=== PATIENT | male | born 1935 | race Caucasian/White ===

== ENCOUNTER 2016-10-15 07:43 | Day surgery (SDC) | payer MEDICARE, BC ==
[2016-10-12 16:50] VITALS: BMI 19.5
[~2016-10-15 07:43] MED LIST: HYDROmorphone 1 MG/ML 1 ML SYRINGE IVP PRN; LACTATED RINGERS 1,000 ML IV SCH; MIDAZOLAM 2 MG/2 ML VIAL IV PRN; ONDANSETRON 4 MG/2 ML VIAL IVP ONE; ceFAZolin 2 GM in SODIUM CHLORIDE 0.9% 100 ML IVPB ONE
[2016-10-15] MEDS ORDERED: LIDOCAINE 1% 20 ML VIAL (10MG/ML) FOR IV START INTRADERMA ONE (08:31)
[2016-10-15] MEDS ORDERED: PHENYLEPHRINE-0.9% NACL SYG 1 MG/10 ML SYRINGE ONE (08:47)
[2016-10-15] MEDS ORDERED: LIDOCAINE 1% INJ 10MG/ML (20 ML MDV) ONE (08:47)
[2016-10-15] MEDS ORDERED: SUCCINYLCHOLINE CHLORIDE 100 MG/5 ML SYR IV ONE (08:47)
[2016-10-15] MEDS ORDERED: ePHEDrine 50 MG/ML 1 ML AMP ONE (08:47)
[2016-10-15] MEDS ORDERED: PROPOFOL 10 MG/ML 20 ML VIAL IV ONE (08:47)
[2016-10-15] MEDS ORDERED: LACTATED RINGERS 1,000 ML IV ONE (10:21)
[2016-10-15 10:33] VITALS: TEMP 97.8
[2016-10-15 10:45] VITALS: RESP 16
--- NOTE | 2016-10-15 10:57 | P.OP ---
Date of Procedure: 10/15/16 Preoperative Diagnosis: Bladder Calculi Postoperative Diagnosis: Same Procedure(s) Performed: Cystoscopy with Cystolithotripsy Anesthesia: JOSR Surgeon: Pedro Whitman Estimated Blood Loss (ml): 5 IV fluids (ml): 850 Pathology: none sent Condition: stable Disposition: PACU Indications for Procedure: He is an 81-year-old male who underwent removal of a bladder calculus in September 2010, followed by laser vaporization of the prostate in March 2011. He has been treated for a presistent MRSA UTI. His symptoms improved but recurred when the antibiotics were completed. A CT scan of the abdomen and pelvis showed multiple bladder calculi, confirmed by cystoscopy. He now comes for cystolithotripsy. Operative Findings: 1) Several intra-prostatic calculi. 2) Multiple bladder calculi. Description of Procedure: The patient was taken to the operating room and placed in the dorsal lithotomy position, with legs supported in Dima stirrups. The external genitalia was prepped and draped sterilely. The 30 lens was used to introduce the 19-Russian Stortz cystoscopic sheath through the urethra and into the bladder under direct vision. The urethra appeared normal. The prostate showed evidence of prior resection. Several calculi were embedded within the prostate. The bladder was examined in its entirety. The ureteral orifices appeared normal. Multiple diverticuli were noted. Several calculi were seen. No tumors were seen. Using the 550 micron Holmium laser probe, lithotripsy was performed. Initially , all of the antrum prostatic calculi were fragmented and removed from the prostatic urethra. It should be noted that the caliber of the vesical neck was approximately 20-Russian. Lithotripsy was then performed on the bladder calculi , and was continued until all calculus fragments could be removed using the Locai evacuator. Once this was completed, the bladder was inspected. There was no active bleeding, and no evidence of bladder perforation. An 18-Russian Marie catheter was placed. The return was clear. The patient tolerated the procedure well was taken to the recovery room in stable condition.
[2016-10-15 11:10] LABS: Anisocytosis Slight; CH 37.2; CHCM 30.6; HCT 34.8 % (39.0-53.0); HDW 2.81; HGB 10.5 gm/dL (13.0-17.5); Hypochromasia Moderate; MCHC 30.2 g/dL (31.0-37.0); MCV 122.2 fL (80.0-100.0); Macrocytosis Marked; Mean Platelet Volume 12.2; RBC 2.85 m/uL (4.30-5.90); RDW 17.8 % (11.5-15.5); WBC 11.6 k/uL (3.8-10.6)
[2016-10-15 12:31] VITALS: BP 176/79; PULSE 48
== END 2016-10-15 12:45 | disposition home or self-care (01) ==
LOC: OR 07:43
PROVIDERS: ATTEND Urology
DX: N21.0 Calculus in bladder (principal); N42.0 Calculus of prostate; I10 Essential (primary) hypertension; I48.91 Unspecified atrial fibrillation; I25.2 Old myocardial infarction; Z87.891 Personal history of nicotine dependence; E78.5 Hyperlipidemia, unspecified; K21.9 Gastro-esophageal reflux disease without esophagitis; N40.0 Benign prostatic hyperplasia without lower urinary tract symptoms; Z79.82 Long term (current) use of aspirin; Z79.899 Other long term (current) drug therapy; Z88.1 Allergy status to other antibiotic agents; Z88.8 Allergy status to other drugs, medicaments and biological substances
CPT/HCPCS: 85027; 52317; J0690; J2405; J2001; J2370; J0330; J2704; 82365

== ENCOUNTER 2017-03-23 12:57 | Inpatient (IN) | payer MEDICARE, BC ==
[2017-03-23] MEDS ORDERED: IBUPROFEN 600 MG TAB PO STA (12:59)
[2017-03-23] MEDS ORDERED: ACETAMINOPHEN TAB 500 MG TAB PO STA (12:59)
[2017-03-23] MEDS ORDERED: IPRATROPIUM-ALBUTEROL 3 ML NEB INHALATION STA (13:03)
--- NOTE | 2017-03-23 13:03 | ED ---
General Adult HPI - General Stated complaint: weakness Time Seen by Provider: 03/23/17 12:57 Source: RN notes reviewed - History of Present Illness Initial comments: This is an 81-year-old male who presents emergency Department complaining of feeling weaker since yesterday. According to the patient he had a white count drawn yesterday and was very elevated and her trying to figure out why this point. Patient states he became very weak today felt the ground hit his head he states he was dazed but never lost consciousness. Patient states the reason he fell he was just unable to keep himself standing secondary to weakness in the legs. Patient denies fever chills. Patient denies any chest pain difficulty breathing or shortness of breath. Patient states he does have cough lately. Patient also complains of some dysuria. Patient denies any frequency or urgency. Patient denies any abdominal pain patient denies nausea vomiting diarrhea. Patient states she does have some lumbar pain chronically but after he fell and hurt a little more today. - Related Data Home Medications Medication Instructions Recorded Confirmed Citalopram Hydrobromide [CeleXA] 20 mg PO DAILY 01/21/15 03/23/17 Loratadine [Claritin] 10 mg PO DAILY PRN 01/21/15 03/23/17 Metoprolol Tartrate 12.5 mg PO BID 01/21/15 03/23/17 Omeprazole [PriLOSEC] 20 mg PO AC-BRKFST PRN 01/21/15 03/23/17 Terazosin [Hytrin] 5 mg PO QA 01/21/15 03/23/17 Aspirin EC [Ecotrin Low Dose] 81 mg PO 02/23/16 03/23/17 Atorvastatin [Lipitor] 80 mg PO HS 02/23/16 03/23/17 Lisinopril [Zestril] 2.5 mg PO DAILY 02/23/16 03/23/17 Temazepam [Restoril] 30 mg PO 02/23/16 03/23/17 Epoetin Jamie [Procrit] 40,000 unit IM TU 05/11/16 03/23/17 Filgrastim [Neupogen] 300 mcg IM TU 05/11/16 03/23/17 Dronabinol [Marinol] 2.5 mg PO 09/20/16 03/23/17 Ondansetron [Zofran] 4 mg PO Q8HR PRN 09/20/16 03/23/17 Hydrocodone/Acetaminophen [[place] 1 tab PO Q6HR PRN 03/23/17 03/23/17 5-325] amLODIPine [Norvasc] 5 mg PO DAILY 03/23/17 03/23/17 Allergies Allergy/AdvReac Type Severity Reaction Status Date / Time ciprofloxacin [From Cipro] Allergy Unknown Verified 03/23/17 13:56 ciprofloxacin HCl Allergy Unknown Verified 03/23/17 13:56 [From Cipro] gatifloxacin [From Tequin] Allergy Unknown Verified 03/23/17 13:56 levofloxacin [From Levaquin] AdvReac joint Verified 03/23/17 13:56 swelling moxifloxacin HCl AdvReac Unknown Verified 03/23/17 13:56 [From Avelox] Review of Systems ROS Statement: Those systems with pertinent positive or pertinent negative responses have been documented in the HPI. ROS Other: All systems not noted in ROS Statement are negative. Past Medical History Past Medical History: Blood Disorder, Cancer, GERD/Reflux, Hearing Disorder / Deafness, Hyperlipidemia, Hypertension, Myocardial Infarction (MO), Prostate Disorder, Rheumatoid Arthritis (RA), Skin Disorder Additional Past Medical History / Comment(s): FREQUENT NAUSEA R/T CHEMO. Arrythmia. Leukemia(MDS) 2001, Skin CA 2009. lt femur fx, lt elbow fx, a[facility]) CHRONIC LOWER BACK PAIN.FELL OUT OF BED LAST NIGHT, BRUISING AND SOME ABRASIONS. Last Myocardial Infarction Date:: unk History of Any Multi-Drug Resistant Organisms: None Reported Past Surgical History: Cardiac Ablation, Heart Catheterization With Stent, Hernia Repair Additional Past Surgical History / Comment(s): Lt thumb amp, umbilical hernia repair, biopsy lt ear/positive for ca recent abd aortic stent for an aneurysm repair on 02/12/16 - had a sm ileus after surg. ORIF intermeduallary hip screw(lt femur), LT ARM., BLADDER STONE SX, BILAT CATARACT SX Past Anesthesia/Blood Transfusion Reactions: Postoperative Nausea & Vomiting ( PONV) Date of Last Stent Placement:: unk Smoking Status: Former smoker - Past Family History Father Family Medical History: Myocardial Infarction (MO) Additional Family Medical History / Comment(s): heart attack Mother Family Medical History: Cancer Additional Family Medical History / Comment(s): throat cancer Sister(s) Family Medical History: Cancer Additional Family Medical History / Comment(s): 2 sisters that have "everything " General Exam - General Exam Comments Initial Comments: GENERAL: Patient is well-developed and well-nourished. Patient is nontoxic and well- hydrated and is in no acute distress. ENT: Neck is soft and supple. No significant lymphadenopathy is noted. Oropharynx is clear. Moist mucous membranes. Neck has full range of motion without eliciting any pain. EYES: The sclera were anicteric and conjunctiva were pink and moist. Extraocular movements were intact and pupils were equal round and reactive to light. Eyelids were unremarkable. PULMONARY: Unlabored respirations. Good breath sounds bilaterally. Patient has crackles and expiratory wheezing in both bases CARDIOVASCULAR: There is a regular rate and rhythm without any murmurs gallops or rubs. ABDOMEN: Soft and nontender with normal bowel sounds. No palpable organomegaly was noted. There is no palpable pulsatile mass. SKIN: Skin is clear with no lesions or rashes and otherwise unremarkable. NEUROLOGIC: Patient is alert and oriented x3. Cranial nerves II through XII are grossly intact. Motor and sensory are also intact. Normal speech, volume and content. Symmetrical smile. MUSCULOSKELETAL: Normal extremities with adequate strength and full range of motion. No lower extremity swelling or edema. No calf tenderness. LYMPHATICS: No significant lymphadenopathy is noted PSYCHIATRIC: Normal psychiatric evaluation. Normal interpersonal interactions appears functionally intact in deals appropriately with others. No signs of depression. No signs of anxiety. No delusions. No hallucinations. Course Vital Signs 03/23/17 03/23/17 03/23/17 12:59 13:10 13:18 Temperature 100.7 F H Pulse Rate 95 82 80 Respiratory 22 Rate Blood Pressure 138/62 O2 Sat by Pulse 90 L Oximetry 03/23/17 15:00 Temperature Pulse Rate 73 Respiratory 20 Rate Blood Pressure 118/56 O2 Sat by Pulse 98 Oximetry Medical Decision Making - Medical Decision Making EKG shows a sinus rhythm with occasional PAC at a rate of 82 bpm SD interval is 196 QRS is 96 Q-T intervals 400 QTC is 467. H&H EKG shows some T-wave inversions in V5 and V6. Chest x-ray shows a posterior infiltrate. Patient was started on Rocephin immediately upon arrival. I spoke with Dr. Zamora he agreed to admit the patient admitted the patient I wrote admitting orders. I consult Dr. Mckenna as well and I consult oncology. - Lab Data Result diagrams: 03/23/17 14:46 03/23/17 14:46 Lab Results 03/23/17 03/23/17 03/23/17 Range/Units 13:05 13:05 13:05 WBC (3.8-10.6) k/uL RBC (4.30-5.90) m/uL Hgb (13.0-17.5) gm/dL Hct (39.0-53.0) % MCV (80.0-100.0) fL MCH (25.0-35.0) pg MCHC (31.0-37.0) g/dL RDW (11.5-15.5) % Plt Count (150-450) k/uL Neutrophils % (Manual) % Band Neutrophils % % Lymphocytes % (Manual) % Monocytes % (Manual) % Metamyelocytes % % Myelocytes % % Blast Cells % Neutrophils # (Manual) (1.3-7.7) k/uL Lymphocytes # (Manual) (1.0-4.8) k/uL Monocytes # (Manual) (0-1.0) k/uL Nucleated RBCs (0-0) /100 WBC Manual Slide Review Hypochromasia Anisocytosis Macrocytosis Spherocytes Fragmented RBCs PT (9.0-12.0) sec INR (<1.1) APTT (22.0-30.0) sec Sodium 143 (137-145) mmol/L Potassium 2.1 L* (3.5-5.1) mmol/L Chloride 124 H* (98-107) mmol/L Carbon Dioxide 11 L (22-30) mmol/L Anion Gap 8 mmol/L BUN 27 H (9-20) mg/dL Creatinine 2.02 H (0.66-1.25) mg/dL Est GFR (MDRD) Af Amer 39 (>60 ml/min/1.73 sqM) Est GFR (MDRD) Non-Af 32 (>60 ml/min/1.73 sqM) Glucose 38 L* (74-99) mg/dL POC Glucose (mg/dL) (75-99) mg/dL POC Glu Hydraulic Operator ID Plasma Lactic Acid Van 1.0 (0.7-2.0) mmol/L Calcium 3.8 L* (8.4-10.2) mg/dL Total Bilirubin 0.5 (0.2-1.3) mg/dL AST 14 L (17-59) U/L ALT 16 L (21-72) U/L Alkaline Phosphatase 23 L (38-126) U/L Total Creatine Kinase 108 (55-170) U/L CK-MB (CK-2) 0.6 (0.0-2.4) ng/mL CK-MB (CK-2) Rel Index 0.6 Troponin I 0.028 (0.000-0.034) ng/mL Total Protein 2.9 L (6.3-8.2) g/dL Albumin 1.3 L (3.5-5.0) g/dL Urine Color Urine Appearance (Clear) Urine pH (5.0-8.0) Ur Specific [place] (1.001-1.035) Urine Protein (Negative) Urine Glucose (UA) (Negative) Urine Ketones (Negative) Urine Blood (Negative) Urine Nitrite (Negative) Urine Bilirubin (Negative) Urine Urobilinogen (<2.0) mg/dL Ur Leukocyte Esterase (Negative) Urine WBC (0-5) /hpf Ur Squamous Epith Cells (0-4) /hpf Amorphous Sediment (None) /hpf Urine Bacteria (None) /hpf Hyaline Casts (0-2) /lpf 03/23/17 03/23/17 03/23/17 Range/Units 14:32 14:46 14:46 WBC 90.5 H* (3.8-10.6) k/uL RBC 2.25 L (4.30-5.90) m/uL Hgb 8.6 L D (13.0-17.5) gm/dL Hct 26.0 L (39.0-53.0) % MCV 115.7 H (80.0-100.0) fL MCH 38.4 H (25.0-35.0) pg MCHC 33.2 (31.0-37.0) g/dL RDW 17.6 H (11.5-15.5) % Plt Count 37 L* (150-450) k/uL Neutrophils % (Manual) 9.0 % Band Neutrophils % 10.5 % Lymphocytes % (Manual) 1.5 % Monocytes % (Manual) 16.0 % Metamyelocytes % 3.0 % Myelocytes % 0.5 % Blast Cells % 59.5 Neutrophils # (Manual) 17.6 H (1.3-7.7) k/uL Lymphocytes # (Manual) 1.4 (1.0-4.8) k/uL Monocytes # (Manual) 14.5 H (0-1.0) k/uL Nucleated RBCs 0 (0-0) /100 WBC Manual Slide Review Performed Hypochromasia Moderate Anisocytosis Slight Macrocytosis Marked Spherocytes Present Fragmented RBCs Present PT (9.0-12.0) sec INR (<1.1) APTT (22.0-30.0) sec Sodium (137-145) mmol/L Potassium (3.5-5.1) mmol/L Chloride (98-107) mmol/L Carbon Dioxide (22-30) mmol/L Anion Gap mmol/L BUN (9-20) mg/dL Creatinine (0.66-1.25) mg/dL Est GFR (MDRD) Af Amer (>60 ml/min/1.73 sqM) Est GFR (MDRD) Non-Af (>60 ml/min/1.73 sqM) Glucose (74-99) mg/dL POC Glucose (mg/dL) 77 (75-99) mg/dL POC Glu Hydraulic Operator ID Dana Jordan Plasma Lactic Acid Van 1.8 (0.7-2.0) mmol/L Calcium (8.4-10.2) mg/dL Total Bilirubin (0.2-1.3) mg/dL AST (17-59) U/L ALT (21-72) U/L Alkaline Phosphatase (38-126) U/L Total Creatine Kinase (55-170) U/L CK-MB (CK-2) (0.0-2.4) ng/mL CK-MB (CK-2) Rel Index Troponin I (0.000-0.034) ng/mL Total Protein (6.3-8.2) g/dL Albumin (3.5-5.0) g/dL Urine Color Urine Appearance (Clear) Urine pH (5.0-8.0) Ur Specific [place] (1.001-1.035) Urine Protein (Negative) Urine Glucose (UA) (Negative) Urine Ketones (Negative) Urine Blood (Negative) Urine Nitrite (Negative) Urine Bilirubin (Negative) Urine Urobilinogen (<2.0) mg/dL Ur Leukocyte Esterase (Negative) Urine WBC (0-5) /hpf Ur Squamous Epith Cells (0-4) /hpf Amorphous Sediment (None) /hpf Urine Bacteria (None) /hpf Hyaline Casts (0-2) /lpf 03/23/17 03/23/17 03/23/17 Range/Units 14:46 14:46 14:46 WBC (3.8-10.6) k/uL RBC (4.30-5.90) m/uL Hgb (13.0-17.5) gm/dL Hct (39.0-53.0) % MCV (80.0-100.0) fL MCH (25.0-35.0) pg MCHC (31.0-37.0) g/dL RDW (11.5-15.5) % Plt Count (150-450) k/uL Neutrophils % (Manual) % Band Neutrophils % % Lymphocytes % (Manual) % Monocytes % (Manual) % Metamyelocytes % % Myelocytes % % Blast Cells % Neutrophils # (Manual) (1.3-7.7) k/uL Lymphocytes # (Manual) (1.0-4.8) k/uL Monocytes # (Manual) (0-1.0) k/uL Nucleated RBCs (0-0) /100 WBC Manual Slide Review Hypochromasia Anisocytosis Macrocytosis Spherocytes Fragmented RBCs PT 17.2 H (9.0-12.0) sec INR 1.8 (<1.1) APTT 34.6 H (22.0-30.0) sec Sodium 136 L (137-145) mmol/L Potassium 4.3 (3.5-5.1) mmol/L Chloride 104 (98-107) mmol/L Carbon Dioxide 16 L (22-30) mmol/L Anion Gap 16 mmol/L BUN 48 H (9-20) mg/dL Creatinine 4.17 H (0.66-1.25) mg/dL Est GFR (MDRD) Af Amer 17 (>60 ml/min/1.73 sqM) Est GFR (MDRD) Non-Af 14 (>60 ml/min/1.73 sqM) Glucose 70 L (74-99) mg/dL POC Glucose (mg/dL) (75-99) mg/dL POC Glu Hydraulic Operator ID Plasma Lactic Acid Van (0.7-2.0) mmol/L Calcium 7.9 L (8.4-10.2) mg/dL Total Bilirubin 1.1 (0.2-1.3) mg/dL AST 34 (17-59) U/L ALT 13 L (21-72) U/L Alkaline Phosphatase 58 (38-126) U/L Total Creatine Kinase 205 H (55-170) U/L CK-MB (CK-2) 1.5 (0.0-2.4) ng/mL CK-MB (CK-2) Rel Index 0.7 Troponin I 0.058 H* (0.000-0.034) ng/mL Total Protein 5.9 L (6.3-8.2) g/dL Albumin 3.3 L (3.5-5.0) g/dL Urine Color Urine Appearance (Clear) Urine pH (5.0-8.0) Ur Specific [place] (1.001-1.035) Urine Protein (Negative) Urine Glucose (UA) (Negative) Urine Ketones (Negative) Urine Blood (Negative) Urine Nitrite (Negative) Urine Bilirubin (Negative) Urine Urobilinogen (<2.0) mg/dL Ur Leukocyte Esterase (Negative) Urine WBC (0-5) /hpf Ur Squamous Epith Cells (0-4) /hpf Amorphous Sediment (None) /hpf Urine Bacteria (None) /hpf Hyaline Casts (0-2) /lpf 03/23/17 Range/Units 15:27 WBC (3.8-10.6) k/uL RBC (4.30-5.90) m/uL Hgb (13.0-17.5) gm/dL Hct (39.0-53.0) % MCV (80.0-100.0) fL MCH (25.0-35.0) pg MCHC (31.0-37.0) g/dL RDW (11.5-15.5) % Plt Count (150-450) k/uL Neutrophils % (Manual) % Band Neutrophils % % Lymphocytes % (Manual) % Monocytes % (Manual) % Metamyelocytes % % Myelocytes % % Blast Cells % Neutrophils # (Manual) (1.3-7.7) k/uL Lymphocytes # (Manual) (1.0-4.8) k/uL Monocytes # (Manual) (0-1.0) k/uL Nucleated RBCs (0-0) /100 WBC Manual Slide Review Hypochromasia Anisocytosis Macrocytosis Spherocytes Fragmented RBCs PT (9.0-12.0) sec INR (<1.1) APTT (22.0-30.0) sec Sodium (137-145) mmol/L Potassium (3.5-5.1) mmol/L Chloride (98-107) mmol/L Carbon Dioxide (22-30) mmol/L Anion Gap mmol/L BUN (9-20) mg/dL Creatinine (0.66-1.25) mg/dL Est GFR (MDRD) Af Amer (>60 ml/min/1.73 sqM) Est GFR (MDRD) Non-Af (>60 ml/min/1.73 sqM) Glucose (74-99) mg/dL POC Glucose (mg/dL) (75-99) mg/dL POC Glu Hydraulic Operator ID Plasma Lactic Acid Van (0.7-2.0) mmol/L Calcium (8.4-10.2) mg/dL Total Bilirubin (0.2-1.3) mg/dL AST (17-59) U/L ALT (21-72) U/L Alkaline Phosphatase (38-126) U/L Total Creatine Kinase (55-170) U/L CK-MB (CK-2) (0.0-2.4) ng/mL CK-MB (CK-2) Rel Index Troponin I (0.000-0.034) ng/mL Total Protein (6.3-8.2) g/dL Albumin (3.5-5.0) g/dL Urine Color Yellow Urine Appearance Turbid (Clear) Urine pH 5.5 (5.0-8.0) Ur Specific [place] 1.012 (1.001-1.035) Urine Protein 2+ H (Negative) Urine Glucose (UA) Negative (Negative) Urine Ketones Negative (Negative) Urine Blood Moderate H (Negative) Urine Nitrite Negative (Negative) Urine Bilirubin Negative (Negative) Urine Urobilinogen <2.0 (<2.0) mg/dL Ur Leukocyte Esterase Negative (Negative) Urine WBC 8 H (0-5) /hpf Ur Squamous Epith Cells 1 (0-4) /hpf Amorphous Sediment Moderate H (None) /hpf Urine Bacteria Rare H (None) /hpf Hyaline Casts 13 H (0-2) /lpf Disposition Clinical Impression: Pneumonia, Leukocytosis, Anemia, Acute renal failure Disposition: ADMITTED IP TO THIS HOSP Referrals: None,Stated [REFERRING] - 1-2 days Time of Disposition: 16:02
[2017-03-23] MEDS: SODIUM CHLORIDE 0.9% 500 ML IV SCH (13:11)
[2017-03-23 13:57] LABS: Total Bilirubin 0.5 mg/dL (0.2-1.3); Total Protein 2.9 g/dL (6.3-8.2)
[2017-03-23 14:06] LABS: Potassium 2.1 mmol/L (3.5-5.1)
--- NOTE | 2017-03-23 14:06 | CT ---
EXAMINATION TYPE: CT brain wo con DATE OF EXAM: 03/23/2017 HISTORY: Fall injury with headache. CT DLP: 1153 mGycm. Automated Exposure Control for Dose Reduction was Utilized. TECHNIQUE: CT scan of the head is performed without contrast. COMPARISON: CT brain May 11, 2016. FINDINGS: There is no acute intracranial hemorrhage or midline shift identified. There is diffuse v entricular and sulcal prominence consistent with diffuse age-related cerebral atrophy. There is low- attenuation in the periventricular white matter consistent with chronic small vessel ischemic change. The globes are intact and the visualized sinuses are clear. The calvarium is intact. Patchy soft tissue density bilateral external auditory canals is felt to reflect cerumen. IMPRESSION: No acute intracranial hemorrhage or midline shift. There is mild diffuse age-related ce rebral atrophy and chronic small vessel ischemic change redemonstrated without significant interval don dobbs.
[2017-03-23 14:07] LABS: Calcium 3.8 mg/dL (8.4-10.2)
[2017-03-23 14:25] LABS: Creatine Kinase MB 0.6 ng/mL (0.0-2.4); Troponin I 0.028 ng/mL (0.000-0.034)
[2017-03-23 14:35] LABS: Glucose,Whole Blood 77 mg/dL (75-99)
--- NOTE | 2017-03-23 14:42 | XR ---
EXAMINATION TYPE: XR chest 2V DATE OF EXAM: 03/23/2017 COMPARISON: Chest x-ray January 23, 2015 HISTORY: Shortness of breath and fever. TECHNIQUE: Frontal and lateral views of the chest are obtained. FINDINGS: The osseous structures are demineralized. Cardiomegaly with ectatic thoracic aorta is pres ent. There is chronic emphysematous change with small right pleural effusion or pleural thickening re demonstrated. Increased opacities bilaterally are now identified suggesting developing edema and/or i nfiltrates. No pneumothorax is present bilaterally. IMPRESSION: Chronic changes and cardiomegaly with persistent small right pleural effusion with devel oping central bilateral edema and/or infiltrates noted.
--- NOTE | 2017-03-23 14:48 | XR ---
EXAMINATION TYPE: XR lumbar spine 2 or 3V DATE OF EXAM: 03/23/2017 COMPARISON: 07/07/2015 HISTORY: Pain lower back TECHNIQUE: Three-view lumbar spine FINDINGS: No acute changes are degenerative disc vertebral body heights are preserved. Some endplate changes of L2 are chronic. Spondylosis is present. There is interval placement of a aortic stent. If there is clinical concern for endovascular leak, co ntrast CTA could be performed. IMPRESSION: 1. No acute osseous abnormality. 2. Degenerative disc changes and endplate changes, chronic from July 2015.
[2017-03-23 15:08] LABS: INR 1.8 (<1.1); Partial Thromboplastin Time 34.6 sec (22.0-30.0); Prothrombin Time 17.2 sec (9.0-12.0)
[2017-03-23 15:13] LABS: Anisocytosis Slight; Aty Lym Flag Marked; CH 35.3; CHCM 30.6; HDW 2.74; Hypochromasia Moderate; Immature Gran Flag Marked; Large Platelets Flag Moderate; MCH 38.4 pg (25.0-35.0); MCHC 33.2 g/dL (31.0-37.0); MCV 115.7 fL (80.0-100.0); Macrocytosis Marked; Mean Platelet Volume 12.7; RBC 2.25 m/uL (4.30-5.90); RDW 17.6 % (11.5-15.5); WBC (Perox) 86.23
[2017-03-23 15:15] LABS: WBC 90.5 k/uL (3.8-10.6)
[2017-03-23 15:16] LABS: HGB 8.6 gm/dL (13.0-17.5)
[2017-03-23 15:18] LABS: Calcium 7.9 mg/dL (8.4-10.2); Potassium 4.3 mmol/L (3.5-5.1); Total Bilirubin 1.1 mg/dL (0.2-1.3); Total Protein 5.9 g/dL (6.3-8.2)
[2017-03-23 15:29] LABS: Add Differential Manual Differential
[2017-03-23 15:34] LABS: Band Neutrophils % 10.5 %; Blast Cells 59.5; Myelocytes % 0.5 %; Nucleated Red Blood Cells 0 /100 WBC (0-0); Total Cells Counted 200
[2017-03-23 15:35] LABS: Manual Review Performed; Spherocytes Present
[2017-03-23 15:38] LABS: Creatine Kinase MB 1.5 ng/mL (0.0-2.4)
[2017-03-23 15:38] LABS: Amorphous Sediment,Urine Moderate /hpf; Appearance,Urine Turbid (Clear); Bacteria,Urine Rare /hpf; Bilirubin,Urine Negative (Negative); Glucose,Urine (UA) Negative (Negative); Ketones,Urine Negative (Negative); Leukocyte Esterase,Urine Negative (Negative); Nitrite,Urine Negative (Negative); PH, Urine 5.5 (5.0-8.0); Particle Count 38044; Protein,Urine 2+ (Negative); Specific Gravity,Urine 1.012 (1.001-1.035); Squamous Epithelial Cell,Urine 1 /hpf (0-4); UA Billing (MACRO vs. MICRO) MICRO; Urobilinogen,Urine <2.0 mg/dL (<2.0); WBC,Urine 8 /hpf (0-5)
[2017-03-23 15:40] LABS: Troponin I 0.058 ng/mL (0.000-0.034)
[2017-03-23] MEDS ORDERED: PNEUMONIA PROTOCOL UTILIZED 1 EACH MISC PO PRN (16:04)
[2017-03-23] MEDS: AZITHROMYCIN 500 MG TAB PO SCH (18:17)
[2017-03-23] MEDS ORDERED: LORATADINE 10 MG TAB PO PRN (21:30)
[2017-03-23] MEDS ORDERED: PANTOPRAZOLE 40 MG TABLET PO PRN (21:30)
[2017-03-23] MEDS: ATORVASTATIN 80 MG TAB PO SCH (22:36)
[2017-03-23] MEDS: METOPROLOL TARTRATE 12.5 MG TAB PO SCH (22:37)
[2017-03-23] MEDS: POLYETHYLENE GLYCOL 3350 17 GM POWD.PACK PO SCH (22:37)
[2017-03-24] MEDS: DRONABINOL 2.5 MG CAP PO SCH ×2 (00:20→21:07)
[2017-03-24] MEDS: ONDANSETRON 4 MG TAB PO PRN (00:34)
[2017-03-24] MEDS: TEMAZEPAM 30 MG CAP PO SCH (04:16)
[2017-03-24] MEDS: SODIUM CHLORIDE 0.9% 1,000 ML IV SCH ×2 (04:16→12:33)
[2017-03-24] MEDS ORDERED: LIDOCAINE 1% INJ 10MG/ML (20 ML MDV) ONE (07:36)
[2017-03-24] MEDS ORDERED: PROPOFOL 10 MG/ML 20 ML VIAL IV ONE (07:36)
[2017-03-24] MEDS ORDERED: LISINOPRIL 2.5 MG TAB PO SCH (09:00)
--- NOTE | 2017-03-24 09:54 | HP ---
DATE OF ADMISSION: 03/23/2017. CHIEF COMPLAINT: Weakness as well as pneumonia. HISTORY OF PRESENT ILLNESS: This 81-year-old gentleman with a past medical history of multiple medical issues including history of coronary artery disease, history of gastroesophageal reflux disease, history of hypertension, history of hyperlipidemia, history of rheumatoid arthritis, history of cardiac ablation, coronary artery disease, stent being followed by Dr. Vieira as well as [facility] [place] with Dr. Melo was complaining of generalized tiredness and weakness. The patient had multiple falls. The patient had bruise on the right elbow, and as well as right side of the hip area. The patient came to [facility] and was admitted for further evaluation and treatment. Chest x-ray showed possible pneumonia. White count is significantly elevated and the possibility of leukemic transformation is a concern. Dr. Gleason has also seen the patient previously. There is no history of any rigors or chills. No history of headache, loss of consciousness, seizures. PAST MEDICAL HISTORY: History of myelodysplasia, coronary artery disease and stent, hypertension, myocardial infarction, history of skin cancer, History of degenerative joint disease. Home medications are: 1. Norvasc 5 mg p.o. daily. 2. [place] 5 mg q.6h p.r.n. 3. Procrit 40,000 IM Tuesday. 4. Ecotrin 81 mg. 5. Claritin 10 mg daily. 6. Zestril 2.5 mg. 7. Neupogen 300 mg IM Tuesday. 8. Marinol 2.5 mg q.6h. 9. Celexa 20 mg p.o. daily. 10. Lipitor 80 mg. 11. Hytrin 5 mg in the morning. 12. Restoril 30 mg q.h.s. 13. Zofran 4 mg q.8 p.r.n. 14. Prilosec 20 mg a.c. breakfast. 15. Metoprolol 12.5 mg b.i.d. ALLERGIES: CIPRO, GATIFLOXACIN, LEVOFLOXACIN AND MOXIFLOXACIN. FAMILY HISTORY: History of myocardial infarction, heart attack in the family. SOCIAL HISTORY: Previous history of smoking, occasional alcohol intake. REVIEW OF SYSTEMS: ENT: Diminishing hearing. Diminished vision. CARDIOVASCULAR: As mentioned earlier. RESPIRATORY: As mentioned earlier. GI: No nausea or vomiting. : No dysuria. Nervous system: As mentioned earlier. ALLERGY/IMMUNOLOGY: No asthma or hayfever. MUSCULOSKELETAL: As mentioned earlier. HEMATOLOGY/ONCOLOGY: No history of anemia. ENDOCRINE: No history of diabetes, hypothyroidism. CONSTITUTIONAL: As mentioned earlier. DERMATOLOGY: As mentioned earlier. RHEUMATOLOGY: Negative. PSYCHIATRY: As mentioned earlier. PHYSICAL EXAMINATION: Alert and oriented x3. Pulse is 70, blood pressure 87/53 improved to 120/82. Respiratory rate 18, temperature 96.9. Pulse ox 92% on 2 liters. HEENT: Conjunctivae normal. NECK: No jugular venous distention. CARDIOVASCULAR: S1, S2 muffled. RESPIRATORY: Breath sounds diminished at the bases. A few scattered rhonchi, no crackles. ABDOMEN: Soft, nontender. No mass palpable. Legs: No edema. No swelling. CENTRAL NERVOUS SYSTEM: Higher functions as mentioned earlier. Moves all four limbs. Mild diffuse weakness. LYMPHATICS: No lymph nodes palpable in the neck, axillae or groin. SKIN: A bruise is present, right elbow and right side of the body. Lab investigation at this time shows WBC 19.5, hemoglobin 8.6 platelets are 37, INR 1.8 and potassium is 2.1, improved to 4.3, calcium 7.9, and troponin 0.058. UA shows 8 WBCs. ASSESSMENT: 1. Weakness, possible pneumonia with sepsis. 2. Elevated WBC, possibly secondary to sepsis or leukomoid reaction or medication induced rule out leukemic transformation. 3. History of myelodysplastic syndrome. 4. Anemia. 5. Macrocytosis. 6. Thrombocytopenia. 7. Coagulopathy, mild. 8. Thrombocytopenia. 9. Increased creatinine with acute renal failure. 10. Troponin 0.05 indeterminate. 11. Possible urinary tract infection. 12. History of coronary artery disease. 13. History of hard of hearing. 14. Hyperlipidemia. 15. Hypertension. 16. Myocardial infarction. 17. History of rheumatoid arthritis. 18. History of MDS. 19. History of degenerative joint disease. 20. History of coronary artery disease and stent. 21. History of depression, not otherwise specified. 22. Remote history of nicotine dependence. 23. Severe protein calorie malnutrition body mass index 19.5. RECOMMENDATIONS AND DISCUSSION: In this 81-year-old gentleman who presented with multiple complex medical issues, we will monitor the patient closely. Continue the current medications. Continue symptomatic treatment. We will initiate broad-spectrum IV antibiotics. Otherwise resume the home medications. Hold nephrotoxic medications. IV fluids. Nephrology consultation. Dr. Vieira will also be consulted. Guarded prognosis because of multiple complex medical issues. See orders for further details. Further recommendations to follow. MTDD
[2017-03-24] MEDS: TERAZOSIN 5 MG CAP PO SCH (10:09)
[2017-03-24] MEDS: METOPROLOL TARTRATE 12.5 MG TAB PO SCH (10:09)
[2017-03-24] MEDS: CITALOPRAM HYDROBROMIDE 20 MG TAB PO SCH (10:09)
[2017-03-24] MEDS: amLODIPine 5 MG TAB PO SCH (10:09)
[2017-03-24 10:44] VITALS: BMI 19.4
--- NOTE | 2017-03-24 11:41 | P.NPCON ---
History of Present Illness - Reason for Consult acute renal failure - History of Present Illness Reason for consultation: Acute kidney injury History of present illness: Patient is a 81-year-old male seen in a consultation for acute kidney injury. It appears patient does have chronic kidney disease stage III with baseline creatinine near 2. 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 Patient presented to the hospital with generalized weakness. He states he also sustained a fall Tuesday and was down for about 6 hours. Patient believes he had a syncopal episode but is not able to provide accurate history. His CK level was 205 on admission. Creatinine was elevated at 4.17. Patient states he's been having dry heaves and is not tolerating much oral intake. Denies any issues with urination. She did have blood work done as an outpatient and was told to come to the hospital. He had a white count of greater than 90,000. He's being followed by oncology and underwent a bone marrow biopsy this morning. He is noted to be afebrile. His blood pressures were low on admission in the systolic 80s and he did receive about 2 L of IV fluid resuscitation. He is currently maintained on normal saline running at 75 mL an hour. He has a Marie catheter in place and is nonoliguric. In terms of his home medications and to note that he was on lisinopril. He did receive 1 dose of Motrin in the ER. Currently denies any active chest pain or shortness of breath. Vital signs are stable. General: The patient appeared well nourished and normally developed. HEENT: Head exam is unremarkable. Neck is without jugular venous distension. LUNGS: Lungs are clear to auscultation and percussion. Breath sounds decreased. HEART: Rate and Rhythm are regular. First and second heart sounds normal. No murmurs, rubs or gallops. ABDOMEN: Abdominal exam reveals normal bowel sounds. Non-tender and non- distended. No evidence of peritonitis. EXTREMITITES: No clubbing, cyanosis, or edema. Past Medical History Past Medical History: Blood Disorder, Coronary Artery Disease (CAD), Cancer, GERD/Reflux, Hearing Disorder / Deafness, Hyperlipidemia, Hypertension, Myocardial Infarction ([place]), Prostate Disorder, Rheumatoid Arthritis (RA), Skin Disorder Additional Past Medical History / Comment(s): pt is rt side dominant. FREQUENT NAUSEA R/T CHEMO. "Arrythmia" Leukemia(MDS) 2001, Skin CA 2009. lt femur fx, lt elbow fx, aaa([facility]) CHRONIC LOWER BACK PAIN.FELL OUT OF BED LAST NIGHT, BRUISING AND SOME ABRASIONS.constipation, Last Myocardial Infarction Date:: unk History of Any Multi-Drug Resistant Organisms: None Reported Past Surgical History: Cardiac Ablation, Heart Catheterization With Stent, Hernia Repair Additional Past Surgical History / Comment(s): Lt thumb amp, umbilical hernia repair, biopsy lt ear/positive for ca recent abd aortic stent for an aneurysm repair on 02/12/16 - had a sm ileus after surg. ORIF intermeduallary hip screw(lt femur), LT ARM., BLADDER STONE SX, BILAT CATARACT SX Past Anesthesia/Blood Transfusion Reactions: Postoperative Nausea & Vomiting ( PONV) Date of Last Stent Placement:: unk Smoking Status: Former smoker - Past Family History Father Family Medical History: Myocardial Infarction ([place]) Additional Family Medical History / Comment(s): heart attack Mother Family Medical History: Cancer Additional Family Medical History / Comment(s): throat cancer Sister(s) Family Medical History: Cancer Additional Family Medical History / Comment(s): 2 sisters that have "everything " Medications and Allergies Home Medications Medication Instructions Recorded Confirmed Type Citalopram Hydrobromide [CeleXA] 20 mg PO DAILY 01/21/15 03/23/17 History Loratadine [Claritin] 10 mg PO DAILY PRN 01/21/15 03/23/17 History Metoprolol Tartrate 12.5 mg PO BID 01/21/15 03/23/17 History Omeprazole [PriLOSEC] 20 mg PO AC-BRKFST PRN 01/21/15 03/23/17 History Terazosin [Hytrin] 5 mg PO QAM 01/21/15 03/23/17 History Aspirin EC [Ecotrin Low Dose] 81 mg PO HS 02/23/16 03/23/17 History Atorvastatin [Lipitor] 80 mg PO HS 02/23/16 03/23/17 History Lisinopril [Zestril] 2.5 mg PO DAILY 02/23/16 03/23/17 History Temazepam [Restoril] 30 mg PO HS 02/23/16 03/23/17 History Epoetin Jamie [Procrit] 40,000 unit IM TU 05/11/16 03/23/17 History Filgrastim [Neupogen] 300 mcg IM TU 05/11/16 03/23/17 History Dronabinol [Marinol] 2.5 mg PO HS 09/20/16 03/23/17 History Ondansetron [Zofran] 4 mg PO Q8HR PRN 09/20/16 03/23/17 History Hydrocodone/Acetaminophen [[place] 1 tab PO Q6HR PRN 03/23/17 03/23/17 History 5-325] amLODIPine [Norvasc] 5 mg PO DAILY 03/23/17 03/23/17 History Allergies Allergy/AdvReac Type Severity Reaction Status Date / Time ciprofloxacin [From Cipro] Allergy Unknown Verified 03/23/17 13:56 ciprofloxacin HCl Allergy Unknown Verified 03/23/17 13:56 [From Cipro] gatifloxacin [From Tequin] Allergy Unknown Verified 03/23/17 13:56 levofloxacin [From Levaquin] AdvReac joint Verified 03/23/17 13:56 swelling moxifloxacin HCl AdvReac Unknown Verified 03/23/17 13:56 [From Avelox] Physical Exam Vitals: Vital Signs Temp Pulse Pulse Pulse Resp BP BP 03/24/17 08:00 98.3 F 76 03/24/17 04:05 98.4 F 86 18 03/24/17 00:05 97.6 F 75 18 03/23/17 20:27 96.9 F L 70 18 03/23/17 17:45 97.8 F 72 16 87/53 03/23/17 17:00 98.9 F 72 20 119/57 03/23/17 16:00 98.8 F 72 18 126/59 03/23/17 15:00 73 20 118/56 03/23/17 13:18 80 03/23/17 13:10 82 03/23/17 12:59 100.7 F H 95 22 138/62 BP Pulse Ox 03/24/17 08:00 110/53 96 03/24/17 04:05 126/58 94 L 03/24/17 00:05 127/60 97 03/23/17 20:27 122/82 95 03/23/17 17:45 122/58 97 03/23/17 17:00 97 03/23/17 16:00 95 03/23/17 15:00 98 03/23/17 13:18 03/23/17 13:10 03/23/17 12:59 90 L Intake and Output 03/23/17 03/24/17 03/24/17 22:59 06:59 14:59 Intake Total 100 75 Output Total 125 250 Balance -25 -250 75 Intake: Intake, IV Titration 75 Amount Sodium Chloride 0.9% 1, 75 000 ml @ 75 mls/hr IV . [id number] [facility] Rx#:[id number] Oral 100 Output: Urine 125 250 Uretheral (Marie) 125 Other: Voiding Method Indwelling Catheter Indwelling Catheter Indwelling Catheter Weight 63.3 kg 63.3 kg Patient Weight 03/25/17 06:59 Weight 63.3 kg Results - Lab Results Most recent lab results Calcium 7.9 mg/dL (8.4-10.2) L 03/23/17 14:46 03/23/17 14:46 03/23/17 14:46 Assessment and Plan Plan: Assessment: #1. Nonoliguric acute kidney injury mostly prerenal in nature secondary to hypotension and poor oral intake. Creatinine 4.17 on admission. #2. Elevated white count with anemia and thrombocytopenia. Patient underwent a bone marrow biopsy this morning. #3. History of bladder calculi status post cystolithotripsy in October 2016. #4. Metabolic acidosis secondary to acute kidney injury. #5. Chronic kidney disease stage IIIB with baseline creatinine near 2. Etiology is likely nephrosclerosis. Will repeat UA was GFR returns to baseline. Plan: Continue normal saline to be run at 75 mL an hour. Start oral sodium bicarbonate supplementation 1300 mg twice daily. Check iron studies. Check renal ultrasound. Avoid nephrotoxic agents and hypotensive episodes. Repeat electrolytes in the morning. Thank you for the consultation. I will continue to follow the patient with you during his hospital stay.
--- NOTE | 2017-03-24 13:05 | P.CONS ---
History of Present Illness - Reason for Consult Consult date: 03/24/17 leuckocytosis, fever, DU, MDS - History of Present Illness The pt is an 81 yr old WM , well known to our service. He follows with Dr Hewitt in the outpt setting. He was diagnosed with MDS with 6 % blasts in 2003. He has been overall stable with supportive treatment with growth factors ( GAGAN and neupogen since). CBC was stable in his usual range in 02/16. Labs earlier this month revealed an acute marked increase in his WBC. He was started on Hydrea, with bone marrow scheduled for today. He came to the ER on 03/22/17 c/ o fever, dry heaves with poor PO intake, and progressive weakness. CBC revealed a WBC of 90.5, with predominance of blasts. Cr was increased into the 4 range from his baseline of 2. Tmax in the ER was 100.7. CXR revealed possible developing vascular congestion, with an area overlying the spine more suspicious for pneumonia. He was thus admitted for further management. The pt denies any cough or hemoptysis. Review of Systems Constitutional: Reports fever, Reports poor appetite, Reports weakness Eyes: denies blurred vision, denies pain Ears: deny: decreased hearing, ear discharge, earache, tinnitus Ears, nose, mouth and throat: Denies headache, Denies sore throat Cardiovascular: Reports shortness of breath Respiratory: Reports dyspnea Gastrointestinal: Reports as per HPI, Reports loss of appetite, Reports nausea Genitourinary: Reports as per HPI Musculoskeletal: Reports low back pain, Reports muscle weakness Integumentary: Denies pruritus, Denies rash Neurological: Reports weakness Psychiatric: Denies anxiety, Denies depression Endocrine: Reports fatigue, Reports weight change Hematologic/Lymphatic: Reports as per HPI Past Medical History Past Medical History: Blood Disorder, Coronary Artery Disease (CAD), Cancer, GERD/Reflux, Hearing Disorder / Deafness, Hyperlipidemia, Hypertension, Myocardial Infarction ([place]), Prostate Disorder, Rheumatoid Arthritis (RA), Skin Disorder Additional Past Medical History / Comment(s): pt is rt side dominant. FREQUENT NAUSEA R/T CHEMO. "Arrythmia" Leukemia(MDS) 2001, Skin CA 2009. lt femur fx, lt elbow fx, aaa([facility] sx [facility]) CHRONIC LOWER BACK PAIN.FELL OUT OF BED LAST NIGHT, BRUISING AND SOME ABRASIONS.constipation, Last Myocardial Infarction Date:: unk History of Any Multi-Drug Resistant Organisms: None Reported Past Surgical History: Cardiac Ablation, Heart Catheterization With Stent, Hernia Repair Additional Past Surgical History / Comment(s): Lt thumb amp, umbilical hernia repair, biopsy lt ear/positive for ca recent abd aortic stent for an aneurysm repair on 02/12/16 - had a sm ileus after surg. ORIF intermeduallary hip screw(lt femur), LT ARM., BLADDER STONE SX, BILAT CATARACT SX Past Anesthesia/Blood Transfusion Reactions: Postoperative Nausea & Vomiting ( PONV) Date of Last Stent Placement:: unk Smoking Status: Former smoker - Past Family History Father Family Medical History: Myocardial Infarction ([place]) Additional Family Medical History / Comment(s): heart attack Mother Family Medical History: Cancer Additional Family Medical History / Comment(s): throat cancer Sister(s) Family Medical History: Cancer Additional Family Medical History / Comment(s): 2 sisters that have "everything " Medications and Allergies Home Medications Medication Instructions Recorded Confirmed Type Citalopram Hydrobromide [CeleXA] 20 mg PO DAILY 01/21/15 03/23/17 History Loratadine [Claritin] 10 mg PO DAILY PRN 01/21/15 03/23/17 History Metoprolol Tartrate 12.5 mg PO BID 01/21/15 03/23/17 History Omeprazole [PriLOSEC] 20 mg PO AC-BRKFST PRN 01/21/15 03/23/17 History Terazosin [Hytrin] 5 mg PO QAM 01/21/15 03/23/17 History Aspirin EC [Ecotrin Low Dose] 81 mg PO HS 02/23/16 03/23/17 History Atorvastatin [Lipitor] 80 mg PO HS 02/23/16 03/23/17 History Lisinopril [Zestril] 2.5 mg PO DAILY 02/23/16 03/23/17 History Temazepam [Restoril] 30 mg PO HS 02/23/16 03/23/17 History Epoetin Jamie [Procrit] 40,000 unit IM TU 05/11/16 03/23/17 History Filgrastim [Neupogen] 300 mcg IM TU 05/11/16 03/23/17 History Dronabinol [Marinol] 2.5 mg PO HS 09/20/16 03/23/17 History Ondansetron [Zofran] 4 mg PO Q8HR PRN 09/20/16 03/23/17 History Hydrocodone/Acetaminophen [[place] 1 tab PO Q6HR PRN 03/23/17 03/23/17 History 5-325] amLODIPine [Norvasc] 5 mg PO DAILY 03/23/17 03/23/17 History Allergies Allergy/AdvReac Type Severity Reaction Status Date / Time ciprofloxacin [From Cipro] Allergy Unknown Verified 03/23/17 13:56 ciprofloxacin HCl Allergy Unknown Verified 03/23/17 13:56 [From Cipro] gatifloxacin [From Tequin] Allergy Unknown Verified 03/23/17 13:56 levofloxacin [From Levaquin] AdvReac joint Verified 03/23/17 13:56 swelling moxifloxacin HCl AdvReac Unknown Verified 03/23/17 13:56 [From Avelox] Physical Exam Vitals: Vital Signs Temp Pulse Pulse Pulse Resp BP BP 03/24/17 08:00 98.3 F 76 03/24/17 04:05 98.4 F 86 18 03/24/17 00:05 97.6 F 75 18 03/23/17 20:27 96.9 F L 70 18 03/23/17 17:45 97.8 F 72 16 87/53 03/23/17 17:00 98.9 F 72 20 119/57 03/23/17 16:00 98.8 F 72 18 126/59 03/23/17 15:00 73 20 118/56 03/23/17 13:18 80 03/23/17 13:10 82 03/23/17 12:59 100.7 F H 95 22 138/62 BP Pulse Ox 03/24/17 08:00 110/53 96 03/24/17 04:05 126/58 94 L 03/24/17 00:05 127/60 97 03/23/17 20:27 122/82 95 03/23/17 17:45 122/58 97 03/23/17 17:00 97 03/23/17 16:00 95 03/23/17 15:00 98 03/23/17 13:18 03/23/17 13:10 03/23/17 12:59 90 L Intake and Output 03/23/17 03/24/17 03/24/17 22:59 06:59 14:59 Intake Total 100 75 Output Total 125 250 Balance -25 -250 75 Intake: Intake, IV Titration 75 Amount Sodium Chloride 0.9% 1, 75 000 ml @ 75 mls/hr IV . [id number] [facility] Rx#:[id number] Oral 100 Output: Urine 125 250 Uretheral (Marie) 125 Other: Voiding Method Indwelling Catheter Indwelling Catheter Indwelling Catheter Weight 63.3 kg 63.3 kg Patient Weight 03/25/17 06:59 Weight 63.3 kg - Constitutional General appearance: mild distress - EENT Eyes: EOMI, PERRLA ENT: hearing grossly normal, normal oropharynx - Neck Neck: no lymphadenopathy - Respiratory Respiratory: bilateral: diminished - Cardiovascular Rhythm: regular Heart sounds: normal: S1, S2 - Gastrointestinal General gastrointestinal: normal bowel sounds, soft - Integumentary Integumentary: normal - Neurologic Neurologic: CNII-XII intact - Musculoskeletal Musculoskeletal: generalized weakness, strength equal bilaterally - Psychiatric Psychiatric: A&O x's 3 Results CBC & Chem 7: 03/23/17 14:46 03/23/17 14:46 Labs: Abnormal Lab Results - Last 24 Hours (Table) 03/23/17 03/23/17 03/23/17 Range/Units 13:05 14:46 14:46 WBC 90.5 H* (3.8-10.6) k/uL RBC 2.25 L (4.30-5.90) m/uL Hgb 8.6 L D (13.0-17.5) gm/dL Hct 26.0 L (39.0-53.0) % MCV 115.7 H (80.0-100.0) fL MCH 38.4 H (25.0-35.0) pg RDW 17.6 H (11.5-15.5) % Plt Count 37 L* (150-450) k/uL Neutrophils # (Manual) 17.6 H (1.3-7.7) k/uL Monocytes # (Manual) 14.5 H (0-1.0) k/uL PT 17.2 H (9.0-12.0) sec APTT 34.6 H (22.0-30.0) sec Sodium (137-145) mmol/L Potassium 2.1 L* (3.5-5.1) mmol/L Chloride 124 H* (98-107) mmol/L Carbon Dioxide 11 L (22-30) mmol/L BUN 27 H (9-20) mg/dL Creatinine 2.02 H (0.66-1.25) mg/dL Glucose 38 L* (74-99) mg/dL Calcium 3.8 L* (8.4-10.2) mg/dL AST 14 L (17-59) U/L ALT 16 L (21-72) U/L Alkaline Phosphatase 23 L (38-126) U/L Total Creatine Kinase (55-170) U/L Troponin I (0.000-0.034) ng/mL Total Protein 2.9 L (6.3-8.2) g/dL Albumin 1.3 L (3.5-5.0) g/dL Urine Protein (Negative) Urine Blood (Negative) Urine WBC (0-5) /hpf Amorphous Sediment (None) /hpf Urine Bacteria (None) /hpf Hyaline Casts (0-2) /lpf 03/23/17 03/23/17 03/23/17 Range/Units 14:46 14:46 15:27 WBC (3.8-10.6) k/uL RBC (4.30-5.90) m/uL Hgb (13.0-17.5) gm/dL Hct (39.0-53.0) % MCV (80.0-100.0) fL MCH (25.0-35.0) pg RDW (11.5-15.5) % Plt Count (150-450) k/uL Neutrophils # (Manual) (1.3-7.7) k/uL Monocytes # (Manual) (0-1.0) k/uL PT (9.0-12.0) sec APTT (22.0-30.0) sec Sodium 136 L (137-145) mmol/L Potassium (3.5-5.1) mmol/L Chloride (98-107) mmol/L Carbon Dioxide 16 L (22-30) mmol/L BUN 48 H (9-20) mg/dL Creatinine 4.17 H (0.66-1.25) mg/dL Glucose 70 L (74-99) mg/dL Calcium 7.9 L (8.4-10.2) mg/dL AST (17-59) U/L ALT 13 L (21-72) U/L Alkaline Phosphatase (38-126) U/L Total Creatine Kinase 205 H (55-170) U/L Troponin I 0.058 H* (0.000-0.034) ng/mL Total Protein 5.9 L (6.3-8.2) g/dL Albumin 3.3 L (3.5-5.0) g/dL Urine Protein 2+ H (Negative) Urine Blood Moderate H (Negative) Urine WBC 8 H (0-5) /hpf Amorphous Sediment Moderate H (None) /hpf Urine Bacteria Rare H (None) /hpf Hyaline Casts 13 H (0-2) /lpf Microbiology - Last 24 Hours (Table) 03/23/17 15:08 Urine Culture - Preliminary Urine,Catheterized Chest x-ray: report reviewed CT Scan - head: report reviewed (CT L spine - report reviewed) Assessment and Plan (1) Leucocytosis Narrative/Plan: Associated with fever as noted. 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 The fever may be due to his bone marrow condition, but infection cannot be ruled out, especially as the pt is likely immunocompromised to some extent. Case d/w the ER physician. It was felt reasonable to w/u for infection and cover with antibiotics. The pt is s/p bone marrow this AM Status: Acute (2) Acute renal failure Narrative/Plan: Pt has been seen by Nephrology. Pre renal azotemia is suspected , and the pt is being hydrated. Tumor lysis is also a possibility given the high blast count. I will add Allopurinol. Follow Cr with hydration Status: Acute (3) Bicytopenia Narrative/Plan: Due to underlying marrow disorder. Currently counts are adequate. Continue to follow Hgb and plt and transfuse if needed Status: Acute (4) Myelodysplasia (myelodysplastic syndrome) Narrative/Plan: The pt has longstanding MDS. Currently transformation to AML is suspected. Continue Hydrea. The pt is s/p bone marrow. Per Dr Hewitt, if AML is confirmed , given poor prognosis ( high WBC, underlying MDS, age and PS) comfort care will likely be recommended Status: Acute
[2017-03-24] MEDS ORDERED: IPRATROPIUM-ALBUTEROL 3 ML NEB INHALATION PRN (14:06)
[2017-03-24 14:38] LABS: % Iron Saturation 70.9 % (20-50)
--- NOTE | 2017-03-24 15:17 | US ---
EXAMINATION TYPE: US kidneys/renal and bladder DATE OF EXAM: 03/24/2017 COMPARISON: CT 09/03/2016 CLINICAL HISTORY: ilene. EXAM MEASUREMENTS: Right Kidney: 10.8 x 4.5 x 5.8 cm Left Kidney: 9.2 x 5.31 x 7.6 cm cm Right Kidney: isoechoic to liver parenchyma, prominence of renal hilum which does not extend into tamiko yces Left Kidney: isoechoic with mild hydronephrosis Bladder: thick walled (1.8 cm) with guerra in place Bilateral Jets seen: no Liver length is mildly echogenic. This may represent medical renal disease. There is mild left-sided hydronephrosis. There is gross bladder wall thickening which was demonstrated on the previous CT scan dated 09/03/2016. IMPRESSION: 1. MILD LEFT-SIDED HYDRONEPHROSIS. 2. ECHOGENICITY OF THE KIDNEY SUGGESTS MEDICAL RENAL DISEASE. 3. CHRONIC BLADDER WALL THICKENING.
--- NOTE | 2017-03-24 15:23 | XR ---
EXAMINATION TYPE: XR chest 2V DATE OF EXAM: 03/24/2017 HISTORY: pneumonia. REFERENCE: Previous study dated 03/23/2017. FINDINGS: The lungs are overinflated. The heart is enlarged. There are chronic parenchymal changes pr esent bilaterally. There is no superimposed pneumonia or edema. Pleural spaces appear clear. IMPRESSION: 1. COPD. 2. CARDIOMEGALY.
--- NOTE | 2017-03-24 17:02 | CONS ---
DATE OF CONSULTATION: An 81-year-old male who is actually my primary patient. The patient has a history of myelodysplastic syndrome. According to his daughter, Mirna, on Tuesday the patient fell and was on the floor for about 6 hours before any help arrived. Apparently his son arrived and was able to pick him up and get him into bed. When his daughter, Mirna, went over to the house yesterday, she decided to call EMS. He had fallen and bruised a number of different body parts and just was not feeling well. Was feeling very weak. He was somewhat dehydrated. He has chronic GI complaints including nausea and vomiting. It has been worked up thoroughly. Cannot come to any decision as to why this is. The patient does have a history of myelodysplastic syndrome being followed by Dr. Hewitt. He gets Neupogen and Procrit injections monthly. The patient also has a history of previous abdominal aneurysm stenting I believe. Anyway, the patient was x-rayed from top to bottom. Did not have any fractured bones. Did see an infiltrate posteriorly on the lateral x-ray. Was not really clearly seen on the PA view. Dr. Hewitt did a bone marrow today thinking that maybe the patient transforming into acute leukemia. Daughter was very tearful. His home medications include Celexa, Claritin, metoprolol, omeprazole, Hytrin, aspirin, Lipitor, Zestril, Restoril, Procrit, Neupogen, Marinol, Zofran, Pender and amlodipine. Allergies include ciprofloxacin, gatifloxacin, levofloxacin, moxifloxacin. Medical history includes myelodysplastic syndrome. He has history of gastroesophageal reflux disease, hearing loss/deafness, hyperlipidemia, hypertension, previous myocardial infarction, rheumatoid arthritis, chronic GI complaints, skin cancer, left femur fracture, left elbow fracture, chronic low back pain. He also has had a number of different procedures including cardiac catheterization, stent placement, hernia repair and cardiac ablation. He also had a portion of left thumb amputated, umbilical hernia repair, biopsy of the left ear for skin cancer, abdominal aortic stent placement for aneurysm, open reduction internal fixation of the hip, left arm surgery and bilateral cataract surgery. Also had some bladder stones. SOCIAL HISTORY: Positive for previous tobacco use. Denies any significant alcohol use or illicit drug use. Family history is positive for myocardial infarction and throat cancer. REVIEW OF SYSTEMS: CONSTITUTIONAL: Weakness. NEUROLOGIC: Negative. HEENT: Negative. CARDIOVASCULAR: Negative. PULMONARY: Cough, chest congestion. GI/: Negative. RHEUMATOLOGICAL/IMMUNOLOGIC: Negative. ENDOCRINOLOGIC: Negative. Current vital signs are reviewed. Temperature is 98.3, heart rate 76, respiratory rate 18, blood pressure 110/53, mean 72, 2 liters saturation 96%, appears in no acute distress. HEENT examination is grossly unremarkable. His bridge is out. Neck is supple. Full range of motion. No adenopathy. Cardiovascular examination reveals regular rhythm and rate. S1, S2 normal. Lungs relatively clear, breath sounds equal. No wheezes or rhonchi. Abdomen is soft. Bowel sounds are heard. Extremities are intact. No cyanosis or clubbing. Very, very minimal edema. Skin without rash. Lots of areas of ecchymoses particularly in his upper extremity. Neurological examination is nonfocal. Chest x-ray has been reviewed. Skeletal x-rays are apparently all negative. Labs revealed a white count of 90.5 reflecting his myelodysplastic syndrome. Hemoglobin 8.6, hematocrit 26, platelet count 37,000. PT 17.2, INR 1.8, PTT 34.6, sodium 136, potassium 4.3, chloride 104, CO2 is 16, BUN and creatinine 48 and 4.17. Yesterday's BUN and creatinine were 27 and 2.02. Plasma lactate is 1.8, calcium 7.9. His troponin 0.058. The rest of his labs look okay. Urine shows evidence of possible mild bladder infection. Medications are reviewed. ASSESSMENT: 1. Rule out leukemic transformation of the patient's chronic myelodysplastic syndrome. 2. Profound leukocytosis. 3. Thrombocytopenia. 4. History of chronic GI complaints. 5. History of gastroesophageal reflux disease. 6. History of deafness. 7. History of benign prostatic hypertrophy. 8. Previous myocardial infarction. 9. History of hypertension. 10. History of hyperlipidemia. 11. History of skin cancer. PLAN: Will follow. No additional recommendations are made. The patient is on good antibiotics. Right now. His chest x-ray does show an infiltrate posteriorly. He is not really having much in the way pulmonary complaints. He was placed on Zithromax and Rocephin for community-acquired pneumonia. That is okay for now. Will keep on following. Prognosis is guarded. Will await bone marrow biopsy, which was done today by Dr. Hewitt. I did speak to the daughter. She is going to be out of town with her son playing tennis. I will keep in touch with either Mirna or her sister Thania.
--- NOTE | 2017-03-24 17:13 | PCN ---
DATE OF PROCEDURE: 03/24/2017 PREOPERATIVE DIAGNOSIS: Myelodysplastic syndrome. POSTOPERATIVE DIAGNOSIS: Myelodysplastic syndrome, rule out transformation into acute myelocytic leukemia. ANESTHESIA: Local with IV systemic sedation. DETAILS: Utilizing a sterile technique, the skin overlying the right iliac crest was prepared with Betadine and alcohol. After adequate sterile draping, systemic sedation and local anesthesia with 1% lidocaine, size 11, 4-inch Jamshidi needle was utilized to access the periosteum with ease. A total of 12 mL of aspirate and crushed 4 mm bone core biopsies were obtained. The patient tolerated the procedure well. There were no immediate procedure-related complications. Total blood loss than one mL. Results pending.
--- NOTE | 2017-03-24 17:18 | P.PN ---
Subjective Date of service 03/24/2017. Personal being dictated for Dr. Zamora. Interval history: This 81-year-old gentleman admitted with weakness, possible pneumonia with sepsis, leukocytosis, and multiple medical issues. Underwent bone marrow biopsy today, tolerated well. Afebrile, telemetry sinus rhythm , congested nonproductive cough. Chest x-ray reporting no superimposed pneumonia or edema, clear pleural spaces, overinflation of lungs, chronic parenchymal changes bilaterally; COPD, cardiomegaly. Renal Ultrasound reporting mild left- sided hydronephrosis, echogenicity, chronic bladder wall thickening. Review of systems: HEENT: Denies headache or focal deficits. Denies any dizziness or lightheadedness. Diminished hearing. Respiratory: Denies any increased shortness of breath. Cardiac: Denies any chest pain, palpitations. GI: Denies any nausea, vomiting, or diarrhea. Denies any abdominal tenderness. : Denies any dysuria. Psychiatry: Denies any anxiety or depression. Active Medications Hydrocodone Bitart/Acetaminophen ([place] 5-325) 1 each PO Q6HR PRN PRN Reason: Pain Albuterol/Ipratropium (Duoneb 0.5 Mg-3 Mg/3 Ml Soln) 3 ml INHALATION RT-TID PRN PRN Reason: Shortness Of Breath Or Wheezing Albuterol/Ipratropium (Duoneb 0.5 Mg-3 Mg/3 Ml Soln) 3 ml INHALATION RT-TID [facility] Allopurinol (Zyloprim) 200 mg PO DAILY [facility] Amlodipine Besylate (Norvasc) 5 mg PO DAILY [facility] Last Admin: 03/24/17 10:09 Dose: 5 mg Aspirin (Aspirin) 81 mg PO [facility] Atorvastatin Calcium (Lipitor) 80 mg PO [facility] Last Admin: 03/23/17 22:36 Dose: 80 mg Azithromycin (Zithromax) 500 mg PO Q24H [facility] Last Admin: 03/23/17 18:17 Dose: 500 mg Citalopram Hydrobromide (Celexa) 20 mg PO DAILY [facility] Last Admin: 03/24/17 10:09 Dose: 20 mg Darbepoetin Jamie (Aranesp) 100 mcg SQ TU [facility] Dronabinol (Marinol) 2.5 mg PO [facility] Last Admin: 03/24/17 00:20 Dose: 2.5 mg Hydroxyurea (Hydrea) 500 mg PO BID [facility] Ceftriaxone Sodium 1,000 mg/ (Sodium Chloride) 50 mls @ 100 mls/hr IVPB Q24H [facility] Last Admin: 03/24/17 12:34 Dose: 100 mls/hr Sodium Chloride (Saline 0.9%) 1,000 mls @ 75 mls/hr IV .[id number] [facility] Last Admin: 03/24/17 12:33 Dose: 75 mls/hr Loratadine (Claritin) 10 mg PO DAILY PRN PRN Reason: Allergy Symptoms Metoprolol Tartrate (Lopressor) 12.5 mg PO BID [facility] Last Admin: 03/24/17 10:09 Dose: 12.5 mg Miscellaneous Information (Pneumonia Protocol Utilized) 1 each PO ONCE PRN PRN Reason: Per Protocol Ondansetron HCl (Zofran) 4 mg PO Q8HR PRN PRN Reason: Nausea Last Admin: 03/24/17 00:34 Dose: 4 mg Pantoprazole Sodium (Protonix) 40 mg PO AC-BRKFST PRN PRN Reason: Heartburn Polyethylene Glycol (Miralax) 17 gm PO HS [facility] Last Admin: 03/23/17 22:37 Dose: 17 gm Sodium Bicarbonate (Sodium Bicarbonate Tab) 1,300 mg PO BID [facility] Temazepam (Restoril) 30 mg PO [facility] Last Admin: 03/24/17 04:16 Dose: Not Given Terazosin HCl (Hytrin) 5 mg PO QAM [facility] Last Admin: 03/24/17 10:09 Dose: 5 mg Objective - Vital Signs Vital signs: Vital Signs Temp 96.4 F L 03/24/17 12:00 Pulse 78 03/24/17 12:00 Resp 18 03/24/17 04:05 BP 133/63 03/24/17 12:00 Pulse Ox 94 L 03/24/17 12:00 Intake & Output 03/23/17 03/24/17 03/24/17 18:59 06:59 18:59 Intake Total 100 725 Output Total 125 250 Balance -25 -250 725 Weight 63.503 kg 63.3 kg 63.3 kg Intake: Intake, IV Titration 725 Amount Sodium Chloride 0.9% 1, 675 000 ml @ 75 mls/hr IV . [id number] [facility] Rx#:[id number] cefTRIAXone 1,000 mg In 50 Sodium Chloride 0.9% 50 ml @ 100 mls/hr IVPB Q24H [facility] Rx#:[id number] Oral 100 Output: Urine 125 250 Uretheral (Marie) 125 Other: Voiding Method Indwelling Catheter Indwelling Catheter Indwelling Catheter - Exam PHYSICAL EXAM: VITAL SIGNS: As above GENERAL: [laying in bed, no acute distress] HEENT: [Pupils equal conjunctiva normal. No conjunctival pallor] NECK: [Supple, no JVD] RESPIRATORY EFFORT:[ Normal] LUNGS: [Bilateral bases diminished, scattered rhonchi throughout, no wheezing, no crackles] CARDIOVASCULAR[ regular S1 and S2, no murmurs rubs or gallops, no edema] GI: [Abdomen soft, nontender, positive bowel sounds. No guarding, no rigidity] PSYCH: [Alert and oriented -3, mood and affect normal.] NEURO: No focal deficits, moves all 4 extremities, mild diffuse generalized weakness - Labs CBC & Chem 7: 03/23/17 14:46 03/23/17 14:46 Labs: Abnormal Lab Results - Last 24 Hours (Table) 03/23/17 Range/Units 14:46 TIBC 172 L (261-462) ug/dL % Saturation 70.9 H (20-50) % Microbiology - Last 24 Hours (Table) 03/23/17 14:46 Blood Culture - Preliminary Blood No Growth after 24 hours 03/23/17 13:05 Blood Culture - Preliminary Blood No Growth after 24 hours 03/23/17 15:08 Urine Culture - Preliminary Urine,Catheterized Assessment and Plan Plan: 1. Weakness, possible pneumonia and sepsis. 2. [Leukocytosis, possibly secondary to sepsis or leukomoid reaction over medication induced, rule out leukemic transformation. Status post bone marrow biopsy. 3. [ History of myelodysplastic syndrome]. 4. [ Anemia]. 5. [ Macrocytosis]. 6. [ Thrombocytopenia]. 7. [ Coagulopathy, mild]. 8. Acute renal failure 9. Troponin 0.05 indeterminate 10. Possible acute UTI 11. CAD, history of [place], stent. 12. Hard of hearing 13. Hyperlipidemia 14. Hypertension 15. Rheumatoid arthritis 16. Degenerative joint disease 17. History of depression, not otherwise specified 18. Remote history of nicotine dependence 19. Severe protein calorie malnutrition, BMI 19.5 20. Mild left-sided hydronephrosis, chronic bladder wall thickening 21. Metabolic acidosis secondary to acute kidney injury 22. History of bladder calculi, status post cystolithotripsy October 2016 Plan: Continue on current medication regime , nebulized bronchodilators, oral sodium bicarb, monitoring and symptomatic treatment. Bone marrow biopsy results pending. Maintain empiric IV antibiotics of Rocephin, Zithromax. Gentle IV fluid hydration. Continue holding nephrotoxic medications. Iron studies in progress. Close monitoring of renal function, electrolytes, hemoglobin, platelets with repeat labs ordered for a.m. Follow closely with both nephrology and oncology. Pulmonary consult in place with recommendations pending. The impression and plan of care has been dictated as directed. : I performed a H&P examination of this patient and discussed the same with the dictator. I agree with the dictator's note. Any additional findings/opinions/ etc. will be noted.
[2017-03-24] MEDS: ALLOPURINOL 100 MG TAB PO SCH (18:19)
[2017-03-24] MEDS: AZITHROMYCIN 500 MG TAB PO SCH (18:25)
[2017-03-24] MEDS: IPRATROPIUM-ALBUTEROL 3 ML NEB INHALATION SCH (20:08)
[2017-03-24] MEDS: ATORVASTATIN 80 MG TAB PO SCH (20:58)
[2017-03-24] MEDS: ASPIRIN 81 MG CHEW PO SCH (20:58)
[2017-03-24] MEDS: HYDROXYUREA 500 MG CAP PO SCH (20:59)
[2017-03-24] MEDS: POLYETHYLENE GLYCOL 3350 17 GM POWD.PACK PO SCH (20:59)
[2017-03-24] MEDS: HYDROcodone/APAP 5-325MG 1 EACH TAB PO PRN (21:06)
[2017-03-25] MEDS: TEMAZEPAM 30 MG CAP PO SCH ×2 (00:42→22:17)
[2017-03-25] MEDS: SODIUM BICARBONATE TAB 650 MG TAB PO SCH ×3 (00:47→20:37)
[2017-03-25] MEDS: METOPROLOL TARTRATE 12.5 MG TAB PO SCH ×3 (00:47→20:41)
[2017-03-25] MEDS: SODIUM CHLORIDE 0.9% 1,000 ML IV SCH (04:20)
--- NOTE | 2017-03-25 05:54 | PN ---
DATE OF SERVICE: 03/24/2017 This 81-year-old gentleman who was admitted with weakness also had possible pneumonia, sepsis also. Seen and evaluated the patient along with the nurse practitioner. Please refer to nurse practitioner notes and impression documented for further information. The patient is slightly better, but, however, prognosis extremely guarded. MTDD
[2017-03-25] MEDS: IPRATROPIUM-ALBUTEROL 3 ML NEB INHALATION SCH ×3 (07:07→19:27)
[2017-03-25] MEDS: TERAZOSIN 5 MG CAP PO SCH (08:39)
[2017-03-25] MEDS: ALLOPURINOL 100 MG TAB PO SCH (08:39)
[2017-03-25] MEDS: HYDROXYUREA 500 MG CAP PO SCH ×2 (08:39→20:37)
[2017-03-25] MEDS: CITALOPRAM HYDROBROMIDE 20 MG TAB PO SCH (08:40)
[2017-03-25] MEDS: amLODIPine 5 MG TAB PO SCH (08:40)
[2017-03-25 08:52] LABS: Anisocytosis Slight; Aty Lym Flag Marked; CH 34.9; CHCM 29.2; HDW 2.66; HGB 8.3 gm/dL (13.0-17.5); Hypochromasia Marked; Immature Gran Flag Marked; MCH 36.9 pg (25.0-35.0); MCHC 30.7 g/dL (31.0-37.0); MCV 120.2 fL (80.0-100.0); Macrocytosis Marked; RBC 2.24 m/uL (4.30-5.90); RDW 17.6 % (11.5-15.5); WBC (Perox) 44.25
[2017-03-25 08:58] LABS: WBC 43.3 k/uL (3.8-10.6)
[2017-03-25 09:39] LABS: Calcium 6.9 mg/dL (8.4-10.2)
[2017-03-25] MEDS: HYDROcodone/APAP 5-325MG 1 EACH TAB PO PRN ×2 (09:42→20:36)
[2017-03-25 10:18] LABS: Add Differential Manual Differential
[2017-03-25 10:25] LABS: Band Neutrophils % 6.5 %; Blast Cells 11.5; Metamyelocytes % 5.5 %; Nucleated Red Blood Cells 0 /100 WBC (0-0); Total Cells Counted 200
[2017-03-25 10:26] LABS: Manual Review Performed
--- NOTE | 2017-03-25 12:04 | P.PN ---
Subjective Progress note dated 03/25/2017 81-year-old male who exactly my primary patient. He has a history of myelodysplastic syndrome which may be transforming itself into acute leukemia. Dr. Hewitt did the bone marrow biopsy yesterday. He does look a bit more perky today. His with his other daughter Thania. His other daughter Mirna was here yesterday. They realize that if he does develop acute leukemia, he probably would not be a candidate for anything in the way of aggressive chemotherapy given his age and his frailty. Anyway Brandon does look like he is doing better. He did eat half of his tray this morning. Yesterday he had no appetite. I did mention to him that is important that he drink and eat also try to get out of bed and move about around a bit. He would have a tendency to debilitate very quickly. Objective - Vital Signs Vital signs: Vital Signs Temp 97.3 F L 03/25/17 07:00 Pulse 76 03/25/17 07:18 Resp 20 03/25/17 07:00 BP 122/53 03/25/17 07:00 Pulse Ox 96 03/25/17 07:07 Intake & Output 03/24/17 03/25/17 03/25/17 18:59 06:59 18:59 Intake Total 725 300 Output Total 550 Balance 725 -250 Weight 63.3 kg Intake: Intake, IV Titration 725 Amount Sodium Chloride 0.9% 1, 675 000 ml @ 75 mls/hr IV . [id number] [facility] Rx#:[id number] cefTRIAXone 1,000 mg In 50 Sodium Chloride 0.9% 50 ml @ 100 mls/hr IVPB Q24H [facility] Rx#:[id number] Oral 300 Output: Urine 550 Other: Voiding Method Indwelling Catheter Indwelling Catheter - Exam No acute distress, oriented 3. HEENT examination is grossly unremarkable. Mucous membranes are moist. Neck supple. Full range of motion. No adenopathy thyromegaly or neck vein distention. Cardiovascular examination reveals regular rhythm rate. S1-S2 normal. No S3- S4 or murmur. Lungs reveal mostly clear breath sounds. A few scattered mild rhonchi. No wheezes or crackles. Abdomen soft bowel sounds are heard. Extremities are intact. No cyanosis clubbing or edema. Skin is without rash. Neurologic examination is nonfocal. - Labs CBC & Chem 7: 03/25/17 07:25 03/25/17 07:25 Labs: Abnormal Lab Results - Last 24 Hours (Table) 03/23/17 03/25/17 03/25/17 Range/Units 14:46 07:25 07:25 WBC 43.3 H* (3.8-10.6) k/uL RBC 2.24 L (4.30-5.90) m/uL Hgb 8.3 L (13.0-17.5) gm/dL Hct 27.0 L (39.0-53.0) % MCV 120.2 H (80.0-100.0) fL MCH 36.9 H (25.0-35.0) pg MCHC 30.7 L (31.0-37.0) g/dL RDW 17.6 H (11.5-15.5) % Plt Count 30 L* (150-450) k/uL Neutrophils # (Manual) 10.8 H (1.3-7.7) k/uL Monocytes # (Manual) 19.7 H (0-1.0) k/uL Chloride 108 H (98-107) mmol/L Carbon Dioxide 13 L (22-30) mmol/L BUN 71 H (9-20) mg/dL Creatinine 4.90 H (0.66-1.25) mg/dL Glucose 70 L (74-99) mg/dL Calcium 6.9 L (8.4-10.2) mg/dL TIBC 172 L (261-462) ug/dL % Saturation 70.9 H (20-50) % Ferritin 2270 H (18-464) ng/mL Microbiology - Last 24 Hours (Table) 03/23/17 15:08 Urine Culture - Final Urine,Catheterized 03/23/17 14:46 Blood Culture - Preliminary Blood No Growth after 24 hours 03/23/17 13:05 Blood Culture - Preliminary Blood No Growth after 24 hours Assessment and Plan (1) Acute renal failure Status: Acute (2) Anemia Status: Acute (3) Bicytopenia Status: Acute (4) Leukocytosis Status: Acute (5) Myelodysplasia (myelodysplastic syndrome) Status: Acute (6) Pneumonia Status: Acute (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 He was placed on azithromycin and Rocephin for his possible infection. Chest x-ray shows a infiltrate noted only posteriorly on the lateral film. The patient otherwise is doing reasonably well. We'll encourage him to eat and drink. Dr. Hewitt did the bone marrow biopsy. I make sure that we passed on any new information to his daughters, Mirna and Thania. Time with Patient: Greater than 30
--- NOTE | 2017-03-25 12:35 | P.PN ---
Subjective Patient is seen in follow-up for acute kidney injury on chronic kidney disease. Patient has chronic kidney disease stage III with baseline creatinine near 2. 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 His creatinine was 4.17 on admission and is up to 4.9 today. Patient presented with dyspnea and generalized weakness. He was noted to have a white count of greater than 90 ,000 for which he underwent a bone marrow biopsy yesterday. 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 He has a Marie catheter in place and is nonoliguric. Oral intake is fair. No vomiting or diarrhea. Vital signs are stable. General: The patient appeared well nourished and normally developed. HEENT: Head exam is unremarkable. Neck is without jugular venous distension. LUNGS: Breath sounds decreased. Scattered rhonchi. HEART: Rate and Rhythm are regular. First and second heart sounds normal. No murmurs, rubs or gallops. ABDOMEN: Abdominal exam reveals normal bowel sounds. Non-tender and non- distended. No evidence of peritonitis. EXTREMITITES: No clubbing, cyanosis, or edema. Objective - Vital Signs Vital signs: Vital Signs Temp 97.3 F L 03/25/17 07:00 Pulse 76 03/25/17 07:18 Resp 20 03/25/17 07:00 BP 122/53 03/25/17 07:00 Pulse Ox 96 03/25/17 07:07 Intake & Output 03/24/17 03/25/17 03/25/17 18:59 06:59 18:59 Intake Total 725 300 Output Total 550 Balance 725 -250 Weight 63.3 kg Intake: Intake, IV Titration 725 Amount Sodium Chloride 0.9% 1, 675 000 ml @ 75 mls/hr IV . [id number] [facility] Rx#:[id number] cefTRIAXone 1,000 mg In 50 Sodium Chloride 0.9% 50 ml @ 100 mls/hr IVPB Q24H [facility] Rx#:[id number] Oral 300 Output: Urine 550 Other: Voiding Method Indwelling Catheter Indwelling Catheter - Labs CBC & Chem 7: 03/25/17 07:25 03/25/17 07:25 Labs: Abnormal Lab Results - Last 24 Hours (Table) 03/23/17 03/25/17 03/25/17 Range/Units 14:46 07:25 07:25 WBC 43.3 H* (3.8-10.6) k/uL RBC 2.24 L (4.30-5.90) m/uL Hgb 8.3 L (13.0-17.5) gm/dL Hct 27.0 L (39.0-53.0) % MCV 120.2 H (80.0-100.0) fL MCH 36.9 H (25.0-35.0) pg MCHC 30.7 L (31.0-37.0) g/dL RDW 17.6 H (11.5-15.5) % Plt Count 30 L* (150-450) k/uL Neutrophils # (Manual) 10.8 H (1.3-7.7) k/uL Monocytes # (Manual) 19.7 H (0-1.0) k/uL Chloride 108 H (98-107) mmol/L Carbon Dioxide 13 L (22-30) mmol/L BUN 71 H (9-20) mg/dL Creatinine 4.90 H (0.66-1.25) mg/dL Glucose 70 L (74-99) mg/dL Calcium 6.9 L (8.4-10.2) mg/dL TIBC 172 L (261-462) ug/dL % Saturation 70.9 H (20-50) % Ferritin 2270 H (18-464) ng/mL Microbiology - Last 24 Hours (Table) 03/23/17 15:08 Urine Culture - Final Urine,Catheterized 03/23/17 14:46 Blood Culture - Preliminary Blood No Growth after 24 hours 03/23/17 13:05 Blood Culture - Preliminary Blood No Growth after 24 hours Assessment and Plan Plan: Assessment: #1. Nonoliguric acute kidney injury secondary to ATN secondary to hypotension and poor oral intake. Creatinine 4.17 on admission and up to 4.9 today. Also concern for tumor lysis syndrome due to his high tumor burden. #2. Elevated white count with anemia and thrombocytopenia due to underlying MDS with concern for transformation to AML. Patient underwent a bone marrow biopsy on March 24. #3. History of bladder calculi status post cystolithotripsy in October 2016. #4. Metabolic acidosis secondary to acute kidney injury. #5. Chronic kidney disease stage IIIB with baseline creatinine near 2. Etiology is likely nephrosclerosis. Will repeat UA was GFR returns to baseline. Plan: Discontinue normal saline and start isotonic sodium bicarbonate drip to be run at 100 mL an hour. Continue oral sodium bicarbonate supplementation 1300 mg twice daily. Maintain Marie catheter for strict I's and os for now. Check phosphorus and a uric acid level. Avoid nephrotoxic agents and hypotensive episodes. Repeat electrolytes in the morning. Await bone marrow biopsy results.
[2017-03-25 12:40] LABS: Phosphorous 8.4 mg/dL (2.5-4.5); Uric Acid 17.9 mg/dL (3.5-8.5)
[2017-03-25] MEDS ORDERED: RASBURICASE IV ONE (13:30)
[2017-03-25] MEDS ORDERED: SODIUM CHLORIDE 0.9% IV ONE (13:30)
[2017-03-25] MEDS: WATER FOR INJECTION, STERILE 1,000 ML with SODIUM ACETATE 150 MEQ IV SCH ×2 (13:53)
--- NOTE | 2017-03-25 14:26 | P.PN ---
Subjective Date of service 03/25/2017. Personal being dictated for Dr. Zamora. Interval history: This 81-year-old gentleman admitted with weakness, possible pneumonia with sepsis, leukocytosis, in a patient with history of MDS, suspected transformation to AML and multiple medical issues. Status post bone marrow biopsy, final results pending. WBC down to 43.3 today. Feeling better today, diet intake improved, consuming 50% of breakfast. Denies nausea vomiting or diarrhea. Renal function continues to worsen, creatinine up to 4.9 with elevated phosphorus and uric acid levels. Bicarb drip initiated. Maintaining O2 sats of 92-96% on room air. Denies chest pain, palpitations. Afebrile. Review of systems: HEENT: Denies headache or focal deficits. Denies any dizziness or lightheadedness. Hard of hearing. Respiratory: Denies any increased shortness of breath. Cardiac: Denies any chest pain, palpitations. GI: Denies any nausea, vomiting, or diarrhea. Denies any abdominal tenderness. : Denies any dysuria. Psychiatry: Denies any anxiety or depression. Active Medications Generic Name Dose Route Start Last Admin Trade Name Freq PRN Reason Stop Dose Admin Hydrocodone Bitart/Acetaminophen 1 each 03/23/17 21:30 03/25/17 09:42 [place] 5-325 PO 1 each Q6HR PRN Administration Pain Albuterol/Ipratropium 3 ml 03/24/17 14:06 Duoneb 0.5 Mg-3 Mg/3 Ml Soln INHALATION RT-TID PRN Shortness Of Breath Or Wheezing Albuterol/Ipratropium 3 ml 03/24/17 20:00 03/25/17 07:07 Duoneb 0.5 Mg-3 Mg/3 Ml Soln INHALATION 3 ml RT-TID [facility] Administration Allopurinol 200 mg 03/24/17 13:15 03/25/17 08:39 Zyloprim PO 200 mg DAILY [facility] Administration Amlodipine Besylate 5 mg 03/24/17 09:00 03/25/17 08:40 Norvasc PO 5 mg DAILY [facility] Administration Aspirin 81 mg 03/24/17 21:00 03/24/17 20:58 Aspirin PO 81 mg HS [facility] Administration Atorvastatin Calcium 80 mg 03/23/17 22:00 03/24/17 20:58 Lipitor PO 80 mg HS [facility] Administration Azithromycin 500 mg 03/23/17 17:00 03/24/17 18:25 Zithromax PO 500 mg Q24H [facility] Administration Calcium Acetate 667 mg 03/25/17 17:30 Phoslo PO TID-W/MEALS [facility] Citalopram Hydrobromide 20 mg 03/24/17 09:00 03/25/17 08:40 Celexa PO 20 mg DAILY [facility] Administration Darbepoetin Jamie 100 mcg 03/29/17 09:00 Aranesp SQ TU [facility] Dronabinol 2.5 mg 03/23/17 22:00 03/24/17 21:07 Marinol PO 2.5 mg HS [facility] Administration Fluticasone Propionate 2 spray 03/25/17 13:00 Flonase Nasal [place] EA NOSTRIL DAILY [facility] Hydroxyurea 500 mg 03/24/17 21:00 03/25/17 08:39 Hydrea PO 500 mg BID [facility] Administration Ceftriaxone Sodium 1,000 mg/ 50 mls @ 100 mls/hr 03/24/17 12:00 03/25/17 13: 54 Sodium Chloride IVPB 100 mls/hr Q24H [facility] Administration Sodium Acetate 150 meq/ 1,075 mls @ 150 mls/hr 03/25/17 13:00 03/25/17 13:53 Sterile Water IV 150 mls/hr .Q7H10M [facility] Administration Loratadine 10 mg 03/23/17 21:30 Claritin PO DAILY PRN Allergy Symptoms Metoprolol Tartrate 12.5 mg 03/23/17 22:00 03/25/17 08:39 Lopressor PO 12.5 mg BID [facility] Administration Miscellaneous Information 1 each 03/23/17 16:04 Pneumonia Protocol Utilized PO ONCE PRN Per Protocol Ondansetron HCl 4 mg 03/23/17 21:30 03/24/17 00:34 Zofran PO 4 mg Q8HR PRN Administration Nausea Pantoprazole Sodium 40 mg 03/23/17 21:30 Protonix PO AC-BRKFST PRN Heartburn Polyethylene Glycol 17 gm 03/23/17 22:00 03/24/17 20:59 Miralax PO 17 gm HS [facility] Administration Sodium Bicarbonate 1,300 mg 03/24/17 21:00 03/25/17 08:40 Sodium Bicarbonate Tab PO 1,300 mg BID [facility] Administration Temazepam 30 mg 03/23/17 22:00 03/25/17 00:42 Restoril PO Not Given HS [facility] Terazosin HCl 5 mg 03/24/17 09:00 03/25/17 08:39 Hytrin PO 5 mg QAM [facility] Administration Objective - Vital Signs Vital signs: Vital Signs Temp 97.8 F 03/24/17 23:00 Pulse 86 03/25/17 00:00 Resp 18 03/25/17 00:00 BP 123/58 03/24/17 23:00 Pulse Ox 96 03/24/17 23:00 Intake & Output 03/24/17 03/24/17 03/25/17 06:59 18:59 06:59 Intake Total 725 300 Output Total 250 550 Balance -250 725 -250 Weight 63.3 kg 63.3 kg Intake: Intake, IV Titration 725 Amount Sodium Chloride 0.9% 1, 675 000 ml @ 75 mls/hr IV . [id number] [facility] Rx#:[id number] cefTRIAXone 1,000 mg In 50 Sodium Chloride 0.9% 50 ml @ 100 mls/hr IVPB Q24H [facility] Rx#:[id number] Oral 300 Output: Urine 250 550 Other: Voiding Method Indwelling Catheter Indwelling Catheter Indwelling Catheter - Exam PHYSICAL EXAM: VITAL SIGNS: As above GENERAL: [Sitting up in bed, no acute distress] HEENT: [Pupils equal conjunctiva normal. No conjunctival pallor] NECK: [Supple, no JVD] RESPIRATORY EFFORT:[ Normal] LUNGS: [Bilateral bases diminished, scattered rhonchi throughout, no wheezing, no crackles] CARDIOVASCULAR[ regular S1 and S2, no murmurs rubs or gallops, no edema] GI: [Abdomen soft, nontender, positive bowel sounds. No guarding, no rigidity] PSYCH: [Alert and oriented -3, mood and affect normal.] NEURO: No focal deficits, moves all 4 extremities, mild diffuse generalized weakness - Labs CBC & Chem 7: 03/25/17 07:25 03/25/17 07:25 Labs: Abnormal Lab Results - Last 24 Hours (Table) 03/23/17 Range/Units 14:46 TIBC 172 L (261-462) ug/dL % Saturation 70.9 H (20-50) % Ferritin 2270 H (18-464) ng/mL Microbiology - Last 24 Hours (Table) 03/23/17 15:08 Urine Culture - Final Urine,Catheterized 03/23/17 14:46 Blood Culture - Preliminary Blood No Growth after 24 hours 03/23/17 13:05 Blood Culture - Preliminary Blood No Growth after 24 hours Assessment and Plan Plan: 1. Weakness, possible pneumonia and sepsis. 2. [Leukocytosis, possibly secondary to sepsis or leukomoid reaction over medication induced, rule out leukemic transformation. Status post bone marrow biopsy-results pending. 3. [ History of myelodysplastic syndrome]. 4. [ Anemia]. 5. [ Macrocytosis]. 6. [ Thrombocytopenia]. 7. [ Coagulopathy, mild]. 8. Acute on chronic renal failure, stageIIIB. Acute secondary to ATN related to hypotension, decreased oral intake. 9. Troponin 0.05 indeterminate 10. Possible acute UTI 11. CAD, history of [place], stent. 12. Hard of hearing 13. Hyperlipidemia 14. Hypertension 15. Rheumatoid arthritis 16. Degenerative joint disease 17. History of depression, not otherwise specified 18. Remote history of nicotine dependence 19. Severe protein calorie malnutrition, BMI 19.5 20. Mild left-sided hydronephrosis, chronic bladder wall thickening 21. Metabolic acidosis secondary to acute kidney injury 22. History of bladder calculi, status post cystolithotripsy October 2016 Plan: Continue on current medication regime , nebulized bronchodilators, sodium bicarb, Rocephin, Zithromax, monitoring and symptomatic treatment. Bone marrow biopsy results pending. Sodium bicarb as per nephrology.Continue IV antibiotics as previously ordered. Close monitoring of renal function, electrolytes, hemoglobin, platelets with repeat labs ordered for a.m. Follow closely with both nephrology and oncology. Pulmonary consult in place with recommendations pending. The impression and plan of care has been dictated as directed. : I performed a H&P examination of this patient and discussed the same with the dictator. I agree with the dictator's note. Any additional findings/opinions/ etc. will be noted.
[2017-03-25] MEDS: FLUTICASONE 50MCG/SPRAY NASAL 16GM EA NOSTRIL SCH (15:00)
[2017-03-25] MEDS: CALCIUM ACETATE 667 MG CAP PO SCH (16:59)
[2017-03-25] MEDS: AZITHROMYCIN 500 MG TAB PO SCH (16:59)
--- NOTE | 2017-03-25 18:02 | PN ---
DATE OF SERVICE: 03/25/2017 This 81-year-old gentleman who was admitted with possible weakness and possible pneumonia also had features of sepsis. Seen and evaluated the patient along with the nurse practitioner. Please refer to the nurse practitioner notes and impression documented for further information. The creatinine is also worsened to 4.9. Prognosis guarded. Sensorium was definitely improved though. See orders for further details. Further recommendations to follow.
[2017-03-25] MEDS: ASPIRIN 81 MG CHEW PO SCH (20:36)
[2017-03-25] MEDS: DRONABINOL 2.5 MG CAP PO SCH (20:37)
[2017-03-25] MEDS: ATORVASTATIN 80 MG TAB PO SCH (20:37)
[2017-03-25] MEDS: POLYETHYLENE GLYCOL 3350 17 GM POWD.PACK PO SCH (20:38)
[2017-03-26] MEDS: WATER FOR INJECTION, STERILE 1,000 ML with SODIUM ACETATE 150 MEQ IV SCH ×8 (00:27→17:17)
--- NOTE | 2017-03-26 06:48 | XR ---
EXAMINATION TYPE: XR chest 2V DATE OF EXAM: 03/26/2017 HISTORY: Pneumonia. REFERENCE: Previous study dated 03/24/2017. FINDINGS: The lungs are overinflated. The heart is enlarged. There is vascular congestion and pulmona ry edema. There are small bilateral effusions. IMPRESSION: 1. COPD. 2. WORSENING CHANGES OF CONGESTIVE HEART FAILURE.
[2017-03-26] MEDS: IPRATROPIUM-ALBUTEROL 3 ML NEB INHALATION SCH ×3 (08:00→20:04)
[2017-03-26 08:13] LABS: Calcium 6.7 mg/dL (8.4-10.2)
[2017-03-26] MEDS: amLODIPine 5 MG TAB PO SCH (08:13)
[2017-03-26] MEDS: CALCIUM ACETATE 667 MG CAP PO SCH ×3 (08:13→17:17)
[2017-03-26] MEDS: TERAZOSIN 5 MG CAP PO SCH (08:13)
[2017-03-26] MEDS: HYDROXYUREA 500 MG CAP PO SCH ×2 (08:13→21:15)
[2017-03-26] MEDS: CITALOPRAM HYDROBROMIDE 20 MG TAB PO SCH (08:13)
[2017-03-26] MEDS: FLUTICASONE 50MCG/SPRAY NASAL 16GM EA NOSTRIL SCH (08:13)
[2017-03-26] MEDS: SODIUM BICARBONATE TAB 650 MG TAB PO SCH ×2 (08:13→21:14)
[2017-03-26] MEDS: ALLOPURINOL 100 MG TAB PO SCH (08:13)
[2017-03-26] MEDS: METOPROLOL TARTRATE 12.5 MG TAB PO SCH ×2 (08:13→21:14)
[2017-03-26 08:15] LABS: Potassium 5.7 mmol/L (3.5-5.1)
[2017-03-26] MEDS: POLYETHYLENE GLYCOL 3350 17 GM POWD.PACK PO SCH (09:37)
[2017-03-26] MEDS ORDERED: INSULIN REGULAR 100 UNIT/ML VIAL IV ONE (10:13)
[2017-03-26] MEDS ORDERED: DEXTROSE 50%-WATER 50 ML SYRINGE IVP STA (10:14)
[2017-03-26 10:22] LABS: Anisocytosis Slight; Aty Lym Flag Marked; CH 35.5; HDW 2.72; HGB 8.5 gm/dL (13.0-17.5); Hypochromasia Slight; Immature Gran Flag Marked; MCH 37.5 pg (25.0-35.0); MCHC 32.5 g/dL (31.0-37.0); MCV 115.4 fL (80.0-100.0); Macrocytosis Marked; Mean Platelet Volume 11.1; RBC 2.26 m/uL (4.30-5.90); RDW 17.6 % (11.5-15.5); WBC (Perox) 19.76
[2017-03-26] MEDS ORDERED: DEXTROSE 10 % IN WATER 250 ML IV STA (10:27)
[2017-03-26] MEDS ORDERED: SODIUM ACETATE 50 MEQ in WATER FOR INJECTION, STERILE 250 ML IV ONE (10:30)
--- NOTE | 2017-03-26 10:59 | P.PN ---
Subjective Patient is seen in follow-up for acute kidney injury on chronic kidney disease. Patient has chronic kidney disease stage III with baseline creatinine near 2. Patient does not follow with a bindery library technical assistant as an outpatient. His creatinine was 4.17 on admission and peaked at 4.9 yesterday. It is 4.79 today. Patient presented with dyspnea and generalized weakness. He was noted to have a white count of greater than 90,000 for which he underwent a bone marrow biopsy this admission. 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 He has a Marie catheter in place and is nonoliguric. Oral intake is poor. No vomiting or diarrhea. Vital signs are stable. General: The patient appeared well nourished and normally developed. HEENT: Head exam is unremarkable. Neck is without jugular venous distension. LUNGS: Breath sounds decreased. Scattered rhonchi. HEART: Rate and Rhythm are regular. First and second heart sounds normal. No murmurs, rubs or gallops. ABDOMEN: Abdominal exam reveals normal bowel sounds. Non-tender and non- distended. No evidence of peritonitis. EXTREMITITES: No clubbing, cyanosis, or edema. Objective - Vital Signs Vital signs: Vital Signs Temp 97.6 F 03/26/17 07:00 Pulse 73 03/26/17 07:00 Resp 16 03/26/17 07:00 BP 126/60 03/26/17 07:00 Pulse Ox 94 L 03/26/17 07:00 Intake & Output 03/25/17 03/26/17 03/26/17 18:59 06:59 18:59 Intake Total 1800 55 Output Total 600 Balance -600 1800 55 Intake: IV 1800 Water For Injection, 1800 Sterile 1,000 ml @ 150 mls/hr IV .Q7H10M MONICA with Sodium Acetate 150 meq Rx#:[id number] Oral 55 Output: Urine 600 Other: Voiding Method Indwelling Catheter Indwelling Catheter Indwelling Catheter - Labs CBC & Chem 7: 03/26/17 08:32 03/26/17 06:54 Labs: Abnormal Lab Results - Last 24 Hours (Table) 03/25/17 03/26/17 03/26/17 Range/Units 07:25 06:54 06:54 WBC (3.8-10.6) k/uL RBC (4.30-5.90) m/uL Hgb (13.0-17.5) gm/dL Hct (39.0-53.0) % MCV (80.0-100.0) fL MCH (25.0-35.0) pg RDW (11.5-15.5) % Plt Count (150-450) k/uL Potassium 5.7 H (3.5-5.1) mmol/L Carbon Dioxide 18 L (22-30) mmol/L BUN 79 H (9-20) mg/dL Creatinine 4.79 H (0.66-1.25) mg/dL Glucose 70 L (74-99) mg/dL Uric Acid 17.9 H* <0.5 L (3.5-8.5) mg/dL Calcium 6.7 L (8.4-10.2) mg/dL Phosphorus 8.4 H* (2.5-4.5) mg/dL 03/26/17 Range/Units 08:32 WBC 19.5 H (3.8-10.6) k/uL RBC 2.26 L (4.30-5.90) m/uL Hgb 8.5 L (13.0-17.5) gm/dL Hct 26.0 L (39.0-53.0) % MCV 115.4 H (80.0-100.0) fL MCH 37.5 H (25.0-35.0) pg RDW 17.6 H (11.5-15.5) % Plt Count 32 L* (150-450) k/uL Potassium (3.5-5.1) mmol/L Carbon Dioxide (22-30) mmol/L BUN (9-20) mg/dL Creatinine (0.66-1.25) mg/dL Glucose (74-99) mg/dL Uric Acid (3.5-8.5) mg/dL Calcium (8.4-10.2) mg/dL Phosphorus (2.5-4.5) mg/dL Microbiology - Last 24 Hours (Table) 03/23/17 14:46 Blood Culture - Preliminary Blood No Growth after 48 hours 03/23/17 13:05 Blood Culture - Preliminary Blood No Growth after 48 hours Assessment and Plan Plan: Assessment: #1. Nonoliguric acute kidney injury secondary to ATN secondary to hypotension and poor oral intake. Creatinine 4.17 on admission and peaked at 4.9. It is 4.79 today. Also concern for tumor lysis syndrome due to his high tumor burden with electrolyte abnormalities also fitting the picture, particularly hyperuricemia, hyperkalemia, and hyperphosphatemia. #2. Elevated white count with anemia and thrombocytopenia due to underlying MDS with concern for transformation to AML. Patient underwent a bone marrow biopsy on March 24. #3. History of bladder calculi status post cystolithotripsy in October 2016. #4. Metabolic acidosis secondary to acute kidney injury. Improving. #5. Chronic kidney disease stage IIIB with baseline creatinine near 2. Etiology is likely nephrosclerosis. Will repeat UA was GFR returns to baseline. #6. Hyperkalemia secondary to acute kidney injury and metabolic acidosis as well as tumor lysis syndrome. Plan: Continue isotonic sodium bicarbonate drip to be run at 150 mL an hour. Continue oral sodium bicarbonate supplementation 1300 mg twice daily. Maintain Marie catheter for strict I's and os for now. Status post IV rasburicase 03/25. Maintain PhosLo 3 times daily. Avoid nephrotoxic agents and hypotensive episodes. Repeat electrolytes in the morning. Await bone marrow biopsy results. Discussed with pulmonary. With signs of volume overload on chest x-ray, he will also get 1 dose of IV Lasix 40 mg today.
[2017-03-26 11:27] LABS: Add Differential Manual Differential
[2017-03-26 11:33] LABS: Band Neutrophils % 3.5 %; Myelocytes % 0.5 %; Nucleated Red Blood Cells 1 /100 WBC (0-0); Total Cells Counted 200; WBC 19.3 k/uL (3.8-10.6)
[2017-03-26 11:35] LABS: Crenated RBC Present; Tear Drop Cells Present
--- NOTE | 2017-03-26 12:56 | PN ---
DATE OF SERVICE: 03/26/2017 This is an 81-year-old male with a history of acute renal failure, chronic anemia, bicytopenia, leukocytosis, myelodysplastic syndrome, pneumonia, and thrombocytopenia. The patient just recently had a bone marrow biopsy. The results are pending. Dr. Hewitt, the oncologist, is concerned about his myelodysplastic syndrome turning into bo leukemia. The daughters are aware, both Mirna and Elodia. Anyway, the patient is doing about the same or slightly better. A bit more perky. Sitting up in the chair today. Not a very good appetite. I did do a chest x-ray. It does show fluid overload. In addition Dr. Salcido, the military pay clerk, was concerned about tumor lysis syndrome. We are going to give the patient some Lasix 40 mg at about 2:00 today. He is not really described any significant shortness of breath. Chest x-ray clearly though shows what appears to be some early interstitial edema and fluid overload. Current vital signs, temperature 97.1, heart rate 73, respiratory 16, blood pressure 126/60, mean 82, 2 liter saturation 94%. Appears in no acute distress. HEENT examination is grossly unremarkable. Mucous membranes are moist. No oral lesions. Neck is supple. Full range of motion. No adenopathy or thyromegaly. Neck veins are flat. He is sitting up, though. Cardiovascular examination reveals regular rhythm rate. Heart sounds are distant. S1, S2 normal. There is no murmur. No S3, S4. Lungs reveal some bibasilar crackles. A few scattered rhonchi. No wheezes. Breath sounds are diminished. He does have a wet congested cough. Abdomen is soft. Bowel sounds are heard. There are no masses or tenderness. Extremities are intact. No edema. Skin without rash. There is some upper extremity ecchymoses. The neurological examination is brief but nonfocal. Labs are reviewed. White count down to 19.3, hemoglobin 8.5, hematocrit 26.0, platelet count 32,000. His electrolytes show sodium 143, potassium 5.7, chloride 107, CO2 of 18, BUN and creatinine were 79 at 4.79. The rest of the labs look okay. Chest x-ray shows fluid overload. Medications are reviewed. He is on antibiotics in the form of Zithromax and ceftriaxone for presumed community-acquired pneumonia. Updrafts have also been ordered. Other medications are reviewed. ASSESSMENT: 1. Myelodysplastic syndrome with possible transformation to acute leukemia. Bone marrow biopsy is pending. 2. Acute renal failure. 3. Rule out tumor lysis syndrome. 4. Chronic anemia. 5. Bicytopenia. 6. Significant electrolyte disturbance. 7. Possible community-acquired pneumonia. 8. Hyperkalemia. 9. Chronic thrombocytopenia. PLAN: The patient is going to get some additional fluids. He needs some treatment for his electrolyte disturbance. At about 2:00 in the afternoon, I am going to give the patient some Lasix 40 mg IV push x1. Will continue to follow. Prognosis is guarded. I spoke yesterday to his daughter Elodia, and also the daughter Elodia today. In addition, I am in contact with his other daughter, Mirna, who was in with her son it a tennis tournament. Will continue to follow. Prognosis is very guarded to poor.
[2017-03-26] MEDS ORDERED: FUROSEMIDE 10 MG/ML 4 ML VIAL IV ONE (14:00)
[2017-03-26] MEDS: AZITHROMYCIN 500 MG TAB PO SCH (17:17)
--- NOTE | 2017-03-26 17:27 | PN ---
DATE OF SERVICE: 03/26/2017 This 81-year-old gentleman who was admitted with sepsis also had weakness and has possible pneumonia as well. The patient is being closely monitored at this time. No chest pain or palpitations. The patient much more alert, complaining of generalized weakness. On exam, alert and oriented x2. Pulse is 73, blood pressure 106/60, respirations 16, temperature 97.6, pulse ox 94% on 2L. HEENT: Conjunctivae normal. NECK: No jugular venous distension. CARDIOVASCULAR: S1 and S2 muffled. RESPIRATORY: Breath sounds diminished in the bases. Bilateral scattered rhonchi and crackles. ABDOMEN: Soft. LEGS: No edema. NERVOUS SYSTEM: Diffusely weak. LABS: WBC 19.3, hemoglobin is 8.5, platelets are 32. Potassium is 5.7. ASSESSMENT: 1. Possible bilateral pneumonia with sepsis, present on admission with weakness. 2. Leukocytosis secondary to sepsis or leukemoid reaction or medication induced. 3. Status post bone marrow biopsy. Results are pending. 4. History of myelodysplastic syndrome. 5. Anemia. 6. Macrocytosis. 7. Thrombocytopenia. 8. Coagulopathy, mild. 9. Acute on chronic renal failure stage 3. 10. Chronic kidney disease. 11. Acute renal failure secondary to acute tubular necrosis related to hypotension, decreased p.o. intake. 12. Troponin 0.05, indeterminate. 13. Acute urinary tract infection possibly. 14. Coronary artery disease, history of myocardial infarction and stent. 15. Hard of hearing. 16. Hyperlipidemia. 17. Hypertension. 18. Rheumatoid arthritis. 19. History of degenerative joint disease. 20. History of depression, not otherwise specified. 21. Remote history of nicotine dependence. 22. Severe protein-calorie malnutrition, body mass index of 19.5. 23. Mild left-sided hydronephrosis, chronic bladder wall thickening. 24. Metabolic encephalopathy secondary to acute kidney injury. 25. History of bladder calculi, status post cystolithotripsy in 2017. 26. FULL CODE. 27. Gait dysfunction. RECOMMENDATIONS AND DISCUSSION: In this 81-year-old gentleman who presented with multiple complex medical issues, will monitor the patient closely, continue with the current medications and symptomatic treatment. Otherwise at this time, I recommended continuing the broad-spectrum IV antibiotics. I would also recommend. PT, OT evaluation, continue the rest of the medications, social service consultation and prognosis guarded because multiple complex medical issues. Discussed with the family the bedside. Further recommendations to follow.
[2017-03-26] MEDS: ATORVASTATIN 80 MG TAB PO SCH (21:14)
[2017-03-26] MEDS: ASPIRIN 81 MG CHEW PO SCH (21:14)
[2017-03-26] MEDS: ONDANSETRON 4 MG TAB PO PRN (21:15)
[2017-03-26] MEDS: TEMAZEPAM 30 MG CAP PO SCH (21:30)
[2017-03-26] MEDS: DRONABINOL 2.5 MG CAP PO SCH (21:30)
[2017-03-27] MEDS: WATER FOR INJECTION, STERILE 1,000 ML with SODIUM ACETATE 150 MEQ IV SCH ×4 (02:06→11:08)
[2017-03-27 07:47] LABS: Anisocytosis Slight; Aty Lym Flag Marked; CH 35.7; CHCM 31.9; HCT 25.2 % (39.0-53.0); HGB 8.4 gm/dL (13.0-17.5); Hypochromasia Slight; Immature Gran Flag Marked; MCH 37.6 pg (25.0-35.0); MCHC 33.4 g/dL (31.0-37.0); MCV 112.4 fL (80.0-100.0); Macrocytosis Marked; Mean Platelet Volume 10.2; RBC 2.25 m/uL (4.30-5.90); RDW 17.4 % (11.5-15.5); WBC 19.7 k/uL (3.8-10.6); WBC (Perox) 20.62
[2017-03-27 08:20] LABS: Potassium 4.7 mmol/L (3.5-5.1)
[2017-03-27 08:23] LABS: Calcium 5.8 mg/dL (8.4-10.2)
[2017-03-27] MEDS ORDERED: FUROSEMIDE 10 MG/ML 4 ML VIAL IV STA (10:26)
[2017-03-27] MEDS: HYDROXYUREA 500 MG CAP PO SCH ×2 (10:33→20:46)
[2017-03-27] MEDS: METOPROLOL TARTRATE 12.5 MG TAB PO SCH ×2 (10:34→20:57)
[2017-03-27] MEDS: amLODIPine 5 MG TAB PO SCH (10:37)
[2017-03-27] MEDS: FLUTICASONE 50MCG/SPRAY NASAL 16GM EA NOSTRIL SCH (10:37)
[2017-03-27] MEDS: CITALOPRAM HYDROBROMIDE 20 MG TAB PO SCH (10:37)
[2017-03-27] MEDS: ALLOPURINOL 100 MG TAB PO SCH (10:39)
[2017-03-27] MEDS: CALCIUM ACETATE 667 MG CAP PO SCH ×3 (10:40→16:42)
[2017-03-27] MEDS: TERAZOSIN 5 MG CAP PO SCH (10:40)
[2017-03-27] MEDS: SODIUM CHLORIDE 0.9% 1,000 ML IV SCH ×2 (10:54→20:46)
--- NOTE | 2017-03-27 11:07 | P.PN ---
Subjective Patient is seen in follow-up for acute kidney injury on chronic kidney disease. Patient has chronic kidney disease stage III with baseline creatinine near 2. Patient does not follow with a planning aide as an outpatient. His creatinine was 4.17 on admission and peaked at 4.9 this admission. It is 4.43 today. Patient presented with dyspnea and generalized weakness. He was noted to have a white count of greater than 90,000 for which he underwent a bone marrow biopsy this admission. 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 He has a Marie catheter in place and is nonoliguric. Oral intake is poor. No vomiting or diarrhea. Vital signs are stable. General: The patient appeared well nourished and normally developed. HEENT: Head exam is unremarkable. Neck is without jugular venous distension. LUNGS: Breath sounds decreased. Scattered rhonchi. HEART: Rate and Rhythm are regular. First and second heart sounds normal. No murmurs, rubs or gallops. ABDOMEN: Abdominal exam reveals normal bowel sounds. Non-tender and non- distended. No evidence of peritonitis. EXTREMITITES: No clubbing, cyanosis, or edema. Objective - Vital Signs Vital signs: Vital Signs Temp 97.8 F 03/27/17 07:00 Pulse 78 03/27/17 07:28 Resp 16 03/27/17 07:00 BP 144/69 03/27/17 07:00 Pulse Ox 98 03/27/17 07:20 Intake & Output 03/26/17 03/27/17 03/27/17 18:59 06:59 18:59 Intake Total 1655 2390 Output Total 250 1300 Balance 1405 1090 Intake: IV 1050 1800 Water For Injection, 1050 1800 Sterile 1,000 ml @ 150 mls/hr IV .Q7H10M MONICA with Sodium Acetate 150 meq Rx#:[id number] Intake, IV Titration 550 Amount Dextrose 10 % in Water 250 250 ml @ 999 mls/hr IV ONCE STA Rx#:[id number] Sodium Acetate 50 meq In 250 Water For Injection, Sterile 250 ml @ 900 mls/ hr IV ONCE ONE Rx#: [id number] cefTRIAXone 1,000 mg In 50 Sodium Chloride 0.9% 50 ml @ 100 mls/hr IVPB Q24H MONICA Rx#:[id number] Oral 55 590 Output: Urine 250 1300 Other: Voiding Method Indwelling Catheter Indwelling Catheter - Labs CBC & Chem 7: 03/27/17 07:15 03/27/17 07:15 Labs: Abnormal Lab Results - Last 24 Hours (Table) 03/26/17 03/27/17 03/27/17 Range/Units 08:32 07:15 07:15 WBC 19.3 H 19.7 H (3.8-10.6) k/uL RBC 2.25 L (4.30-5.90) m/uL Hgb 8.4 L (13.0-17.5) gm/dL Hct 25.2 L (39.0-53.0) % MCV 112.4 H (80.0-100.0) fL MCH 37.6 H (25.0-35.0) pg RDW 17.4 H (11.5-15.5) % Plt Count 31 L* (150-450) k/uL Monocytes # (Manual) 9.7 H (0-1.0) k/uL Nucleated RBCs 1 H (0-0) /100 WBC Chloride 96 L (98-107) mmol/L BUN 77 H (9-20) mg/dL Creatinine 4.43 H (0.66-1.25) mg/dL Calcium 5.8 L* (8.4-10.2) mg/dL Microbiology - Last 24 Hours (Table) 03/23/17 14:46 Blood Culture - Preliminary Blood No Growth after 72 hours 03/23/17 13:05 Blood Culture - Preliminary Blood No Growth after 72 hours Assessment and Plan Plan: Assessment: #1. Nonoliguric acute kidney injury secondary to ATN secondary to hypotension and poor oral intake. Creatinine 4.17 on admission and peaked at 4.9. It is 4.43 today. Also concern for tumor lysis syndrome due to his high tumor burden with electrolyte abnormalities also fitting the picture, particularly hyperuricemia, hyperkalemia, and hyperphosphatemia. #2. Elevated white count with anemia and thrombocytopenia due to underlying MDS with concern for transformation to AML. Patient underwent a bone marrow biopsy on March 24. #3. History of bladder calculi status post cystolithotripsy in October 2016. #4. Metabolic acidosis secondary to acute kidney injury. Resolved. #5. Chronic kidney disease stage IIIB with baseline creatinine near 2. Etiology is likely nephrosclerosis. Will repeat UA was GFR returns to baseline. #6. Hyperkalemia secondary to acute kidney injury and metabolic acidosis as well as tumor lysis syndrome. Improved. #7. Hypocalcemia secondary to acute kidney injury and hyperphosphatemia. Plan: Discontinue sodium bicarbonate drip. Start normal saline to be run at 100 mL an hour. I have decreased the rate due to vascular congestion. Discontinue sodium bicarbonate supplementation. Maintain Marie catheter for strict I's and os for now. Status post IV rasburicase 03/25. Maintain PhosLo 3 times daily. 2 g IV calcium gluconate today. Avoid nephrotoxic agents and hypotensive episodes. Repeat electrolytes in the morning. Await bone marrow biopsy results. Patient to get another dose of IV Lasix 40 mg today.
[2017-03-27] MEDS: SODIUM BICARBONATE TAB 650 MG TAB PO SCH (11:08)
[2017-03-27] MEDS: IPRATROPIUM-ALBUTEROL 3 ML NEB INHALATION SCH ×3 (11:10→19:39)
[2017-03-27 11:14] LABS: Add Differential Manual Differential
[2017-03-27 11:25] LABS: Blast Cells 6.5; Metamyelocytes % 0.5 %; Myelocytes % 0.5 %; Nucleated Red Blood Cells 0 /100 WBC (0-0); Polychromasia Present; Total Cells Counted 200
[2017-03-27 12:00] LABS: Potassium 3.9 mmol/L (3.5-5.1); Total Bilirubin 0.6 mg/dL (0.2-1.3); Total Protein 4.7 g/dL (6.3-8.2)
[2017-03-27] MEDS ORDERED: CALCIUM GLUCONATE 2,000 MG in SODIUM CHLORIDE 0.9% 100 ML IVPB ONE (12:00)
[2017-03-27 12:30] LABS: Calcium 5.9 mg/dL (8.4-10.2)
--- NOTE | 2017-03-27 13:56 | PN ---
An 81-year-old male with a history of acute renal failure, chronic anemia, bicytopenia, leukocytosis, myelodysplastic syndrome, pneumonia, thrombocytopenia. The patient had a recent bone marrow biopsy. Results are currently pending. Dr. Hewitt, the oncologist, is concerned about leukemic transformation of his myelodysplastic syndrome. The patient is a bit more lethargic today than yesterday. Anyway, one of the other concerns is the possibility of tumor lysis syndrome. The autocad ended up giving him some additional fluids. I gave him some additional diuretic. He has some mild pulmonary congestion. He is coughing. His cough is wet. No fever, no chills. He is in the room with a daughter and son-in-law. Current vital signs reveal temperature 97.8, heart rate 78, respiratory 16, blood pressure 144/69, mean 94, 4 liters saturation 98 to 99%. Appears in no acute respiratory distress. No audible wheezing. Wet congested cough. He is a bit more lethargic today than yesterday. HEENT examination is grossly unremarkable. Mucous membranes are moist. No oral lesions. Neck is supple. Full range of motion. No adenopathy or thyromegaly. Neck veins are flat. Cardiovascular examination reveals regular rhythm and rate. Heart rate mid to high 70s. S1, S2 normal. No distinct murmur. Lungs reveal some bibasilar crackles. A few scattered rhonchi. No wheezes. Abdomen is soft. Bowel sounds are heard. Extremities are intact. Very mild edema. Skin without rash. There is some ecchymoses in the upper extremities and bruising above the left eye from his fall. Labs are reviewed. White count 19.7, hemoglobin 8.4, hematocrit 25.2, platelet count 31,000. Sodium, potassium normal. Chloride is 96, CO2 of 30, BUN and creatinine were 77 and 4.43 compared to 79 and 4.79 yesterday. Microbiology including blood and urine all been negative. No recent chest x-ray report, although the one yesterday suggested some mild fluid overload. Medications are reviewed. ASSESSMENT: 1. Myelodysplastic syndrome with possible leukemic transformation, bone marrow biopsy is pending. 2. Acute renal failure with possible tumor lysis syndrome. 3. Chronic anemia. 4. Bicytopenia. 5. Significant electrolyte disturbance. 6. Possible community-acquired pneumonia. 7. Hyperkalemia. 8. Chronic thrombocytopenia. PLAN: Will continue to follow. I have asked the nurses to give him additional 40 of Lasix IV push. No additional recommendations are made. Hopefully, we will get the bone marrow biopsy yesterday. Spoke with his daughter Thania and his son-in-law. They understand his predicament. They are concerned that the marrow biopsy would actually show leukemia. Will continue to follow.
[2017-03-27] MEDS: AZITHROMYCIN 500 MG TAB PO SCH (16:42)
[2017-03-27] MEDS ORDERED: PIPERACILLIN-TAZOBACTAM 3.375 GM in DEXTROSE/WATER 1 50ML.BAG IVPB SCH (18:00)
[2017-03-27] MEDS: DRONABINOL 2.5 MG CAP PO SCH (20:45)
[2017-03-27] MEDS: ATORVASTATIN 80 MG TAB PO SCH (20:46)
[2017-03-27] MEDS: PIPERACILLIN-TAZOBACTAM 3.375 GM in DEXTROSE/WATER 1 50ML.BAG IVPB SCH (20:46)
[2017-03-27] MEDS: ASPIRIN 81 MG CHEW PO SCH (20:47)
[2017-03-27] MEDS: POLYETHYLENE GLYCOL 3350 17 GM POWD.PACK PO SCH (20:47)
[2017-03-27] MEDS: TEMAZEPAM 30 MG CAP PO SCH (20:49)
--- NOTE | 2017-03-28 05:43 | PN ---
DATE OF SERVICE: 03/27/2017 This 81-year-old gentleman admitted with sepsis and weakness, also had renal failure. The patient is being closely monitored. The patient was given a dose of Lasix at this time for chest congestion. No chest pain or palpitation. No fever. Generally weak. REVIEW OF SYSTEMS: CARDIOVASCULAR: No angina or palpitations. GI: As mentioned earlier. : No dysuria. NERVOUS SYSTEM: No numbness. Current medications are: 1. [place] 5 mg q.6 p.r.n. 2. DuoNeb q.i.d. and p.r.n. 3. Zyloprim 200 mg daily. 4. Norvasc 5 mg daily. 5. Aspirin 81. 6. Lipitor 80 mg. 7. Zithromax 500 mg daily. 8. PhosLo. 9. Rocephin daily. 10. Celexa. 11. Aranesp. 12. Marinol. 13. Hydrea. 14. Reglan. 15. Lopressor. 16. Zofran. 17. Protonix. 18. Restoril. 19. Hytrin. On exam, alert and oriented x2. Pulse is 78, blood pressure 122/57, respirations 16, temperature 97.8, pulse ox 94% on 4 L. HEENT: Conjunctivae normal. NECK: No jugular venous distention. CARDIOVASCULAR: S1 and S2, muffled. RESPIRATORY: Breath sounds diminished at the bases. Bilateral scattered rhonchi and crackles. ABDOMEN: Soft, nontender, no mass palpable. LEGS: No edema, no swelling. NERVOUS SYSTEM: Higher function as mentioned. Moves all 4 limbs. No focal motor or sensory deficit. LYMPHATICS: No lymphadenopathy of neck, axillae or groin. SKIN: No ulcers, rashes or bleeding. LABS: WBC is 19.7, hemoglobin is 8.4, platelets are 31. The creatinine is 4.54. Calcium is 5.9. ASSESSMENT: 1. Bilateral pneumonia with sepsis, present on admission, with generalized weakness. 2. Change in mental status, metabolic encephalopathy, acute on chronic. 3. Acute on chronic renal failure, possibly prerenal with acute tubular necrosis and prerenal factors. 4. Leukocytosis secondary to sepsis or leukemoid reaction or medication induced. 5. Hypocalcemia. 6. Status post bone marrow biopsy, results are pending. 7. History of myelodysplastic syndrome. 8. Anemia, macrocytic secondary to myelodysplastic syndrome. 9. Thrombocytopenia secondary to myelodysplastic syndrome. 10. Mild coagulopathy. 11. Chronic renal failure stage III . 12. Troponin 0.05 indeterminate. 13. Acute urinary tract infection, possibly. 14. Coronary artery disease, history of myocardial infarction and stent. 15. Hard of hearing. 16. Hyperlipidemia. 17. Essential hypertension, history. 18. Rheumatoid arthritis. 19. History of degenerative joint disease. 20. History of depression, not otherwise specified. 21. Remote history of nicotine dependence. 22. Severe protein calorie malnutrition, body mass index 19.5. 23. Mild left-sided hydronephrosis, chronic bladder wall thickening. 24. Metabolic encephalopathy, acute on chronic multifactorial. 25. History of bladder calculus, status post cystolithotripsy in 2017. 26. Gait dysfunction. 27. FULL CODE. RECOMMENDATIONS AND DISCUSSION: In this 81-year-old gentleman who presented with multiple complex medical problems, will continue the current medications. Continue symptomatic treatment. Prognosis guarded. Otherwise, increase ambulation. calcium supplementation. Repeat labs are noted. Monitor fluid and electrolyte balance closely. Prognosis guarded because of multiple complex medical issues. The renal failure seemed to be nonoliguric with significant output. Further recommendations to follow. Avoid nephrotoxic medications. Otherwise, prognosis guarded. PT, OT evaluation, Possible ECF rehab. Nephrology input appreciated. Repeats electrolytes and other labs tomorrow. Further recommendations to follow. MTDD
[2017-03-28 06:49] LABS: Phosphorous 7.8 mg/dL (2.5-4.5); Potassium 4.2 mmol/L (3.5-5.1)
[2017-03-28 06:57] LABS: Calcium 5.9 mg/dL (8.4-10.2)
[2017-03-28 06:59] LABS: Anisocytosis Slight; Aty Lym Flag Marked; CH 35.8; CHCM 30.1; HCT 25.3 % (39.0-53.0); HDW 2.68; HGB 7.5 gm/dL (13.0-17.5); Hypochromasia Moderate; Immature Gran Flag Marked; MCH 35.2 pg (25.0-35.0); MCHC 29.5 g/dL (31.0-37.0); Macrocytosis Marked; Mean Platelet Volume 11.4; RBC 2.12 m/uL (4.30-5.90); RDW 17.9 % (11.5-15.5); WBC 10.2 k/uL (3.8-10.6); WBC (Perox) 9.84
[2017-03-28 07:08] LABS: MCV 119.3 fL (80.0-100.0)
[2017-03-28] MEDS: IPRATROPIUM-ALBUTEROL 3 ML NEB INHALATION SCH ×3 (07:21→19:58)
[2017-03-28] MEDS: SODIUM CHLORIDE 0.9% 1,000 ML IV SCH ×2 (07:23→17:04)
[2017-03-28] MEDS: TERAZOSIN 5 MG CAP PO SCH (08:20)
[2017-03-28] MEDS: amLODIPine 5 MG TAB PO SCH (08:20)
[2017-03-28] MEDS: HYDROXYUREA 500 MG CAP PO SCH ×2 (08:20→21:42)
[2017-03-28] MEDS: ALLOPURINOL 100 MG TAB PO SCH (08:20)
[2017-03-28] MEDS: METOPROLOL TARTRATE 12.5 MG TAB PO SCH ×2 (08:20→21:42)
[2017-03-28] MEDS: FLUTICASONE 50MCG/SPRAY NASAL 16GM EA NOSTRIL SCH (08:20)
[2017-03-28] MEDS: CITALOPRAM HYDROBROMIDE 20 MG TAB PO SCH (08:20)
[2017-03-28] MEDS: CALCIUM ACETATE 667 MG CAP PO SCH ×3 (08:20→17:04)
[2017-03-28] MEDS: PIPERACILLIN-TAZOBACTAM 3.375 GM in DEXTROSE/WATER 1 50ML.BAG IVPB SCH ×2 (08:21→21:42)
[2017-03-28 08:44] LABS: Add Differential Manual Differential
[2017-03-28 08:52] LABS: Band Neutrophils % 6.5 %; Metamyelocytes % 0.5 %; Myelocytes % 1.5 %; Nucleated Red Blood Cells 0 /100 WBC (0-0); Total Cells Counted 200
[2017-03-28] MEDS ORDERED: FUROSEMIDE 10 MG/ML 4 ML VIAL IV STA (11:28)
--- NOTE | 2017-03-28 11:30 | P.PN ---
Subjective Patient is seen in follow-up for acute kidney injury on chronic kidney disease. Patient has chronic kidney disease stage III with baseline creatinine near 2. Patient does not follow with a steamer tender as an outpatient. His creatinine was 4.17 on admission and peaked at 4.9 this admission. It is 4.33 today. Patient presented with dyspnea and generalized weakness. He was noted to have a white count of greater than 90,000 for which he underwent a bone marrow biopsy this admission. 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 He has a Marie catheter in place and is nonoliguric. Oral intake is poor. No vomiting or diarrhea. Vital signs are stable. General: The patient appeared well nourished and normally developed. HEENT: Head exam is unremarkable. Neck is without jugular venous distension. LUNGS: Breath sounds decreased. Scattered rhonchi. HEART: Rate and Rhythm are regular. First and second heart sounds normal. No murmurs, rubs or gallops. ABDOMEN: Abdominal exam reveals normal bowel sounds. Non-tender and non- distended. No evidence of peritonitis. EXTREMITITES: No clubbing, cyanosis, or edema. Objective - Vital Signs Vital signs: Vital Signs Temp 97.6 F 03/28/17 07:00 Pulse 80 03/28/17 07:31 Resp 18 03/28/17 07:00 BP 136/65 03/28/17 07:00 Pulse Ox 92 L 03/28/17 07:00 Intake & Output 03/27/17 03/28/17 03/28/17 18:59 06:59 18:59 Intake Total 450 580 Output Total 1400 2100 650 Balance -950 -1520 -650 Intake: Intake, IV Titration 450 100 Amount Calcium Gluconate 2,000 100 mg In Sodium Chloride 0.9 % 100 ml @ 100 mls/hr IVPB ONCE ONE Rx#: [id number] Sodium Chloride 0.9% 1, 300 000 ml @ 100 mls/hr IV . Q10H [facility] Rx#:[id number] cefTRIAXone 1,000 mg In 50 100 Sodium Chloride 0.9% 50 ml @ 100 mls/hr IVPB Q24H [facility] Rx#:[id number] Oral 480 Output: Urine 1400 2100 650 Uretheral (Marie) 700 750 Other: Voiding Method Indwelling Catheter Indwelling Catheter Indwelling Catheter - Labs CBC & Chem 7: 03/28/17 06:16 03/28/17 06:16 Labs: Abnormal Lab Results - Last 24 Hours (Table) 03/27/17 03/28/17 03/28/17 Range/Units 11:28 06:16 06:16 RBC 2.12 L (4.30-5.90) m/uL Hgb 7.5 L (13.0-17.5) gm/dL Hct 25.3 L (39.0-53.0) % MCV 119.3 H D (80.0-100.0) fL MCH 35.2 H (25.0-35.0) pg MCHC 29.5 L (31.0-37.0) g/dL RDW 17.9 H (11.5-15.5) % Plt Count 33 L* (150-450) k/uL Monocytes # (Manual) 4.0 H (0-1.0) k/uL Chloride 93 L (98-107) mmol/L Carbon Dioxide 31 H (22-30) mmol/L BUN 73 H 73 H (9-20) mg/dL Creatinine 4.54 H 4.33 H (0.66-1.25) mg/dL Glucose 111 H (74-99) mg/dL Calcium 5.9 L* 5.9 L* (8.4-10.2) mg/dL Phosphorus 7.8 H (2.5-4.5) mg/dL AST 16 L (17-59) U/L ALT 17 L (21-72) U/L Total Protein 4.7 L (6.3-8.2) g/dL Albumin 2.5 L (3.5-5.0) g/dL Microbiology - Last 24 Hours (Table) 03/23/17 14:46 Blood Culture - Preliminary Blood No Growth after 96 hours 03/23/17 13:05 Blood Culture - Preliminary Blood No Growth after 96 hours Assessment and Plan Plan: Assessment: #1. Nonoliguric acute kidney injury secondary to ATN secondary to hypotension and poor oral intake. Creatinine 4.17 on admission and peaked at 4.9. It is 4.33 today. Also concern for tumor lysis syndrome due to his high tumor burden with electrolyte abnormalities also fitting the picture, particularly hyperuricemia, hyperkalemia, and hyperphosphatemia. #2. Elevated white count with anemia and thrombocytopenia due to underlying MDS with concern for transformation to AML. Patient underwent a bone marrow biopsy on March 24. #3. History of bladder calculi status post cystolithotripsy in October 2016. #4. Metabolic acidosis secondary to acute kidney injury. Resolved. #5. Chronic kidney disease stage IIIB with baseline creatinine near 2. Etiology is likely nephrosclerosis. Will repeat UA was GFR returns to baseline. #6. Hyperkalemia secondary to acute kidney injury and metabolic acidosis as well as tumor lysis syndrome. Improved. #7. Hypocalcemia secondary to acute kidney injury and hyperphosphatemia. Plan: Continue normal saline to be run at 100 mL an hour. The rate due to vascular congestion. Discontinued sodium bicarbonate supplementation. Maintain Marie catheter for strict I's and os for now. Status post IV rasburicase 03/25. Maintain PhosLo 3 times daily - I have increased the dose. 2 g IV calcium gluconate today. Avoid nephrotoxic agents and hypotensive episodes. Repeat electrolytes in the morning. Await bone marrow biopsy results. Lasix 40 mg IV once today.
[2017-03-28] MEDS ORDERED: CALCIUM GLUCONATE 2,000 MG in SODIUM CHLORIDE 0.9% 100 ML IVPB ONE (12:00)
--- NOTE | 2017-03-28 17:20 | P.PN ---
Subjective Date of service 03/28/2017. Personal being dictated for Dr. Zamora. 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 Maintained on IV fluid hydration, Zosyn. Status post bone marrow biopsy, final results pending. WBC normalized. Creatinine 4.33. Hemoglobin 7.5, platelets 33. Poor diet intake, consuming 25%. Denies nausea or vomiting. Receiving calcium gluconate today as per nephrology. Denies chest pain, palpitations. Objective - Vital Signs Vital signs: Vital Signs Temp 97.9 F 03/28/17 15:00 Pulse 81 03/28/17 15:00 Resp 18 03/28/17 15:00 BP 147/67 03/28/17 15:00 Pulse Ox 94 L 03/28/17 15:00 Intake & Output 03/27/17 03/28/17 03/28/17 18:59 06:59 18:59 Intake Total 450 580 560 Output Total 1400 2100 650 Balance -950 -1520 -90 Weight 63.3 kg Intake: Intake, IV Titration 450 100 450 Amount Calcium Gluconate 2,000 100 mg In Sodium Chloride 0.9 % 100 ml @ 100 mls/hr IVPB ONCE ONE Rx#: [id number] Calcium Gluconate 2,000 100 mg In Sodium Chloride 0.9 % 100 ml @ 100 mls/hr IVPB ONCE ONE Rx#: [id number] Piperacillin-Tazobactam 3 50 .375 gm In Dextrose/Water 1 50ml.bag @ 12.5 mls/hr IVPB Q12HR [facility] Rx#: [id number] Sodium Chloride 0.9% 1, 300 300 000 ml @ 100 mls/hr IV . Q10H [facility] Rx#:[id number] cefTRIAXone 1,000 mg In 50 100 Sodium Chloride 0.9% 50 ml @ 100 mls/hr IVPB Q24H [facility] Rx#:[id number] Oral 480 110 Output: Urine 1400 2100 650 Uretheral (Marie) 700 750 Other: Voiding Method Indwelling Catheter Indwelling Catheter Indwelling Catheter - Exam PHYSICAL EXAM: VITAL SIGNS: As above GENERAL: [Sitting up in bed, no acute distress] HEENT: [Pupils equal conjunctiva normal. No conjunctival pallor] NECK: [Supple, no JVD] RESPIRATORY EFFORT:[ Normal] LUNGS: [Bilateral bases diminished, scattered rhonchi, no wheezing, no crackles ] CARDIOVASCULAR[ regular S1 and S2, no murmurs rubs or gallops, no edema] GI: [Abdomen soft, nondistended, nontender, positive bowel sounds. No guarding , no rigidity] PSYCH: [Alert and oriented -3, mood and affect normal.] NEURO: No focal deficits, moves all 4 extremities, mild diffuse generalized weakness - Labs CBC & Chem 7: 03/28/17 06:16 03/28/17 06:16 Labs: Abnormal Lab Results - Last 24 Hours (Table) 03/28/17 03/28/17 Range/Units 06:16 06:16 RBC 2.12 L (4.30-5.90) m/uL Hgb 7.5 L (13.0-17.5) gm/dL Hct 25.3 L (39.0-53.0) % MCV 119.3 H D (80.0-100.0) fL MCH 35.2 H (25.0-35.0) pg MCHC 29.5 L (31.0-37.0) g/dL RDW 17.9 H (11.5-15.5) % Plt Count 33 L* (150-450) k/uL Monocytes # (Manual) 4.0 H (0-1.0) k/uL BUN 73 H (9-20) mg/dL Creatinine 4.33 H (0.66-1.25) mg/dL Calcium 5.9 L* (8.4-10.2) mg/dL Phosphorus 7.8 H (2.5-4.5) mg/dL Microbiology - Last 24 Hours (Table) 03/23/17 13:05 Blood Culture - Preliminary Blood No Growth after 120 hours 03/23/17 14:46 Blood Culture - Preliminary Blood No Growth after 96 hours Assessment and Plan Plan: 1. Bilateral pneumonia with sepsis, present on admission with generalized weakness. 2. [Leukocytosis, possibly secondary to sepsis or leukomoid reaction over medication induced, rule out leukemic transformation. Status post bone marrow biopsy-results pending. 3. [ History of myelodysplastic syndrome]. 4. [ Anemia, macrocytic secondary to myelodysplastic syndrome]. 5. Change in mental status, acute on chronic metabolic encephalopathy 6. [ Thrombocytopenia secondary to myelodysplastic syndrome]. 7. [ Coagulopathy, mild]. 8. Acute on chronic renal failure, stageIIIB. Acute secondary to ATN related to hypotension, decreased oral intake. 9. Troponin 0.05 indeterminate 10. Possible acute UTI 11. CAD, history of [place], stent. 12. Hard of hearing 13. Hyperlipidemia 14. Hypertension 15. Rheumatoid arthritis 16. Gait dysfunction with Degenerative joint disease 17. History of depression, not otherwise specified 18. Remote history of nicotine dependence 19. Severe protein calorie malnutrition, BMI 19.5 20. Mild left-sided hydronephrosis, chronic bladder wall thickening 21. Metabolic acidosis secondary to acute kidney injury 22. History of bladder calculi, status post cystolithotripsy October 2016 23. hypocalcemia secondary to acute renal failure and hyperphosphatemia Plan: Continue on current medication regime , nebulized bronchodilators,Zosyn, monitoring and symptomatic treatment. Calcium supplementation Bone marrow biopsy results pending. IV fluid hydration. Close monitoring of renal function , electrolytes, hemoglobin, platelets with repeat labs ordered for a.m. Follow closely with both nephrology and oncology. The impression and plan of care has been dictated as directed as a scribe. : I performed a H&P examination of this patient and discussed the same with the dictator. I agree with the dictator's note. Any additional findings/opinions/ etc. will be noted.
--- NOTE | 2017-03-28 17:30 | P.PN ---
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 Meanwhile there is still in renal failure suspected to be related to a tumor lysis-type of picture. Renal function is impaired due to remains stable. The patient is producing adequate amount of urine output. His chest x- ray from few days back showed increased pulmonary vascular marking and pulmonary edema with hilar prominence bilaterally. He is on congested and short of breath compared to yesterday. No significant sputum production. He is known to have COPD. He is on oxygen and he is also on IV Zosyn that was started yesterday. Oncology is on the case Objective - Vital Signs Vital signs: Vital Signs Temp 97.9 F 03/28/17 15:00 Pulse 81 03/28/17 15:00 Resp 18 03/28/17 15:00 BP 147/67 03/28/17 15:00 Pulse Ox 94 L 03/28/17 15:00 Intake & Output 03/27/17 03/28/17 03/28/17 18:59 06:59 18:59 Intake Total 450 580 560 Output Total 1400 2100 650 Balance -950 -1520 -90 Weight 63.3 kg Intake: Intake, IV Titration 450 100 450 Amount Calcium Gluconate 2,000 100 mg In Sodium Chloride 0.9 % 100 ml @ 100 mls/hr IVPB ONCE ONE Rx#: [id number] Calcium Gluconate 2,000 100 mg In Sodium Chloride 0.9 % 100 ml @ 100 mls/hr IVPB ONCE ONE Rx#: [id number] Piperacillin-Tazobactam 3 50 .375 gm In Dextrose/Water 1 50ml.bag @ 12.5 mls/hr IVPB Q12HR [facility] Rx#: [id number] Sodium Chloride 0.9% 1, 300 300 000 ml @ 100 mls/hr IV . Q10H [facility] Rx#:[id number] cefTRIAXone 1,000 mg In 50 100 Sodium Chloride 0.9% 50 ml @ 100 mls/hr IVPB Q24H [facility] Rx#:[id number] Oral 480 110 Output: Urine 1400 2100 650 Uretheral (Marie) 700 750 Other: Voiding Method Indwelling Catheter Indwelling Catheter Indwelling Catheter - Exam Head exam was generally normal. There was no scleral icterus or corneal arcus. Mucous membranes were moist.Neck was supple and without jugular venous distension, thyromegaly, or carotid bruits. Carotids were easily palpable bilaterally. There was no adenopathy. Lung sounds are diminished bilaterally along with some scattered expiratory wheezes or rhonchi heard throughout the lung edwards bilaterally.Cardiac exam revealed the PMI to be normally situated and sized. The rhythm was regular and no extrasystoles were noted during several minutes of auscultation. The first and second heart sounds were normal and physiologic splitting of the second heart sound was noted. There were no murmurs, rubs, clicks, or gallops.Abdominal exam revealed normal bowel sounds. The abdomen was soft, non-tender, and without masses, organomegaly, or appreciable enlargement of the abdominal aorta.Examination of the extremities revealed easily palpable radial, femoral and pedal pulses. There was no cyanosis , clubbing or edema. - Labs CBC & Chem 7: 03/28/17 06:16 03/28/17 06:16 Labs: Abnormal Lab Results - Last 24 Hours (Table) 03/28/17 03/28/17 Range/Units 06:16 06:16 RBC 2.12 L (4.30-5.90) m/uL Hgb 7.5 L (13.0-17.5) gm/dL Hct 25.3 L (39.0-53.0) % MCV 119.3 H D (80.0-100.0) fL MCH 35.2 H (25.0-35.0) pg MCHC 29.5 L (31.0-37.0) g/dL RDW 17.9 H (11.5-15.5) % Plt Count 33 L* (150-450) k/uL Monocytes # (Manual) 4.0 H (0-1.0) k/uL BUN 73 H (9-20) mg/dL Creatinine 4.33 H (0.66-1.25) mg/dL Calcium 5.9 L* (8.4-10.2) mg/dL Phosphorus 7.8 H (2.5-4.5) mg/dL Microbiology - Last 24 Hours (Table) 03/23/17 14:46 Blood Culture - Preliminary Blood No Growth after 120 hours 03/23/17 13:05 Blood Culture - Preliminary Blood No Growth after 120 hours Assessment and Plan Plan: Assessment 1 mild dysplasia/mild dysplastic syndrome 2 acute leukocytosis with bandemia, rule out acute myelogenous leukemia, status post bone marrow biopsy 3 renal failure, acute. Rule out underlying tumor lysis syndrome 4 bicytopenia 5 acute hypoxic respiratory failure with increased pulmonary vascular marking. Rule out superimposed pneumonia currently on IV Zosyn 6 hypocalcemia, secondary to above 7 coronary artery disease appears myocardial infarction and coronary stent 8 hyperlipidemia 9 hypertension 10 rheumatoid arthritis 11 osteoarthritis 12 depression 13 protein calorie mentation with a body mass index of 19.5 14 mild left-sided hydronephrosis with chronic bladder wall thickening 15 bladder calculus status post lithotripsy in 2017 16 difficulty with mobility and ambulation 17 focal status Plan Continue oxygen at 2 L/m nasal cannula. Agree on IV Zosyn. Sputum Gram stain and culture if possible. If he chest x-ray in a.m. Continue fluid resuscitation regarding the possibility of a tumor lysis syndrome. Monitor electrolytes. Awaiting the results of the bone marrow biopsy. Prognosis very guarded based on his condition and, age and base other comorbidities with a possibility of him having an acute myelogenous leukemia. We'll continue to follow. Nephrology is on the case. Hematology is on the case.
--- NOTE | 2017-03-28 18:52 | PN ---
DATE OF SERVICE: 03/28/2017 This 81-year-old gentleman who was admitted with multiple medical problems including bilateral pneumonia also had renal failure also. The patient had change in mental status which is improving. The patient also complained of tiredness and weakness. No fever. No cough. On exam, alert and oriented x3. Pulse 80, blood pressure 136/65, respiration 18, temperature 97.7. Pulse ox 98% on 4 liters. HEENT: Conjunctivae normal. NECK: No jugular venous distention. CARDIOVASCULAR: S1, S2 muffled. RESPIRATORY: Breath sounds diminished at the bases. A few scattered rhonchi and crackles. ABDOMEN: Soft. Nontender. LEGS: No edema. No swelling. CENTRAL NERVOUS SYSTEM: No focal deficits. LABS: WBC 10.2, hemoglobin is 10.5 and calcium is 5.9. ASSESSMENT: 1. Bilateral pneumonia with sepsis, present on admission with generalized weakness. 2. Acute on chronic renal failure, possible prerenal with acute tubular necrosis and prerenal factors. 3. Change in mental status, with acute metabolic, acute on chronic, improving. 4. Gait dysfunction. 5. Generalized asthenia. 6. Leukocyte secondary to sepsis and Leucovorin reaction or medication-induced. 7. Hypocalcemia. 8. Status post bone marrow biopsy results are pending. 9. History of myelodysplastic syndrome. 10. History of anemia, microcytic secondary to MDS. 11. Thrombocytopenia secondary to MDS. 12. Mild coagulopathy. 13. Chronic renal failure, stage III. 14. Troponin 0.05 indeterminate. 15. Acute urinary tract infection possibly. 16. History of coronary artery disease. 17. History of myocardial infarction and stent. 18. Hard of hearing. 19. Hyperlipidemia. 20. History of hypertension. 21. Rheumatoid arthritis history. 22. Degenerative joint disease. 23. History of depression, not otherwise specified. 24. Remote history of nicotine dependence. 25. Severe protein calorie malnutrition. Body mass index of 19.5. 26. Mild left-sided hydronephrosis, chronic bladder wall thickening. 27. Metabolic encephalopathy, acute on chronic multifactorial. 28. History of bladder calculus status post cystolithotripsy in 2006. 29. Gait dysfunction. 30. FULL CODE. RECOMMENDATIONS AND DISCUSSION: I recommend to continue with current medications. Continue with monitoring. Symptomatic treatment. Otherwise, at this time, continue PT, OT evaluation. Monitor creatinine closely. Avoid nephrotoxic agents. Calcium gluconate. Further recommendations to follow.
[2017-03-28] MEDS: METOCLOPRAMIDE 5 MG/ML 2 ML VIAL IVP PRN (19:27)
[2017-03-28] MEDS: ASPIRIN 81 MG CHEW PO SCH (21:42)
[2017-03-28] MEDS: ATORVASTATIN 80 MG TAB PO SCH (21:42)
[2017-03-28] MEDS: DRONABINOL 2.5 MG CAP PO SCH (21:42)
[2017-03-28] MEDS: TEMAZEPAM 30 MG CAP PO SCH (21:43)
[2017-03-28] MEDS: POLYETHYLENE GLYCOL 3350 17 GM POWD.PACK PO SCH (21:43)
[2017-03-29] MEDS: SODIUM CHLORIDE 0.9% 1,000 ML IV SCH ×2 (06:27→12:07)
--- NOTE | 2017-03-29 07:11 | XR ---
EXAMINATION TYPE: XR chest 2V DATE OF EXAM: 03/29/2017 HISTORY: CHF. REFERENCE: Previous study dated 03/26/2017. FINDINGS: The lungs are overinflated. The heart is enlarged. There is improvement in the degree of va scular congestion. There is pleural thickening present on the right. There is a small right effusion. . IMPRESSION: 1. COPD. 2. CARDIOMEGALY. 3. WORSENING PLEURAL REACTION ON THE RIGHT. 4. IMPROVED HYDRATION STATUS.
[2017-03-29 07:26] LABS: Anisocytosis Slight; Aty Lym Flag Marked; CH 35.5; CHCM 30.1; HDW 2.75; HGB 7.4 gm/dL (13.0-17.5); Hypochromasia Marked; Immature Gran Flag Marked; MCH 35.1 pg (25.0-35.0); MCHC 29.7 g/dL (31.0-37.0); MCV 118.4 fL (80.0-100.0); Macrocytosis Marked; Mean Platelet Volume 9.6; RBC 2.11 m/uL (4.30-5.90); RDW 17.8 % (11.5-15.5); WBC 5.6 k/uL (3.8-10.6); WBC (Perox) 6.08
[2017-03-29 07:43] LABS: Calcium 6.6 mg/dL (8.4-10.2); Potassium 4.4 mmol/L (3.5-5.1)
[2017-03-29] MEDS: IPRATROPIUM-ALBUTEROL 3 ML NEB INHALATION SCH ×3 (07:46→20:25)
[2017-03-29 08:35] LABS: Add Differential Manual Differential
[2017-03-29 08:41] LABS: Band Neutrophils % 4.5 %; Blast Cells 3.5; Manual Review Performed; Metamyelocytes % 3.5 %; Myelocytes % 1.5 %; Nucleated Red Blood Cells 0 /100 WBC (0-0); Total Cells Counted 200
[2017-03-29] MEDS: CITALOPRAM HYDROBROMIDE 20 MG TAB PO SCH (08:50)
[2017-03-29] MEDS: FLUTICASONE 50MCG/SPRAY NASAL 16GM EA NOSTRIL SCH (08:50)
[2017-03-29] MEDS: HYDROXYUREA 500 MG CAP PO SCH ×2 (08:50→20:50)
[2017-03-29] MEDS: CALCIUM ACETATE 667 MG CAP PO SCH ×3 (08:50→16:52)
[2017-03-29] MEDS: TERAZOSIN 5 MG CAP PO SCH (08:50)
[2017-03-29] MEDS: ALLOPURINOL 100 MG TAB PO SCH (08:51)
[2017-03-29] MEDS: amLODIPine 5 MG TAB PO SCH (08:51)
[2017-03-29] MEDS: PIPERACILLIN-TAZOBACTAM 3.375 GM in DEXTROSE/WATER 1 50ML.BAG IVPB SCH ×2 (08:51→20:50)
[2017-03-29] MEDS: METOPROLOL TARTRATE 12.5 MG TAB PO SCH ×2 (08:51→20:50)
[2017-03-29] MEDS ORDERED: DARBEPOETIN ALFA 100MCG/0.5ML SYRINGE SQ SCH (09:00)
--- NOTE | 2017-03-29 10:24 | P.PN ---
Subjective Patient is seen in follow-up for acute kidney injury on chronic kidney disease. Patient has chronic kidney disease stage III with baseline creatinine near 2. Patient does not follow with a clerk entry level as an outpatient. His creatinine was 4.17 on admission and peaked at 4.9 this admission. It is 4.34 today. Patient presented with dyspnea and generalized weakness. He was noted to have a white count of greater than 90,000 for which he underwent a bone marrow biopsy this admission. 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 He has a Marie catheter in place and is nonoliguric. Oral intake is fair. No vomiting or diarrhea. No changes overnight. Vital signs are stable. General: The patient appeared well nourished and normally developed. HEENT: Head exam is unremarkable. Neck is without jugular venous distension. LUNGS: Breath sounds decreased. Scattered rhonchi. HEART: Rate and Rhythm are regular. First and second heart sounds normal. No murmurs, rubs or gallops. ABDOMEN: Abdominal exam reveals normal bowel sounds. Non-tender and non- distended. No evidence of peritonitis. EXTREMITITES: No clubbing, cyanosis, or edema. Objective - Vital Signs Vital signs: Vital Signs Temp 97.6 F 03/29/17 07:00 Pulse 76 03/29/17 08:00 Resp 20 03/29/17 07:00 BP 146/63 03/29/17 07:00 Pulse Ox 96 03/29/17 07:00 Intake & Output 03/28/17 03/29/17 03/29/17 18:59 06:59 18:59 Intake Total 560 1440 118 Output Total 1450 900 Balance -890 540 118 Weight 63.3 kg Intake: Intake, IV Titration 450 600 Amount Calcium Gluconate 2,000 100 mg In Sodium Chloride 0.9 % 100 ml @ 100 mls/hr IVPB ONCE ONE Rx#: [id number] Piperacillin-Tazobactam 3 50 100 .375 gm In Dextrose/Water 1 50ml.bag @ 12.5 mls/hr IVPB Q12HR [facility] Rx#: [id number] Sodium Chloride 0.9% 1, 300 500 000 ml @ 100 mls/hr IV . Q10H [facility] Rx#:[id number] Oral 110 840 118 Output: Urine 1450 900 Uretheral (Marie) 900 Other: Voiding Method Indwelling Catheter Indwelling Catheter Indwelling Catheter - Labs CBC & Chem 7: 03/29/17 07:08 03/29/17 07:08 Labs: Abnormal Lab Results - Last 24 Hours (Table) 03/29/17 03/29/17 Range/Units 07:08 07:08 RBC 2.11 L (4.30-5.90) m/uL Hgb 7.4 L (13.0-17.5) gm/dL Hct 25.0 L (39.0-53.0) % MCV 118.4 H (80.0-100.0) fL MCH 35.1 H (25.0-35.0) pg MCHC 29.7 L (31.0-37.0) g/dL RDW 17.8 H (11.5-15.5) % Plt Count 34 L* (150-450) k/uL Lymphocytes # (Manual) 0.9 L (1.0-4.8) k/uL Monocytes # (Manual) 2.3 H (0-1.0) k/uL BUN 71 H (9-20) mg/dL Creatinine 4.34 H (0.66-1.25) mg/dL Calcium 6.6 L (8.4-10.2) mg/dL Microbiology - Last 24 Hours (Table) 03/23/17 14:46 Blood Culture - Preliminary Blood No Growth after 120 hours 03/23/17 13:05 Blood Culture - Preliminary Blood No Growth after 120 hours Assessment and Plan Plan: Assessment: #1. Nonoliguric acute kidney injury secondary to ATN secondary to hypotension and poor oral intake. Creatinine 4.17 on admission and peaked at 4.9. It is 4.34 today. Also concern for tumor lysis syndrome due to his high tumor burden with electrolyte abnormalities also fitting the picture, particularly hyperuricemia, hyperkalemia, and hyperphosphatemia. #2. Elevated white count with anemia and thrombocytopenia due to underlying MDS with concern for transformation to AML. Patient underwent a bone marrow biopsy on March 24. #3. History of bladder calculi status post cystolithotripsy in October 2016. #4. Metabolic acidosis secondary to acute kidney injury. Resolved. #5. Chronic kidney disease stage IIIB with baseline creatinine near 2. Etiology is likely nephrosclerosis. Will repeat UA was GFR returns to baseline. #6. Hyperkalemia secondary to acute kidney injury and metabolic acidosis as well as tumor lysis syndrome. Improved. #7. Hypocalcemia secondary to acute kidney injury and hyperphosphatemia. Plan: Continue normal saline to be run at 100 mL an hour. The rate was decreased due to vascular congestion. Discontinued sodium bicarbonate supplementation. Maintain Marie catheter for strict I's and os for now. Status post IV rasburicase 03/25. Maintain PhosLo 3 times daily - I have increased the dose. 1 g IV calcium gluconate today. Avoid nephrotoxic agents and hypotensive episodes. Repeat electrolytes in the morning. Await bone marrow biopsy results. Lasix 40 mg IV once today.
[2017-03-29] MEDS ORDERED: FUROSEMIDE 10 MG/ML 4 ML VIAL IV STA (10:27)
--- NOTE | 2017-03-29 11:39 | P.PN ---
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 Meanwhile there is still in renal failure suspected to be related to a tumor lysis-type of picture. Renal function is impaired due to remains stable. The patient is producing adequate amount of urine output. His chest x- ray from few days back showed increased pulmonary vascular marking and pulmonary edema with hilar prominence bilaterally. He is on congested and short of breath compared to yesterday. No significant sputum production. He is known to have COPD. He is on oxygen and he is also on IV Zosyn that was started yesterday. Oncology is on the case. On 03/29/2017 the patient's headache a lot chest x-ray that shows some improvement in the volume status. Unfortunately the bone marrow biopsy is consistent with blasts and typical of an acute myelogenous leukemia and his clinical patient is still consistent with an underlying tumor lysis syndrome. Had a discussion with the oncologist and the patient's prognosis poor based on the findings and the patient will likely not be a good candidate for any further treatment. No active pulmonary issues for now. Objective - Vital Signs Vital signs: Vital Signs Temp 97.6 F 03/29/17 07:00 Pulse 76 03/29/17 08:00 Resp 20 03/29/17 07:00 BP 146/63 03/29/17 07:00 Pulse Ox 96 03/29/17 07:00 Intake & Output 03/28/17 03/29/17 03/29/17 18:59 06:59 18:59 Intake Total 560 1440 118 Output Total 1450 900 Balance -890 540 118 Weight 63.3 kg Intake: Intake, IV Titration 450 600 Amount Calcium Gluconate 2,000 100 mg In Sodium Chloride 0.9 % 100 ml @ 100 mls/hr IVPB ONCE ONE Rx#: [id number] Piperacillin-Tazobactam 3 50 100 .375 gm In Dextrose/Water 1 50ml.bag @ 12.5 mls/hr IVPB Q12HR [facility] Rx#: [id number] Sodium Chloride 0.9% 1, 300 500 000 ml @ 100 mls/hr IV . Q10H [facility] Rx#:[id number] Oral 110 840 118 Output: Urine 1450 900 Uretheral (Marie) 900 Other: Voiding Method Indwelling Catheter Indwelling Catheter Indwelling Catheter - Exam Head exam was generally normal. There was no scleral icterus or corneal arcus. Mucous membranes were moist.Neck was supple and without jugular venous distension, thyromegaly, or carotid bruits. Carotids were easily palpable bilaterally. There was no adenopathy. Lung sounds are diminished bilaterally along with some scattered expiratory wheezes or rhonchi heard throughout the lung edwards bilaterally.Cardiac exam revealed the PMI to be normally situated and sized. The rhythm was regular and no extrasystoles were noted during several minutes of auscultation. The first and second heart sounds were normal and physiologic splitting of the second heart sound was noted. There were no murmurs, rubs, clicks, or gallops.Abdominal exam revealed normal bowel sounds. The abdomen was soft, non-tender, and without masses, organomegaly, or appreciable enlargement of the abdominal aorta.Examination of the extremities revealed easily palpable radial, femoral and pedal pulses. There was no cyanosis , clubbing or edema. - Labs CBC & Chem 7: 03/29/17 07:08 03/29/17 07:08 Labs: Abnormal Lab Results - Last 24 Hours (Table) 03/29/17 03/29/17 Range/Units 07:08 07:08 RBC 2.11 L (4.30-5.90) m/uL Hgb 7.4 L (13.0-17.5) gm/dL Hct 25.0 L (39.0-53.0) % MCV 118.4 H (80.0-100.0) fL MCH 35.1 H (25.0-35.0) pg MCHC 29.7 L (31.0-37.0) g/dL RDW 17.8 H (11.5-15.5) % Plt Count 34 L* (150-450) k/uL Lymphocytes # (Manual) 0.9 L (1.0-4.8) k/uL Monocytes # (Manual) 2.3 H (0-1.0) k/uL BUN 71 H (9-20) mg/dL Creatinine 4.34 H (0.66-1.25) mg/dL Calcium 6.6 L (8.4-10.2) mg/dL Microbiology - Last 24 Hours (Table) 03/23/17 14:46 Blood Culture - Preliminary Blood No Growth after 120 hours 03/23/17 13:05 Blood Culture - Preliminary Blood No Growth after 120 hours Assessment and Plan Plan: Assessment 1 myelodysplasia/mild dysplastic syndrome 2 acute leukocytosis with bandemia, consistent with acute myelogenous leukemia, status post bone marrow biopsy 3 renal failure, acute. Rule out underlying tumor lysis syndrome 4 bicytopenia 5 acute hypoxic respiratory failure with increased pulmonary vascular marking. Rule out superimposed pneumonia currently on IV Zosyn 6 hypocalcemia, secondary to above 7 coronary artery disease appears myocardial infarction and coronary stent 8 hyperlipidemia 9 hypertension 10 rheumatoid arthritis 11 osteoarthritis 12 depression 13 protein calorie mentation with a body mass index of 19.5 14 mild left-sided hydronephrosis with chronic bladder wall thickening 15 bladder calculus status post lithotripsy in 2017 16 difficulty with mobility and ambulation 17 focal status Plan Continue oxygen at 2 L/m nasal cannula. Prognosis poor. No active pulmonary issues and pulmonary we'll sign off. 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 I will sign off the case for now and leave the rest of the management to oncology and medicine.
[2017-03-29] MEDS ORDERED: CALCIUM GLUCONATE 1,000 MG in SODIUM CHLORIDE 0.9% 100 ML IVPB ONE (12:00)
[2017-03-29] MEDS: METOCLOPRAMIDE 5 MG/ML 2 ML VIAL IVP PRN (13:15)
--- NOTE | 2017-03-29 17:06 | P.PN ---
Subjective Date of service 03/29/2017. Personal being dictated for Dr. Zamora. 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 Continues on IV fluid hydration, Zosyn and Hydrea. Chest x-ray reporting improvement in vascular congestion. Status post bone marrow biopsy, reporting acute myeloid leukemia; myeloid blasts consistent with involvement of bone marrow. Per oncology poor prognosis, not a candidate for aggressive acute leukemia treatment. Objective - Vital Signs Vital signs: Vital Signs Temp 97.6 F 03/29/17 07:00 Pulse 74 03/29/17 14:31 Resp 20 03/29/17 07:00 BP 146/63 03/29/17 07:00 Pulse Ox 96 03/29/17 07:00 Intake & Output 03/28/17 03/29/17 03/29/17 18:59 06:59 18:59 Intake Total 560 1440 118 Output Total 1450 900 600 Balance -890 540 -482 Weight 63.3 kg Intake: Intake, IV Titration 450 600 Amount Calcium Gluconate 2,000 100 mg In Sodium Chloride 0.9 % 100 ml @ 100 mls/hr IVPB ONCE ONE Rx#: [id number] Piperacillin-Tazobactam 3 50 100 .375 gm In Dextrose/Water 1 50ml.bag @ 12.5 mls/hr IVPB Q12HR [facility] Rx#: [id number] Sodium Chloride 0.9% 1, 300 500 000 ml @ 100 mls/hr IV . Q10H [facility] Rx#:[id number] Oral 110 840 118 Output: Urine 1450 900 600 Uretheral (Marie) 900 600 Other: Voiding Method Indwelling Catheter Indwelling Catheter Indwelling Catheter # Bowel Movements 1 - Exam PHYSICAL EXAM: VITAL SIGNS: As above GENERAL: [Sitting up in bed, no acute distress] HEENT: [Pupils equal conjunctiva normal. No conjunctival pallor] NECK: [Supple, no JVD] RESPIRATORY EFFORT:[ Normal] LUNGS: [Bilateral bases diminished, scattered rhonchi and expiratory wheezes wheezing, no crackles] CARDIOVASCULAR[ regular S1 and S2, no murmurs rubs or gallops, no edema] GI: [Abdomen soft, nondistended, nontender, positive bowel sounds. No organomegaly. PSYCH: [Alert and oriented -3, mood and affect normal.] NEURO: No focal deficits, moves all 4 extremities, mild diffuse generalized weakness - Labs CBC & Chem 7: 03/29/17 07:08 03/29/17 07:08 Labs: Abnormal Lab Results - Last 24 Hours (Table) 03/29/17 03/29/17 Range/Units 07:08 07:08 RBC 2.11 L (4.30-5.90) m/uL Hgb 7.4 L (13.0-17.5) gm/dL Hct 25.0 L (39.0-53.0) % MCV 118.4 H (80.0-100.0) fL MCH 35.1 H (25.0-35.0) pg MCHC 29.7 L (31.0-37.0) g/dL RDW 17.8 H (11.5-15.5) % Plt Count 34 L* (150-450) k/uL Lymphocytes # (Manual) 0.9 L (1.0-4.8) k/uL Monocytes # (Manual) 2.3 H (0-1.0) k/uL BUN 71 H (9-20) mg/dL Creatinine 4.34 H (0.66-1.25) mg/dL Calcium 6.6 L (8.4-10.2) mg/dL Microbiology - Last 24 Hours (Table) 03/23/17 14:46 Blood Culture - Preliminary Blood No Growth after 120 hours 03/23/17 13:05 Blood Culture - Preliminary Blood No Growth after 120 hours Assessment and Plan Plan: 1. Bilateral pneumonia with sepsis, present on admission with generalized weakness. 2. [Leukocytosis, possibly secondary to sepsis or leukomoid reaction over medication induced, rule out leukemic transformation. Status post bone marrow biopsy reporting acutemyeloid leukemia 3. [ History of myelodysplastic syndrome]. 4. [ Anemia, macrocytic secondary to myelodysplastic syndrome]. 5. Change in mental status, acute on chronic metabolic encephalopathy 6. [ Thrombocytopenia secondary to myelodysplastic syndrome]. 7. [ Coagulopathy, mild]. 8. Acute on chronic renal failure, stageIIIB. Acute secondary to ATN related to hypotension, decreased oral intake. Rule out underlying tumor lysis syndrome. 9. Troponin 0.05 indeterminate 10. Possible acute UTI 11. CAD, history of [place], stent. 12. Hard of hearing 13. Hyperlipidemia 14. Hypertension 15. Rheumatoid arthritis 16. Gait dysfunction with Degenerative joint disease 17. History of depression, not otherwise specified 18. Remote history of nicotine dependence 19. Severe protein calorie malnutrition, BMI 19.5 20. Mild left-sided hydronephrosis, chronic bladder wall thickening 21. Metabolic acidosis secondary to acute kidney injury 22. History of bladder calculi, status post cystolithotripsy October 2016 23. hypocalcemia secondary to acute renal failure and hyperphosphatemia Plan: Continue on current medication regime , nebulized bronchodilators,Zosyn, monitoring and symptomatic treatment. Prognosis poor as per oncology and as mentioned above patient is not a candidate for aggressive acute leukemia treatment. Continue on Hydrea. Patient has an appointment with Dr. Hewitt on 04/07. Discharge planning in progress for [facility]. Further recommendations to follow. The impression and plan of care has been dictated as directed as a scribe. : I performed a H&P examination of this patient and discussed the same with the dictator. I agree with the dictator's note. Any additional findings/opinions/ etc. will be noted.
[2017-03-29] MEDS: DRONABINOL 2.5 MG CAP PO SCH (20:50)
[2017-03-29] MEDS: TEMAZEPAM 30 MG CAP PO SCH (20:50)
[2017-03-29] MEDS: ATORVASTATIN 80 MG TAB PO SCH (20:50)
[2017-03-29] MEDS: POLYETHYLENE GLYCOL 3350 17 GM POWD.PACK PO SCH (20:51)
[2017-03-29] MEDS: ASPIRIN 81 MG CHEW PO SCH (20:51)
[2017-03-29] MEDS ORDERED: FILGRASTIM 300 MCG IM SCH (21:30)
[2017-03-30] MEDS: SODIUM CHLORIDE 0.9% 1,000 ML IV SCH ×2 (01:57→17:07)
[2017-03-30 07:45] LABS: Calcium 6.9 mg/dL (8.4-10.2); Potassium 4.4 mmol/L (3.5-5.1)
[2017-03-30 08:19] LABS: Anisocytosis Slight; Aty Lym Flag Marked; CH 34.4; CHCM 29.1; HCT 20.6 % (39.0-53.0); HDW 2.82; Hypochromasia Marked; Immature Gran Flag Marked; MCH 38.3 pg (25.0-35.0); MCHC 32.3 g/dL (31.0-37.0); MCV 118.7 fL (80.0-100.0); Macrocytosis Marked; Mean Platelet Volume 9.8; RBC 1.74 m/uL (4.30-5.90); RDW 17.4 % (11.5-15.5); WBC 3.5 k/uL (3.8-10.6); WBC (Perox) 3.73
[2017-03-30] MEDS: IPRATROPIUM-ALBUTEROL 3 ML NEB INHALATION SCH ×3 (08:32→20:25)
[2017-03-30 08:45] LABS: HGB 6.7 gm/dL (13.0-17.5)
[2017-03-30] MEDS: amLODIPine 5 MG TAB PO SCH (08:57)
[2017-03-30] MEDS: CALCIUM ACETATE 667 MG CAP PO SCH ×3 (08:57→17:08)
[2017-03-30] MEDS: FLUTICASONE 50MCG/SPRAY NASAL 16GM EA NOSTRIL SCH (08:57)
[2017-03-30] MEDS: ALLOPURINOL 100 MG TAB PO SCH (08:57)
[2017-03-30] MEDS: CITALOPRAM HYDROBROMIDE 20 MG TAB PO SCH (08:57)
[2017-03-30] MEDS: METOPROLOL TARTRATE 12.5 MG TAB PO SCH ×2 (08:58→21:22)
[2017-03-30] MEDS: PIPERACILLIN-TAZOBACTAM 3.375 GM in DEXTROSE/WATER 1 50ML.BAG IVPB SCH ×2 (08:58→21:21)
[2017-03-30] MEDS: HYDROXYUREA 500 MG CAP PO SCH (08:58)
[2017-03-30] MEDS: TERAZOSIN 5 MG CAP PO SCH (08:58)
--- NOTE | 2017-03-30 09:56 | P.PN ---
Subjective Patient is seen in follow-up for acute kidney injury on chronic kidney disease. Patient has chronic kidney disease stage III with baseline creatinine near 2. Patient does not follow with a steam brush operator as an outpatient. His creatinine was 4.17 on admission and peaked at 4.9 this admission. It is 4.11 today. Patient presented with dyspnea and generalized weakness. He was noted to have a white count of greater than 90,000 for which he underwent a bone marrow biopsy this admission. 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 He has a Marie catheter in place and is nonoliguric. Oral intake is poor. He is having dry heaves. Vital signs are stable. General: The patient appeared well nourished and normally developed. HEENT: Head exam is unremarkable. Neck is without jugular venous distension. LUNGS: Breath sounds decreased. Scattered rhonchi. HEART: Rate and Rhythm are regular. First and second heart sounds normal. No murmurs, rubs or gallops. ABDOMEN: Abdominal exam reveals normal bowel sounds. Non-tender and non- distended. No evidence of peritonitis. EXTREMITITES: 1+ edema in ankles. Objective - Vital Signs Vital signs: Vital Signs Temp 97.7 F 03/30/17 07:00 Pulse 92 03/30/17 08:42 Resp 18 03/30/17 07:00 BP 134/61 03/30/17 07:00 Pulse Ox 98 03/30/17 08:32 Intake & Output 03/29/17 03/30/17 03/30/17 18:59 06:59 18:59 Intake Total 118 1780 Output Total 825 600 425 Balance -707 1180 -425 Intake: Intake, IV Titration 1300 Amount Piperacillin-Tazobactam 3 100 .375 gm In Dextrose/Water 1 50ml.bag @ 12.5 mls/hr IVPB Q12HR [facility] Rx#: [id number] Sodium Chloride 0.9% 1, 1200 000 ml @ 100 mls/hr IV . Q10H [facility] Rx#:[id number] Oral 118 480 Output: Urine 825 600 425 Uretheral (Marie) 600 600 425 Other: Voiding Method Indwelling Catheter Indwelling Catheter # Bowel Movements 1 - Labs CBC & Chem 7: 03/30/17 06:42 03/30/17 06:42 Labs: Abnormal Lab Results - Last 24 Hours (Table) 03/30/17 03/30/17 Range/Units 06:42 06:42 WBC 3.5 L (3.8-10.6) k/uL RBC 1.74 L (4.30-5.90) m/uL Hgb 6.7 L* (13.0-17.5) gm/dL Hct 20.6 L (39.0-53.0) % MCV 118.7 H (80.0-100.0) fL MCH 38.3 H (25.0-35.0) pg RDW 17.4 H (11.5-15.5) % Plt Count 28 L* (150-450) k/uL BUN 71 H (9-20) mg/dL Creatinine 4.11 H (0.66-1.25) mg/dL Calcium 6.9 L (8.4-10.2) mg/dL Microbiology - Last 24 Hours (Table) 03/23/17 14:46 Blood Culture - Final Blood No Growth after 144 hours 03/23/17 13:05 Blood Culture - Final Blood No Growth after 144 hours Assessment and Plan Plan: Assessment: #1. Nonoliguric acute kidney injury secondary to ATN secondary to hypotension and poor oral intake. Creatinine 4.17 on admission and peaked at 4.9. It is 4.11 today. Also concern for tumor lysis syndrome due to his high tumor burden with electrolyte abnormalities also fitting the picture, particularly hyperuricemia, hyperkalemia, and hyperphosphatemia. #2. Elevated white count with anemia and thrombocytopenia due to underlying MDS with concern for transformation to AML. Patient underwent a bone marrow biopsy on March 24. #3. History of bladder calculi status post cystolithotripsy in October 2016. #4. Metabolic acidosis secondary to acute kidney injury. Resolved. #5. Chronic kidney disease stage IIIB with baseline creatinine near 2. Etiology is likely nephrosclerosis. Will repeat UA was GFR returns to baseline. #6. Hyperkalemia secondary to acute kidney injury and metabolic acidosis as well as tumor lysis syndrome. Improved. #7. Hypocalcemia secondary to acute kidney injury and hyperphosphatemia. Improved. Plan: I will decreased rate of normal saline to 50 mL an hour. Lasix 40 mg IV once daily.. Discontinued sodium bicarbonate supplementation. Okay to DC Marie catheter. Status post IV rasburicase 03/25. Maintain PhosLo 3 times daily - I have increased the dose. Avoid nephrotoxic agents and hypotensive episodes. Repeat electrolytes in the morning. Prognosis poor.
[2017-03-30 10:16] LABS: Add Differential Manual Differential
[2017-03-30 10:21] LABS: Manual Review Performed; Metamyelocytes % 1.5 %; Myelocytes % 1.5 %; Nucleated Red Blood Cells 0 /100 WBC (0-0); Total Cells Counted 200
[2017-03-30] MEDS: FUROSEMIDE 10 MG/ML 4 ML VIAL IV SCH (12:58)
[2017-03-30] MEDS: METOCLOPRAMIDE 5 MG/ML 2 ML VIAL IVP PRN (12:58)
--- NOTE | 2017-03-30 15:19 | P.PN ---
Subjective Date of service 03/30/2017. Personal being dictated for Dr. Zamora. 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 Complains of dry heaving without emesis. Maintained on IV fluid hydration, Zosyn and Hydrea. Discussed bone marrow biopsy results with both daughters; biopsy report suggests acute myeloid leukemia - final interpretation/prognosis/options as per oncology. Creatinine currently 4.11. Platelets 28. Hemoglobin 6.7, receiving one unit of packed RBCs as per oncology. Denies chest pain, palpitations or increasing shortness of breath. Objective - Vital Signs Vital signs: Vital Signs Temp 97.7 F 03/30/17 07:00 Pulse 88 03/30/17 11:35 Resp 18 03/30/17 08:00 BP 134/61 03/30/17 07:00 Pulse Ox 98 03/30/17 08:32 Intake & Output 03/29/17 03/30/17 03/30/17 18:59 06:59 18:59 Intake Total 118 1780 240 Output Total 825 600 425 Balance -707 1180 -185 Weight 63.3 kg Intake: Intake, IV Titration 1300 Amount Piperacillin-Tazobactam 3 100 .375 gm In Dextrose/Water 1 50ml.bag @ 12.5 mls/hr IVPB Q12HR [facility] Rx#: [id number] Sodium Chloride 0.9% 1, 1200 000 ml @ 100 mls/hr IV . Q10H [facility] Rx#:[id number] Oral 118 480 240 Output: Urine 825 600 425 Uretheral (Marie) 600 600 425 Other: Voiding Method Indwelling Catheter Indwelling Catheter Indwelling Catheter # Bowel Movements 1 1 - Exam PHYSICAL EXAM: VITAL SIGNS: As above GENERAL: [Sitting up in bed, tired appearing, no acute distress] HEENT: [Pupils equal conjunctiva normal. No conjunctival pallor] NECK: [Supple, no JVD] RESPIRATORY EFFORT:[ Normal] LUNGS: Scattered rhonchi with no expiratory wheezing, no crackles] CARDIOVASCULAR[ regular S1 and S2, no murmurs rubs or gallops, positive edema] GI: [Abdomen soft, nondistended, nontender, positive bowel sounds. No organomegaly. PSYCH: [Alert and oriented -3, mood and affect normal.] NEURO: No focal deficits, moves all 4 extremities, mild diffuse generalized weakness - Labs CBC & Chem 7: 03/30/17 06:42 03/30/17 06:42 Labs: Abnormal Lab Results - Last 24 Hours (Table) 03/30/17 03/30/17 03/30/17 Range/Units 06:42 06:42 10:30 WBC 3.5 L (3.8-10.6) k/uL RBC 1.74 L (4.30-5.90) m/uL Hgb 6.7 L* (13.0-17.5) gm/dL Hct 20.6 L (39.0-53.0) % MCV 118.7 H (80.0-100.0) fL MCH 38.3 H (25.0-35.0) pg RDW 17.4 H (11.5-15.5) % Plt Count 28 L* (150-450) k/uL Neutrophils # (Manual) 0.9 L (1.3-7.7) k/uL Lymphocytes # (Manual) 0.8 L (1.0-4.8) k/uL Monocytes # (Manual) 1.6 H (0-1.0) k/uL BUN 71 H (9-20) mg/dL Creatinine 4.11 H (0.66-1.25) mg/dL Calcium 6.9 L (8.4-10.2) mg/dL Crossmatch See Detail Microbiology - Last 24 Hours (Table) 03/23/17 14:46 Blood Culture - Final Blood No Growth after 144 hours 03/23/17 13:05 Blood Culture - Final Blood No Growth after 144 hours Assessment and Plan Plan: 1. Bilateral pneumonia with sepsis, present on admission with generalized weakness. 2. [Leukocytosis, possibly secondary to sepsis or leukomoid reaction over medication induced, rule out leukemic transformation. Status post bone marrow biopsy reporting acute myeloid leukemia-final interpretation/options pending per oncology. 3. [ History of myelodysplastic syndrome]. 4. [ Anemia, macrocytic secondary to myelodysplastic syndrome]. 5. Change in mental status, acute on chronic metabolic encephalopathy 6. [ Thrombocytopenia secondary to myelodysplastic syndrome]. 7. [ Coagulopathy, mild]. 8. Acute on chronic renal failure, stageIIIB. Acute secondary to ATN related to hypotension, decreased oral intake. Rule out underlying tumor lysis syndrome. 9. Troponin 0.05 indeterminate 10. Possible acute UTI 11. CAD, history of [place], stent. 12. Hard of hearing 13. Hyperlipidemia 14. Hypertension 15. Rheumatoid arthritis 16. Gait dysfunction with Degenerative joint disease 17. History of depression, not otherwise specified 18. Remote history of nicotine dependence 19. Severe protein calorie malnutrition, BMI 19.5 20. Mild left-sided hydronephrosis, chronic bladder wall thickening 21. Metabolic acidosis secondary to acute kidney injury 22. History of bladder calculi, status post cystolithotripsy October 2016 23. hypocalcemia secondary to acute renal failure and hyperphosphatemia Plan: Continue on current medication regime , nebulized bronchodilators,Zosyn, Hydrea, monitoring and symptomatic treatment. Family meeting with oncology pending- patient is not a candidate for aggressive acute leukemia treatment. Comfort care/hospice at both home and ECF discussed, pending meeting with oncology discussing bone marrow biopsy interpretation/options/prognosis.Further recommendations to follow. The impression and plan of care has been dictated as directed as a scribe. : I performed a H&P examination of this patient and discussed the same with the dictator. I agree with the dictator's note. Any additional findings/opinions/ etc. will be noted.
[2017-03-30] MEDS ORDERED: ACETAMINOPHEN TAB 500 MG TAB PO STA (18:14)
[2017-03-30] MEDS ORDERED: methylPREDNISolone SOD SUCCI 40 MG/ML 1 ML VIAL IV STA (18:14)
[2017-03-30] MEDS ORDERED: diphenhydrAMINE 50 MG/ML 1 ML VIAL IVP STA (18:14)
[2017-03-30] MEDS: POLYETHYLENE GLYCOL 3350 17 GM POWD.PACK PO SCH (21:18)
[2017-03-30] MEDS: DRONABINOL 2.5 MG CAP PO SCH (21:21)
[2017-03-30] MEDS: TEMAZEPAM 30 MG CAP PO SCH (21:21)
[2017-03-30] MEDS: ATORVASTATIN 80 MG TAB PO SCH (21:22)
--- NOTE | 2017-03-30 22:05 | PN ---
DATE OF SERVICE: 03/29/2017 This 81-year-old gentleman who was admitted with bilateral pneumonia also has a history of myeloid dysplastic syndrome. Bone marrow biopsy reports are pending at this time. I saw and evaluated the patient along with the nurse practitioner. Please refer to the nurse practitioner's notes and impressions documented as a scribe for further information. The chest x-ray showed cardiomegaly reaction on the right. Nephro and Oncology are following the patient closely. Possible PT/OT evaluation. Further recommendations to follow. MTDD
[2017-03-30] MEDS: HYDROcodone/APAP 5-325MG 1 EACH TAB PO PRN (22:43)
[2017-03-31 07:39] LABS: Anisocytosis Slight; CH 34.8; CHCM 30.8; HCT 25.7 % (39.0-53.0); HDW 3.69; HGB 7.7 gm/dL (13.0-17.5); Hypochromasia Marked; Immature Gran Flag Marked; MCH 34.4 pg (25.0-35.0); MCV 114.5 fL (80.0-100.0); Macrocytosis Marked; Poikilocytosis Slight; RBC 2.25 m/uL (4.30-5.90); RDW 19.9 % (11.5-15.5); WBC 2.3 k/uL (3.8-10.6); WBC (Perox) 2.39
[2017-03-31] MEDS: IPRATROPIUM-ALBUTEROL 3 ML NEB INHALATION SCH (07:45)
[2017-03-31 08:01] VITALS: BP 149/66; PULSE 88; RESP 18; TEMP 97.7
[2017-03-31 08:04] LABS: Calcium 7.4 mg/dL (8.4-10.2); Potassium 5.3 mmol/L (3.5-5.1)
[2017-03-31] MEDS: PIPERACILLIN-TAZOBACTAM 3.375 GM in DEXTROSE/WATER 1 50ML.BAG IVPB SCH (08:42)
[2017-03-31] MEDS: ALLOPURINOL 100 MG TAB PO SCH (08:43)
[2017-03-31] MEDS: amLODIPine 5 MG TAB PO SCH (08:43)
[2017-03-31] MEDS: CALCIUM ACETATE 667 MG CAP PO SCH ×2 (08:43→13:29)
[2017-03-31] MEDS: FLUTICASONE 50MCG/SPRAY NASAL 16GM EA NOSTRIL SCH (08:44)
[2017-03-31] MEDS: FUROSEMIDE 10 MG/ML 4 ML VIAL IV SCH (08:44)
[2017-03-31] MEDS: CITALOPRAM HYDROBROMIDE 20 MG TAB PO SCH (08:44)
[2017-03-31] MEDS: METOPROLOL TARTRATE 12.5 MG TAB PO SCH (08:45)
[2017-03-31] MEDS: TERAZOSIN 5 MG CAP PO SCH (08:45)
[2017-03-31] MEDS ORDERED: HYDROXYUREA 500 MG CAP PO SCH ×2 (09:00→21:00)
[2017-03-31] MEDS ORDERED: SODIUM BICARBONATE TAB 650 MG TAB PO SCH (10:30)
[2017-03-31 10:35] LABS: Add Differential Manual Differential
--- NOTE | 2017-03-31 10:39 | P.PN ---
Subjective Patient is seen in follow-up for acute kidney injury on chronic kidney disease. Patient has chronic kidney disease stage III with baseline creatinine near 2. Patient does not follow with a washing tub operator as an outpatient. His creatinine was 4.17 on admission and peaked at 4.9 this admission. It is 3.89 today. Patient presented with dyspnea and generalized weakness. He was noted to have a white count of greater than 90,000 for which he underwent a bone marrow biopsy this admission. 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 He has a Marie catheter in place and is nonoliguric. Oral intake is poor. Denies chest pain or shortness of breath. Vital signs are stable. General: The patient appeared well nourished and normally developed. HEENT: Head exam is unremarkable. Neck is without jugular venous distension. LUNGS: Breath sounds decreased. Scattered rhonchi. HEART: Rate and Rhythm are regular. First and second heart sounds normal. No murmurs, rubs or gallops. ABDOMEN: Abdominal exam reveals normal bowel sounds. Non-tender and non- distended. No evidence of peritonitis. EXTREMITITES: 1+ edema in ankles. Objective - Vital Signs Vital signs: Vital Signs Temp 97.7 F 03/31/17 07:00 Pulse 88 03/31/17 07:00 Resp 18 03/31/17 07:00 BP 149/66 03/31/17 07:00 Pulse Ox 100 03/31/17 07:00 Intake & Output 03/30/17 03/31/17 03/31/17 18:59 06:59 18:59 Intake Total 1290 1790 Output Total 1125 3500 Balance 165 -1710 Weight 63.3 kg 63.3 kg Intake: Intake, IV Titration 1050 1000 Amount Piperacillin-Tazobactam 3 50 .375 gm In Dextrose/Water 1 50ml.bag @ 12.5 mls/hr IVPB Q12HR [facility] Rx#: [id number] Sodium Chloride 0.9% 1, 1000 1000 000 ml @ 50 mls/hr IV . Q20H [facility] Rx#:[id number] Oral 240 480 Blood Product 310 Rc As-1 Unit 310 [id number] Output: Urine 1125 3500 Uretheral (Marie) 1125 1800 Other: Voiding Method Indwelling Catheter Indwelling Catheter Indwelling Catheter # Bowel Movements 3 3 - Labs CBC & Chem 7: 03/31/17 07:18 03/31/17 07:18 Labs: Abnormal Lab Results - Last 24 Hours (Table) 03/30/17 03/31/17 03/31/17 Range/Units 10:30 07:18 07:18 WBC 2.3 L (3.8-10.6) k/uL RBC 2.25 L (4.30-5.90) m/uL Hgb 7.7 L (13.0-17.5) gm/dL Hct 25.7 L (39.0-53.0) % MCV 114.5 H (80.0-100.0) fL MCHC 30.0 L (31.0-37.0) g/dL RDW 19.9 H (11.5-15.5) % Plt Count 32 L* (150-450) k/uL Potassium 5.3 H (3.5-5.1) mmol/L Carbon Dioxide 20 L (22-30) mmol/L BUN 69 H (9-20) mg/dL Creatinine 3.89 H (0.66-1.25) mg/dL Glucose 130 H (74-99) mg/dL Calcium 7.4 L (8.4-10.2) mg/dL Crossmatch See Detail Assessment and Plan Plan: Assessment: #1. Nonoliguric acute kidney injury secondary to ATN secondary to hypotension and poor oral intake. Creatinine 4.17 on admission and peaked at 4.9. It is 3.89 today. Also concern for tumor lysis syndrome due to his high tumor burden with electrolyte abnormalities also fitting the picture, particularly hyperuricemia, hyperkalemia, and hyperphosphatemia. #2. Elevated white count with anemia and thrombocytopenia due to underlying MDS with concern for transformation to AML. Patient underwent a bone marrow biopsy on March 24. #3. History of bladder calculi status post cystolithotripsy in October 2016. #4. Metabolic acidosis secondary to acute kidney injury. #5. Chronic kidney disease stage IIIB with baseline creatinine near 2. Etiology is likely nephrosclerosis. Will repeat UA was GFR returns to baseline. #6. Hyperkalemia secondary to acute kidney injury and metabolic acidosis as well as tumor lysis syndrome. Improved. #7. Hypocalcemia secondary to acute kidney injury and hyperphosphatemia. Improved. Plan: Continue Lasix 40 mg IV once daily. Can be transitioned to oral upon discharge. Resume oral sodium bicarbonate 650 mg twice daily. Okay to DC Marie catheter. Status post IV rasburicase 03/25. Maintain PhosLo 3 times daily. Avoid nephrotoxic agents and hypotensive episodes. Repeat electrolytes in the morning. Prognosis poor. Potential discharge to [facility] today. He is to follow-up as an outpatient in the next 2 weeks.
[2017-03-31 10:48] LABS: Nucleated Red Blood Cells 0 /100 WBC (0-0); Total Cells Counted 100
[2017-03-31 10:50] LABS: Manual Review Performed
--- NOTE | 2017-04-02 07:26 | PN ---
DATE OF SERVICE: 03/30/2017 This 81-year-old gentleman who was admitted with renal failure, multiple other medical issues, has been closely monitored. Patient also has history of MDS. Patient also has bone marrow biopsy showing possibly . Seen and evaluated the patient along with the nurse practitioner. Please refer to nurse practitioner notes and impressions documented for further information. Further information to follow. Prognosis guarded. MTDD
--- NOTE | 2017-04-08 21:54 | DS ---
FINAL DIAGNOSES: 1. Bilateral pneumonia with sepsis, present on admission, with generalized weakness. 2. Leukocytosis, possibly secondary to sepsis and leukemoid reaction or medication-induced with possible acute myeloid leukemia. 3. History of anemia. 4. Thrombocytopenia. 5. Coagulopathy. 6. Acute on chronic renal failure, stage III. 7. Troponin indeterminate. 8. Possible acute urinary tract infection. 9. Multiple medical issues. DISCHARGE DISPOSITION: Patient will be discharged in stable condition with guarded prognosis. The patient will be transferred to [facility]. HISTORY OF PRESENT ILLNESS: This 81-year-old gentleman with a past medical history of multiple medical problems was admitted with features of bilateral pneumonia as well as myelodysplastic syndrome and possibly acute myeloid leukemia. He was treated symptomatically. The patient was seen at the hospital by Dr. Vieira and Dr. Salcido as well as Dr. Gleason. Please refer to their respective dictations for further details. Care was coordinated. Patient improved significantly and currently the patient will be transferred to [facility]. Total time taken 35 minutes. On exam, vitals are stable. CARDIOVASCULAR: S1, S2 muffled. ABDOMEN: Soft. NERVOUS SYSTEM: No focal deficit. DISCHARGE ADVICE AND MEDICATIONS: 1. Diet is cardiac. 2. Activity limited until followup. 3. Follow up with Dr. Vieira in 2 to 3 days. 4. Follow up with Dr. Ness in [facility]. 5. Zyloprim 200 mg p.o. daily. 6. Norvasc 5 mg daily. 7. Augmentin 875 mg p.o. b.i.d. 8. Lipitor 80 mg at bedtime. 9. Dulcolax p.r.n. 10. PhosLo 1334 p.o. t.i.d. 11. Celexa 20 mg p.o. daily. 12. Marinol 2.5 mg at bedtime. 13. Procrit 40,000 daily. 14. Fluticasone. 15. Lasix 40 mg p.o. daily. 16. [place] 1 tablet q.6 p.r.n. 17. Albuterol nebulizer q.i.d. and p.r.n. 18. Reglan 5 mg before meals and at bedtime. 19. Prilosec 20 mg b.i.d. 20. Zofran 4 mg p.o. q.8 p.r.n. 21. Miralax 17 grams p.o. daily. 22. Sodium bicarb 650 p.o. b.i.d. 23. Restoril 30 mg at bedtime. 24. Hytrin 5 mg each morning. MTDD
== END 2017-03-31 15:38 | DRG 871 ==
LOC: EC 12:57 → 6SEL 16:04 → 5ONC 03-24 16:13
PROVIDERS: ADMIT Hospitalist; ATTEND Hospitalist
PROC: 07DR3ZX Extraction of Iliac Bone Marrow, Percutaneous Approach, Diagnostic (ICD-10-PCS; principal; 2017-03-24)
DX: A41.9 Sepsis, unspecified organism (principal); E43 Unspecified severe protein-calorie malnutrition; J96.01 Acute respiratory failure with hypoxia; G93.41 Metabolic encephalopathy; E88.3 Tumor lysis syndrome; D68.9 Coagulation defect, unspecified; N17.0 Acute kidney failure with tubular necrosis; J18.9 Pneumonia, unspecified organism; E87.2 Acidosis; C92.00 Acute myeloblastic leukemia, not having achieved remission; J44.0 Chronic obstructive pulmonary disease with (acute) lower respiratory infection; N18.3 Chronic kidney disease, stage 3 (moderate); N13.30 Unspecified hydronephrosis; N39.0 Urinary tract infection, site not specified; Z68.1 Body mass index [BMI] 19.9 or less, adult; D69.59 Other secondary thrombocytopenia; E87.70 Fluid overload, unspecified; E83.51 Hypocalcemia; E87.5 Hyperkalemia; E86.0 Dehydration; D63.0 Anemia in neoplastic disease; E78.5 Hyperlipidemia, unspecified; F32.9 Major depressive disorder, single episode, unspecified; H91.90 Unspecified hearing loss, unspecified ear; I25.10 Atherosclerotic heart disease of native coronary artery without angina pectoris; I25.2 Old myocardial infarction; I51.7 Cardiomegaly; K21.9 Gastro-esophageal reflux disease without esophagitis; M06.9 Rheumatoid arthritis, unspecified; M19.90 Unspecified osteoarthritis, unspecified site; N40.0 Benign prostatic hyperplasia without lower urinary tract symptoms; Z79.899 Other long term (current) drug therapy; Z80.8 Family history of malignant neoplasm of other organs or systems; Z82.49 Family history of ischemic heart disease and other diseases of the circulatory system; Z85.828 Personal history of other malignant neoplasm of skin; Z87.442 Personal history of urinary calculi; Z87.891 Personal history of nicotine dependence; Z95.5 Presence of coronary angioplasty implant and graft
CPT/HCPCS: 36415; 51702; 51798; 70450; 71020; 72100; 76770; 80048; 80053; 81001; 82550; 82553; 82728; 83540; 83550; 83605; 84100; 84132; 84484; 84550; 85025; 85610; 85730; 86850; 86900; 86901; 86920; 87040; 87086; 93005; 94640; 94760; 96365; 96366; 99285

== ENCOUNTER 2017-04-04 13:32 | Inpatient (IN) | payer MEDICARE, BC ==
[2017-04-04] MEDS ORDERED: SODIUM CHLORIDE 0.9% 500 ML IV STA (13:55)
[2017-04-04] MEDS ORDERED: IPRATROPIUM-ALBUTEROL 3 ML NEB INHALATION STA (13:56)
--- NOTE | 2017-04-04 14:03 | ED ---
General Adult HPI - General Chief complaint: Recheck/Abnormal Lab/Rx Stated complaint: Weakness Time Seen by Provider: 04/04/17 13:35 Source: patient, RN notes reviewed Mode of arrival: EMS Limitations: no limitations - History of Present Illness Initial comments: This is an 81-year-old male who presents emergency Department because his hemoglobin was 6.0 and is feeling very weak. Patient states he was recently diagnosed with pneumonia and has been on an antibiotic. Patient states he is still somewhat short of breath. Patient states he also is continuing to cough. Patient denies any fever or chills. Patient denies any chest pain. Patient denies any abdominal pain patient denies nausea vomiting. Patient states he has myelodysplastic syndrome. Patient denies any nausea or vomiting. Patient denies any black or bloody stools he knows of. Patient denies any recent injury or trauma. Patient denies headache patient denies numbness weakness. Patient denies any lightheadedness dizziness or near syncopal episode. - Related Data Home Medications Medication Instructions Recorded Confirmed Citalopram Hydrobromide [CeleXA] 20 mg PO DAILY 01/21/15 04/04/17 Loratadine [Claritin] 10 mg PO DAILY PRN 01/21/15 04/04/17 Metoprolol Tartrate 12.5 mg PO BID 01/21/15 04/04/17 Omeprazole [PriLOSEC] 20 mg PO AC-BRKFST PRN 01/21/15 04/04/17 Terazosin [Hytrin] 5 mg PO QAM 01/21/15 04/04/17 Atorvastatin [Lipitor] 80 mg PO HS 02/23/16 04/04/17 Epoetin Jamie [Procrit] 40,000 unit IM TU 05/11/16 04/04/17 Ondansetron [Zofran] 4 mg PO Q8HR PRN 09/20/16 04/04/17 amLODIPine [Norvasc] 5 mg PO DAILY 03/23/17 04/04/17 Bisacodyl [Dulcolax] 10 mg RECTAL DAILY PRN 04/04/17 04/04/17 Ensure Clear 1 can PO Q48H 04/04/17 04/04/17 Lactose-Reduced Food [Ensure Plus] 1 can PO Q48H 04/04/17 04/04/17 Magnesium Hydroxide [Milk of 2,400 mg PO DAILY PRN 04/04/17 04/04/17 Magnesia] Na Phos,M-B/Na Phos,Di-Ba [Fleet 133 ml RECTAL DAILY PRN 04/04/17 04/04/17 Adult] Vits A and D/White Pet/Lanolin [A 1 applic TOPICAL DAILY 04/04/17 04/04/17 and D Ointment] Previous Rx's Medication Instructions Recorded Allopurinol [Zyloprim] 200 mg PO DAILY tab 03/31/17 Amoxicillin/Potassium Clav 1 tab PO Q12HR #10 tab 03/31/17 [Augmentin 500-125 Tablet] Calcium Acetate [PhosLo] 1,334 mg PO TID-W/MEALS cap 03/31/17 Dronabinol [Marinol] 2.5 mg PO HS #10 03/31/17 Fluticasone Nasal [place] [Flonase 2 spray EA NOSTRIL DAILY spray 03/31/17 Nasal [place]] Furosemide [Lasix] 40 mg PO DAILY #30 tablet 03/31/17 Hydrocodone/Acetaminophen [[place] 1 tab PO Q6HR PRN #20 03/31/17 5-325] Ipratropium-Albuterol Nebulize 3 ml INHALATION RT-TID neb 03/31/17 [Duoneb 0.5 mg-3 mg/3 ml Soln] Ipratropium-Albuterol Nebulize 3 ml INHALATION RT-TID PRN neb 03/31/17 [Duoneb 0.5 mg-3 mg/3 ml Soln] Metoclopramide HCl [Reglan] 5 mg PO ACHS #1 tablet 03/31/17 Polyethylene Glycol 3350 [Miralax] 17 gm PO HS pack 03/31/17 Sodium Bicarbonate Tab 650 mg PO BID tab 03/31/17 Temazepam [Restoril] 30 mg PO HS #20 03/31/17 Allergies Allergy/AdvReac Type Severity Reaction Status Date / Time ciprofloxacin [From Cipro] Allergy Unknown Verified 04/04/17 13:43 ciprofloxacin HCl Allergy Unknown Verified 04/04/17 13:43 [From Cipro] gatifloxacin [From Tequin] Allergy Unknown Verified 04/04/17 13:43 levofloxacin [From Levaquin] AdvReac joint Verified 04/04/17 13:43 swelling moxifloxacin HCl AdvReac Unknown Verified 04/04/17 13:43 [From Avelox] Review of Systems ROS Statement: Those systems with pertinent positive or pertinent negative responses have been documented in the HPI. ROS Other: All systems not noted in ROS Statement are negative. Past Medical History Past Medical History: Blood Disorder, Coronary Artery Disease (CAD), Cancer, GERD/Reflux, Hearing Disorder / Deafness, Hyperlipidemia, Hypertension, Myocardial Infarction ([place]), Prostate Disorder, Rheumatoid Arthritis ([place]), Skin Disorder Additional Past Medical History / Comment(s): pt is rt side dominant. FREQUENT NAUSEA R/T CHEMO. "Arrythmia" Leukemia(MDS) 2001, Skin CA 2009. lt femur fx, lt elbow fx, aaa([facility]) CHRONIC LOWER BACK PAIN.FELL OUT OF BED LAST NIGHT, BRUISING AND SOME ABRASIONS.constipation, Last Myocardial Infarction Date:: unk History of Any Multi-Drug Resistant Organisms: None Reported Past Surgical History: Cardiac Ablation, Heart Catheterization With Stent, Hernia Repair Additional Past Surgical History / Comment(s): Lt thumb amp, umbilical hernia repair, biopsy lt ear/positive for ca recent abd aortic stent for an aneurysm repair on 02/12/16 - had a sm ileus after surg. ORIF intermeduallary hip screw(lt femur), LT ARM., BLADDER STONE SX, BILAT CATARACT SX Past Anesthesia/Blood Transfusion Reactions: Postoperative Nausea & Vomiting ( PONV) Date of Last Stent Placement:: unk Past Psychological History: Depression Smoking Status: Former smoker Past Alcohol Use History: None Reported Past Drug Use History: Marijuana - Past Family History Father Family Medical History: Myocardial Infarction ([place]) Additional Family Medical History / Comment(s): heart attack Mother Family Medical History: Cancer Additional Family Medical History / Comment(s): throat cancer Sister(s) Family Medical History: Cancer Additional Family Medical History / Comment(s): 2 sisters that have "everything " General Exam - General Exam Comments Initial Comments: GENERAL: Patient is well-developed and well-nourished. Patient is nontoxic and well- hydrated and is in no acute distress. ENT: Neck is soft and supple. No significant lymphadenopathy is noted. Oropharynx is clear. Moist mucous membranes. Neck has full range of motion without eliciting any pain. EYES: Conjunctiva is pale.. Extraocular movements were intact and pupils were equal round and reactive to light. Eyelids were unremarkable. PULMONARY: Unlabored respirations. Good breath sounds bilaterally. No audible rales rhonchi or wheezing was noted. CARDIOVASCULAR: There is a regular rate and rhythm without any murmurs gallops or rubs. ABDOMEN: Soft and nontender with normal bowel sounds. No palpable organomegaly was noted. There is no palpable pulsatile mass. SKIN: Skin is very pale and his capillary refill is slow. NEUROLOGIC: Patient is alert and oriented 2. Cranial nerves II through XII are grossly intact. Motor and sensory are also intact. Normal speech, volume and content. Symmetrical smile. MUSCULOSKELETAL: Normal extremities with adequate strength and full range of motion. No lower extremity swelling or edema. No calf tenderness. LYMPHATICS: No significant lymphadenopathy is noted PSYCHIATRIC: Normal psychiatric evaluation. Limitations: no limitations Course Vital Signs 04/04/17 04/04/17 04/04/17 13:35 14:08 15:01 Temperature 98.7 F Pulse Rate 63 56 L Respiratory 16 18 Rate Blood Pressure 158/71 04/04/17 15:10 Temperature Pulse Rate 60 Respiratory Rate Blood Pressure Medical Decision Making - Medical Decision Making EKG shows normal sinus rhythm at 71 bpm MS interval is 200 QRS is 146 Q-T intervals 46 QTC is 528. Patient's EKG shows a right bundle branch block - Lab Data Result diagrams: 04/04/17 14:00 04/04/17 15:22 Lab Results 04/04/17 04/04/17 04/04/17 Range/Units 14:00 14:00 14:00 WBC 1.1 L* (3.8-10.6) k/uL RBC 1.75 L (4.30-5.90) m/uL Hgb 6.3 L* (13.0-17.5) gm/dL Hct 18.6 L* (39.0-53.0) % MCV 106.4 H (80.0-100.0) fL MCH 36.1 H (25.0-35.0) pg MCHC 34.0 (31.0-37.0) g/dL RDW 18.8 H (11.5-15.5) % Plt Count 32 L* (150-450) k/uL PT (9.0-12.0) sec INR (<1.1) APTT (22.0-30.0) sec Sodium 136 L (137-145) mmol/L Potassium 5.7 H (3.5-5.1) mmol/L Chloride 107 (98-107) mmol/L Carbon Dioxide 16 L (22-30) mmol/L Anion Gap 13 mmol/L BUN 75 H (9-20) mg/dL Creatinine 3.30 H (0.66-1.25) mg/dL Est GFR (MDRD) Af Amer 22 (>60 ml/min/1.73 sqM) Est GFR (MDRD) Non-Af 18 (>60 ml/min/1.73 sqM) Glucose 116 H (74-99) mg/dL Plasma Lactic Acid Van (0.7-2.0) mmol/L Calcium 8.0 L (8.4-10.2) mg/dL Magnesium 1.6 (1.6-2.3) mg/dL Total Bilirubin 1.0 (0.2-1.3) mg/dL AST 14 L (17-59) U/L ALT 28 (21-72) U/L Alkaline Phosphatase 35 L (38-126) U/L Total Creatine Kinase <20 L (55-170) U/L CK-MB (CK-2) 0.4 (0.0-2.4) ng/mL CK-MB (CK-2) Rel Index 0.0 Troponin I 0.038 H* (0.000-0.034) ng/mL Total Protein 5.3 L (6.3-8.2) g/dL Albumin 2.9 L (3.5-5.0) g/dL Blood Type Blood Type Recheck Antibody Screen Crossmatch Spec Expiration Date 04/04/17 04/04/17 04/04/17 Range/Units 14:00 14:30 14:30 WBC (3.8-10.6) k/uL RBC (4.30-5.90) m/uL Hgb (13.0-17.5) gm/dL Hct (39.0-53.0) % MCV (80.0-100.0) fL MCH (25.0-35.0) pg MCHC (31.0-37.0) g/dL RDW (11.5-15.5) % Plt Count (150-450) k/uL PT 13.2 H (9.0-12.0) sec INR 1.3 (<1.1) APTT 32.6 H (22.0-30.0) sec Sodium (137-145) mmol/L Potassium (3.5-5.1) mmol/L Chloride (98-107) mmol/L Carbon Dioxide (22-30) mmol/L Anion Gap mmol/L BUN (9-20) mg/dL Creatinine (0.66-1.25) mg/dL Est GFR (MDRD) Af Amer (>60 ml/min/1.73 sqM) Est GFR (MDRD) Non-Af (>60 ml/min/1.73 sqM) Glucose (74-99) mg/dL Plasma Lactic Acid Van 1.8 (0.7-2.0) mmol/L Calcium (8.4-10.2) mg/dL Magnesium (1.6-2.3) mg/dL Total Bilirubin (0.2-1.3) mg/dL AST (17-59) U/L ALT (21-72) U/L Alkaline Phosphatase (38-126) U/L Total Creatine Kinase (55-170) U/L CK-MB (CK-2) (0.0-2.4) ng/mL CK-MB (CK-2) Rel Index Troponin I (0.000-0.034) ng/mL Total Protein (6.3-8.2) g/dL Albumin (3.5-5.0) g/dL Blood Type O Positive Blood Type Recheck No Antibody Screen NEGATIVE Crossmatch See Detail Spec Expiration Date 04/07/2017 - 232904/04/17 Range/Units 15:22 WBC (3.8-10.6) k/uL RBC (4.30-5.90) m/uL Hgb (13.0-17.5) gm/dL Hct (39.0-53.0) % MCV (80.0-100.0) fL MCH (25.0-35.0) pg MCHC (31.0-37.0) g/dL RDW (11.5-15.5) % Plt Count (150-450) k/uL PT (9.0-12.0) sec INR (<1.1) APTT (22.0-30.0) sec Sodium (137-145) mmol/L Potassium 5.5 H (3.5-5.1) mmol/L Chloride (98-107) mmol/L Carbon Dioxide (22-30) mmol/L Anion Gap mmol/L BUN (9-20) mg/dL Creatinine (0.66-1.25) mg/dL Est GFR (MDRD) Af Amer (>60 ml/min/1.73 sqM) Est GFR (MDRD) Non-Af (>60 ml/min/1.73 sqM) Glucose (74-99) mg/dL Plasma Lactic Acid Van (0.7-2.0) mmol/L Calcium (8.4-10.2) mg/dL Magnesium (1.6-2.3) mg/dL Total Bilirubin (0.2-1.3) mg/dL AST (17-59) U/L ALT (21-72) U/L Alkaline Phosphatase (38-126) U/L Total Creatine Kinase (55-170) U/L CK-MB (CK-2) (0.0-2.4) ng/mL CK-MB (CK-2) Rel Index Troponin I (0.000-0.034) ng/mL Total Protein (6.3-8.2) g/dL Albumin (3.5-5.0) g/dL Blood Type Blood Type Recheck Antibody Screen Crossmatch Spec Expiration Date Disposition Clinical Impression: Anemia, Generalized weakness, Acute dyspnea, Pulmonary edema, Hyperkalemia Disposition: ADMITTED IP TO THIS [facility] Referrals: Chintan Casas MD [Primary Care Provider] - 1-2 days Time of Disposition: 16:00
[2017-04-04 14:53] LABS: Magnesium 1.6 mg/dL (1.6-2.3); Potassium 5.7 mmol/L (3.5-5.1); Total Protein 5.3 g/dL (6.3-8.2)
--- NOTE | 2017-04-04 14:53 | XR ---
EXAMINATION TYPE: XR chest 2V DATE OF EXAM: 04/04/2017 COMPARISON: 03/29/2017 HISTORY: 81-year-old male with difficulty breathing TECHNIQUE: Frontal and lateral views FINDINGS: Heart is mildly enlarged. Mild elongation of the thoracic aorta. Diffuse interstitial and vascular pr ominence with some perihilar densities, trace effusions, John B lines, and thickening of the minor fissure. Effusions have decreased in size from prior. IMPRESSION: 1. Correlate for CHF with mild interstitial pulmonary edema. 2. Trace effusions with bibasilar patchy atelectasis/infiltrates.
[2017-04-04 14:55] LABS: Anisocytosis Slight; Aty Lym Flag Marked; CH 34.1; CHCM 32.3; HDW 3.53; Hypochromasia Slight; Large Platelets Flag Slight; MCH 36.1 pg (25.0-35.0); MCV 106.4 fL (80.0-100.0); Macrocytosis Marked; Poikilocytosis Slight; RBC 1.75 m/uL (4.30-5.90); RDW 18.8 % (11.5-15.5); WBC (Perox) 1.25
[2017-04-04 14:58] LABS: Creatine Kinase <20 U/L (55-170)
[2017-04-04 15:08] LABS: HCT 18.6 % (39.0-53.0); HGB 6.3 gm/dL (13.0-17.5); WBC 1.1 k/uL (3.8-10.6)
[2017-04-04 15:08] LABS: INR 1.3 (<1.1); Partial Thromboplastin Time 32.6 sec (22.0-30.0); Prothrombin Time 13.2 sec (9.0-12.0)
[2017-04-04 15:11] LABS: Creatine Kinase MB 0.4 ng/mL (0.0-2.4)
[2017-04-04 15:15] LABS: Troponin I 0.038 ng/mL (0.000-0.034)
[2017-04-04] MEDS ORDERED: NITROGLYCERIN SL TABS 0.4 MG TAB SUBLINGUAL PRN (16:00)
[2017-04-04 16:02] LABS: Add Differential Manual Differential
[2017-04-04 16:06] LABS: Nucleated Red Blood Cells 0 /100 WBC (0-0); Total Cells Counted 100
[2017-04-04 16:07] LABS: Manual Review Performed; Tear Drop Cells Present
[2017-04-04] MEDS ORDERED: methylPREDNISolone SOD SUCCI 40 MG/ML 1 ML VIAL IV STA (17:26)
[2017-04-04] MEDS ORDERED: diphenhydrAMINE 25 MG CAP PO STA (17:27)
[2017-04-04] MEDS ORDERED: HYDROcodone/APAP 5-325MG 1 EACH TAB PO PRN (19:00)
[2017-04-04] MEDS ORDERED: LORATADINE 10 MG TAB PO PRN (19:00)
[2017-04-04] MEDS ORDERED: NON-FORMULARY DRUG (Ensure Clear 1 CAN) PO SCH (19:00)
[2017-04-04] MEDS ORDERED: ONDANSETRON 4 MG TAB PO PRN (19:00)
[2017-04-04] MEDS ORDERED: BISACODYL 10 MG SUPP RECTAL PRN (19:00)
[2017-04-04] MEDS: IPRATROPIUM-ALBUTEROL 3 ML NEB INHALATION PRN (20:11)
[2017-04-04 20:12] LABS: Creatine Kinase <20 U/L (55-170)
[2017-04-04 20:25] LABS: Creatine Kinase MB 0.3 ng/mL (0.0-2.4)
[2017-04-04 20:28] LABS: Troponin I 0.036 ng/mL (0.000-0.034)
[2017-04-04] MEDS ORDERED: AMOXIC-POT CLAV 500-125 MG 1 EACH TAB PO SCH (21:00)
[2017-04-04] MEDS ORDERED: SODIUM BICARBONATE TAB 650 MG TAB PO SCH (21:00)
[2017-04-04] MEDS: ATORVASTATIN 80 MG TAB PO SCH (21:12)
[2017-04-04] MEDS: TEMAZEPAM 30 MG CAP PO SCH (21:12)
[2017-04-04] MEDS: METOPROLOL TARTRATE 12.5 MG TAB PO SCH (21:12)
[2017-04-04] MEDS: METOCLOPRAMIDE 5 MG TAB PO SCH (21:12)
[2017-04-04] MEDS: DRONABINOL 2.5 MG CAP PO SCH (21:12)
[2017-04-04 23:00] LABS: Anisocytosis Moderate; CH 34.7; CHCM 34.2; HCT 20.6 % (39.0-53.0); HDW 3.92; Immature Gran Flag Marked; MCH 34.6 pg (25.0-35.0); MCHC 33.7 g/dL (31.0-37.0); MCV 102.8 fL (80.0-100.0); Macrocytosis Marked; Mean Platelet Volume 9.5; Poikilocytosis Slight; RDW 20.1 % (11.5-15.5); WBC (Perox) 0.79
[2017-04-04 23:05] LABS: HGB 6.9 gm/dL (13.0-17.5); WBC 0.9 k/uL (3.8-10.6)
[2017-04-04 23:06] LABS: Add Differential Manual Differential
[2017-04-04] MEDS ORDERED: PANTOPRAZOLE 40 MG TABLET PO PRN (23:34)
[2017-04-04] MEDS ORDERED: NA PHOS,M-B/NA PHOS,DI-BA 133 ML ENEMA RECTAL PRN (23:34)
[2017-04-04] MEDS ORDERED: NON-FORMULARY DRUG (Lactose-Reduced Food [Ensure Plus] 1 CAN) PO SCH (23:45)
[2017-04-05 02:31] LABS: Anisocytosis Moderate; CHCM 33.3; HCT 22.8 % (39.0-53.0); HDW 3.96; HGB 7.9 gm/dL (13.0-17.5); Hypochromasia Slight; Immature Gran Flag Moderate; MCH 35.9 pg (25.0-35.0); MCHC 34.6 g/dL (31.0-37.0); MCV 103.5 fL (80.0-100.0); Macrocytosis Marked; Mean Platelet Volume 10.6; Poikilocytosis Slight; RBC 2.21 m/uL (4.30-5.90)
[2017-04-05 02:47] LABS: Calcium 8.1 mg/dL (8.4-10.2)
[2017-04-05 02:57] LABS: Potassium 6.4 mmol/L (3.5-5.1)
[2017-04-05 02:59] LABS: Creatine Kinase MB 0.4 ng/mL (0.0-2.4); Troponin I 0.03 ng/mL (0.000-0.034)
[2017-04-05 03:02] LABS: WBC 0.7 k/uL (3.8-10.6)
[2017-04-05 03:34] LABS: Add Differential Manual Differential
[2017-04-05 03:37] LABS: Manual Review Performed
[2017-04-05 06:39] LABS: Calcium 8.1 mg/dL (8.4-10.2); Potassium 5.7 mmol/L (3.5-5.1)
[2017-04-05] MEDS: CALCIUM ACETATE 667 MG CAP PO SCH ×3 (06:51→17:11)
[2017-04-05] MEDS: METOCLOPRAMIDE 5 MG TAB PO SCH ×4 (06:51→21:48)
[2017-04-05] MEDS: ALLOPURINOL 100 MG TAB PO SCH (08:10)
[2017-04-05] MEDS: ASPIRIN 325 MG TAB PO SCH (08:10)
[2017-04-05] MEDS: METOPROLOL TARTRATE 12.5 MG TAB PO SCH ×2 (08:13→21:48)
[2017-04-05] MEDS: TERAZOSIN 5 MG CAP PO SCH (08:13)
[2017-04-05] MEDS: SODIUM BICARBONATE TAB 650 MG TAB PO SCH ×2 (08:14→21:48)
[2017-04-05] MEDS: CITALOPRAM HYDROBROMIDE 20 MG TAB PO SCH (08:14)
[2017-04-05] MEDS: FLUTICASONE 50MCG/SPRAY NASAL 16GM EA NOSTRIL SCH (08:15)
--- NOTE | 2017-04-05 08:23 | P.NPCON ---
History of Present Illness - Reason for Consult acute renal failure - History of Present Illness Reason for consultation: Acute kidney injury on chronic kidney disease History of present illness: Patient is a 81-year-old male seen in renal consultation for acute kidney injury on chronic kidney disease. Patient has chronic kidney disease stage III with baseline creatinine near 2. Patient was recently admitted and at that time underwent a bone marrow biopsy as his white count was greater than 90,000 and he was anemic as well as trauma cytopenic. He has a history of MDS and the biopsy revealed an acute transformation. 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 However he then went to fluid overload and received IV Lasix. His creatinine had peaked at 4.9 and has been gradually improving. At the time of discharge April 01 his creatinine was 3.78 and is now in the range of 3.2-3.3. Patient was at rehab facility and felt dyspneic and weaker than usual. Blood work revealed hemoglobin of 6.3 and he was sent to the hospital. He did receive 1 unit of blood transfusion yesterday and hemoglobin improved to 7.9. His oral intake remains quite poor. Denies vomiting. No diarrhea. He has been voiding. No hematuria or dysuria. He was also noted to be hyperkalemic with a potassium level of 6.4 which is now down to 5.7. Vital signs are stable. General: The patient appeared well nourished and normally developed. HEENT: Head exam is unremarkable. Neck is without jugular venous distension. LUNGS: Scattered rhonchi. Breath sounds decreased. HEART: Rate and Rhythm are regular. First and second heart sounds normal. No murmurs, rubs or gallops. ABDOMEN: Abdominal exam reveals normal bowel sounds. Non-tender and non- distended. No evidence of peritonitis. EXTREMITITES: 1+ edema. Past Medical History Past Medical History: Blood Disorder, Coronary Artery Disease (CAD), Cancer, GERD/Reflux, Hearing Disorder / Deafness, Hyperlipidemia, Hypertension, Myocardial Infarction ([place]), Pneumonia, Prostate Disorder, Rheumatoid Arthritis ( [place]), Skin Disorder Additional Past Medical History / Comment(s): pt is rt side dominant. FREQUENT NAUSEA R/T CHEMO. "Arrythmia" Leukemia(MDS) 2001, Skin [place] 2009. lt femur fx, lt elbow fx, aaa([facility]) CHRONIC LOWER BACK PAIN.FELL OUT OF BED LAST NIGHT, BRUISING AND SOME ABRASIONS.constipation,pulmonary edema Last Myocardial Infarction Date:: unk History of Any Multi-Drug Resistant Organisms: Other MDRO Past Surgical History: Cardiac Ablation, Heart Catheterization With Stent, Hernia Repair Additional Past Surgical History / Comment(s): Lt thumb amp, umbilical hernia repair, biopsy lt ear/positive for ca recent abd aortic stent for an aneurysm repair on 02/12/16 - had a sm ileus after surg. ORIF intermeduallary hip screw(lt femur), LT ARM., BLADDER STONE SX, BILAT CATARACT SX Past Anesthesia/Blood Transfusion Reactions: Postoperative Nausea & Vomiting ( PONV) Date of Last Stent Placement:: unk Smoking Status: Former smoker - Past Family History Father Family Medical History: Myocardial Infarction ([place]) Additional Family Medical History / Comment(s): heart attack Mother Family Medical History: Cancer Additional Family Medical History / Comment(s): throat cancer Sister(s) Family Medical History: Cancer Additional Family Medical History / Comment(s): 2 sisters that have "everything " Medications and Allergies Home Medications Medication Instructions Recorded Confirmed Type Citalopram Hydrobromide [CeleXA] 20 mg PO DAILY 01/21/15 04/04/17 History Loratadine [Claritin] 10 mg PO DAILY PRN 01/21/15 04/04/17 History Metoprolol Tartrate 12.5 mg PO BID 01/21/15 04/04/17 History Omeprazole [PriLOSEC] 20 mg PO AC-BRKFST PRN 01/21/15 04/04/17 History Terazosin [Hytrin] 5 mg PO QAM 01/21/15 04/04/17 History Atorvastatin [Lipitor] 80 mg PO HS 02/23/16 04/04/17 History Epoetin Jamie [Procrit] 40,000 unit IM TU 05/11/16 04/04/17 History Ondansetron [Zofran] 4 mg PO Q8HR PRN 09/20/16 04/04/17 History amLODIPine [Norvasc] 5 mg PO DAILY 03/23/17 04/04/17 History Bisacodyl [Dulcolax] 10 mg RECTAL DAILY PRN 04/04/17 04/04/17 History Ensure Clear 1 can PO Q48H 04/04/17 04/04/17 History Lactose-Reduced Food [Ensure Plus] 1 can PO Q48H 04/04/17 04/04/17 History Magnesium Hydroxide [Milk of 2,400 mg PO DAILY PRN 04/04/17 04/04/17 History Magnesia] Na Phos,M-B/Na Phos,Di-Ba [Fleet 133 ml RECTAL DAILY PRN 04/04/17 04/04/17 History Adult] Vits A and D/White Pet/Lanolin [A 1 applic TOPICAL DAILY 04/04/17 04/04/17 History and D Ointment] Allergies Allergy/AdvReac Type Severity Reaction Status Date / Time ciprofloxacin [From Cipro] Allergy Unknown Verified 04/04/17 13:43 ciprofloxacin HCl Allergy Unknown Verified 04/04/17 13:43 [From Cipro] gatifloxacin [From Tequin] Allergy Unknown Verified 04/04/17 13:43 levofloxacin [From Levaquin] AdvReac joint Verified 04/04/17 13:43 swelling moxifloxacin HCl AdvReac Unknown Verified 04/04/17 13:43 [From Avelox] Physical Exam Vitals: Vital Signs Temp Pulse Pulse Resp BP BP BP 04/05/17 08:00 96.2 F L 64 16 113/59 172/72 04/05/17 04:00 96.7 F L 64 18 152/89 04/05/17 00:00 97.2 F L 62 18 141/60 04/04/17 20:20 62 04/04/17 20:13 60 04/04/17 20:00 97.3 F L 58 L 18 135/55 04/04/17 18:21 98.0 F 80 18 176/73 04/04/17 18:03 96.9 F L 64 18 160/79 04/04/17 18:00 96.6 F L 64 18 158/75 04/04/17 17:51 96.6 F L 63 18 177/73 04/04/17 17:41 96.6 F L 60 16 159/71 04/04/17 17:22 96.8 F L 63 18 156/81 04/04/17 17:18 98.7 F 62 18 159/69 04/04/17 16:50 62 18 159/69 04/04/17 15:10 60 04/04/17 15:01 56 L 04/04/17 14:08 18 04/04/17 13:35 98.7 F 63 16 158/71 Pulse Ox 04/05/17 08:00 97 04/05/17 04:00 99 04/05/17 00:00 96 04/04/17 20:20 04/04/17 20:13 04/04/17 20:00 97 04/04/17 18:21 97 04/04/17 18:03 97 04/04/17 18:00 99 04/04/17 17:51 98 04/04/17 17:41 04/04/17 17:22 98 04/04/17 17:18 96 04/04/17 16:50 96 04/04/17 15:10 04/04/17 15:01 04/04/17 14:08 04/04/17 13:35 Intake and Output 04/04/17 04/05/17 04/05/17 22:59 06:59 14:59 Intake Total 410 310 Output Total 625 175 Balance 410 -315 -175 Intake: Amount of Fluid Infused ( 100 ml) Blood Product 310 310 Rc As-1 Unit 310 [id number] Output: Urine 625 175 Other: Voiding Method Urinal Urinal # Voids 1 Weight 66.6 kg Results - Lab Results Most recent lab results Calcium 8.1 mg/dL (8.4-10.2) L 04/05/17 06:01 Magnesium 1.6 mg/dL (1.6-2.3) 04/04/17 14:00 04/05/17 02:13 04/05/17 06:01 Assessment and Plan Plan: Assessment: #1. Nonoliguric acute kidney injury secondary to ATN secondary to tumor lysis syndrome as well as anemia. Renal function relatively stable with creatinine at 3.28 today. #2. Chronic kidney disease stage III with baseline creatinine near 2. Etiology is likely nephrosclerosis. Renal ultrasound reveals cortical thinning suggestive of underlying chronic kidney disease. #3. Hyperkalemia secondary to acute kidney injury and metabolic acidosis. Improved. #4. Metabolic acidosis secondary to acute kidney injury. #5. 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 #6. Acute symptomatic anemia status post blood transfusion. Hemoglobin 7.9 this morning. Plan: I will change Lasix to 40 mg IV once daily. Low potassium diet. Increase dose of sodium bicarbonate to 1300 mg twice daily. Avoid nephrotoxic agents and hypotensive episodes. Encourage oral intake. Repeat potassium level at 2 PM today. Check uric acid and phosphorus level. Thank you for the consultation. I will continue to follow patient with you during his hospital stay.
[2017-04-05 08:43] LABS: Phosphorous 5.8 mg/dL (2.5-4.5); Uric Acid 4.8 mg/dL (3.5-8.5)
[2017-04-05] MEDS ORDERED: FUROSEMIDE 40 MG TAB PO SCH (09:00)
[2017-04-05] MEDS: FUROSEMIDE 10 MG/ML 4 ML VIAL IV SCH (09:18)
[2017-04-05] MEDS: DARBEPOETIN ALFA 100MCG/0.5ML SYRINGE SQ SCH (09:30)
[2017-04-05 09:48] LABS: Appearance,Urine Clear (Clear); Bilirubin,Urine Negative (Negative); Glucose,Urine (UA) 3+ (Negative); Ketones,Urine Negative (Negative); Leukocyte Esterase,Urine Negative (Negative); Mucus,Urine Rare /hpf; Nitrite,Urine Negative (Negative); Particle Count 1394; Protein,Urine 1+ (Negative); RBC,Urine <1 /hpf (0-5); Squamous Epithelial Cell,Urine <1 /hpf (0-4); UA Billing (MACRO vs. MICRO) MICRO; Urobilinogen,Urine <2.0 mg/dL (<2.0); WBC,Urine 1 /hpf (0-5)
--- NOTE | 2017-04-05 11:22 | P.CONS ---
History of Present Illness - Reason for Consult Consult date: 04/05/17 Acute myeloid leukemia. Pancytopenia - History of Present Illness This is an 81-year-old gentleman with a long-standing history of myelodysplasia. He was recently admitted in late 03/19 with the progressive pancytopenia and sudden increase in white blood cells. 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 Started on Hydrea and surprisingly had an excellent response to the same with rapid improvement in his white blood cells. Renal function also improved and stabilized. The patient was overall felt to be a poor candidate for treatment, but due to response to the Hydrea, did want to discuss treatment with the lower in density therapy such as Dacogen, with Dr. Hewitt. He was transferred to [facility], as he was quite weak. He was to follow-up with Dr. Hewitt on 04/07/17. The patient was complaining of significant weakness as well as some shortness of breath and lower extremities swelling. Hemoglobin at [facility] was found to be in the low 6 range. He was therefore transferred back to the hospital and admitted for further evaluation. No obvious bleeding was noted. Review of Systems Constitutional: Reports fatigue, Reports poor appetite, Reports weakness, Reports weight loss Eyes: denies blurred vision, denies pain Ears: deny: decreased hearing, ear discharge, earache, tinnitus Ears, nose, mouth and throat: Reports as per HPI Cardiovascular: Reports orthopnea (Mild), Reports shortness of breath Respiratory: Reports dyspnea Gastrointestinal: Reports diarrhea Genitourinary: Reports nocturia, Reports urinary frequency Musculoskeletal: Reports as per HPI (Lower extremity edema), Reports muscle weakness Integumentary: Denies pruritus, Denies rash Neurological: Reports weakness Psychiatric: Denies anxiety, Denies depression Endocrine: Reports fatigue, Reports weight change Hematologic/Lymphatic: Reports as per HPI Past Medical History Past Medical History: Blood Disorder, Coronary Artery Disease (CAD), Cancer, GERD/Reflux, Hearing Disorder / Deafness, Hyperlipidemia, Hypertension, Myocardial Infarction ([place]), Pneumonia, Prostate Disorder, Rheumatoid Arthritis ( [place]), Skin Disorder Additional Past Medical History / Comment(s): pt is rt side dominant. FREQUENT NAUSEA R/T CHEMO. "Arrythmia" Leukemia(MDS) 2001, Skin CA 2009. lt femur fx, lt elbow fx, aaa([facility] sx [facility]) CHRONIC LOWER BACK PAIN.FELL OUT OF BED LAST NIGHT, BRUISING AND SOME ABRASIONS.constipation,pulmonary edema Last Myocardial Infarction Date:: unk History of Any Multi-Drug Resistant Organisms: Other MDRO Past Surgical History: Cardiac Ablation, Heart Catheterization With Stent, Hernia Repair Additional Past Surgical History / Comment(s): Lt thumb amp, umbilical hernia repair, biopsy lt ear/positive for ca recent abd aortic stent for an aneurysm repair on 02/12/16 - had a sm ileus after surg. ORIF intermeduallary hip screw(lt femur), LT ARM., BLADDER STONE SX, BILAT CATARACT SX Past Anesthesia/Blood Transfusion Reactions: Postoperative Nausea & Vomiting ( PONV) Date of Last Stent Placement:: unk Smoking Status: Former smoker - Past Family History Father Family Medical History: Myocardial Infarction ([place]) Additional Family Medical History / Comment(s): heart attack Mother Family Medical History: Cancer Additional Family Medical History / Comment(s): throat cancer Sister(s) Family Medical History: Cancer Additional Family Medical History / Comment(s): 2 sisters that have "everything " Medications and Allergies Home Medications Medication Instructions Recorded Confirmed Type Citalopram Hydrobromide [CeleXA] 20 mg PO DAILY 01/21/15 04/04/17 History Loratadine [Claritin] 10 mg PO DAILY PRN 01/21/15 04/04/17 History Metoprolol Tartrate 12.5 mg PO BID 01/21/15 04/04/17 History Omeprazole [PriLOSEC] 20 mg PO AC-BRKFST PRN 01/21/15 04/04/17 History Terazosin [Hytrin] 5 mg PO QAM 01/21/15 04/04/17 History Atorvastatin [Lipitor] 80 mg PO HS 02/23/16 04/04/17 History Epoetin Jamie [Procrit] 40,000 unit IM TU 05/11/16 04/04/17 History Ondansetron [Zofran] 4 mg PO Q8HR PRN 09/20/16 04/04/17 History amLODIPine [Norvasc] 5 mg PO DAILY 03/23/17 04/04/17 History Bisacodyl [Dulcolax] 10 mg RECTAL DAILY PRN 04/04/17 04/04/17 History Ensure Clear 1 can PO Q48H 04/04/17 04/04/17 History Lactose-Reduced Food [Ensure Plus] 1 can PO Q48H 04/04/17 04/04/17 History Magnesium Hydroxide [Milk of 2,400 mg PO DAILY PRN 04/04/17 04/04/17 History Magnesia] Na Phos,M-B/Na Phos,Di-Ba [Fleet 133 ml RECTAL DAILY PRN 04/04/17 04/04/17 History Adult] Vits A and D/White Pet/Lanolin [A 1 applic TOPICAL DAILY 04/04/17 04/04/17 History and D Ointment] Allergies Allergy/AdvReac Type Severity Reaction Status Date / Time ciprofloxacin [From Cipro] Allergy Unknown Verified 04/04/17 13:43 ciprofloxacin HCl Allergy Unknown Verified 04/04/17 13:43 [From Cipro] gatifloxacin [From Tequin] Allergy Unknown Verified 04/04/17 13:43 levofloxacin [From Levaquin] AdvReac joint Verified 04/04/17 13:43 swelling moxifloxacin HCl AdvReac Unknown Verified 04/04/17 13:43 [From Avelox] Physical Exam Vitals: Vital Signs Temp Pulse Pulse Resp BP BP BP 04/05/17 08:00 96.2 F L 64 16 113/59 172/72 04/05/17 04:00 96.7 F L 64 18 152/89 04/05/17 00:00 97.2 F L 62 18 141/60 04/04/17 20:20 62 04/04/17 20:13 60 04/04/17 20:00 97.3 F L 58 L 18 135/55 04/04/17 18:21 98.0 F 80 18 176/73 04/04/17 18:03 96.9 F L 64 18 160/79 04/04/17 18:00 96.6 F L 64 18 158/75 04/04/17 17:51 96.6 F L 63 18 177/73 04/04/17 17:41 96.6 F L 60 16 159/71 04/04/17 17:22 96.8 F L 63 18 156/81 04/04/17 17:18 98.7 F 62 18 159/69 04/04/17 16:50 62 18 159/69 07/03/17 15:10 60 04/04/17 15:01 56 L 04/04/17 14:08 18 04/04/17 13:35 98.7 F 63 16 158/71 Pulse Ox 04/05/17 08:00 97 04/05/17 04:00 99 04/05/17 00:00 96 04/04/17 20:20 04/04/17 20:13 04/04/17 20:00 97 04/04/17 18:21 97 04/04/17 18:03 97 04/04/17 18:00 99 04/04/17 17:51 98 04/04/17 17:41 04/04/17 17:22 98 04/04/17 17:18 96 04/04/17 16:50 96 04/04/17 15:10 04/04/17 15:01 04/04/17 14:08 04/04/17 13:35 Intake and Output 04/04/17 04/05/17 04/05/17 22:59 06:59 14:59 Intake Total 410 310 240 Output Total 625 325 Balance 410 -782 -85 Intake: Amount of Fluid Infused ( 100 ml) Oral 240 Blood Product 310 310 Rc As-1 Unit 310 [id number] Output: Urine 625 325 Other: Voiding Method Urinal Urinal Urinal # Voids 1 0 # Bowel Movements 1 Weight 66.6 kg - Constitutional General appearance: no acute distress - EENT Eyes: EOMI, PERRLA ENT: hearing grossly normal, normal oropharynx - Respiratory Respiratory: bilateral: rales (Mild) - Cardiovascular Rhythm: regular Heart sounds: normal: S1, S2 Abnormal Heart Sounds: systolic murmur - Gastrointestinal General gastrointestinal: normal bowel sounds, soft - Integumentary Integumentary: normal - Neurologic Neurologic: CNII-XII intact - Musculoskeletal Musculoskeletal: generalized weakness, strength equal bilaterally - Psychiatric Psychiatric: A&O x's 3, appropriate affect Results CBC & Chem 7: 04/05/17 02:13 04/05/17 06:01 Labs: Abnormal Lab Results - Last 24 Hours (Table) 04/04/17 04/04/17 04/04/17 Range/Units 14:00 14:00 14:00 WBC 1.1 L* (3.8-10.6) k/uL RBC 1.75 L (4.30-5.90) m/uL Hgb 6.3 L* (13.0-17.5) gm/dL Hct 18.6 L* (39.0-53.0) % MCV 106.4 H (80.0-100.0) fL MCH 36.1 H (25.0-35.0) pg RDW 18.8 H (11.5-15.5) % Plt Count 32 L* (150-450) k/uL Neutrophils # (Manual) 0.2 L (1.3-7.7) k/uL Lymphocytes # (Manual) 0.5 L (1.0-4.8) k/uL PT (9.0-12.0) sec APTT (22.0-30.0) sec Sodium 136 L (137-145) mmol/L Potassium 5.7 H (3.5-5.1) mmol/L Chloride (98-107) mmol/L Carbon Dioxide 16 L (22-30) mmol/L BUN 75 H (9-20) mg/dL Creatinine 3.30 H (0.66-1.25) mg/dL Glucose 116 H (74-99) mg/dL Calcium 8.0 L (8.4-10.2) mg/dL Phosphorus (2.5-4.5) mg/dL AST 14 L (17-59) U/L Alkaline Phosphatase 35 L (38-126) U/L Total Creatine Kinase <20 L (55-170) U/L Troponin I 0.038 H* (0.000-0.034) ng/mL Total Protein 5.3 L (6.3-8.2) g/dL Albumin 2.9 L (3.5-5.0) g/dL HDL Cholesterol (40-60) mg/dL Urine Protein (Negative) Urine Glucose (UA) (Negative) Urine Blood (Negative) Urine Mucus (None) /hpf Crossmatch 04/04/17 04/04/17 04/04/17 Range/Units 14:30 14:30 15:22 WBC (3.8-10.6) k/uL RBC (4.30-5.90) m/uL Hgb (13.0-17.5) gm/dL Hct (39.0-53.0) % MCV (80.0-100.0) fL MCH (25.0-35.0) pg RDW (11.5-15.5) % Plt Count (150-450) k/uL Neutrophils # (Manual) (1.3-7.7) k/uL Lymphocytes # (Manual) (1.0-4.8) k/uL PT 13.2 H (9.0-12.0) sec APTT 32.6 H (22.0-30.0) sec Sodium (137-145) mmol/L Potassium 5.5 H (3.5-5.1) mmol/L Chloride (98-107) mmol/L Carbon Dioxide (22-30) mmol/L BUN (9-20) mg/dL Creatinine (0.66-1.25) mg/dL Glucose (74-99) mg/dL Calcium (8.4-10.2) mg/dL Phosphorus (2.5-4.5) mg/dL AST (17-59) U/L Alkaline Phosphatase (38-126) U/L Total Creatine Kinase (55-170) U/L Troponin I (0.000-0.034) ng/mL Total Protein (6.3-8.2) g/dL Albumin (3.5-5.0) g/dL HDL Cholesterol (40-60) mg/dL Urine Protein (Negative) Urine Glucose (UA) (Negative) Urine Blood (Negative) Urine Mucus (None) /hpf Crossmatch See Detail 04/04/17 04/04/17 04/05/17 Range/Units 19:44 22:41 02:13 WBC 0.9 L* (3.8-10.6) k/uL RBC 2.00 L (4.30-5.90) m/uL Hgb 6.9 L* (13.0-17.5) gm/dL Hct 20.6 L (39.0-53.0) % MCV 102.8 H (80.0-100.0) fL MCH (25.0-35.0) pg RDW 20.1 H (11.5-15.5) % Plt Count 28 L* (150-450) k/uL Neutrophils # (Manual) (1.3-7.7) k/uL Lymphocytes # (Manual) (1.0-4.8) k/uL PT (9.0-12.0) sec APTT (22.0-30.0) sec Sodium (137-145) mmol/L Potassium (3.5-5.1) mmol/L Chloride (98-107) mmol/L Carbon Dioxide (22-30) mmol/L BUN (9-20) mg/dL Creatinine (0.66-1.25) mg/dL Glucose (74-99) mg/dL Calcium (8.4-10.2) mg/dL Phosphorus (2.5-4.5) mg/dL AST (17-59) U/L Alkaline Phosphatase (38-126) U/L Total Creatine Kinase <20 L 23 L (55-170) U/L Troponin I 0.036 H* (0.000-0.034) ng/mL Total Protein (6.3-8.2) g/dL Albumin (3.5-5.0) g/dL HDL Cholesterol (40-60) mg/dL Urine Protein (Negative) Urine Glucose (UA) (Negative) Urine Blood (Negative) Urine Mucus (None) /hpf Crossmatch 04/05/17 04/05/17 04/05/17 Range/Units 02:13 02:13 06:01 WBC 0.7 L* (3.8-10.6) k/uL RBC 2.21 L (4.30-5.90) m/uL Hgb 7.9 L (13.0-17.5) gm/dL Hct 22.8 L (39.0-53.0) % MCV 103.5 H (80.0-100.0) fL MCH 35.9 H (25.0-35.0) pg RDW 20.0 H (11.5-15.5) % Plt Count 23 L* (150-450) k/uL Neutrophils # (Manual) (1.3-7.7) k/uL Lymphocytes # (Manual) (1.0-4.8) k/uL PT (9.0-12.0) sec APTT (22.0-30.0) sec Sodium 133 L 135 L (137-145) mmol/L Potassium 6.4 H* 5.7 H (3.5-5.1) mmol/L Chloride 108 H (98-107) mmol/L Carbon Dioxide 16 L 17 L (22-30) mmol/L BUN 73 H 69 H (9-20) mg/dL Creatinine 3.20 H 3.28 H (0.66-1.25) mg/dL Glucose 144 H 129 H (74-99) mg/dL Calcium 8.1 L 8.1 L (8.4-10.2) mg/dL Phosphorus (2.5-4.5) mg/dL AST (17-59) U/L Alkaline Phosphatase (38-126) U/L Total Creatine Kinase (55-170) U/L Troponin I (0.000-0.034) ng/mL Total Protein (6.3-8.2) g/dL Albumin (3.5-5.0) g/dL HDL Cholesterol 34 L (40-60) mg/dL Urine Protein (Negative) Urine Glucose (UA) (Negative) Urine Blood (Negative) Urine Mucus (None) /hpf Crossmatch 04/05/17 04/05/17 Range/Units 06:01 09:40 WBC (3.8-10.6) k/uL RBC (4.30-5.90) m/uL Hgb (13.0-17.5) gm/dL Hct (39.0-53.0) % MCV (80.0-100.0) fL MCH (25.0-35.0) pg RDW (11.5-15.5) % Plt Count (150-450) k/uL Neutrophils # (Manual) (1.3-7.7) k/uL Lymphocytes # (Manual) (1.0-4.8) k/uL PT (9.0-12.0) sec APTT (22.0-30.0) sec Sodium (137-145) mmol/L Potassium (3.5-5.1) mmol/L Chloride (98-107) mmol/L Carbon Dioxide (22-30) mmol/L BUN (9-20) mg/dL Creatinine (0.66-1.25) mg/dL Glucose (74-99) mg/dL Calcium (8.4-10.2) mg/dL Phosphorus 5.8 H (2.5-4.5) mg/dL AST (17-59) U/L Alkaline Phosphatase (38-126) U/L Total Creatine Kinase (55-170) U/L Troponin I (0.000-0.034) ng/mL Total Protein (6.3-8.2) g/dL Albumin (3.5-5.0) g/dL HDL Cholesterol (40-60) mg/dL Urine Protein 1+ H (Negative) Urine Glucose (UA) 3+ H (Negative) Urine Blood Trace H (Negative) Urine Mucus Rare H (None) /hpf Crossmatch Chest x-ray: report reviewed Assessment and Plan (1) Anemia Narrative/Plan: This is hypoproliferative in nature, due to the underlying leukemia. The drops in blood counts, with need for frequent transfusions is expected. The patient was appropriately transfuse 1 unit, for his hemoglobin in the 6 range and has improved appropriately into the 7 range. The plan would be to transfuse him for hemoglobin below 7 in the future. 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 Overall it was felt that the patient would be a poor candidate for any definitive therapy. Her surprisingly, he had an excellent response to Hydrea. Therefore it was decided, that he would meet with Dr. youngblood in the office, to discuss possible treatment with Dacogen. He is not a candidate definitely for a conventional aggressive induction chemotherapy. At best, he is a borderline candidate even for Dacogen. It was again reiterated to him, and his family, that treatment with Dacogen would not be curative. Response rates are generally in the range of about 50%, with improvement in survival in responders, in the range of 6-8 months. He would be a candidate, only if his performance status improved the with ongoing rehab at the [facility]. Even after starting treatment, it is expected that he will need frequent transfusions. He will discuss further with Dr. eHwitt when he sees him in the office on Status: Acute Plan: The patient feels better with the transfusion, with appropriate improvement in hemoglobin. Respiratory status appears to be stable and the patient is not on oxygen. From our standpoint, the patient can be discharged home whenever felt to be appropriate by the admitting service. Stop Hydrea, given the low WBC.
--- NOTE | 2017-04-05 11:44 | P.CNPUL ---
History of Present Illness Consult date: 04/05/17 Requesting physician: Jose R Zamora Reason for consult: other (Pulmonary edema) Chief complaint: Weakness, lower extremity swelling, and some shortness of breath. History of present illness: This is an 81-year-old white male with history of myelodysplasia, recently admitted to [facility], and we saw him on consultation for possible pneumonia. At that time patient was admitted with pancytopenia and sudden increase in white blood cells. 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 Patient developed acute renal failure due to to tumor lysis syndrome. Patient was treated with Hydrea and he responded well with rapid improvement in his white cell count. Renal functioning also improved and stabilized. Patient was eventually transferred to [facility], and he was supposed to follow up with oncology. However the patient was readmitted yesterday with mostly symptoms of weakness, swelling in the lower extremities, shortness of breath, and he was noted to have a hemoglobin of 6. Patient was evaluated and given a unit of packed RBCs, chest x-ray showed evidence of mild pulmonary edema. Patient was given already Lasix by the education coordinator, and by the time I evaluated the patient, he was feeling much better. Chest x-ray is clearly suggestive of mild congestive heart failure and trace effusions with by basilar patchy atelectasis. Patient had no pulmonary symptoms whatsoever during my evaluation. Denied any shortness of breath cough or wheezing. Repeat hemoglobin this morning was 7.9. Electrolytes were reviewed potassium was elevated but it came down to 5.7 from 6.4. BUN 69 creatinine 3.28. Review of Systems Constitutional: Fatigue weakness and weight loss. Eyes: No blurred vision, no diplopia. Ears: deny: Negative Ears, nose, mouth and throat: Negative Cardiovascular: Reports orthopnea (Mild), Reports shortness of breath Respiratory: No shortness of breath at the time of my evaluation, however he was short of breath prior to admission I believe may have been related to anemia. Gastrointestinal: Reports diarrhea Genitourinary: Reports nocturia, Reports urinary frequency Musculoskeletal: Generalized muscle weakness. Integumentary: Denies pruritus, Denies rash Neurological: Reports weakness Psychiatric: Denies symptoms of depression. Endocrine: Reports fatigue, Reports weight change Hematologic/Lymphatic: Reports as per HPI Past Medical History Past Medical History: Blood Disorder, Coronary Artery Disease (CAD), Cancer, GERD/Reflux, Hearing Disorder / Deafness, Hyperlipidemia, Hypertension, Myocardial Infarction (SD), Pneumonia, Prostate Disorder, Rheumatoid Arthritis ( RA), Skin Disorder Additional Past Medical History / Comment(s): pt is rt side dominant. FREQUENT NAUSEA R/T CHEMO. "Arrythmia" Leukemia(MDS) 2001, Skin CA 2009. lt femur fx, lt elbow fx, aaa([facility]) CHRONIC LOWER BACK PAIN.FELL OUT OF BED LAST NIGHT, BRUISING AND SOME ABRASIONS.constipation,pulmonary edema Last Myocardial Infarction Date:: unk History of Any Multi-Drug Resistant Organisms: Other MDRO Past Surgical History: Cardiac Ablation, Heart Catheterization With Stent, Hernia Repair Additional Past Surgical History / Comment(s): Lt thumb amp, umbilical hernia repair, biopsy lt ear/positive for ca recent abd aortic stent for an aneurysm repair on 02/12/16 - had a sm ileus after surg. ORIF intermeduallary hip screw(lt femur), LT ARM., BLADDER STONE SX, BILAT CATARACT SX Past Anesthesia/Blood Transfusion Reactions: Postoperative Nausea & Vomiting ( PONV) Date of Last Stent Placement:: unk Smoking Status: Former smoker - Past Family History Father Family Medical History: Myocardial Infarction (SD) Additional Family Medical History / Comment(s): heart attack Mother Family Medical History: Cancer Additional Family Medical History / Comment(s): throat cancer Sister(s) Family Medical History: Cancer Additional Family Medical History / Comment(s): 2 sisters that have "everything " Medications and Allergies Home Medications Medication Instructions Recorded Confirmed Type Citalopram Hydrobromide [CeleXA] 20 mg PO DAILY 01/21/15 04/04/17 History Loratadine [Claritin] 10 mg PO DAILY PRN 01/21/15 04/04/17 History Metoprolol Tartrate 12.5 mg PO BID 01/21/15 04/04/17 History Omeprazole [PriLOSEC] 20 mg PO AC-BRKFST PRN 01/21/15 04/04/17 History Terazosin [Hytrin] 5 mg PO QAM 01/21/15 04/04/17 History Atorvastatin [Lipitor] 80 mg PO HS 02/23/16 04/04/17 History Epoetin Jamie [Procrit] 40,000 unit IM TU 05/11/16 04/04/17 History Ondansetron [Zofran] 4 mg PO Q8HR PRN 09/20/16 04/04/17 History amLODIPine [Norvasc] 5 mg PO DAILY 03/23/17 04/04/17 History Bisacodyl [Dulcolax] 10 mg RECTAL DAILY PRN 04/04/17 04/04/17 History Ensure Clear 1 can PO Q48H 04/04/17 04/04/17 History Lactose-Reduced Food [Ensure Plus] 1 can PO Q48H 04/04/17 04/04/17 History Magnesium Hydroxide [Milk of 2,400 mg PO DAILY PRN 04/04/17 04/04/17 History Magnesia] Na Phos,M-B/Na Phos,Di-Ba [Fleet 133 ml RECTAL DAILY PRN 04/04/17 04/04/17 History Adult] Vits A and D/White Pet/Lanolin [A 1 applic TOPICAL DAILY 04/04/17 04/04/17 History and D Ointment] Allergies Allergy/AdvReac Type Severity Reaction Status Date / Time ciprofloxacin [From Cipro] Allergy Unknown Verified 04/04/17 13:43 ciprofloxacin HCl Allergy Unknown Verified 04/04/17 13:43 [From Cipro] gatifloxacin [From Tequin] Allergy Unknown Verified 04/04/17 13:43 levofloxacin [From Levaquin] AdvReac joint Verified 04/04/17 13:43 swelling moxifloxacin HCl AdvReac Unknown Verified 04/04/17 13:43 [From Avelox] Physical Exam Vitals: Vital Signs Temp Pulse Pulse Resp BP BP BP 04/05/17 11:27 97.4 F L 51 L 16 89/51 145/62 04/05/17 08:00 96.2 F L 64 16 113/59 172/72 04/05/17 04:00 96.7 F L 64 18 152/89 04/05/17 00:00 97.2 F L 62 18 141/60 04/04/17 20:20 62 04/04/17 20:13 60 04/04/17 20:00 97.3 F L 58 L 18 135/55 04/04/17 18:21 98.0 F 80 18 176/73 04/04/17 18:03 96.9 F L 64 18 160/79 04/04/17 18:00 96.6 F L 64 18 158/75 04/04/17 17:51 96.6 F L 63 18 177/73 04/04/17 17:41 96.6 F L 60 16 159/71 04/04/17 17:22 96.8 F L 63 18 156/81 04/04/17 17:18 98.7 F 62 18 159/69 04/04/17 16:50 62 18 159/69 04/04/17 15:10 60 04/04/17 15:01 56 L 04/04/17 14:08 18 04/04/17 13:35 98.7 F 63 16 158/71 Pulse Ox 04/05/17 11:27 98 04/05/17 08:00 97 04/05/17 04:00 99 04/05/17 00:00 96 04/04/17 20:20 04/04/17 20:13 04/04/17 20:00 97 04/04/17 18:21 97 04/04/17 18:03 97 04/04/17 18:00 99 04/04/17 17:51 98 04/04/17 17:41 04/04/17 17:22 98 04/04/17 17:18 96 04/04/17 16:50 96 04/04/17 15:10 04/04/17 15:01 04/04/17 14:08 04/04/17 13:35 Intake and Output 04/04/17 04/05/17 04/05/17 22:59 06:59 14:59 Intake Total 410 310 240 Output Total 625 325 Balance 410 -483 -35 Intake: Amount of Fluid Infused ( 100 ml) Oral 240 Blood Product 310 310 Rc As-1 Unit 310 [id number] Output: Urine 625 325 Other: Voiding Method Urinal Urinal Urinal # Voids 1 0 # Bowel Movements 1 Weight 66.6 kg Physical Exam: Revealed an 81-year-old white male looks frail, chronically ill, in no distress. HEENT:[Neck is supple.] [No neck masses.] [No thyromegaly.] [No JVD.] Chest: [Diminished breath sounds and crackles at the bases..] Cardiac Exam: [Normal S1 and S2, no S3 gallop, 2/6 systolic murmur throughout the precordium.] Abdomen: [Soft, nontender, no megaly, no rebound, no guarding, normal bowel sounds.] Extremities: [No clubbing, no edema, no cyanosis.] Neurological Exam: Generalized weakness, otherwise no focal neurologic deficit. Results - Laboratory Findings CBC and BMP: 04/05/17 02:13 04/05/17 06:01 PT/INR, D-dimer PT 13.2 sec (9.0-12.0) H 04/04/17 14:30 INR 1.3 (<1.1) 04/04/17 14:30 Abnormal lab findings: Abnormal Labs 04/04/17 04/04/17 04/04/17 14:00 14:00 14:00 WBC 1.1 L* RBC 1.75 L Hgb 6.3 L* Hct 18.6 L* MCV 106.4 H MCH 36.1 H RDW 18.8 H Plt Count 32 L* Neutrophils # (Manual) 0.2 L Lymphocytes # (Manual) 0.5 L PT APTT Sodium 136 L Potassium 5.7 H Chloride Carbon Dioxide 16 L BUN 75 H Creatinine 3.30 H Glucose 116 H Calcium 8.0 L Phosphorus AST 14 L Alkaline Phosphatase 35 L Total Creatine Kinase <20 L Troponin I 0.038 H* Total Protein 5.3 L Albumin 2.9 L HDL Cholesterol Urine Protein Urine Glucose (UA) Urine Blood Urine Mucus Crossmatch 04/04/17 04/04/17 04/04/17 14:30 14:30 15:22 WBC RBC Hgb Hct MCV MCH RDW Plt Count Neutrophils # (Manual) Lymphocytes # (Manual) PT 13.2 H APTT 32.6 H Sodium Potassium 5.5 H Chloride Carbon Dioxide BUN Creatinine Glucose Calcium Phosphorus AST Alkaline Phosphatase Total Creatine Kinase Troponin I Total Protein Albumin HDL Cholesterol Urine Protein Urine Glucose (UA) Urine Blood Urine Mucus Crossmatch See Detail 04/04/17 04/04/17 04/05/17 19:44 22:41 02:13 WBC 0.9 L* RBC 2.00 L Hgb 6.9 L* Hct 20.6 L MCV 102.8 H MCH RDW 20.1 H Plt Count 28 L* Neutrophils # (Manual) Lymphocytes # (Manual) PT APTT Sodium Potassium Chloride Carbon Dioxide BUN Creatinine Glucose Calcium Phosphorus AST Alkaline Phosphatase Total Creatine Kinase <20 L 23 L Troponin I 0.036 H* Total Protein Albumin HDL Cholesterol Urine Protein Urine Glucose (UA) Urine Blood Urine Mucus Crossmatch 04/05/17 04/05/17 04/05/17 02:13 02:13 06:01 WBC 0.7 L* RBC 2.21 L Hgb 7.9 L Hct 22.8 L MCV 103.5 H MCH 35.9 H RDW 20.0 H Plt Count 23 L* Neutrophils # (Manual) Lymphocytes # (Manual) PT APTT Sodium 133 L 135 L Potassium 6.4 H* 5.7 H Chloride 108 H Carbon Dioxide 16 L 17 L BUN 73 H 69 H Creatinine 3.20 H 3.28 H Glucose 144 H 129 H Calcium 8.1 L 8.1 L Phosphorus AST Alkaline Phosphatase Total Creatine Kinase Troponin I Total Protein Albumin HDL Cholesterol 34 L Urine Protein Urine Glucose (UA) Urine Blood Urine Mucus Crossmatch 04/05/17 04/05/17 06:01 09:40 WBC RBC Hgb Hct MCV MCH RDW Plt Count Neutrophils # (Manual) Lymphocytes # (Manual) PT APTT Sodium Potassium Chloride Carbon Dioxide BUN Creatinine Glucose Calcium Phosphorus 5.8 H AST Alkaline Phosphatase Total Creatine Kinase Troponin I Total Protein Albumin HDL Cholesterol Urine Protein 1+ H Urine Glucose (UA) 3+ H Urine Blood Trace H Urine Mucus Rare H Crossmatch - Diagnostic Findings Chest x-ray: image reviewed Assessment and Plan Plan: Impression: 1 acute mild pulmonary edema secondary to renal failure, fluids, and blood transfusion. Clinically the patient improved after diuresis. Follow-up chest x -ray will be done in a.m. 2 acute myeloid leukemia with prior history of myelodysplasia. 3 nonoliguric acute kidney injury secondary to acute tubular necrosis and the tumor lysis syndrome 4 acute on chronic kidney disease, baseline creatinine 2.0. 5 acute hyperkalemia secondary to renal failure and kidney injury. Improving. 6 pancytopenia related to myelodysplasia. Patient is status post bone marrow biopsy which showed acute transformation. Recommendation: Agree with the present treatment plan, gentle diuresis, sodium bicarb, avoid nephrotoxic medications, continue to follow closely. Repeat chest x-ray in a.m. Prognosis is definitely poor and guarded. Time with Patient: Greater than 30
[2017-04-05] MEDS: amLODIPine 5 MG TAB PO SCH (12:38)
--- NOTE | 2017-04-05 16:15 | P.CRDCN ---
History of Present Illness Consult date: 04/05/17 History of present illness: This is a 81-year-old gentleman with history of ischemic heart disease and also atrial fibrillation who follows with a language and literature division chair at [facility]. He also has history of previous stent placement and ablation. Ablation was performed in 2014. Patient was recently admitted to the hospital with history of myelodysplasia and also pancytopenia. At the time. Patient is diagnosed to have myeloid leukemia. Patient subsequently developed acute renal failure due to tumor lysis syndrome. Patient was subsequently stabilized and was transferred to a care home. Patient is now readmitted with symptoms of weakness, edema and shortness of breath and was noted to be anemic with hemoglobin of 6. Patient was given blood transfusion and apparently developed some shortness of breath and evidence of CHF on chest x-ray. He was treated with IV Lasix with improvement of his symptomatology. At the time of my examination patient seemed to be quite comfortable but appears to be frail and weak. His hemoglobin after transfusion went up to 7.9. His BUN is 69 and creatinine is 3.28. Patient also had some issues with hyperkalemia. His lab values today showed a potassium of 5.7. His troponin values. Her mildly elevated but they're not consistent with acute coronary syndrome. EKG from 12/2016 showed sinus bradycardia and sinus arrhythmia with a possible old anterolateral [place]. It appears that his symptoms are mostly related to anemia. I do not see any acute cardiac issue at this time. Review of Systems REVIEW OF SYSTEMS: CONSTITUTIONAL:. Complaints of weakness and tiredness EYES: Denies diplopia, blurring of vision EARS, NOSE, MOUTH, THROAT: Denies headaches, denies sore throat. CARDIOVASCULAR: Denies chest pain, denies shortness of breath, denies palpitations RESPIRATORY: Denies shortness of breath, denies cough. GASTROINTESTINAL: Denies change in appetite, denies abdominal pain, denies diarrhea GENITOURINARY: Denies hematuria, denies infections. MUSKULOSKELETAL: Denies pain, denies swelling. Denies any cramps or claudication INTEGUMENTARY: Denies rash, denies eczema. NEUROLOGICAL: Denies focal weakness, or visual disturbance. Denies any dizziness or syncope PSYCHIATRIC: Denies anxiety, denies depression. HEMATOLOGIC/LYMPHATIC: Denies any bleeding, denies enlarged lymph nodes. Past Medical History Past Medical History: Blood Disorder, Coronary Artery Disease (CAD), Cancer, GERD/Reflux, Hearing Disorder / Deafness, Hyperlipidemia, Hypertension, Myocardial Infarction (WA), Pneumonia, Prostate Disorder, Rheumatoid Arthritis ( RA), Skin Disorder Additional Past Medical History / Comment(s): pt is rt side dominant. FREQUENT NAUSEA R/T CHEMO. "Arrythmia" Leukemia(MDS) 2001, Skin CA 2009. lt femur fx, lt elbow fx, aaa([facility]) CHRONIC LOWER BACK PAIN.FELL OUT OF BED LAST NIGHT, BRUISING AND SOME ABRASIONS.constipation,pulmonary edema Last Myocardial Infarction Date:: unk History of Any Multi-Drug Resistant Organisms: Other MDRO Past Surgical History: Cardiac Ablation, Heart Catheterization With Stent, Hernia Repair Additional Past Surgical History / Comment(s): Lt thumb amp, umbilical hernia repair, biopsy lt ear/positive for ca recent abd aortic stent for an aneurysm repair on 02/12/16 - had a sm ileus after surg. ORIF intermeduallary hip screw(lt femur), LT ARM., BLADDER STONE SX, BILAT CATARACT SX Past Anesthesia/Blood Transfusion Reactions: Postoperative Nausea & Vomiting ( PONV) Date of Last Stent Placement:: unk Smoking Status: Former smoker - Past Family History Father Family Medical History: Myocardial Infarction (WA) Additional Family Medical History / Comment(s): heart attack Mother Family Medical History: Cancer Additional Family Medical History / Comment(s): throat cancer Sister(s) Family Medical History: Cancer Additional Family Medical History / Comment(s): 2 sisters that have "everything " Medications and Allergies Home Medications Medication Instructions Recorded Confirmed Type Citalopram Hydrobromide [CeleXA] 20 mg PO DAILY 01/21/15 04/04/17 History Loratadine [Claritin] 10 mg PO DAILY PRN 01/21/15 04/04/17 History Metoprolol Tartrate 12.5 mg PO BID 01/21/15 04/04/17 History Omeprazole [PriLOSEC] 20 mg PO AC-BRKFST PRN 01/21/15 04/04/17 History Terazosin [Hytrin] 5 mg PO QAM 01/21/15 04/04/17 History Atorvastatin [Lipitor] 80 mg PO HS 02/23/16 04/04/17 History Epoetin Jamie [Procrit] 40,000 unit IM TU 05/11/16 04/04/17 History Ondansetron [Zofran] 4 mg PO Q8HR PRN 09/20/16 04/04/17 History amLODIPine [Norvasc] 5 mg PO DAILY 03/23/17 04/04/17 History Bisacodyl [Dulcolax] 10 mg RECTAL DAILY PRN 04/04/17 04/04/17 History Ensure Clear 1 can PO Q48H 04/04/17 04/04/17 History Lactose-Reduced Food [Ensure Plus] 1 can PO Q48H 04/04/17 04/04/17 History Magnesium Hydroxide [Milk of 2,400 mg PO DAILY PRN 04/04/17 04/04/17 History Magnesia] Na Phos,M-B/Na Phos,Di-Ba [Fleet 133 ml RECTAL DAILY PRN 04/04/17 04/04/17 History Adult] Vits A and D/White Pet/Lanolin [A 1 applic TOPICAL DAILY 04/04/17 04/04/17 History and D Ointment] Allergies Allergy/AdvReac Type Severity Reaction Status Date / Time ciprofloxacin [From Cipro] Allergy Unknown Verified 04/04/17 13:43 ciprofloxacin HCl Allergy Unknown Verified 04/04/17 13:43 [From Cipro] gatifloxacin [From Tequin] Allergy Unknown Verified 04/04/17 13:43 levofloxacin [From Levaquin] AdvReac joint Verified 04/04/17 13:43 swelling moxifloxacin HCl AdvReac Unknown Verified 04/04/17 13:43 [From Avelox] Physical Exam Vitals: Vital Signs Temp Pulse Pulse Resp BP BP BP 04/05/17 15:50 97.8 F 53 L 18 147/58 04/05/17 11:27 97.4 F L 51 L 16 89/51 145/62 04/05/17 08:00 96.2 F L 64 16 113/59 172/72 04/05/17 04:00 96.7 F L 64 18 152/89 04/05/17 00:00 97.2 F L 62 18 141/60 04/04/17 20:20 62 04/04/17 20:13 60 04/04/17 20:00 97.3 F L 58 L 18 135/55 04/04/17 18:21 98.0 F 80 18 176/73 04/04/17 18:03 96.9 F L 64 18 160/79 04/04/17 18:00 96.6 F L 64 18 158/75 04/04/17 17:51 96.6 F L 63 18 177/73 04/04/17 17:41 96.6 F L 60 16 159/71 04/04/17 17:22 96.8 F L 63 18 156/81 04/04/17 17:18 98.7 F 62 18 159/69 04/04/17 16:50 62 18 159/69 Pulse Ox 04/05/17 15:50 99 04/05/17 11:27 98 04/05/17 08:00 97 04/05/17 04:00 99 04/05/17 00:00 96 04/04/17 20:20 04/04/17 20:13 04/04/17 20:00 97 04/04/17 18:21 97 04/04/17 18:03 97 04/04/17 18:00 99 04/04/17 17:51 98 04/04/17 17:41 04/04/17 17:22 98 04/04/17 17:18 96 04/04/17 16:50 96 Intake and Output 04/05/17 04/05/17 04/05/17 06:59 14:59 22:59 Intake Total 310 240 Output Total 625 325 Balance -315 -85 Intake: Oral 240 Blood Product 310 Output: Urine 625 325 Other: Voiding Method Urinal Urinal # Voids 1 0 # Bowel Movements 1 Weight 66.6 kg GENERAL EXAM: Patient is alert and oriented and doesn't appear to be in any acute distress HEENT: Normocephalic. Normal reaction of pupils, equal size, normal range of extraocular motion. No erythema or exudates in the throat. NECK: No masses, no nuchal rigidity. CHEST: No chest wall deformity. LUNGS: Diminished breath sounds at bases HEART: S1 and S2 normal . Short systolic murmur heard.. ABDOMEN: No hepatosplenomegaly, normal bowel sounds, no guarding or rigidity. SKIN: No rashes CENTRAL NERVOUS SYSTEM: No focal deficits. EXTREMITIES: No cyanosis, clubbing or edema. Results 04/05/17 02:13 04/05/17 13:49 Cardiac Enzymes 04/04/17 04/05/17 Range/Units 19:44 02:13 CK-MB (CK-2) 0.3 0.4 (0.0-2.4) ng/mL Troponin I 0.036 H* 0.030 (0.000-0.034) ng/mL Lipids 04/05/17 Range/Units 02:13 Triglycerides 72 (<150) mg/dL Cholesterol 91 (<200) mg/dL HDL Cholesterol 34 L (40-60) mg/dL CBC 04/04/17 04/04/17 04/05/17 Range/Units 14:00 22:41 02:13 WBC 0.9 L* 0.7 L* (3.8-10.6) k/uL RBC 2.00 L 2.21 L (4.30-5.90) m/uL Hgb 6.9 L* 7.9 L (13.0-17.5) gm/dL Hct 20.6 L 22.8 L (39.0-53.0) % Plt Count 32 L* 28 L* 23 L* (150-450) k/uL Comprehensive Metabolic Panel 04/05/17 04/05/17 04/05/17 Range/Units 02:13 06:01 13:49 Sodium 133 L 135 L (137-145) mmol/L Potassium 6.4 H* 5.7 H 6.1 H (3.5-5.1) mmol/L Chloride 108 H 107 (98-107) mmol/L Carbon Dioxide 16 L 17 L (22-30) mmol/L BUN 73 H 69 H (9-20) mg/dL Creatinine 3.20 H 3.28 H (0.66-1.25) mg/dL Glucose 144 H 129 H (74-99) mg/dL Calcium 8.1 L 8.1 L (8.4-10.2) mg/dL Current Medications Generic Name Dose Route Start Last Admin Trade Name Freq PRN Reason Stop Dose Admin Hydrocodone Bitart/Acetaminophen 1 each 04/04/17 19:00 [place] 5-325 PO Q6HR PRN MODERATE Pain Albuterol/Ipratropium 3 ml 04/04/17 19:00 04/04/17 20:11 Duoneb 0.5 Mg-3 Mg/3 Ml Soln INHALATION 3 ml RT-TID PRN Administration Shortness Of Breath Or Wheezing Allopurinol 200 mg 04/05/17 09:00 04/05/17 08:10 Zyloprim PO 200 mg DAILY MONICA Administration Amlodipine Besylate 5 mg 04/05/17 09:00 04/05/17 12:38 Norvasc PO 5 mg DAILY MONICA Administration Aspirin 325 mg 04/05/17 09:00 04/05/17 08:10 Aspirin PO 325 mg DAILY MONICA Administration Atorvastatin Calcium 80 mg 04/04/17 21:00 04/04/17 21:12 Lipitor PO 80 mg HS [facility] Administration Bisacodyl 10 mg 04/04/17 19:00 Dulcolax RECTAL DAILY PRN Constipation Calcium Acetate 1,334 mg 04/05/17 07:30 04/05/17 12:37 Phoslo PO 1,334 mg TID-W/MEALS [facility] Administration Citalopram Hydrobromide 20 mg 04/05/17 09:00 04/05/17 08:14 Celexa PO 20 mg DAILY [facility] Administration Darbepoetin Jamie 100 mcg 04/05/17 09:00 04/05/17 09:30 Aranesp SQ 100 mcg TU [facility] Administration Dronabinol 2.5 mg 04/04/17 21:00 04/04/17 21:12 Marinol PO 2.5 mg HS [facility] Administration Fluticasone Propionate 2 spray 04/05/17 09:00 04/05/17 08:15 Flonase Nasal [place] EA NOSTRIL 2 spray DAILY [facility] Administration Furosemide 40 mg 04/05/17 09:00 04/05/17 09:18 Lasix IV 40 mg DAILY [facility] Administration Loratadine 10 mg 04/04/17 19:00 Claritin PO DAILY PRN Allergy Symptoms Metoclopramide HCl 5 mg 04/04/17 21:00 04/05/17 11:41 Reglan PO 5 mg ACHS [facility] Administration Metoprolol Tartrate 12.5 mg 04/04/17 21:00 04/05/17 08:13 Lopressor PO 12.5 mg BID [facility] Administration Nitroglycerin 0.4 mg 04/04/17 16:00 Nitrostat SUBLINGUAL Q5M PRN Chest Pain Ondansetron HCl 4 mg 04/04/17 19:00 Zofran PO Q8HR PRN Nausea Pantoprazole Sodium 40 mg 04/04/17 23:34 Protonix PO AC-BRKFST PRN Heartburn Polyethylene Glycol 17 gm 04/05/17 21:00 Miralax PO HS [facility]ICA Sodium Bicarbonate 1,300 mg 04/05/17 09:00 04/05/17 08:14 Sodium Bicarbonate Tab PO 1,300 mg BID [facility] Administration Temazepam 30 mg 04/04/17 21:00 04/04/17 21:12 Restoril PO 30 mg HS [facility] Administration Terazosin HCl 5 mg 04/05/17 09:00 04/05/17 08:13 Hytrin PO 5 mg QAM [facility] Administration Intake and Output 04/05/17 04/05/17 04/05/17 06:59 14:59 22:59 Intake Total 310 240 Output Total 625 325 Balance -315 -85 Intake: Oral 240 Blood Product 310 Output: Urine 625 325 Other: Voiding Method Urinal Urinal # Voids 1 0 # Bowel Movements 1 Weight 66.6 kg 04/05/17 02:13 04/05/17 13:49 EKG Interpretations (text) Sinus rhythm with possible old anterior wall [place] Assessment and Plan (1) History of myeloid leukemia Status: Acute (2) Acute dyspnea Status: Acute (3) Acute myeloid leukemia (AML) with prior myelodysplasia Status: Acute (4) Anemia Status: Acute (5) Generalized weakness Status: Acute (6) Hyperkalemia Status: Acute (7) CAD (coronary artery disease) Status: Acute (8) History of atrial fibrillation Status: Acute Plan: Patient seemed to be clinically stable. His CHF seemed to resolve the Lasix. Currently patient is on albuterol, allopurinol, amlodipine, aspirin, Lipitor, and IV Lasix along with metoprolol. We will continue current medical therapy and titrate the medication as necessary. No acute cardiac intervention needed at this time. Thank you
[2017-04-05] MEDS ORDERED: INSULIN REGULAR 100 UNIT/ML VIAL IV ONE (16:55)
[2017-04-05] MEDS ORDERED: DEXTROSE 50%-WATER 50 ML SYRINGE IVP STA (16:55)
[2017-04-05] MEDS: POLYETHYLENE GLYCOL 3350 17 GM POWD.PACK PO SCH ×2 (21:48→21:51)
[2017-04-05] MEDS: TEMAZEPAM 30 MG CAP PO SCH (21:48)
[2017-04-05] MEDS: DRONABINOL 2.5 MG CAP PO SCH (21:48)
[2017-04-05] MEDS: ATORVASTATIN 80 MG TAB PO SCH (21:48)
[2017-04-06 06:02] LABS: Calcium 7.9 mg/dL (8.4-10.2); Potassium 5.2 mmol/L (3.5-5.1)
[2017-04-06 06:19] LABS: Anisocytosis Slight; Aty Lym Flag Marked; CH 33.4; CHCM 31.8; HCT 20.1 % (39.0-53.0); HDW 3.67; Hypochromasia Moderate; MCH 35.3 pg (25.0-35.0); MCHC 33.2 g/dL (31.0-37.0); MCV 106.3 fL (80.0-100.0); Macrocytosis Marked; Mean Platelet Volume 10.4; Poikilocytosis Slight; RBC 1.89 m/uL (4.30-5.90); RDW 19.7 % (11.5-15.5); WBC (Perox) 1.21
[2017-04-06 06:21] LABS: WBC 1.1 k/uL (3.8-10.6)
[2017-04-06 06:26] LABS: HGB 6.7 gm/dL (13.0-17.5)
[2017-04-06] MEDS: CALCIUM ACETATE 667 MG CAP PO SCH ×3 (07:17→17:55)
[2017-04-06] MEDS: METOCLOPRAMIDE 5 MG TAB PO SCH ×4 (07:18→21:46)
[2017-04-06 08:03] LABS: Add Differential Manual Differential
[2017-04-06 08:09] LABS: Manual Review Performed; Nucleated Red Blood Cells 0 /100 WBC (0-0); Total Cells Counted 100
[2017-04-06] MEDS: ASPIRIN 325 MG TAB PO SCH (09:56)
[2017-04-06] MEDS: ALLOPURINOL 100 MG TAB PO SCH (09:56)
[2017-04-06] MEDS: CITALOPRAM HYDROBROMIDE 20 MG TAB PO SCH (09:56)
[2017-04-06] MEDS: amLODIPine 5 MG TAB PO SCH (09:56)
[2017-04-06] MEDS: METOPROLOL TARTRATE 12.5 MG TAB PO SCH ×2 (09:57→21:47)
[2017-04-06] MEDS: ENOXAPARIN 30 MG/0.3 ML SYRINGE SQ SCH (09:57)
[2017-04-06] MEDS: FUROSEMIDE 10 MG/ML 4 ML VIAL IV SCH ×2 (09:57→10:12)
[2017-04-06] MEDS: FLUTICASONE 50MCG/SPRAY NASAL 16GM EA NOSTRIL SCH ×2 (09:58→10:12)
[2017-04-06] MEDS: SODIUM BICARBONATE TAB 650 MG TAB PO SCH ×2 (09:58→21:47)
[2017-04-06] MEDS: TERAZOSIN 5 MG CAP PO SCH (09:59)
--- NOTE | 2017-04-06 10:30 | P.PN ---
Subjective Patient is seen in follow-up for acute kidney injury. Renal function is a little improved with creatinine at 3.16 today. Patient has history of MDS and underwent a bone marrow biopsy about 2 weeks ago which did reveal acute transformation. He was noted to have tumor lysis syndrome and at that time his creatinine did peak at 4.9 and is now stable in the range of 3-3.3. He is currently admitted for symptomatic anemia. Hemoglobin is again down to 6.7 today. Admits to good urine output. Oral intake is improved. No vomiting or diarrhea. Vital signs are stable. General: The patient appeared well nourished and normally developed. HEENT: Head exam is unremarkable. Neck is without jugular venous distension. LUNGS: Lungs are clear to auscultation and percussion. Breath sounds decreased. HEART: Rate and Rhythm are regular. First and second heart sounds normal. No murmurs, rubs or gallops. ABDOMEN: Abdominal exam reveals normal bowel sounds. Non-tender and non- distended. No evidence of peritonitis. EXTREMITITES: No clubbing, cyanosis, or edema. Objective - Vital Signs Vital signs: Vital Signs Temp 97.2 F L 04/06/17 04:00 Pulse 57 L 04/06/17 04:00 Resp 18 04/06/17 04:00 BP 129/63 04/06/17 04:00 Pulse Ox 96 04/06/17 04:00 Intake & Output 04/05/17 04/06/17 04/06/17 18:59 06:59 18:59 Intake Total 360 Output Total 925 Balance -565 Weight 65.9 kg Intake: Oral 360 Output: Urine 925 Other: Voiding Method Urinal Toilet Urinal # Voids 0 1 # Bowel Movements 1 - Labs CBC & Chem 7: 04/06/17 05:36 04/06/17 05:32 Labs: Abnormal Lab Results - Last 24 Hours (Table) 04/04/17 04/05/17 04/05/17 Range/Units 14:30 13:49 19:55 WBC (3.8-10.6) k/uL RBC (4.30-5.90) m/uL Hgb (13.0-17.5) gm/dL Hct (39.0-53.0) % MCV (80.0-100.0) fL MCH (25.0-35.0) pg RDW (11.5-15.5) % Plt Count (150-450) k/uL Neutrophils # (Manual) (1.3-7.7) k/uL Lymphocytes # (Manual) (1.0-4.8) k/uL Sodium (137-145) mmol/L Potassium 6.1 H 5.3 H (3.5-5.1) mmol/L Carbon Dioxide (22-30) mmol/L BUN (9-20) mg/dL Creatinine (0.66-1.25) mg/dL Calcium (8.4-10.2) mg/dL Crossmatch See Detail 04/06/17 04/06/17 Range/Units 05:32 05:36 WBC 1.1 L* (3.8-10.6) k/uL RBC 1.89 L (4.30-5.90) m/uL Hgb 6.7 L* (13.0-17.5) gm/dL Hct 20.1 L (39.0-53.0) % MCV 106.3 H (80.0-100.0) fL MCH 35.3 H (25.0-35.0) pg RDW 19.7 H (11.5-15.5) % Plt Count 25 L* (150-450) k/uL Neutrophils # (Manual) 0.0 L (1.3-7.7) k/uL Lymphocytes # (Manual) 0.6 L (1.0-4.8) k/uL Sodium 133 L (137-145) mmol/L Potassium 5.2 H (3.5-5.1) mmol/L Carbon Dioxide 19 L (22-30) mmol/L BUN 73 H (9-20) mg/dL Creatinine 3.16 H (0.66-1.25) mg/dL Calcium 7.9 L (8.4-10.2) mg/dL Crossmatch Microbiology - Last 24 Hours (Table) 04/04/17 14:00 Blood Culture - Preliminary Blood No Growth after 24 hours Assessment and Plan Plan: Assessment: #1. Nonoliguric acute kidney injury secondary to ATN secondary to tumor lysis syndrome as well as anemia. Renal function relatively stable with creatinine at 3.16 today. #2. Chronic kidney disease stage III with baseline creatinine near 2. Etiology is likely nephrosclerosis. Renal ultrasound reveals cortical thinning suggestive of underlying chronic kidney disease. #3. Hyperkalemia secondary to acute kidney injury and metabolic acidosis. Improved. #4. Metabolic acidosis secondary to acute kidney injury. Improving. #5. 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 #6. Acute symptomatic anemia status post blood transfusion. Hemoglobin 6.7 this morning. Plan: Continue Lasix 40 mg IV once daily. Scheduled to receive 1 unit of blood transfusion today. Low potassium diet. Continue sodium bicarbonate 1300 mg twice daily. Avoid nephrotoxic agents and hypotensive episodes. Encourage oral intake. No evidence of tumor lysis at this time.
--- NOTE | 2017-04-06 10:34 | ECHOF ---
Referral Reason:Chest pain and cardiomyopathy MEASUREMENTS -------- HEIGHT: 157.5 cm WEIGHT: 65.8 kg BP: 129/68 RVIDd: 3.0 cm (< 3.3) IVSd: 1.3 cm (0.6 - 1.1) LVIDd: 4.6 cm (3.9 - 5.3) LVPWd: 1.5 cm (0.6 - 1.1) IVSs: 1.4 cm LVIDs: 4.4 cm LVPWs: 1.3 cm LA Diam: 3.7 cm (2.7 - 3.8) LAESV Index (A-L): 79.85 ml/m Ao Diam: 3.6 cm (2.0 - 3.7) AV Cusp: 1.6 cm (1.5 - 2.6) LA Diam: 4.7 cm (2.7 - 3.8) MV EXCURSION: 22.907 mm (> 18.000) MV EF SLOPE: 78 mm/s (70 - 150) EPSS: 0.3 cm MV E Stewart: 0.68 m/s MV DecT: 258 ms MV A Stewart: 0.70 m/s MV E/A Ratio: 0.97 AV maxP.12 mmHg AV meanP.29 mmHg RAP: 5.00 mmHg RVSP: 18.76 mmHg FINDINGS -------- Sinus rhythm. This was a technically adequate study. There is mild concentric left ventricular hypertrophy. Overall left ventricular systolic function is normal with, an EF between 55 - 60 %. The right ventricle is normal in size. LA is severely dilated >40 ml/m2 The right atrial size is normal. Mild aortic stenosis with peak/mean pressure gradient of 27.12mmHg / 14.29mmHg , the aortic valve area by continuity equation is 1.5cm. Mild mitral annular calcification present. Mild mitral regurgitation is present. Mild tricuspid regurgitation present. There is no evidence of pulmonary hypertension. The right ventricular systolic pressure, as measured by Doppler, is 18.76mmHg. There is no pulmonic regurgitation present. The aortic root size is normal. There is no pericardial effusion. CONCLUSIONS -------- 1. There is mild concentric left ventricular hypertrophy. 2. There is no pulmonic regurgitation present. 3. The aortic root size is normal. 4. There is no pericardial effusion. 5. Overall left ventricular systolic function is normal with, an EF between 55 - 60 %. 6. LA is severely dilated >40 ml/m2 7. Mild aortic stenosis with peak/mean pressure gradient of 27.12mmHg / 14.29mmHg , the aortic valve area by continuity equation is 1.5cm. 8. Mild mitral annular calcification present. 9. Mild mitral regurgitation is present. 10. Mild tricuspid regurgitation present. 11. There is no evidence of pulmonary hypertension. 12. The right ventricular systolic pressure, as measured by Doppler, is 18.76mmHg. [employer] ENGINEER: Lisandra Jacinto RDCS
[2017-04-06 11:49] VITALS: BMI 20.2
--- NOTE | 2017-04-06 12:37 | P.PN ---
Subjective This is an 81-year-old white male with history of myelodysplasia, recently admitted to [facility], and we saw him on consultation for possible pneumonia. At that time patient was admitted with pancytopenia and sudden increase in white blood cells. 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 Patient developed acute renal failure due to to tumor lysis syndrome. Patient was treated with Hydrea and he responded well with rapid improvement in his white cell count. Renal functioning also improved and stabilized. Patient was eventually transferred to [facility], and he was supposed to follow up with oncology. However the patient was readmitted yesterday with mostly symptoms of weakness, swelling in the lower extremities, shortness of breath, and he was noted to have a hemoglobin of 6. Patient was evaluated and given a unit of packed RBCs, chest x-ray showed evidence of mild pulmonary edema. Patient was given already Lasix by the road test examiner, and by the time I evaluated the patient, he was feeling much better. Chest x-ray is clearly suggestive of mild congestive heart failure and trace effusions with by basilar patchy atelectasis. Patient had no pulmonary symptoms whatsoever during my evaluation. Denied any shortness of breath cough or wheezing. Repeat hemoglobin this morning was 7.9. Electrolytes were reviewed potassium was elevated but it came down to 5.7 from 6.4. BUN 69 creatinine 3.28. The patient is seen again today 04/06/2017 in follow-up in the selective care unit. He is presently awake and alert in no acute distress. He is quite weak still. His hemoglobin is down again to 6.7 and he is currently receiving a unit of packed red blood cells. Platelet count 25,000, white count 1.1. His renal function is slightly improved but remains high with a creatinine of 3.16, BUN 73. He is currently afebrile. Hemodynamically stable. Maintaining good O2 saturations in the upper 90s on room air. Objective - Vital Signs Vital signs: Vital Signs Temp 97.8 F 04/06/17 12:00 Pulse 53 L 04/06/17 12:00 Resp 16 04/06/17 12:00 BP 143/74 04/06/17 12:00 Pulse Ox 99 04/06/17 11:09 Intake & Output 04/05/17 04/06/17 04/06/17 18:59 06:59 18:59 Intake Total 360 120 Output Total 925 1 Balance -565 119 Weight 65.9 kg 65.9 kg Intake: Oral 360 120 Blood Product 0 Rc As-1 Unit 0 [id number] Output: Urine 925 Stool 1 Other: Voiding Method Urinal Toilet Urinal # Voids 0 1 # Bowel Movements 1 - Exam Physical Exam: Revealed an 81-year-old white male looks frail, chronically ill, in no distress. HEENT:[Neck is supple.] [No neck masses.] [No thyromegaly.] [No JVD.] Chest: [Diminished breath sounds and crackles at the bases..] Cardiac Exam: [Normal S1 and S2, no S3 gallop, 2/6 systolic murmur throughout the precordium.] Abdomen: [Soft, nontender, no megaly, no rebound, no guarding, normal bowel sounds.] Extremities: [No clubbing, no edema, no cyanosis.] Neurological Exam: Generalized weakness, otherwise no focal neurologic deficit. - Labs CBC & Chem 7: 04/06/17 05:36 04/06/17 05:32 Labs: Abnormal Lab Results - Last 24 Hours (Table) 04/04/17 04/05/17 04/05/17 Range/Units 14:30 13:49 19:55 WBC (3.8-10.6) k/uL RBC (4.30-5.90) m/uL Hgb (13.0-17.5) gm/dL Hct (39.0-53.0) % MCV (80.0-100.0) fL MCH (25.0-35.0) pg RDW (11.5-15.5) % Plt Count (150-450) k/uL Neutrophils # (Manual) (1.3-7.7) k/uL Lymphocytes # (Manual) (1.0-4.8) k/uL Sodium (137-145) mmol/L Potassium 6.1 H 5.3 H (3.5-5.1) mmol/L Carbon Dioxide (22-30) mmol/L BUN (9-20) mg/dL Creatinine (0.66-1.25) mg/dL Calcium (8.4-10.2) mg/dL Crossmatch See Detail 07/05/17 07/05/17 Range/Units 05:32 05:36 WBC 1.1 L* (3.8-10.6) k/uL RBC 1.89 L (4.30-5.90) m/uL Hgb 6.7 L* (13.0-17.5) gm/dL Hct 20.1 L (39.0-53.0) % MCV 106.3 H (80.0-100.0) fL MCH 35.3 H (25.0-35.0) pg RDW 19.7 H (11.5-15.5) % Plt Count 25 L* (150-450) k/uL Neutrophils # (Manual) 0.0 L (1.3-7.7) k/uL Lymphocytes # (Manual) 0.6 L (1.0-4.8) k/uL Sodium 133 L (137-145) mmol/L Potassium 5.2 H (3.5-5.1) mmol/L Carbon Dioxide 19 L (22-30) mmol/L BUN 73 H (9-20) mg/dL Creatinine 3.16 H (0.66-1.25) mg/dL Calcium 7.9 L (8.4-10.2) mg/dL Crossmatch Microbiology - Last 24 Hours (Table) 04/04/17 14:00 Blood Culture - Preliminary Blood No Growth after 24 hours Assessment and Plan Plan: Impression: 1 acute mild pulmonary edema secondary to renal failure, fluids, and blood transfusion. Clinically the patient improved after diuresis. Follow-up chest x -ray pending. 2 acute myeloid leukemia with prior history of myelodysplasia. 3 nonoliguric acute kidney injury secondary to acute tubular necrosis and the tumor lysis syndrome 4 acute on chronic kidney disease, baseline creatinine 2.0. 5 acute hyperkalemia secondary to renal failure and kidney injury. Improving. 6 pancytopenia related to myelodysplasia. Patient is status post bone marrow biopsy which showed acute transformation. Plan: The patient was seen and evaluated by Dr. Jerome. We will continue to transfuse the patient. We'll continue with his other current medications. We will repeat his chest x-ray. His overall prognosis remains quite guarded. We' ll continue to follow and make further recommendations based on his clinical status.
--- NOTE | 2017-04-06 14:22 | XR ---
EXAMINATION TYPE: XR chest 1V portable DATE OF EXAM: 04/06/2017 COMPARISON: NONE INDICATION: Mild interstitial edema TECHNIQUE: Single frontal view of the chest is obtained. FINDINGS: The heart size is enlarged. The pulmonary vasculature is prominent. Mild perihilar infiltrates are present. Minimal right pleural effusion is present. Findings are simil ar to 04/04/2017 IMPRESSION: 1. Mild congestive heart failure with a small right pleural effusion
--- NOTE | 2017-04-06 14:31 | P.PN ---
Subjective Principal diagnosis: Weakness and edema This is a pleasant 81-year-old gentleman with history of ischemic heart disease and also atrial fibrillation who follows at [facility] for his cardiology needs. He also has history of prior stent placement and ablation. He was admitted to the hospital on this occasion with symptoms of weakness, edema, and associated shortness of breath. He was recently diagnosed to have myeloid leukemia and subsequently developed acute renal failure. Patient was treated with IV Lasix with improvement of symptoms. At the time of my examination this morning, he is lying flat in bed with no apparent difficulty in breathing. He continues to have 1+ peripheral edema. He is currently receiving a blood transfusion today. White blood cell count 1.1, hemoglobin 6.7 , platelet count 25. Potassium 5.2, BUN 73, creatinine 3.1. Repeat chest x- ray was performed today which is yet pending. Continues to be weak. Objective - Vital Signs Vital signs: Vital Signs Temp 97.8 F 04/06/17 12:00 Pulse 53 L 04/06/17 12:00 Resp 16 04/06/17 12:00 BP 143/74 04/06/17 12:00 Pulse Ox 99 04/06/17 11:09 Intake & Output 04/05/17 04/06/17 04/06/17 18:59 06:59 18:59 Intake Total 360 120 Output Total 925 1 Balance -565 119 Weight 65.9 kg 65.9 kg Intake: Oral 360 120 Blood Product 0 Rc As-1 Unit 0 [id number] Output: Urine 925 Stool 1 Other: Voiding Method Urinal Toilet Toilet Urinal Urinal # Voids 0 1 # Bowel Movements 1 - Exam PHYSICAL EXAMINATION: HEENT: Head is atraumatic, normocephalic. Pupils equal, round. Neck is supple. There is no elevated jugular venous pressure. HEART EXAMINATION: S1 and S2 systolic murmur is heard. CHEST EXAMINATION: Lungs reveal diminished air entry and crackles to bilateral bases. ABDOMEN: Soft, nontender. Bowel sounds are heard. No organomegaly noted. EXTREMITIES: 2+ peripheral pulses with 1+ evidence of peripheral edema and no calf tenderness noted. NEUROLOGIC patient is awake, alert and oriented -3.] . - Labs CBC & Chem 7: 04/06/17 05:36 04/06/17 05:32 Labs: Abnormal Lab Results - Last 24 Hours (Table) 04/04/17 04/05/17 04/05/17 Range/Units 14:30 13:49 19:55 WBC (3.8-10.6) k/uL RBC (4.30-5.90) m/uL Hgb (13.0-17.5) gm/dL Hct (39.0-53.0) % MCV (80.0-100.0) fL MCH (25.0-35.0) pg RDW (11.5-15.5) % Plt Count (150-450) k/uL Neutrophils # (Manual) (1.3-7.7) k/uL Lymphocytes # (Manual) (1.0-4.8) k/uL Sodium (137-145) mmol/L Potassium 6.1 H 5.3 H (3.5-5.1) mmol/L Carbon Dioxide (22-30) mmol/L BUN (9-20) mg/dL Creatinine (0.66-1.25) mg/dL Calcium (8.4-10.2) mg/dL Crossmatch See Detail 04/06/17 04/06/17 Range/Units 05:32 05:36 WBC 1.1 L* (3.8-10.6) k/uL RBC 1.89 L (4.30-5.90) m/uL Hgb 6.7 L* (13.0-17.5) gm/dL Hct 20.1 L (39.0-53.0) % MCV 106.3 H (80.0-100.0) fL MCH 35.3 H (25.0-35.0) pg RDW 19.7 H (11.5-15.5) % Plt Count 25 L* (150-450) k/uL Neutrophils # (Manual) 0.0 L (1.3-7.7) k/uL Lymphocytes # (Manual) 0.6 L (1.0-4.8) k/uL Sodium 133 L (137-145) mmol/L Potassium 5.2 H (3.5-5.1) mmol/L Carbon Dioxide 19 L (22-30) mmol/L BUN 73 H (9-20) mg/dL Creatinine 3.16 H (0.66-1.25) mg/dL Calcium 7.9 L (8.4-10.2) mg/dL Crossmatch Microbiology - Last 24 Hours (Table) 04/04/17 14:00 Blood Culture - Preliminary Blood No Growth after 24 hours Assessment and Plan (1) Diastolic CHF, acute on chronic Status: Acute (2) Diastolic CHF, acute on chronic Status: Acute (3) Acute dyspnea Status: Acute (4) 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 We will follow this patient with you now on an as-needed basis only, please don't hesitate to call with any questions.DNP note has been reviewed, I agree with a documented findings and plan of care. Patient was seen and examined. DNP note has been reviewed, I agree with a documented findings and plan of care. Patient was seen and examined.
[2017-04-06] MEDS: ATORVASTATIN 80 MG TAB PO SCH (21:46)
[2017-04-06] MEDS: DRONABINOL 2.5 MG CAP PO SCH (21:46)
[2017-04-06] MEDS: POLYETHYLENE GLYCOL 3350 17 GM POWD.PACK PO SCH (21:47)
[2017-04-06] MEDS: TEMAZEPAM 30 MG CAP PO SCH (21:47)
[2017-04-07 07:15] LABS: Anisocytosis Slight; Aty Lym Flag Marked; CH 33.1; CHCM 32.3; HCT 23.3 % (39.0-53.0); HGB 7.7 gm/dL (13.0-17.5); Hypochromasia Slight; Large Platelets Flag Slight; MCH 34.3 pg (25.0-35.0); MCV 103.8 fL (80.0-100.0); Macrocytosis Marked; Poikilocytosis Slight; RBC 2.25 m/uL (4.30-5.90); WBC (Perox) 1.42
[2017-04-07 07:17] LABS: WBC 1.4 k/uL (3.8-10.6)
[2017-04-07 07:26] LABS: Potassium 4.7 mmol/L (3.5-5.1)
[2017-04-07] MEDS: IPRATROPIUM-ALBUTEROL 3 ML NEB INHALATION PRN ×2 (08:16→21:00)
[2017-04-07 08:35] LABS: Add Differential Manual Differential
[2017-04-07 08:39] LABS: Nucleated Red Blood Cells 0 /100 WBC (0-0); Total Cells Counted 100
[2017-04-07 08:40] LABS: Manual Review Performed
--- NOTE | 2017-04-07 08:42 | P.PN ---
Subjective Patient is seen in follow-up for acute kidney injury. Renal function continues to improve with creatinine at 2.99 today. Patient has history of MDS and underwent a bone marrow biopsy about 2 weeks ago which did reveal acute transformation. He was noted to have tumor lysis syndrome and at that time his creatinine did peak at 4.9 and is now stable near 3. He is currently admitted for symptomatic anemia. Hemoglobin is 7.7 today. Admits to good urine output. Oral intake is improved. No vomiting or diarrhea. Vital signs are stable. General: The patient appeared well nourished and normally developed. HEENT: Head exam is unremarkable. Neck is without jugular venous distension. LUNGS: Lungs are clear to auscultation and percussion. Breath sounds decreased. HEART: Rate and Rhythm are regular. First and second heart sounds normal. No murmurs, rubs or gallops. ABDOMEN: Abdominal exam reveals normal bowel sounds. Non-tender and non- distended. No evidence of peritonitis. EXTREMITITES: No clubbing, cyanosis, or edema. Objective - Vital Signs Vital signs: Vital Signs Temp 97.4 F L 04/07/17 07:00 Pulse 72 04/07/17 08:28 Resp 18 04/07/17 07:00 BP 167/74 04/07/17 07:00 Pulse Ox 97 04/07/17 07:00 Intake & Output 04/06/17 04/07/17 04/07/17 18:59 06:59 18:59 Intake Total 430 590 Output Total 1 940 Balance 429 -350 Weight 65.9 kg Intake: Oral 120 590 Blood Product 310 Rc As-1 Unit 310 [id number] Output: Urine 940 Stool 1 Other: Voiding Method Toilet Toilet Urinal Urinal - Labs CBC & Chem 7: 04/07/17 06:36 04/07/17 06:36 Labs: Abnormal Lab Results - Last 24 Hours (Table) 04/04/17 04/07/17 04/07/17 Range/Units 14:30 06:36 06:36 WBC 1.4 L* (3.8-10.6) k/uL RBC 2.25 L (4.30-5.90) m/uL Hgb 7.7 L (13.0-17.5) gm/dL Hct 23.3 L (39.0-53.0) % MCV 103.8 H (80.0-100.0) fL RDW 19.0 H (11.5-15.5) % Plt Count 35 L* (150-450) k/uL Sodium 134 L (137-145) mmol/L Carbon Dioxide 19 L (22-30) mmol/L BUN 66 H (9-20) mg/dL Creatinine 2.99 H (0.66-1.25) mg/dL Calcium 8.0 L (8.4-10.2) mg/dL Crossmatch See Detail Microbiology - Last 24 Hours (Table) 04/04/17 14:00 Blood Culture - Preliminary Blood No Growth after 48 hours Assessment and Plan Plan: Assessment: #1. Nonoliguric acute kidney injury secondary to ATN secondary to tumor lysis syndrome as well as anemia. Renal function improved with creatinine at 2.99 today. #2. Chronic kidney disease stage III with baseline creatinine near 2. Etiology is likely nephrosclerosis. Renal ultrasound reveals cortical thinning suggestive of underlying chronic kidney disease. #3. Hyperkalemia secondary to acute kidney injury and metabolic acidosis. Improved. #4. Metabolic acidosis secondary to acute kidney injury. #5. 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 #6. Acute symptomatic anemia status post blood transfusion. Hemoglobin 7.7 this morning. Plan: Continue Lasix 40 mg IV once daily - can be transitioned to oral upon discharge. Low potassium diet. Continue sodium bicarbonate 1300 mg twice daily. Avoid nephrotoxic agents and hypotensive episodes. Encourage oral intake. No evidence of tumor lysis at this time. Stable to be discharged to [facility] from nephrology standpoint. He will need to follow-up as an outpatient in the next 2 weeks.
[2017-04-07] MEDS: amLODIPine 5 MG TAB PO SCH (09:21)
[2017-04-07] MEDS: SODIUM BICARBONATE TAB 650 MG TAB PO SCH ×2 (09:22→20:41)
[2017-04-07] MEDS: CITALOPRAM HYDROBROMIDE 20 MG TAB PO SCH (09:22)
[2017-04-07] MEDS: CALCIUM ACETATE 667 MG CAP PO SCH ×3 (09:22→17:03)
[2017-04-07] MEDS: METOPROLOL TARTRATE 12.5 MG TAB PO SCH ×2 (09:22→20:41)
[2017-04-07] MEDS: TERAZOSIN 5 MG CAP PO SCH (09:23)
[2017-04-07] MEDS: FLUTICASONE 50MCG/SPRAY NASAL 16GM EA NOSTRIL SCH (09:23)
[2017-04-07] MEDS: ASPIRIN 325 MG TAB PO SCH (09:23)
[2017-04-07] MEDS: METOCLOPRAMIDE 5 MG TAB PO SCH ×4 (09:23→20:41)
[2017-04-07] MEDS: ENOXAPARIN 30 MG/0.3 ML SYRINGE SQ SCH (09:23)
[2017-04-07] MEDS: ALLOPURINOL 100 MG TAB PO SCH (09:23)
[2017-04-07] MEDS: FUROSEMIDE 10 MG/ML 4 ML VIAL IV SCH (09:24)
[2017-04-07] MEDS: DRONABINOL 2.5 MG CAP PO SCH (20:41)
[2017-04-07] MEDS: POLYETHYLENE GLYCOL 3350 17 GM POWD.PACK PO SCH (20:41)
[2017-04-07] MEDS: ATORVASTATIN 80 MG TAB PO SCH (20:41)
[2017-04-07] MEDS: TEMAZEPAM 30 MG CAP PO SCH (21:35)
[2017-04-08 07:45] LABS: Anisocytosis Slight; Aty Lym Flag Marked; CH 32.9; CHCM 31.9; HCT 23.2 % (39.0-53.0); HDW 3.59; HGB 7.6 gm/dL (13.0-17.5); Hypochromasia Slight; MCH 34.2 pg (25.0-35.0); MCHC 32.8 g/dL (31.0-37.0); MCV 104.2 fL (80.0-100.0); Macrocytosis Marked; Mean Platelet Volume 10.2; Poikilocytosis Slight; RBC 2.23 m/uL (4.30-5.90); RDW 18.8 % (11.5-15.5); WBC (Perox) 1.22
[2017-04-08 07:52] LABS: WBC 1.3 k/uL (3.8-10.6)
[2017-04-08 07:58] LABS: Potassium 4.4 mmol/L (3.5-5.1)
[2017-04-08 08:49] LABS: Add Differential Manual Differential
[2017-04-08 08:57] LABS: Nucleated Red Blood Cells 0 /100 WBC (0-0); Total Cells Counted 100
[2017-04-08 08:58] LABS: Manual Review Performed; Polychromasia Present
--- NOTE | 2017-04-08 11:10 | P.PN ---
Subjective Patient is seen in follow-up for acute kidney injury. Renal function continues to improve with creatinine at 2.91 today. Patient has history of MDS and underwent a bone marrow biopsy about 2 weeks ago which did reveal acute transformation. He was noted to have tumor lysis syndrome and at that time his creatinine did peak at 4.9 and is now stable near 3. He is currently admitted for symptomatic anemia. Hemoglobin is stable at 7.6 today. Admits to good urine output. Oral intake is improved. No vomiting or diarrhea. No major events overnight. Vital signs are stable. General: The patient appeared well nourished and normally developed. HEENT: Head exam is unremarkable. Neck is without jugular venous distension. LUNGS: Lungs are clear to auscultation and percussion. Breath sounds decreased. HEART: Rate and Rhythm are regular. First and second heart sounds normal. No murmurs, rubs or gallops. ABDOMEN: Abdominal exam reveals normal bowel sounds. Non-tender and non- distended. No evidence of peritonitis. EXTREMITITES: No clubbing, cyanosis, or edema. Objective - Vital Signs Vital signs: Vital Signs Temp 98 F 04/08/17 07:00 Pulse 58 L 04/08/17 07:00 Resp 16 04/08/17 07:00 BP 179/75 04/08/17 07:00 Pulse Ox 97 04/08/17 09:59 Intake & Output 04/07/17 04/08/17 04/08/17 18:59 06:59 18:59 Intake Total 0 1360 Output Total 202 301 Balance -202 1059 Intake: Oral 0 1360 Output: Urine 200 300 Stool 2 1 Other: Voiding Method Toilet Toilet Urinal Urinal # Voids 1 4 - Labs CBC & Chem 7: 04/08/17 07:08 04/08/17 07:08 Labs: Abnormal Lab Results - Last 24 Hours (Table) 04/04/17 04/08/17 04/08/17 Range/Units 14:30 07:08 07:08 WBC 1.3 L* (3.8-10.6) k/uL RBC 2.23 L (4.30-5.90) m/uL Hgb 7.6 L (13.0-17.5) gm/dL Hct 23.2 L (39.0-53.0) % MCV 104.2 H (80.0-100.0) fL RDW 18.8 H (11.5-15.5) % Plt Count 34 L* (150-450) k/uL Neutrophils # (Manual) 0.1 L (1.3-7.7) k/uL Lymphocytes # (Manual) 0.6 L (1.0-4.8) k/uL Sodium 134 L (137-145) mmol/L Carbon Dioxide 20 L (22-30) mmol/L BUN 56 H (9-20) mg/dL Creatinine 2.91 H (0.66-1.25) mg/dL Calcium 8.0 L (8.4-10.2) mg/dL Crossmatch See Detail Microbiology - Last 24 Hours (Table) 04/04/17 14:00 Blood Culture - Preliminary Blood No Growth after 72 hours Assessment and Plan Plan: Assessment: #1. Nonoliguric acute kidney injury secondary to ATN secondary to tumor lysis syndrome as well as anemia. Renal function improved with creatinine at 2.91 today. #2. Chronic kidney disease stage III with baseline creatinine near 2. Etiology is likely nephrosclerosis. Renal ultrasound reveals cortical thinning suggestive of underlying chronic kidney disease. #3. Hyperkalemia secondary to acute kidney injury and metabolic acidosis. Improved. #4. Metabolic acidosis secondary to acute kidney injury. Improving. #5. 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 #6. Acute symptomatic anemia status post blood transfusion. Hemoglobin 7.6 this morning. Plan: Continue Lasix 40 mg IV once daily - can be transitioned to oral upon discharge. Low potassium diet. Continue sodium bicarbonate 1300 mg twice daily. Avoid nephrotoxic agents and hypotensive episodes. Encourage oral intake. No evidence of tumor lysis at this time. Stable to be discharged to [facility] from nephrology standpoint. He will need to follow-up as an outpatient in the next 2 weeks.
[2017-04-08] MEDS: FLUTICASONE 50MCG/SPRAY NASAL 16GM EA NOSTRIL SCH (11:20)
[2017-04-08] MEDS: CALCIUM ACETATE 667 MG CAP PO SCH ×3 (11:20→17:56)
[2017-04-08] MEDS: METOCLOPRAMIDE 5 MG TAB PO SCH ×4 (11:20→21:41)
[2017-04-08] MEDS: amLODIPine 5 MG TAB PO SCH (11:21)
[2017-04-08] MEDS: ALLOPURINOL 100 MG TAB PO SCH (11:21)
[2017-04-08] MEDS: CITALOPRAM HYDROBROMIDE 20 MG TAB PO SCH (11:22)
[2017-04-08] MEDS: ENOXAPARIN 30 MG/0.3 ML SYRINGE SQ SCH (11:22)
[2017-04-08] MEDS: ASPIRIN 325 MG TAB PO SCH (11:22)
[2017-04-08] MEDS: FUROSEMIDE 10 MG/ML 4 ML VIAL IV SCH (11:22)
[2017-04-08] MEDS: METOPROLOL TARTRATE 12.5 MG TAB PO SCH ×2 (11:23→21:45)
[2017-04-08] MEDS: TERAZOSIN 5 MG CAP PO SCH (11:24)
[2017-04-08] MEDS: SODIUM BICARBONATE TAB 650 MG TAB PO SCH ×2 (11:24→21:41)
--- NOTE | 2017-04-08 20:01 | HP ---
DATE OF SERVICE: 04/04/2017 CHIEF COMPLAINTS: Anemia, weakness. HISTORY OF PRESENT ILLNESS: This 81-year-old gentleman with a past medical history of myelodysplastic syndrome as well as history of recent bilateral pneumonia with sepsis, was receiving rehabilitation at [facility]. The patient complained of weakness. Hemoglobin was found to be 6. The patient came to [facility] and was admitted for further evaluation and treatment. Note that the patient also had acute myeloid leukemia transformation with MDS, being followed by hematology/oncology team with Dr. Gleason and Dr. Hewitt. The patient is being closely monitored. There is no active bleeding at this time. No fever, rigor, chills. No history of headache, loss of consciousness, seizures. PAST MEDICAL HISTORY: 1. MDS. 2. Recent pneumonia. 3. Multiple other complex medical issues. HOME MEDICATIONS: Reviewed at this time. They include: 1. Norvasc 5 mg p.o. daily. 2. Vitamin A. 3. Hytrin. 4. Restoril. 5. Sodium bicarb. 6. Miralax. 7. Zofran. 8. Prilosec 20 daily. 9. Reglan. 10. Milk of Magnesia. 11. Claritin. 12. Ensure Plus. 13. DuoNeb q.i.d and p.r.n. 14. Riparius 5 mg. 15. Lasix. 16. Procrit. 17. Ensure. 18. Marinol 2.5 at bedtime. 19. Celexa. 20. PhosLo. 21. Dulcolax. 22. Lipitor. 23. Zyloprim. ALLERGIES: 1. CIPROFLOXACIN. 2. GATIFLOXACIN. 3. LEVOFLOXACIN. 4. MOXIFLOXACIN. FAMILY HISTORY: History of myocardial infarction and heart attack in the family. SOCIAL HISTORY: History of alcohol occasionally. Previous history of smoking. REVIEW OF SYSTEMS: ENT: Diminished hearing. Diminished vision. CARDIOVASCULAR SYSTEM: No angina. RESPIRATORY SYSTEM: As mentioned earlier. GI: As mentioned earlier. : No dysuria, retention. NERVOUS SYSTEM: No numbness, weakness. ALLERGY/IMMUNOLOGY: No asthma, hayfever. MUSCULOSKELETAL: As mentioned earlier. HEMATOLOGY/ONCOLOGY: No history of anemia. ENDOCRINE: As mentioned earlier. CONSTITUTIONAL: As mentioned earlier. DERMATOLOGIC: As mentioned earlier. PHYSICAL EXAMINATION: Patient is alert and oriented x3. Pulse is 63, blood pressure 158/70, respiration 16, temperature 98.7, pulse ox normal. HEENT: Conjunctivae normal. Oral mucosa moist. NECK: No jugular venous congestion. No carotid bruit. No lymph node enlargement. CARDIAC: S1, S2 muffled. RESPIRATORY: Breath sounds diminished at the bases. A few scattered rhonchi. No crackles. ABDOMEN: Soft. Non-tender. No mass palpable. LEGS: No edema. No swelling. NERVOUS SYSTEM: Diffusely weak. SKIN: Pale. LABS AT THIS TIME: Hemoglobin 6.3, WBC 1.1, platelets 32. Sodium 136, potassium 5.7. ASSESSMENT: 1. Anemia secondary to myelodysplastic syndrome as well as acute myeloid leukemia which is symptomatic. 2. Leukopenia, thrombocytopenia, pancytopenia. 3. History of MDS. 4. History of recent pneumonia, sepsis. 5. History of acute myeloid leukemia transformation. 6. Multiple other medical issues. RECOMMENDATIONS AND DISCUSSION: In this 81-year-old gentleman who presented with multiple complex medical issues, as mentioned earlier, at this time I recommend to continue the current medications, continue symptomatic treatment, transfusion, repeat labs. PT/OT evaluation. Closely follow with Hematology/ Oncology. Guarded prognosis. Further recommendations to follow. MTDD
--- NOTE | 2017-04-08 20:08 | PN ---
DATE OF SERVICE: 04/05/2017 This 81-year-old gentleman who was admitted with severe anemia and a hemoglobin drop to 6.1 is receiving transfusion. No chest pain. No palpitation. No fever. On exam, alert and oriented x3. Pulse 64, blood pressure 113/59, respiration 16 , temperature 96.8. HEENT: Conjunctivae pale. Oral mucosa moist. NECK: No jugular venous distention.No carotid bruit. No lymph node enlargement. CARDIOVASCULAR: S1, S2 muffled. RESPIRATORY: Breath sounds diminished at the bases. No rhonchi. No crackles. ABDOMEN: Soft. Non-tender. LEGS: No edema. No swelling. NERVOUS SYSTEM: Diffusely weak. LABS: WBC 0.7, hemoglobin 7.9. Sodium 133, potassium 6.4. ASSESSMENT: 1. Anemia, possibly secondary to MDS and acute myeloid leukemia, status post transfusion. 2. Pancytopenia. 3. Hyponatremia. 4. Hyperkalemia. 5. History of coronary artery disease. 6. Multiple other medical issues. RECOMMENDATIONS AND DISCUSSION: I recommend to continue current medications, continue symptomatic treatment. Closely monitor potassium. Otherwise, monitor hemoglobin. Increase ambulation. Guarded prognosis. Further recommendations to follow. MTDD
--- NOTE | 2017-04-08 20:13 | PN ---
DATE OF SERVICE: 04/06/2017 This 81-year-old gentleman who was admitted with anemia secondary to MDS and acute leukemia has gotten transfusion. Patient is being closely monitored. No chest pain. No palpitation. Complains of weakness. On exam, alert and oriented x3. Pulse is 51, blood pressure 135/70, respiration 16, temperature 96.8, pulse ox 99% on room air. HEENT: Conjunctivae normal. NECK: No jugular venous distention. CARDIOVASCULAR: S1, S2 muffled. RESPIRATORY: Breath sounds diminished at the bases. No rhonchi. No crackles. ABDOMEN: Soft. NERVOUS SYSTEM: No focal deficit. LABS: Hemoglobin 6.2. Potassium 5.2 ASSESSMENT: 1. Anemia, symptomatic, severe, secondary to MDS and acute myeloid leukemia, status post tranfusion. 2. Pancytopenia. 3. Hyponatremia. 4. Hyperkalemia. 5. Multiple medical issues. 6. Gait dysfunction. RECOMMENDATIONS AND DISCUSSION: I recommend to continue current medications, continue symptomatic treatment. Potassium has improved. Will arrange another transfusion. Hemoglobin is 6.7. Further recommendations to follow. See orders for further details. Prognosis guarded. MTDD
--- NOTE | 2017-04-08 20:20 | PN ---
DATE OF SERVICE: 04/07/2017 This 81-year-old gentleman who was admitted with symptomatic anemia had transfusion. Hemoglobin has stabilized at 7.7. The patient had MDS. No chest pain. No palpitation. No fever. On exam, alert and oriented x3. Pulse is 55, blood pressure 160/72, respiration 16, temperature 97.4, pulse ox 100% on room air. HEENT: Conjunctivae normal. NECK: No jugular venous distention. CARDIOVASCULAR: S1, S2 muffled. RESPIRATORY: Breath sounds diminished at the bases. No rhonchi. No crackles. ABDOMEN: Soft. Non-tender. LEGS: No edema. No swelling. NERVOUS SYSTEM: No focal deficit. LABS: WBC 1.4. Hemoglobin 7.7. Potassium 4.7. ASSESSMENT: 1. Anemia, symptomatic, secondary to MDS and acute myeloid leukemia transformation, status post blood transfusion. 2. Leukopenia, pancytopenia. 3. Hyponatremia. 4. Hyperkalemia, improved. 5. History of coronary artery disease and multiple medical issues. RECOMMENDATIONS AND DISCUSSION: I recommend to continue current medications, continue with symptomatic treatment. Prognosis guarded. Further recommendations to follow. Discussed with family, who understands and agrees. MTDD
[2017-04-08] MEDS: IPRATROPIUM-ALBUTEROL 3 ML NEB INHALATION PRN (21:29)
[2017-04-08] MEDS: DRONABINOL 2.5 MG CAP PO SCH (21:37)
[2017-04-08] MEDS: POLYETHYLENE GLYCOL 3350 17 GM POWD.PACK PO SCH (21:42)
[2017-04-08] MEDS: TEMAZEPAM 30 MG CAP PO SCH (21:44)
[2017-04-08] MEDS: ATORVASTATIN 80 MG TAB PO SCH (21:51)
[2017-04-09 06:54] LABS: Anisocytosis Slight; Aty Lym Flag Marked; CH 33.6; CHCM 33.1; HCT 21.3 % (39.0-53.0); HDW 3.55; HGB 7.2 gm/dL (13.0-17.5); MCH 34.9 pg (25.0-35.0); MCV 102.7 fL (80.0-100.0); Macrocytosis Moderate; Mean Platelet Volume 9.9; Poikilocytosis Slight; RBC 2.07 m/uL (4.30-5.90); RDW 18.9 % (11.5-15.5); WBC (Perox) 1.14
[2017-04-09 06:57] LABS: WBC 1.2 k/uL (3.8-10.6)
[2017-04-09 07:08] LABS: Add Differential Manual Differential
[2017-04-09 07:18] LABS: Nucleated Red Blood Cells 0 /100 WBC (0-0); Total Cells Counted 100
[2017-04-09 07:19] LABS: Manual Review Performed
[2017-04-09 07:34] LABS: Potassium 4.1 mmol/L (3.5-5.1)
[2017-04-09] MEDS: TERAZOSIN 5 MG CAP PO SCH (08:14)
[2017-04-09] MEDS: SODIUM BICARBONATE TAB 650 MG TAB PO SCH ×2 (08:14→21:02)
[2017-04-09] MEDS: FUROSEMIDE 10 MG/ML 4 ML VIAL IV SCH (08:15)
[2017-04-09] MEDS: FLUTICASONE 50MCG/SPRAY NASAL 16GM EA NOSTRIL SCH (08:15)
[2017-04-09] MEDS: METOPROLOL TARTRATE 12.5 MG TAB PO SCH ×2 (08:15→21:04)
[2017-04-09] MEDS: ENOXAPARIN 30 MG/0.3 ML SYRINGE SQ SCH (08:15)
[2017-04-09] MEDS: ASPIRIN 325 MG TAB PO SCH (08:16)
[2017-04-09] MEDS: amLODIPine 5 MG TAB PO SCH (08:16)
[2017-04-09] MEDS: ALLOPURINOL 100 MG TAB PO SCH (08:16)
[2017-04-09] MEDS: METOCLOPRAMIDE 5 MG TAB PO SCH ×4 (08:16→21:04)
[2017-04-09] MEDS: CITALOPRAM HYDROBROMIDE 20 MG TAB PO SCH (08:16)
[2017-04-09] MEDS: CALCIUM ACETATE 667 MG CAP PO SCH ×3 (08:16→17:50)
--- NOTE | 2017-04-09 11:09 | P.PN ---
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 He had supposedly an excellent response. He has chronic kidney disease with previous creatinines off 1.5-2 last year in 2015 and earlier this year in October of 2.3 and on 03/23/2017 was 2.02. He came in with a creatinine of 4.1 on 03/23/2017 and up to a peak of 4.9 on 2016 and then slowly has been coming down. His peak uric acid was 17.9 dated . Currently he is feeling somewhat better able to eat little bit better Denies any fever chills cough shortness of breath nausea vomiting diarrhea abdominal pain. He has generalized weakness and has difficulty walking. Objective - Vital Signs Vital signs: Vital Signs Temp 97.9 F 04/09/17 07:00 Pulse 64 04/09/17 07:00 Resp 16 04/09/17 07:00 BP 112/58 04/09/17 07:00 Pulse Ox 96 04/09/17 07:00 Intake & Output 04/08/17 04/09/17 04/09/17 18:59 06:59 18:59 Intake Total 120 120 Output Total 825 901 500 Balance -797 -590 -937 Intake: Oral 120 120 Output: Urine 825 900 500 Stool 1 Other: Voiding Method Toilet Toilet Toilet Urinal Urinal Urinal # Voids 1 3 # Bowel Movements 1 On examination he looks somewhat pale, comfortable otherwise. HEENT exam no JVP neck is supple no facial asymmetry no lymphadenopathy Lungs are clear to auscultation with end expiratory wheezing. Good air entry no dullness percussion Heart sounds are unremarkable no murmur rub gallop Abdomen soft nontender no organomegaly status masses Extremity exam was no edema Neurologically awake alert oriented. No focal motor deficit. - Labs CBC & Chem 7: 04/09/17 06:32 04/09/17 06:32 Labs: Abnormal Lab Results - Last 24 Hours (Table) 04/09/17 04/09/17 Range/Units 06:32 06:32 WBC 1.2 L* (3.8-10.6) k/uL RBC 2.07 L (4.30-5.90) m/uL Hgb 7.2 L (13.0-17.5) gm/dL Hct 21.3 L (39.0-53.0) % MCV 102.7 H (80.0-100.0) fL RDW 18.9 H (11.5-15.5) % Plt Count 36 L* (150-450) k/uL Neutrophils # (Manual) 0.1 L (1.3-7.7) k/uL Lymphocytes # (Manual) 0.5 L (1.0-4.8) k/uL Sodium 134 L (137-145) mmol/L Carbon Dioxide 21 L (22-30) mmol/L BUN 48 H (9-20) mg/dL Creatinine 2.86 H (0.66-1.25) mg/dL Calcium 8.0 L (8.4-10.2) mg/dL Microbiology - Last 24 Hours (Table) 04/04/17 14:00 Blood Culture - Preliminary Blood No Growth after 96 hours Assessment and Plan Plan: Impression. 1. 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 2. Electrolytes and calcium are normal, last phosphorus 5.8 on 04/05/2017. 3 history of diastolic congestive heart failure, coronary artery disease and stent in the past 4. Acute myeloid leukemia conversation from myelodysplastic syndrome status post Hydrea treatment with tumor lysis syndrome. 5. Mild end expiratory wheeze possible congestive heart failure. Chest x-ray 04/06/2007 shows CHF. Patient currently on Lasix Recommendation. 1. Maintain Lasix. 2. Maintain calcium acetate Will check serum phosphate and see if we can reduce it or discontinue it.
--- NOTE | 2017-04-09 16:25 | PN ---
DATE OF SERVICE: 04/08/2017 This 81-year-old gentleman who was admitted with acute diastolic heart failure, also had severe anemia. The patient also has acute leukemia with myelodysplasia. No chest pain or palpitations. Complains of tiredness and weakness. No fever. No cough. On exam, alert and oriented x2. Pulse is 58, blood pressure 117/75, respirations 16, temperature 98 degrees, pulse ox 98% on room air. HEENT: Conjunctivae normal. NECK: No jugular venous distention. CARDIOVASCULAR: S1 and S2 muffled. RESPIRATORY: Breath sounds diminished at the bases. A few scattered rhonchi, no crackles. ABDOMEN: Soft, nontender. LEGS: No edema, no swelling. NERVOUS SYSTEM: No focal deficits. LABS: WBC 1.3, hemoglobin 7.6. Sodium 134. ASSESSMENT: 1. Congestive heart failure acute exacerbation, acute on chronic diastolic dysfunction. 2. Anemia, multifactorial, possibly secondary to acute myeloid leukemia and myelodysplasia. 3. History of generalized weakness and tiredness. 4. Leukopenia and pancytopenia secondary to MDS. 5. Hyponatremia. 6. History of coronary artery disease. 7. Multiple complex medical issues. RECOMMENDATIONS AND DISCUSSION: Recommend to continue current medications. Continue with monitoring and symptomatic treatment. Continue with diuretics. Monitor closely. Monitor hemoglobin closely. Prognosis guarded. Discussed with family, understands and agrees. Further recommendations to follow. MTDD
[2017-04-09] MEDS: POLYETHYLENE GLYCOL 3350 17 GM POWD.PACK PO SCH (21:03)
[2017-04-09] MEDS: ATORVASTATIN 80 MG TAB PO SCH (21:03)
[2017-04-09] MEDS: DRONABINOL 2.5 MG CAP PO SCH (21:04)
[2017-04-09] MEDS: TEMAZEPAM 30 MG CAP PO SCH (21:04)
[2017-04-10] MEDS: TERAZOSIN 5 MG CAP PO SCH (08:11)
[2017-04-10] MEDS: METOPROLOL TARTRATE 12.5 MG TAB PO SCH ×2 (08:12→20:40)
[2017-04-10] MEDS: FUROSEMIDE 10 MG/ML 4 ML VIAL IV SCH (08:12)
[2017-04-10] MEDS: SODIUM BICARBONATE TAB 650 MG TAB PO SCH ×2 (08:12→20:40)
[2017-04-10] MEDS: ENOXAPARIN 30 MG/0.3 ML SYRINGE SQ SCH (08:13)
[2017-04-10] MEDS: CALCIUM ACETATE 667 MG CAP PO SCH ×3 (08:13→17:49)
[2017-04-10] MEDS: METOCLOPRAMIDE 5 MG TAB PO SCH ×4 (08:13→20:40)
[2017-04-10] MEDS: CITALOPRAM HYDROBROMIDE 20 MG TAB PO SCH (08:13)
[2017-04-10] MEDS: ALLOPURINOL 100 MG TAB PO SCH (08:13)
[2017-04-10] MEDS: amLODIPine 5 MG TAB PO SCH (08:13)
[2017-04-10] MEDS: FLUTICASONE 50MCG/SPRAY NASAL 16GM EA NOSTRIL SCH (08:13)
[2017-04-10] MEDS: ASPIRIN 325 MG TAB PO SCH (08:13)
--- NOTE | 2017-04-10 10:43 | P.PN ---
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 He had supposedly an excellent response. He has chronic kidney disease with previous creatinines of 1.5-2 last year in 2015 and earlier this year in October of 2.3 and on 03/23/2017 was 2.02. He came in with a creatinine of 4.1 on 03/23/2017 and up to a peak of 4.9 on 2016 and then slowly has been coming down. His peak uric acid was 17.9 dated . Currently he is continuing to improve and continues to feel better. He remains bedridden though has not been able to stand. His blood pressure though is in the 100 range, does not feel any dizziness. Denies any other significant new complaints. His urine output is 17 26 mL for the last 24 hours. Denies any fever chills cough shortness of breath nausea vomiting diarrhea abdominal pain. Objective - Vital Signs Vital signs: Vital Signs Temp 97.8 F 04/10/17 07:00 Pulse 64 04/10/17 07:00 Resp 16 04/10/17 07:00 BP 107/56 04/10/17 07:00 Pulse Ox 98 04/10/17 07:00 Intake & Output 04/09/17 04/10/17 04/10/17 18:59 06:59 18:59 Intake Total 318 Output Total 1251 651 Balance -1251 -333 Intake: Oral 318 Output: Urine 1250 650 Stool 1 1 Other: Voiding Method Toilet Toilet Urinal Urinal # Voids 5 3 On examination his morning he is awake alert oriented comfortable. HEENT exam no JVP neck is supple no facial asymmetry Lungs appear to auscultation percussion good air entry bilaterally. Heart sounds are unremarkable for any murmur rub gallop. Abdomen soft nontender no masses felt. Extremity exam was no edema Neurologically awake alert oriented no focal motor deficit but profoundly weak - Labs CBC & Chem 7: 04/09/17 06:32 04/09/17 06:32 Labs: Microbiology - Last 24 Hours (Table) 04/04/17 14:00 Blood Culture - Preliminary Blood No Growth after 120 hours Assessment and Plan Plan: Impression. 1. 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 2. Mild hyponatremia secondary to acute kidney injury, otherwise Electrolytes, phosphorus and calcium are normal, 3. history of diastolic congestive heart failure, coronary artery disease and stent in the past 4. Acute myeloid leukemia conversation from myelodysplastic syndrome status post Hydrea treatment with tumor lysis syndrome. 5. Improvement today compared to yesterday when he had Mild end expiratory wheeze possible congestive heart failure. Chest x-ray 04/06/2007 shows CHF. Patient currently on Lasix. 6. Hypotension secondary to medications Recommendation. 1. Discontinue amlodipine and 2. Discontinue Lasix 2. Hold terazosin for blood pressure less than 120 systolic
[2017-04-10 11:54] LABS: Anisocytosis Slight; Aty Lym Flag Marked; CH 33.5; CHCM 32.7; HCT 20.8 % (39.0-53.0); HDW 3.54; Hypochromasia Slight; MCH 34.8 pg (25.0-35.0); MCHC 33.6 g/dL (31.0-37.0); MCV 103.5 fL (80.0-100.0); Macrocytosis Moderate; Mean Platelet Volume 10.3; Poikilocytosis Slight; RBC 2.01 m/uL (4.30-5.90); RDW 18.8 % (11.5-15.5); WBC (Perox) 1.47
[2017-04-10 11:59] LABS: Calcium 7.9 mg/dL (8.4-10.2); Potassium 4.1 mmol/L (3.5-5.1)
[2017-04-10 12:00] LABS: WBC 1.5 k/uL (3.8-10.6)
[2017-04-10 12:18] LABS: Add Differential Manual Differential
[2017-04-10 12:26] LABS: Manual Review Performed; Nucleated Red Blood Cells 0 /100 WBC (0-0); Total Cells Counted 100
[2017-04-10] MEDS: DRONABINOL 2.5 MG CAP PO SCH (20:39)
[2017-04-10] MEDS: ATORVASTATIN 80 MG TAB PO SCH (20:40)
[2017-04-10] MEDS: POLYETHYLENE GLYCOL 3350 17 GM POWD.PACK PO SCH (20:41)
[2017-04-10] MEDS: TEMAZEPAM 30 MG CAP PO SCH (21:36)
[2017-04-11 07:46] LABS: Anisocytosis Slight; Aty Lym Flag Marked; CHCM 32.7; Hypochromasia Slight; MCH 34.8 pg (25.0-35.0); MCHC 34.2 g/dL (31.0-37.0); MCV 101.8 fL (80.0-100.0); Macrocytosis Moderate; Mean Platelet Volume 9.7; Poikilocytosis Slight; RBC 1.96 m/uL (4.30-5.90); RDW 18.9 % (11.5-15.5); WBC (Perox) 1.39
[2017-04-11 07:51] LABS: HGB 6.8 gm/dL (13.0-17.5)
[2017-04-11 07:52] LABS: WBC 1.4 k/uL (3.8-10.6)
[2017-04-11 08:00] LABS: Calcium 7.9 mg/dL (8.4-10.2); Potassium 4.1 mmol/L (3.5-5.1)
[2017-04-11] MEDS: ASPIRIN 325 MG TAB PO SCH (08:10)
[2017-04-11] MEDS: ALLOPURINOL 100 MG TAB PO SCH (08:10)
[2017-04-11] MEDS: SODIUM BICARBONATE TAB 650 MG TAB PO SCH ×2 (08:11→20:21)
[2017-04-11] MEDS: METOPROLOL TARTRATE 12.5 MG TAB PO SCH ×2 (08:11→20:21)
[2017-04-11] MEDS: FLUTICASONE 50MCG/SPRAY NASAL 16GM EA NOSTRIL SCH (08:11)
[2017-04-11] MEDS: TERAZOSIN 5 MG CAP PO SCH (08:12)
[2017-04-11] MEDS: ENOXAPARIN 30 MG/0.3 ML SYRINGE SQ SCH ×2 (08:12→08:23)
[2017-04-11] MEDS: CALCIUM ACETATE 667 MG CAP PO SCH ×3 (08:12→18:19)
[2017-04-11] MEDS: CITALOPRAM HYDROBROMIDE 20 MG TAB PO SCH (08:12)
[2017-04-11] MEDS: METOCLOPRAMIDE 5 MG TAB PO SCH ×4 (08:19→20:21)
--- NOTE | 2017-04-11 10:35 | PN ---
DATE OF SERVICE: 04/09/2017 This 81-year-old gentleman admitted with anemia symptomatic, also renal failure. No chest pain, no palpitations. No fever. On exam, alert and oriented x3. Pulse 64, blood pressure 112/56, respirations 16, temperature 97.8, pulse ox 97% on room air. HEENT: Conjunctivae pale. NECK: No jugular venous distention. CARDIOVASCULAR: S1, S2. RESPIRATORY: Breath sounds diminished in the bases. A few scattered rhonchi. ABDOMEN: Soft, nontender. LEGS: No edema. NERVOUS SYSTEM: No focal deficits. LABS: Hemoglobin 7.5, white count 1.2, creatinine 2.8. ASSESSMENT: 1. Anemia symptomatic secondary to MDS and acute myeloid leukemia transformation status post blood transfusion. 2. Leukopenia, pancytopenia. 3. Chronic kidney disease stage III with acute on chronic renal failure possibly prerenal acute tubular necrosis. 4. Hyperkalemia improved. 5. History of coronary artery disease. 6. Multiple medical issues. RECOMMENDATIONS AND DISCUSSION: I recommend to continue current medications, continue monitor and symptomatic treatment. Otherwise, repeat hemoglobin. Increase ambulation. Possible ECF rehab. Guarded prognosis. Further recommendations to follow. MTDD
[2017-04-11 10:46] LABS: Add Differential Manual Differential
--- NOTE | 2017-04-11 12:05 | P.DS ---
Providers Date of admission: 04/04/17 16:00 Attending physician: Jose R Zamora Consults: 04/04/17 16:00 Consult Physician Urgent Consulting Provider: Gregory Hewitt Consult Reason/Comments: Myelodysplastic syndrome Do you want consulting provider notified?: Yes 04/04/17 23:33 Consult Physician Routine Consulting Provider: Sekou Salcido Consult Reason/Comments: arf Do you want consulting provider notified?: Yes Consult Physician Routine Consulting Provider: Madison Mathur Consult Reason/Comments: chf Do you want consulting provider notified?: Yes [facility] Course: This 9-year-old gentleman with a past medical history multiple medical problems including anemia MDS history of chronic kidney disease stage III who was recently admitted [facility] and transferred to [facility] was admitted with the symptomatic anemia as well as some pancytopenia and chronic kidney disease stage III with some acute component. The patient was treated with the blood transfusion monitoring. He was seen by multiple consultants including Dr. Crawford and nephrology. Patient improved significantly. The patient be transferred back to [facility]. Currently on exam vitals are stable. Cardiovascular system S1-S2 normal. Lungs few rhonchi. Abdomen soft nontender. No system diffusely weak. The overall prognosis guarded which is discussed him at length with the family. The patient be seen by Dr. Lopez and hematology oncology team as an outpatient. I also recommended at least twice weekly labs CBC BMP in the F and follow the Dr. Casas and Dr. Hewitt. Final diagnosis 1. Anemia symptomatic secondary to MDS and acute myeloleukemia transformation status post blood transfusion. 2. Leukopenia pancytopenia secondary to MDS. 3. Chronic kidney disease stage III with acute on chronic renal failure possibly prerenal acute tubular necrosis. 4. Hyperkalemia improved 5. History of coronary disease. 6. Multiple medical issues. Plan - Discharge Summary New Discharge Prescriptions: New Hydrocodone/Acetaminophen [[place] 5-325] 1 tab PO Q6HR PRN #20 tab PRN Reason: Pain Continue Omeprazole [PriLOSEC] 20 mg PO AC-BRKFST PRN PRN Reason: Heartburn Terazosin [Hytrin] 5 mg PO QAM Metoprolol Tartrate 12.5 mg PO BID Loratadine [Claritin] 10 mg PO DAILY PRN PRN Reason: Allergy Symptoms Citalopram Hydrobromide [CeleXA] 20 mg PO DAILY Atorvastatin [Lipitor] 80 mg PO HS Epoetin Jamie [Procrit] 40,000 unit IM TU Ondansetron [Zofran] 4 mg PO Q8HR PRN PRN Reason: Nausea amLODIPine [Norvasc] 5 mg PO DAILY Allopurinol [Zyloprim] 200 mg PO DAILY tab Calcium Acetate [PhosLo] 1,334 mg PO TID-W/MEALS cap Fluticasone Nasal [place] [Flonase Nasal [place]] 2 spray EA NOSTRIL DAILY spray Ipratropium-Albuterol Nebulize [Duoneb 0.5 mg-3 mg/3 ml Soln] 3 ml INHALATION RT-TID neb Ipratropium-Albuterol Nebulize [Duoneb 0.5 mg-3 mg/3 ml Soln] 3 ml INHALATION RT-TID PRN neb PRN Reason: Shortness Of Breath Or Wheezing Metoclopramide HCl [Reglan] 5 mg PO ACHS #1 tablet Polyethylene Glycol 3350 [Miralax] 17 gm PO HS pack Sodium Bicarbonate Tab 650 mg PO BID tab Dronabinol [[place]ol] 2.5 mg PO HS #10 Bisacodyl [Dulcolax] 10 mg RECTAL DAILY PRN PRN Reason: Constipation Ensure Clear 1 can PO Q48H Lactose-Reduced Food [Ensure Plus] 1 can PO Q48H Magnesium Hydroxide [Milk of Magnesia] 2,400 mg PO DAILY PRN PRN Reason: Constipation Na Phos,M-B/Na Phos,Di-Ba [[place]le[place]] 133 ml RECTAL DAILY PRN PRN Reason: Constipation Vits A and D/White Pet/Lanolin [A and D Ointment] 1 applic TOPICAL DAILY Hydrocodone/Acetaminophen [[place] 5-325] 1 tab PO Q6HR PRN #20 PRN Reason: Pain Temazepam [Restoril] 30 mg PO HS #20 Discontinued Amoxicillin/Potassium Clav [Augmentin 500-125 Tablet] 1 tab PO Q12HR #10 tab Furosemide [Lasix] 40 mg PO DAILY #30 tablet Discharge Medication List Citalopram Hydrobromide [CeleXA] 20 mg PO DAILY 01/21/15 [History] Loratadine [Claritin] 10 mg PO DAILY PRN 01/21/15 [History] Metoprolol Tartrate 12.5 mg PO BID 01/21/15 [History] Omeprazole [PriLOSEC] 20 mg PO AC-BRKFST PRN 01/21/15 [History] Terazosin [Hytrin] 5 mg PO QAM 01/21/15 [History] Atorvastatin [Lipitor] 80 mg PO HS 02/23/16 [History] Epoetin Jamie [Procrit] 40,000 unit IM TU 05/11/16 [History] Ondansetron [Zofran] 4 mg PO Q8HR PRN 09/20/16 [History] amLODIPine [Norvasc] 5 mg PO DAILY 03/23/17 [History] Allopurinol [Zyloprim] 200 mg PO DAILY tab 03/31/17 [Rx] Calcium Acetate [PhosLo] 1,334 mg PO TID-W/MEALS cap 03/31/17 [Rx] Dronabinol [Marinol] 2.5 mg PO HS #10 03/31/17 [Rx] Fluticasone Nasal [place] [Flonase Nasal [place]] 2 spray EA NOSTRIL DAILY spray [Rx] Ipratropium-Albuterol Nebulize [Duoneb 0.5 mg-3 mg/3 ml Soln] 3 ml INHALATION RT -TID neb 03/31/17 [Rx] Ipratropium-Albuterol Nebulize [Duoneb 0.5 mg-3 mg/3 ml Soln] 3 ml INHALATION RT -TID PRN neb 03/31/17 [Rx] Metoclopramide HCl [Reglan] 5 mg PO ACHS #1 tablet 03/31/17 [Rx] Polyethylene Glycol 3350 [Miralax] 17 gm PO HS pack 03/31/17 [Rx] Sodium Bicarbonate Tab 650 mg PO BID tab 03/31/17 [Rx] Bisacodyl [Dulcolax] 10 mg RECTAL DAILY PRN 04/04/17 [History] Ensure Clear 1 can PO Q48H 04/04/17 [History] Lactose-Reduced Food [Ensure Plus] 1 can PO Q48H 04/04/17 [History] Magnesium Hydroxide [Milk of Magnesia] 2,400 mg PO DAILY PRN 04/04/17 [History] Na Phos,M-B/Na Phos,Di-Ba [[place] Adult] 133 ml RECTAL DAILY PRN 04/04/17 [ History] Vits A and D/White Pet/Lanolin [A and D Ointment] 1 applic TOPICAL DAILY [History] Hydrocodone/Acetaminophen [[place] 5-325] 1 tab PO Q6HR PRN #20 04/11/17 [Rx] Hydrocodone/Acetaminophen [[place] 5-325] 1 tab PO Q6HR PRN #20 tab 04/11/17 [Rx] Temazepam [Restoril] 30 mg PO HS #20 04/11/17 [Rx] Follow up Appointment(s)/Referral(s): Chintan Casas MD [Primary Care Provider] - 1-2 days Activity/Diet/Wound Care/Special Instructions: diet cardiac act limited till f/u twice weekly CBC BMP Discharge Disposition: TRANSFER TO SNF/ECF
[2017-04-11 12:06] LABS: Nucleated Red Blood Cells 0 /100 WBC (0-0); Total Cells Counted 100
[2017-04-11 12:07] LABS: Manual Review Performed
[2017-04-11] MEDS ORDERED: FUROSEMIDE 10 MG/ML 4 ML VIAL IV STA (16:24)
--- NOTE | 2017-04-11 17:51 | P.GSCN ---
History of Present Illness Consult date: 04/11/17 Reason for Consult: Leukemia History of present illness: Patient has a history of myelodysplastic syndrome that has been going on for many years. Recently the patient has had what is felt to represent a conversion to leukemia. The patient has poor IV access. There is anticipation that the patient will start chemotherapy once he regained some strength. We were asked to see this patient for the placement of a Port-A-Cath for the administration of chemotherapy. Review of Systems The patient denies any acute changes in vision or hearing, no dysphagia or odynophagia, no chest pain or shortness of breath, no dysuria or hematuria, no headache, no runny nose, no rectal bleeding or melena Past Medical History Past Medical History: Blood Disorder, Coronary Artery Disease (CAD), Cancer, GERD/Reflux, Hearing Disorder / Deafness, Hyperlipidemia, Hypertension, Myocardial Infarction ([place]), Pneumonia, Prostate Disorder, Rheumatoid Arthritis ( RA), Skin Disorder Additional Past Medical History / Comment(s): pt is rt side dominant. FREQUENT NAUSEA R/T CHEMO. "Arrythmia" Leukemia(MDS) 2001, Skin CA 2009. lt femur fx, lt elbow fx, aaa([facility]) CHRONIC LOWER BACK PAIN.FELL OUT OF BED LAST NIGHT, BRUISING AND SOME ABRASIONS.constipation,pulmonary edema Last Myocardial Infarction Date:: unk History of Any Multi-Drug Resistant Organisms: None Reported Past Surgical History: Cardiac Ablation, Heart Catheterization With Stent, Hernia Repair Additional Past Surgical History / Comment(s): Lt thumb amp, umbilical hernia repair, biopsy lt ear/positive for ca recent abd aortic stent for an aneurysm repair on 02/12/16 - had a sm ileus after surg. ORIF intermeduallary hip screw(lt femur), LT ARM., BLADDER STONE SX, BILAT CATARACT SX Past Anesthesia/Blood Transfusion Reactions: Postoperative Nausea & Vomiting ( PONV) Date of Last Stent Placement:: unk Smoking Status: Former smoker - Past Family History Father Family Medical History: Myocardial Infarction ([place]) Additional Family Medical History / Comment(s): heart attack Mother Family Medical History: Cancer Additional Family Medical History / Comment(s): throat cancer Sister(s) Family Medical History: Cancer Additional Family Medical History / Comment(s): 2 sisters that have "everything " Medications and Allergies Home Medications Medication Instructions Recorded Confirmed Type Citalopram Hydrobromide [CeleXA] 20 mg PO DAILY 01/21/15 04/04/17 History Loratadine [Claritin] 10 mg PO DAILY PRN 01/21/15 04/04/17 History Metoprolol Tartrate 12.5 mg PO BID 01/21/15 04/04/17 History Omeprazole [PriLOSEC] 20 mg PO AC-BRKFST PRN 01/21/15 04/04/17 History Terazosin [Hytrin] 5 mg PO QAM 01/21/15 04/04/17 History Atorvastatin [Lipitor] 80 mg PO HS 02/23/16 04/04/17 History Epoetin Jamie [Procrit] 40,000 unit IM TU 05/11/16 04/04/17 History Ondansetron [Zofran] 4 mg PO Q8HR PRN 09/20/16 04/04/17 History amLODIPine [Norvasc] 5 mg PO DAILY 03/23/17 04/04/17 History Bisacodyl [Dulcolax] 10 mg RECTAL DAILY PRN 04/04/17 04/04/17 History Ensure Clear 1 can PO Q48H 04/04/17 04/04/17 History Lactose-Reduced Food [Ensure Plus] 1 can PO Q48H 04/04/17 04/04/17 History Magnesium Hydroxide [Milk of 2,400 mg PO DAILY PRN 04/04/17 04/04/17 History Magnesia] Na Phos,M-B/Na Phos,Di-Ba [Fleet 133 ml RECTAL DAILY PRN 04/04/17 04/04/17 History Adult] Vits A and D/White Pet/Lanolin [A 1 applic TOPICAL DAILY 04/04/17 04/04/17 History and D Ointment] Allergies Allergy/AdvReac Type Severity Reaction Status Date / Time ciprofloxacin [From Cipro] Allergy Unknown Verified 04/04/17 13:43 ciprofloxacin HCl Allergy Unknown Verified 04/04/17 13:43 [From Cipro] gatifloxacin [From Tequin] Allergy Unknown Verified 04/04/17 13:43 levofloxacin [From Levaquin] AdvReac joint Verified 04/04/17 13:43 swelling moxifloxacin HCl AdvReac Unknown Verified 04/04/17 13:43 [From Avelox] Surgical - Exam Vital Signs Temp Pulse Resp BP 98.7 F 63 16 158/71 04/04/17 13:35 04/04/17 13:35 04/04/17 13:35 04/04/17 13:35 Physical exam: General: Elderly white male somewhat malnourished appearing HEENT: Normocephalic, sclerae nonicteric Abdomen: Nontender, nondistended Extremities: No edema Neuro: Alert and slightly confused Results - Labs 04/11/17 07:21 04/11/17 07:17 Abnormal Lab Results - Last 24 Hours (Table) 04/11/17 04/11/17 04/11/17 Range/Units 07:17 07:21 07:21 WBC 1.4 L* (3.8-10.6) k/uL RBC 1.96 L (4.30-5.90) m/uL Hgb 6.8 L* (13.0-17.5) gm/dL Hct 20.0 L* (39.0-53.0) % MCV 101.8 H (80.0-100.0) fL RDW 18.9 H (11.5-15.5) % Plt Count 38 L* (150-450) k/uL Neutrophils # (Manual) 0.0 L (1.3-7.7) k/uL Lymphocytes # (Manual) 0.3 L (1.0-4.8) k/uL Sodium 133 L (137-145) mmol/L BUN 43 H (9-20) mg/dL Creatinine 2.80 H (0.66-1.25) mg/dL Calcium 7.9 L (8.4-10.2) mg/dL Crossmatch See Detail Microbiology - Last 24 Hours (Table) 04/04/17 14:00 Blood Culture - Final Blood No Growth after 144 hours Diabetes panel 04/11/17 Range/Units 07:17 Sodium 133 L (137-145) mmol/L Potassium 4.1 (3.5-5.1) mmol/L Chloride 104 (98-107) mmol/L Carbon Dioxide 22 (22-30) mmol/L BUN 43 H (9-20) mg/dL Creatinine 2.80 H (0.66-1.25) mg/dL Glucose 80 (74-99) mg/dL Calcium 7.9 L (8.4-10.2) mg/dL Calcium panel 04/11/17 Range/Units 07:17 Calcium 7.9 L (8.4-10.2) mg/dL Pituitary panel 04/11/17 Range/Units 07:17 Sodium 133 L (137-145) mmol/L Potassium 4.1 (3.5-5.1) mmol/L Chloride 104 (98-107) mmol/L Carbon Dioxide 22 (22-30) mmol/L BUN 43 H (9-20) mg/dL Creatinine 2.80 H (0.66-1.25) mg/dL Glucose 80 (74-99) mg/dL Calcium 7.9 L (8.4-10.2) mg/dL Adrenal panel 04/11/17 Range/Units 07:17 Sodium 133 L (137-145) mmol/L Potassium 4.1 (3.5-5.1) mmol/L Chloride 104 (98-107) mmol/L Carbon Dioxide 22 (22-30) mmol/L BUN 43 H (9-20) mg/dL Creatinine 2.80 H (0.66-1.25) mg/dL Glucose 80 (74-99) mg/dL Calcium 7.9 L (8.4-10.2) mg/dL Assessment and Plan (1) 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 We'll proceed with Port-A- Cath placement tomorrow after the administration of 1 unit of platelets. Risks of bleeding, infection, pneumothorax, DVT, catheter occlusion were discussed. They understand and wish to proceed. Status: Acute
[2017-04-11 19:05] LABS: INR 1.4 (<1.1); Prothrombin Time 13.6 sec (9.0-12.0)
[2017-04-11] MEDS: DRONABINOL 2.5 MG CAP PO SCH (20:21)
[2017-04-11] MEDS: POLYETHYLENE GLYCOL 3350 17 GM POWD.PACK PO SCH (20:21)
[2017-04-11] MEDS: ATORVASTATIN 80 MG TAB PO SCH (20:21)
[2017-04-11] MEDS: TEMAZEPAM 30 MG CAP PO SCH (21:37)
--- NOTE | 2017-04-11 21:42 | PN ---
DATE OF SERVICE: 04/10/2017 This 81-year-old gentleman, admitted with symptomatic anemia also had renal failure. The patient is being closely monitored. No chest pain. No palpitations. No fever. On exam, alert and oriented x3. Pulse 74, blood pressure 129/60, respiration 16 , temperature 97.3, pulse ox 98% on room air. HEENT: Conjunctivae pale. Oral mucosa moist. NECK: No jugular venous distention. No carotid bruit. No lymph node enlargement. CARDIOVASCULAR: S1, S2 muffled. RESPIRATORY: Breath sounds diminished at the bases. A few scattered rhonchi. ABDOMEN: Soft. NERVOUS SYSTEM: No focal deficit. LABS: WBC 1.4, hemoglobin 7, platelets 43. ASSESSMENT: 1. Anemia, symptomatic, secondary to MDS and acute myeloid leukemia transformation, status post blood transfusion. 2. Acute on chronic renal failure. 3. Leukopenia and pancytopenia. 4. Hyponatremia. 5. Hyperkalemia, improved. 6. History of coronary artery disease. 7. Multiple medical issues. RECOMMENDATIONS AND DISCUSSION: I recommend to continue current medications, continue symptomatic treatment, repeat labs. Hemoglobin is 7 at this time. Continue to monitor. The patient is symptomatic. I would recommend a transfusion. PT/OT evaluation. Further recommendations to follow. MTDD
[2017-04-12 08:17] LABS: Anisocytosis Slight; Aty Lym Flag Marked; CH 33.3; CHCM 33.7; HCT 22.5 % (39.0-53.0); HDW 3.71; HGB 7.6 gm/dL (13.0-17.5); MCH 33.9 pg (25.0-35.0); MCHC 33.9 g/dL (31.0-37.0); MCV 99.8 fL (80.0-100.0); Macrocytosis Moderate; Mean Platelet Volume 9.9; Poikilocytosis Slight; RBC 2.25 m/uL (4.30-5.90); RDW 19.6 % (11.5-15.5); WBC (Perox) 1.69
[2017-04-12 08:25] LABS: WBC 1.5 k/uL (3.8-10.6)
--- NOTE | 2017-04-12 08:41 | PN ---
An 81-year-old male with the recent diagnosis of acute myeloid leukemia secondary to transformation of his mild dysplasia. The patient also developed renal failure probably from tumor lysis syndrome. He developed acute kidney injury and acute tubular necrosis. In addition, patient had electrolyte disturbances including hyperkalemia and some mild pulmonary edema, probably from fluids and also from blood transfusions. Anyway, the patient is currently resting comfortably in the Oncology Unit. The plan was to give him a unit of blood and transfer him or discharge him back to [facility]. He would like a port placed. I would like to see if we scan get that done before he leaves. Apparently, his hemoglobin today is low and they are anticipating another unit of blood. In addition, the family would like Oncology to give him some direction. I will call Dr. Zamora about all of these things. Currently, temperature 97.8, heart rate 58, respiratory rate 16, blood pressure 130/70, mean 96 and room air saturation 97%. Resting comfortably. Does look weak and cachectic. HEENT examination is grossly unremarkable. Mucous membranes are moist. Teeth are in poor repair. Neck supple. No adenopathy. Cardiovascular examination reveals regular rhythm and rate. Heart rate 60, S1, S2, normal. Lungs reveal clear breath sounds. Abdomen is soft, bowel sounds are heard. Extremities are intact. No cyanosis, clubbing or edema. Skin without rash. Labs today show a white count of only 1.4, hemoglobin 6.8, hematocrit 20, platelet count 38,000. He has got severe pancytopenia. Sodium 133, potassium 4.1, chloride is 104, CO2 is 22, anion gap is 7, BUN and creatinine were 43 and 2.80. It is a nonanion gap metabolic acidosis from renal failure. Microbiology is negative. Medications are reviewed. ASSESSMENT: 1. Acute myeloid leukemia. 2. Myelodysplastic syndrome. 3. Acute kidney injury with acute tubular necrosis secondary to tumor lysis syndrome. 4. Chronic kidney disease. 5. Acute electrolyte disturbances and ( ) acute hyperkalemia. 6. Severe pancytopenia. 7. Mild pulmonary edema. PLAN: Prognosis is poor. Will see if we cannot get a port in him. It may be difficult because of his platelet count. Additional recommendations and suggestions are forthcoming. I will call Dr. Zamora and see if we cannot get Oncology back into give the family some direction. Probably a unit of blood today. Hopeful discharge to [facility] soon. [facility] HOSPITALJimena
[2017-04-12 08:47] LABS: Calcium 7.6 mg/dL (8.4-10.2); Potassium 3.9 mmol/L (3.5-5.1)
[2017-04-12 08:54] LABS: Add Differential Manual Differential
[2017-04-12 09:02] LABS: Nucleated Red Blood Cells 0 /100 WBC (0-0); Total Cells Counted 100
[2017-04-12 09:03] LABS: Manual Review Performed
[2017-04-12] MEDS: CALCIUM ACETATE 667 MG CAP PO SCH (09:50)
[2017-04-12] MEDS: ALLOPURINOL 100 MG TAB PO SCH (09:51)
[2017-04-12] MEDS: METOCLOPRAMIDE 5 MG TAB PO SCH (09:51)
[2017-04-12] MEDS: CITALOPRAM HYDROBROMIDE 20 MG TAB PO SCH (09:52)
[2017-04-12] MEDS: METOPROLOL TARTRATE 12.5 MG TAB PO SCH (09:52)
[2017-04-12] MEDS: FLUTICASONE 50MCG/SPRAY NASAL 16GM EA NOSTRIL SCH (09:52)
[2017-04-12] MEDS: SODIUM BICARBONATE TAB 650 MG TAB PO SCH (09:53)
[2017-04-12] MEDS: TERAZOSIN 5 MG CAP PO SCH (09:54)
--- NOTE | 2017-04-12 10:54 | PN ---
DATE OF SERVICE: 04/11/2017 This 81-year-old gentleman admitted with multiple medical problems, improved significantly. No chest pain or palpitation. No fever. IV access lacking. On exam, alert and oriented x3. Pulse 51, blood pressure 126/60, respirations 16 , temperature 97.8, pulse ox 97% on room air. HEENT: Conjunctivae pale. NECK: No jugular venous distention. CARDIOVASCULAR: S1 and S2, muffled. RESPIRATORY: Breath sounds diminished at the bases. Scattered rhonchi and crackles. ABDOMEN: Soft, nontender. LEGS: No edema, no swelling. NERVOUS SYSTEM: No focal deficits. LABS: WBC 1.4, hemoglobin 6.8. Creatinine 2.8. ASSESSMENT: 1. Anemia secondary to MDS and acute myeloid leukemia transformation status post blood transfusion. 2. Leukopenia, pancytopenia secondary to MDS. 3. Chronic kidney disease, stage III with acute on chronic renal failure, possibly prerenal acute tubular necrosis. 4. Hyperkalemia, improved. 5. History of coronary artery disease. 6. Multiple medical issues. RECOMMENDATION AND DISCUSSION: Recommend to continue current medications. Continue with monitoring and symptomatic treatment. Otherwise, at this time we will also recommend surgical consultation with possible port placement also. Further recommendations to follow. ZEYADD
[2017-04-12] MEDS ORDERED: diphenhydrAMINE 50 MG/ML 1 ML VIAL IVP STA (11:02)
[2017-04-12] MEDS ORDERED: methylPREDNISolone SOD SUCCI 125 MG/2 ML VIAL IV STA (11:02)
[2017-04-12] MEDS: DARBEPOETIN ALFA 100MCG/0.5ML SYRINGE SQ SCH (11:04)
[2017-04-12] MEDS ORDERED: IV FLUID CONTINUATION 1,000 ML IV ONE (11:47)
[2017-04-12] MEDS ORDERED: LACTATED RINGERS 1,000 ML IV ONE (12:13)
[2017-04-12] MEDS ORDERED: PROPOFOL 10 MG/ML 20 ML VIAL IV ONE (12:14)
[2017-04-12] MEDS ORDERED: fentaNYL (PF) 50 MCG/ML 2 ML AMP ONE (12:14)
[2017-04-12] MEDS ORDERED: SODIUM CHLORIDE 0.9% 50 ML with ceFAZolin 2,000 MG IV ONE ×2 (12:14)
[2017-04-12] MEDS ORDERED: LIDOCAINE 1% INJ 10MG/ML (20 ML MDV) ONE (12:14)
[2017-04-12] MEDS ORDERED: HEPARIN SODIUM,PORCINE 100 UNIT/ML 5 ML VIAL IV ONE (12:20)
[2017-04-12] MEDS ORDERED: LIDOCAINE (PF) 10 MG/ML 2 ML VIAL SQ ONE (12:20)
--- NOTE | 2017-04-12 13:27 | P.PCN ---
Date of Procedure: 04/12/17 Preoperative Diagnosis: Postoperative Diagnosis: Procedure(s) Performed: PREOPERATIVE DIAGNOSIS: Leukemia POSTOPERATIVE DIAGNOSIS: Same PROCEDURE: Port-A-Cath placement SURGEON: Jorge EBL: Minimal ANESTHESIA: Sedation COMPLICATIONS: None OPERATIVE PROCEDURE: Patient was brought and placed on the operative table in the supine position. The patient was sedated per anesthesia that time. The chest and neck were prepped and draped in usual sterile fashion. The ultrasound probe was used to identify the location of the right internal jugular vein. The skin was localized with lidocaine. The Seldinger needle was advanced into the IJ under ultrasound guidance. The wire was advanced through the needle under fluoroscopic guidance into the superior vena cava. A port pocket was created in the right infraclavicular location. The catheter was tunneled from the wire entrance site to the port pocket. The port was then connected to the catheter. The dilator introducer was threaded over the guidewire. The guidewire and dilator were then removed. The catheter was advanced through the introducer and introducer was then removed. The tip was seen to be in the right atrial junction. Port was flushed with both saline and a Hep-Lock solution. There was good flow both in and out of the port. The port was sutured in underlying tissues using 3-0 silk sutures. The subcutaneous tissues were reapproximated using 3-0 Vicryl sutures and the skin at both locations using 4-0 Monocryl sutures. Steri-Strips and sterile dressings then applied. DISPOSITION: Stable to recovery room Implants: Indications for Procedure: Operative Findings: Description of Procedure:
[2017-04-12 13:33] VITALS: TEMP 97.8
[2017-04-12 13:50] VITALS: RESP 16
--- NOTE | 2017-04-12 14:04 | P.DS ---
Providers Date of admission: 04/04/17 16:00 Attending physician: Jose R Zamora Consults: 04/04/17 16:00 Consult Physician Urgent Consulting Provider: Gregory Hewitt Consult Reason/Comments: Myelodysplastic syndrome Do you want consulting provider notified?: Yes 04/04/17 23:33 Consult Physician Routine Consulting Provider: Sekou Salcido Consult Reason/Comments: arf Do you want consulting provider notified?: Yes Consult Physician Routine Consulting Provider: Madison Mathur Consult Reason/Comments: chf Do you want consulting provider notified?: Yes 04/11/17 14:17 Consult Physician Urgent Consulting Provider: Abhijeet Patel Consult Reason/Comments: port placement Do you want consulting provider notified?: Already Contacted Primary care physician: Chintan Cardonaqvi [facility] Course: This 81-year-old gentleman who was admitted with multiple medical possible anemia and MDS is being transfused. The patient is also receiving a Port-A- Cath for Dr. Patel. Patient is being discharged to [facility] for further monitoring. Total time taken is 35 minutes. Please suffer to my previous dictations for diagnosis and recommendations. Currently white cell stable cardio vascular system S1-S2 normal. Respiratory system was also normal. Abdomen soft nontender. No system diffusely weak. Plan - Discharge Summary New Discharge Prescriptions: New Hydrocodone/Acetaminophen [[place] 5-325] 1 tab PO Q6HR PRN #20 tab PRN Reason: Pain Continue Omeprazole [PriLOSEC] 20 mg PO AC-BRKFST PRN PRN Reason: Heartburn Terazosin [Hytrin] 5 mg PO QAM Metoprolol Tartrate 12.5 mg PO BID Loratadine [Claritin] 10 mg PO DAILY PRN PRN Reason: Allergy Symptoms Citalopram Hydrobromide [CeleXA] 20 mg PO DAILY Atorvastatin [Lipitor] 80 mg PO HS Epoetin Jamie [Procrit] 40,000 unit IM TU Ondansetron [Zofran] 4 mg PO Q8HR PRN PRN Reason: Nausea amLODIPine [Norvasc] 5 mg PO DAILY Allopurinol [Zyloprim] 200 mg PO DAILY tab Calcium Acetate [PhosLo] 1,334 mg PO TID-W/MEALS cap Fluticasone Nasal Linn [Flonase Nasal Linn] 2 spray EA NOSTRIL DAILY spray Ipratropium-Albuterol Nebulize [Duoneb 0.5 mg-3 mg/3 ml Soln] 3 ml INHALATION RT-TID neb Ipratropium-Albuterol Nebulize [Duoneb 0.5 mg-3 mg/3 ml Soln] 3 ml INHALATION RT-TID PRN neb PRN Reason: Shortness Of Breath Or Wheezing Metoclopramide HCl [Reglan] 5 mg PO ACHS #1 tablet Polyethylene Glycol 3350 [Miralax] 17 gm PO HS pack Sodium Bicarbonate Tab 650 mg PO BID tab Dronabinol [Marinol] 2.5 mg PO HS #10 Bisacodyl [Dulcolax] 10 mg RECTAL DAILY PRN PRN Reason: Constipation Ensure Clear 1 can PO Q48H Lactose-Reduced Food [Ensure Plus] 1 can PO Q48H Magnesium Hydroxide [Milk of Magnesia] 2,400 mg PO DAILY PRN PRN Reason: Constipation Na Phos,M-B/Na Phos,Di-Ba [Fleet Adult] 133 ml RECTAL DAILY PRN PRN Reason: Constipation Vits A and D/White Pet/Lanolin [A and D Ointment] 1 applic TOPICAL DAILY Hydrocodone/Acetaminophen [[place] 5-325] 1 tab PO Q6HR PRN #20 PRN Reason: Pain Temazepam [Restoril] 30 mg PO HS #20 Discontinued Amoxicillin/Potassium Clav [Augmentin 500-125 Tablet] 1 tab PO Q12HR #10 tab Furosemide [Lasix] 40 mg PO DAILY #30 tablet Discharge Medication List Citalopram Hydrobromide [CeleXA] 20 mg PO DAILY 01/21/15 [History] Loratadine [Claritin] 10 mg PO DAILY PRN 01/21/15 [History] Metoprolol Tartrate 12.5 mg PO BID 01/21/15 [History] Omeprazole [PriLOSEC] 20 mg PO AC-BRKFST PRN 01/21/15 [History] Terazosin [Hytrin] 5 mg PO QAM 01/21/15 [History] Atorvastatin [Lipitor] 80 mg PO HS 02/23/16 [History] Epoetin Jamie [Procrit] 40,000 unit IM TU 05/11/16 [History] Ondansetron [Zofran] 4 mg PO Q8HR PRN 09/20/16 [History] amLODIPine [Norvasc] 5 mg PO DAILY 03/23/17 [History] Allopurinol [Zyloprim] 200 mg PO DAILY tab 03/31/17 [Rx] Calcium Acetate [PhosLo] 1,334 mg PO TID-W/MEALS cap 03/31/17 [Rx] Dronabinol [Marinol] 2.5 mg PO HS #10 03/31/17 [Rx] Fluticasone Nasal Linn [Flonase Nasal Linn] 2 spray EA NOSTRIL DAILY spray [Rx] Ipratropium-Albuterol Nebulize [Duoneb 0.5 mg-3 mg/3 ml Soln] 3 ml INHALATION RT -TID neb 03/31/17 [Rx] Ipratropium-Albuterol Nebulize [Duoneb 0.5 mg-3 mg/3 ml Soln] 3 ml INHALATION RT -TID PRN neb 03/31/17 [Rx] Metoclopramide HCl [Reglan] 5 mg PO ACHS #1 tablet 03/31/17 [Rx] Polyethylene Glycol 3350 [Miralax] 17 gm PO HS pack 03/31/17 [Rx] Sodium Bicarbonate Tab 650 mg PO BID tab 03/31/17 [Rx] Bisacodyl [Dulcolax] 10 mg RECTAL DAILY PRN 04/04/17 [History] Ensure Clear 1 can PO Q48H 04/04/17 [History] Lactose-Reduced Food [Ensure Plus] 1 can PO Q48H 04/04/17 [History] Magnesium Hydroxide [Milk of Magnesia] 2,400 mg PO DAILY PRN 04/04/17 [History] Na Phos,M-B/Na Phos,Di-Ba [Fleet Adult] 133 ml RECTAL DAILY PRN 04/04/17 [ History] Vits A and D/White Pet/Lanolin [A and D Ointment] 1 applic TOPICAL DAILY [History] Hydrocodone/Acetaminophen [[place] 5-325] 1 tab PO Q6HR PRN #20 04/11/17 [Rx] Hydrocodone/Acetaminophen [[place] 5-325] 1 tab PO Q6HR PRN #20 tab 04/11/17 [Rx] Temazepam [Restoril] 30 mg PO HS #20 04/11/17 [Rx] Follow up Appointment(s)/Referral(s): Chintan Casas MD [Primary Care Provider] - 1-2 days Activity/Diet/Wound Care/Special Instructions: diet cardiac act limited till f/u twice weekly CBC BMP Discharge Disposition: TRANSFER TO SNF/ECF
[2017-04-12 14:58] VITALS: BP 122/64; PULSE 53
--- NOTE | 2017-04-12 15:48 | FL ---
Fluoroscopy HISTORY: Pain 11 seconds fluoroscopy time supplied to the referring clinician. 1 intraoperative C-arm images docum ent the procedure. See dictated report from general surgery.
--- NOTE | 2017-04-12 16:15 | PN ---
This is an 81-year-old gentleman with a recent diagnosis of acute myeloid leukemia. For many years he has had myelodysplasia. He also developed tumor lysis syndrome with electrolyte disturbance and acute kidney injury/ATN. I talked to the patient yesterday. He wanted a port for additional administration of medications in the future. Dr. Patel saw the patient and is planning to do a Port-A-Cath today. Other than that, he is doing reasonably well. He is pretty weak. He is going to be discharged back to [facility] when he is ready to go. We have been struggling with his blood counts. They have been very low. He has had pancytopenia. Current vital signs include a temperature of 97.4, heart rate 55, respiratory rate 16, blood pressure 121/66, mean 84. Room-air saturation 96%. Appears in no acute distress. HEENT examination is grossly unremarkable. Mucous membranes are a bit dry. No oral lesions. No yeast. NECK: Supple. Full range of motion. No adenopathy or thyromegaly. Neck veins are flat. Cardiovascular examination reveals regular rhythm and rate. Heart rate at 60. S1 , S2 normal. No S3, S4 or murmur. LUNGS: Clear. Breath sounds equal. No wheezes. No other adventitious lung sounds. Abdomen is soft. Bowel sounds are heard. Extremities are intact. No cyanosis, clubbing or edema. Skin is without rash. There are areas of diffuse ecchymoses, particularly in his arms. Brief neurological examination is non-focal. Labs are reviewed. White count 1.5, hemoglobin 7.6. Hematocrit is 22.5, platelet count 39,000. His sodium is 134, potassium 3.9, chloride 103, CO2 23. Anion gap is 8. BUN and creatinine were 43 and 2.80, consistent with a non-anion -gap metabolic acidosis. No additional x-rays to review. Medications are reviewed. ASSESSMENT: 1. Acute myeloid leukemia. 2. Myelodysplastic syndrome. 3. Acute kidney injury with acute tubular necrosis secondary to tumor lysis syndrome. 4. Chronic kidney disease. 5. Acute electrolyte disturbance with hyperkalemia. 6. Severe pancytopenia. 7. Mild pulmonary edema. PLAN: The patient will have a Port-A-Cath placed today by Dr. Patel. No additional recommendations are made. Will continue to follow. Prognosis is guarded. Additional recommendations and suggestions are forthcoming. MTDD
--- NOTE | 2017-04-12 19:04 | PN ---
Patient is seen for followup for chronic kidney disease. His creatinine has been staying fairly stable for the last few days. He was being treated for tumor lysis syndrome this admission which occurred after Hydrea for myelodysplastic syndrome. Serum creatinine has been at 2.8 for the last 4 days. On examination today, blood pressure is 122/64, heart rate 53 per minute. Patient is afebrile. EXAMINATION OF THE HEART: S1 and S2. EXAMINATION OF LUNGS: Decreased breath sounds at the bases. Abdomen is soft, non-tender. Examination of lower extremities shows no significant edema. [employer] exam is grossly intact. Labs show hemoglobin 7.6, white cell count 1.5, platelet count 39; sodium 134, BUN 43, serum creatinine 2.8. ASSESSMENT: 1. Acute kidney injury, currently stable, improved from admission. 2. Chronic kidney disease with baseline creatinine about 1.5 to 2 mg/dL secondary to nephrosclerosis. 3. 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 PLAN: No changes from nephrology standpoint. MTDD
--- NOTE | 2017-04-15 10:40 | CDI ---
In responding to this query, please exercise your independent professional judgment. The [facility] Coding Staff and Clinical Documentation Specialists appreciate your assistance in clarifying documentation, maintaining compliance with coding guidelines, accurately documenting patients condition and capturing severity of illness. The fact that a question is asked does not imply that any particular answer is desired or expected. Communication forms are a method of clarifying documentation and are not made part of the Legal Health Record. Thank you in advance for your clarification. Last Revision, August 2015 Kenneth Carrillo [address] [place] [address] Documentation Clarification Form Date: 04/15/2017 10:26:00 AM From: Pebbles Trejo [facility] Admit Date: 04/04/2017 4:00:00 PM Patient Name: Brandon Rueda Visit Number: [id number] Discharge Date: 04-12-17 Dr. Jose R Zamora "Malnourished appearing" appears in Dr. Patel's consultation on 04-11-17. History/Risk Factors: tumor lysis syndrome, CKD III, ATN, hyperkalemia, muscle weakness, CHF diastolic a/c, bedridden, MDS now acute myeloleukemia transformation, pancytopenia, history of smoker, acidosis, "cachectic" per progress notes. Labs: Albumin = 2.9 (low) on 04-04-17 and total protein = 5.3 (low) on 04-04-17 Current BMI: 20.3 Insufficient energy intake: poor appetite per dietary. Weight Loss: Yes, patient states. Dietary Consult: Yes-seen on 04-06 and 04-11-17 Supplements/TPN: Ensure Enlive TID. Dietary states "underweight" In your professional opinion, can you please clarify if these findings signify one of the following conditions? Mild Protein Malnutrition Mild Protein-Calorie Malnutrition Moderate Protein Malnutrition Moderate Protein-Calorie Malnutrition Severe Protein Malnutrition Severe Protein-Calorie Malnutrition Malnutrition following GI surgery Malnutrition Other condition, please specify Unable to determine Please document in your progress notes and discharge summary in order to capture severity of illness and risk of mortality. Include clinical findings that support your diagnosis. If you have a question about this query, please contact Reba Roberson Solar Installation Technician at [phone] between 8am-5pm. FYI: Press F11 to launch patient chart. Place X here if this finding has no clinical significance, is not applicable or if you are not able to provide any additional documentation. MTDD
--- NOTE | 2017-04-25 19:58 | PN ---
ADDENDUM to FINAL DIAGNOSES: Mild protein-calorie malnutrition. MTDD
== END 2017-04-12 17:35 | DRG 673 ==
LOC: EC 13:32 → 6SEL 16:00 → 5ONC 04-06 15:09
PROVIDERS: ADMIT Hospitalist; ATTEND Hospitalist
PROC: 30233N1 Transfusion of Nonautologous Red Blood Cells into Peripheral Vein, Percutaneous Approach (ICD-10-PCS; 2017-04-04)
PROC: 30233R1 Transfusion of Nonautologous Platelets into Peripheral Vein, Percutaneous Approach (ICD-10-PCS; 2017-04-12)
PROC: 02HV33Z Insertion of Infusion Device into Superior Vena Cava, Percutaneous Approach (ICD-10-PCS; 2017-04-12)
PROC: 0JH63WZ Insertion of Totally Implantable Vascular Access Device into Chest Subcutaneous Tissue and Fascia, Percutaneous Approach (ICD-10-PCS; principal; 2017-04-12 09:05)
DX: E88.3 Tumor lysis syndrome (principal); I50.33 Acute on chronic diastolic (congestive) heart failure; C92.00 Acute myeloblastic leukemia, not having achieved remission; E87.2 Acidosis; R64 Cachexia; D61.818 Other pancytopenia; N18.3 Chronic kidney disease, stage 3 (moderate); I13.0 Hypertensive heart and chronic kidney disease with heart failure and stage 1 through stage 4 chronic kidney disease, or unspecified chronic kidney disease; E87.1 Hypo-osmolality and hyponatremia; E44.1 Mild protein-calorie malnutrition; N17.0 Acute kidney failure with tubular necrosis; R00.1 Bradycardia, unspecified; E87.5 Hyperkalemia; I25.2 Old myocardial infarction; I25.10 Atherosclerotic heart disease of native coronary artery without angina pectoris; E78.5 Hyperlipidemia, unspecified; M06.9 Rheumatoid arthritis, unspecified; K21.9 Gastro-esophageal reflux disease without esophagitis; I45.10 Unspecified right bundle-branch block; H91.90 Unspecified hearing loss, unspecified ear; D63.0 Anemia in neoplastic disease; H54.7 Unspecified visual loss; M62.81 Muscle weakness (generalized); G89.29 Other chronic pain; R35.1 Nocturia; R35.0 Frequency of micturition; M54.5 Low back pain; I71.4 Abdominal aortic aneurysm, without rupture; F12.90 Cannabis use, unspecified, uncomplicated; F32.9 Major depressive disorder, single episode, unspecified; K59.00 Constipation, unspecified; N42.9 Disorder of prostate, unspecified; R26.2 Difficulty in walking, not elsewhere classified; Z86.79 Personal history of other diseases of the circulatory system; Z82.49 Family history of ischemic heart disease and other diseases of the circulatory system; Z87.891 Personal history of nicotine dependence; Z87.01 Personal history of pneumonia (recurrent); Z79.899 Other long term (current) drug therapy; Z80.8 Family history of malignant neoplasm of other organs or systems; Z87.442 Personal history of urinary calculi; Z92.21 Personal history of antineoplastic chemotherapy; Z87.81 Personal history of (healed) traumatic fracture; Z87.19 Personal history of other diseases of the digestive system; Z71.3 Dietary counseling and surveillance; Z91.81 History of falling; Z88.1 Allergy status to other antibiotic agents; Z85.828 Personal history of other malignant neoplasm of skin; Z95.5 Presence of coronary angioplasty implant and graft; Z98.42 Cataract extraction status, left eye; Z98.41 Cataract extraction status, right eye; Z89.012 Acquired absence of left thumb; Z74.01 Bed confinement status; Z79.891 Long term (current) use of opiate analgesic; Z79.51 Long term (current) use of inhaled steroids; Z68.20 Body mass index [BMI] 20.0-20.9, adult
CPT/HCPCS: 36415; 71010; 71020; 77001; 80048; 80053; 80061; 81001; 82550; 82553; 83605; 83735; 84100; 84132; 84484; 84550; 85025; 85610; 85730; 86850; 86900; 86901; 86920; 87040; 93005; 93306; 94640; 94760; 99285

== ENCOUNTER → 2017-05-25 | Outpatient (CLI) | payer MEDICARE, BC ==
--- NOTE | 2017-05-25 15:58 | US ---
EXAMINATION TYPE: US carotid duplex BILAT DATE OF EXAM: 05/25/2017 COMPARISON: US. CTA neck dated 04/18/2013 and carotid ultrasound dated 04/16/2013. CLINICAL HISTORY: R09.89 CAROTID BRUIT. dizziness per patient EXAM MEASUREMENTS: RIGHT: Peak Systolic Velocity (PSV) cm/sec ----- Right CCA: 90.8 ----- Right ICA: 88.6 ----- Right ECA: 178.6 ICA/CCA ratio: 1.0 RIGHT: End Diastole cm/sec ----- Right CCA: 9.5 ----- Right ICA: 19.3 ----- Right ECA: 0.0 LEFT: Peak Systolic Velocity (PSV) cm/sec ----- Left CCA: 122.4 ----- Left ICA: 224.4 ----- Left ECA: 286.4*8 ICA/CCA ratio: 1.8 LEFT: End Diastole cm/sec ----- Left CCA: 11.1 ----- Left ICA: 24.6 ----- Left ECA: 0.0 VERTEBRALS (direction of flow): Right Vertebral: Antegrade Left Vertebral: Retrograde Significant plaque throughout all vessels. elevated velocities at right ECA, and left ICA & ECA causi ng an elevated ratio. Retrograde flow noted left vertebral. IMPRESSION: 1. Stenosis of at least 50% within the left internal carotid artery, with progressively mild peak sys tolic velocity in comparison to the prior exam of 04/16/2013. CTA or MRA neck for reevaluation is taye mmended. 2. Persistent retrograde flow within the left vertebral consistent with subclavian steal syndrome. 3. Li scale plaquing with no hemodynamically significant stenosis within the right carotid system.
== END | disposition home or self-care (01) ==
LOC: RADUSWWP 14:53
PROVIDERS: ATTEND Internal Medicine Critical Care Medicine
DX: I65.22 Occlusion and stenosis of left carotid artery (principal)
CPT/HCPCS: 93880

== ENCOUNTER → 2017-06-23 | Outpatient (CLI) | payer MEDICARE, BC ==
[~2017-06-23] MED LIST changes: -HYDROmorphone 1 MG/ML 1 ML SYRINGE IVP PRN; -LACTATED RINGERS 1,000 ML IV SCH; -MIDAZOLAM 2 MG/2 ML VIAL IV PRN; -ONDANSETRON 4 MG/2 ML VIAL IVP ONE; +SODIUM CHLORIDE 0.9% 500 ML in EMPTY BAG 1 BAG IV PRN; -ceFAZolin 2 GM in SODIUM CHLORIDE 0.9% 100 ML IVPB ONE
[2017-06-23 12:52] VITALS: RESP 16
[2017-06-23 15:35] VITALS: BP 152/57; PULSE 50; TEMP 98
== END | disposition home or self-care (01) ==
LOC: PROCWHC3 12:28
PROVIDERS: ATTEND Internal Medicine Hematology & Oncology
DX: C95.00 Acute leukemia of unspecified cell type not having achieved remission (principal); D46.9 Myelodysplastic syndrome, unspecified
CPT/HCPCS: 86900; 86901; 86850; 86920; 36430; P9016; J1642

== ENCOUNTER 2017-07-21 06:54 | Inpatient (IN) | payer MEDICARE, BC ==
[2017-07-21] MEDS ORDERED: SODIUM CHLORIDE 0.9% 1,000 ML IV STA (07:19)
[2017-07-21] MEDS ORDERED: MORPHINE SULFATE 10 MG/ML SYRINGE IVP STA (08:20)
[2017-07-21 08:31] LABS: Amorphous Sediment,Urine Rare /hpf; Appearance,Urine Clear (Clear); Bilirubin,Urine Negative (Negative); Glucose,Urine (UA) Negative (Negative); Ketones,Urine Negative (Negative); Leukocyte Esterase,Urine Negative (Negative); Nitrite,Urine Negative (Negative); PH, Urine 5.5 (5.0-8.0); Particle Count 7620; Protein,Urine 2+ (Negative); RBC,Urine 1 /hpf (0-5); Specific Gravity,Urine 1.012 (1.001-1.035); UA Billing (MACRO vs. MICRO) MICRO; Urobilinogen,Urine <2.0 mg/dL (<2.0); WBC,Urine 1 /hpf (0-5)
[2017-07-21 08:34] LABS: Anisocytosis Moderate; CH 37.2; HCT 29.2 % (39.0-53.0); HDW 3.41; HGB 9.9 gm/dL (13.0-17.5); Hypochromasia Moderate; Immature Gran Flag Marked; Large Platelets Flag Moderate; MCH 41.2 pg (25.0-35.0); MCHC 33.9 g/dL (31.0-37.0); MCV 121.4 fL (80.0-100.0); Macrocytosis Marked; Mean Platelet Volume 12.9; Poikilocytosis Slight; RBC 2.41 m/uL (4.30-5.90); WBC (Perox) 63.25
[2017-07-21 08:40] LABS: Calcium 8.8 mg/dL (8.4-10.2); Magnesium 1.3 mg/dL (1.6-2.3); Phosphorous 4.2 mg/dL (2.5-4.5); Potassium 4.7 mmol/L (3.5-5.1); Total Bilirubin 0.6 mg/dL (0.2-1.3); Total Protein 5.8 g/dL (6.3-8.2)
[2017-07-21 08:41] LABS: WBC 61.3 k/uL (3.8-10.6)
[2017-07-21 08:42] LABS: Add Differential Manual Differential
--- NOTE | 2017-07-21 08:49 | XR ---
EXAMINATION TYPE: XR chest 2V DATE OF EXAM: 07/21/2017 COMPARISON: 04/06/2017 INDICATION: Fall, weakness TECHNIQUE: Frontal and lateral views of the chest are obtained. FINDINGS: The heart size is normal. The pulmonary vasculature is normal. There is increased perihilar lung markings which may be accentuated due to the left rotation. Port is present on the right with the tip in the proximal right atrium.. No pneumothorax is evident. IMPRESSION: 1. Some fullness in the right hilar region which is likely projectional. Follow-up exam can be perfor med to evaluate if this is technical in nature.
[2017-07-21 08:50] LABS: Band Neutrophils % 9 %; Metamyelocytes % 6 %; Myelocytes % 6 %; Nucleated Red Blood Cells 0 /100 WBC (0-0); Total Cells Counted 200
--- NOTE | 2017-07-21 08:50 | XR ---
EXAMINATION TYPE: XR pelvis AP view DATE OF EXAM: 07/21/2017 COMPARISON: NONE HISTORY: Pain TECHNIQUE: Single AP pelvis FINDINGS: Left hip pinning is evident. Aortic stenting into the iliac vessels is evident. Nonspecific bowel gas is present The osseous structures appear intact without acute osseous abnormality. IMPRESSION: 1. No acute osseous abnormality
[2017-07-21 08:51] LABS: INR 1.8 (<1.2); Partial Thromboplastin Time 34.6 sec (22.0-30.0); Prothrombin Time 16.9 sec (9.0-12.0)
[2017-07-21] MEDS: SODIUM CHLORIDE 0.9% 1,000 ML IV STA ×2 (08:55→16:48)
--- NOTE | 2017-07-21 08:57 | ED ---
General Adult HPI - General Chief complaint: Weakness Stated complaint: weakness Time Seen by Provider: 07/21/17 07:18 Source: EMS, RN notes reviewed, old records reviewed Mode of arrival: EMS Limitations: no limitations - History of Present Illness Initial comments: This is an 81-year-old male to the ER for evaluation today. This patient presents for evaluation regarding weakness. Patient just complains of recent falls as of late complains of headache. States he feels fatigued and weak. He has an was feeling so weak last night that he couldn't get up off the ground and laid there until this morning. Called EMS and came to the ER for evaluation patient has underlying medical history of high blood pressure high cholesterol heart disease and CVA. Patient does admit to decreased appetite as of late, denies fevers. Denies chest pain or abdominal pain. No nausea vomiting or diarrhea. No recent medication changes as far as he knows - Related Data Home Medications Medication Instructions Recorded Confirmed Loratadine [Claritin] 10 mg PO DAILY PRN 01/21/15 07/21/17 Metoprolol Tartrate 12.5 mg PO BID 01/21/15 07/21/17 Omeprazole [PriLOSEC] 20 mg PO AC-BRKFST 01/21/15 07/21/17 Terazosin [Hytrin] 5 mg PO QAM 01/21/15 07/21/17 Atorvastatin [Lipitor] 80 mg PO HS 02/23/16 07/21/17 Epoetin Jamie [Procrit] 40,000 unit IM TU 05/11/16 07/21/17 Ondansetron [Zofran] 4 mg PO Q8HR PRN 09/20/16 07/21/17 Bisacodyl [Dulcolax] 10 mg RECTAL DAILY PRN 04/04/17 07/21/17 Citalopram Hydrobromide [CeleXA] 10 mg PO DAILY 07/21/17 07/21/17 Previous Rx's Medication Instructions Recorded Allopurinol [Zyloprim] 200 mg PO DAILY tab 03/31/17 Calcium Acetate [PhosLo] 1,334 mg PO TID-W/MEALS cap 03/31/17 Dronabinol [Marinol] 2.5 mg PO HS #10 03/31/17 Fluticasone Nasal [place] [Flonase 2 spray EA NOSTRIL DAILY spray 03/31/17 Nasal [place]] Ipratropium-Albuterol Nebulize 3 ml INHALATION RT-TID neb 03/31/17 [Duoneb 0.5 mg-3 mg/3 ml Soln] Polyethylene Glycol 3350 [Miralax] 17 gm PO HS pack 03/31/17 Sodium Bicarbonate Tab 650 mg PO BID tab 03/31/17 Hydrocodone/Acetaminophen [[place] 1 tab PO Q6HR PRN #20 04/11/17 5-325] Temazepam [Restoril] 30 mg PO HS #20 04/11/17 Allergies Allergy/AdvReac Type Severity Reaction Status Date / Time ciprofloxacin [From Cipro] Allergy Unknown Verified 07/21/17 07:40 ciprofloxacin HCl Allergy Unknown Verified 07/21/17 07:40 [From Cipro] gatifloxacin [From Tequin] Allergy Unknown Verified 07/21/17 07:40 moxifloxacin HCl Allergy Unknown Verified 07/21/17 07:40 [From Avelox] levofloxacin [From Levaquin] AdvReac joint Verified 07/21/17 07:40 swelling Review of Systems ROS Statement: Those systems with pertinent positive or pertinent negative responses have been documented in the HPI. ROS Other: All systems not noted in ROS Statement are negative. Past Medical History Past Medical History: Blood Disorder, Coronary Artery Disease (CAD), Cancer, GERD/Reflux, Hearing Disorder / Deafness, Hyperlipidemia, Hypertension, Myocardial Infarction (CT), Pneumonia, Prostate Disorder, Rheumatoid Arthritis ( RA), Skin Disorder Additional Past Medical History / Comment(s): pt is rt side dominant. FREQUENT NAUSEA R/T CHEMO. "Arrythmia" Leukemia(MDS) 2001, Skin CA 2009. lt femur fx, lt elbow fx, aaa([facility]) CHRONIC LOWER BACK PAIN.FELL OUT OF BED LAST NIGHT, BRUISING AND SOME ABRASIONS.constipation,pulmonary edema Last Myocardial Infarction Date:: unk History of Any Multi-Drug Resistant Organisms: None Reported Past Surgical History: Cardiac Ablation, Heart Catheterization With Stent, Hernia Repair Additional Past Surgical History / Comment(s): Lt thumb amp, umbilical hernia repair, biopsy lt ear/positive for ca recent abd aortic stent for an aneurysm repair on 02/12/16 - had a sm ileus after surg. ORIF intermeduallary hip screw(lt femur), LT ARM., BLADDER STONE SX, BILAT CATARACT SX Past Anesthesia/Blood Transfusion Reactions: Postoperative Nausea & Vomiting ( PONV) Date of Last Stent Placement:: unk Past Psychological History: Depression Smoking Status: Former smoker Past Alcohol Use History: Occasional Past Drug Use History: Marijuana - Past Family History Father Family Medical History: Myocardial Infarction (CT) Additional Family Medical History / Comment(s): heart attack Mother Family Medical History: Cancer Additional Family Medical History / Comment(s): throat cancer Sister(s) Family Medical History: Cancer Additional Family Medical History / Comment(s): 2 sisters that have "everything " General Exam Limitations: no limitations General appearance: alert, in no apparent distress Head exam: Present: atraumatic, normocephalic, normal inspection Eye exam: Present: normal appearance, PERRL, EOMI. Absent: scleral icterus, conjunctival injection, periorbital swelling ENT exam: Present: normal exam, mucous membranes dry. Absent: mucous membranes moist Neck exam: Present: normal inspection. Absent: tenderness, meningismus, lymphadenopathy Respiratory exam: Present: normal lung sounds bilaterally. Absent: respiratory distress, wheezes, rales, rhonchi, stridor Cardiovascular Exam: Present: regular rate, normal rhythm, normal heart sounds. Absent: systolic murmur, diastolic murmur, rubs, gallop, clicks GI/Abdominal exam: Present: soft, normal bowel sounds. Absent: distended, tenderness, guarding, rebound, rigid Extremities exam: Present: normal inspection, full ROM, normal capillary refill. Absent: tenderness, pedal edema, joint swelling, calf tenderness Back exam: Present: normal inspection Neurological exam: Present: alert, oriented X3, CN II-XII intact Psychiatric exam: Present: normal affect, normal mood Skin exam: Present: warm, dry, intact, normal color. Absent: rash Course Vital Signs 07/21/17 07/21/17 07:14 09:16 Temperature 96.9 F L Pulse Rate 64 60 Respiratory 18 16 Rate Blood Pressure 110/54 102/51 O2 Sat by Pulse 100 93 L Oximetry - Reevaluation(s) Reevaluation #1: 07/21/17 09:54 Patient has no significant clinical improvement while here in the emergency department EKG Findings - EKG Comments: EKG Findings:: EKG shows normal sinus rhythm rate of 66, CA 200, QRS 102, QTC 484 Medical Decision Making - Medical Decision Making 81 male to ER for evaluation of weakness, inability to ambulate, multiple medical and laboratory abnormalities. Patient will be admitted for recurrent evaluation and treatment, rehydration. - Lab Data Result diagrams: 07/21/17 08:14 07/21/17 08:14 Lab Results 07/21/17 07/21/17 07/21/17 Range/Units 08:14 08:14 08:14 WBC 61.3 H* (3.8-10.6) k/uL RBC 2.41 L (4.30-5.90) m/uL Hgb 9.9 L (13.0-17.5) gm/dL Hct 29.2 L (39.0-53.0) % MCV 121.4 H (80.0-100.0) fL MCH 41.2 H (25.0-35.0) pg MCHC 33.9 (31.0-37.0) g/dL RDW 20.0 H (11.5-15.5) % Plt Count 37 L* (150-450) k/uL Neutrophils % (Manual) 26 % Band Neutrophils % 9 % Lymphocytes % (Manual) 8 % Monocytes % (Manual) 24 % Basophils % (Manual) 1 % Metamyelocytes % 6 % Myelocytes % 6 % Blast Cells % 22 % Neutrophils # (Manual) 21.40 H (1.3-7.7) k/uL Lymphocytes # (Manual) 4.90 H (1.0-4.8) k/uL Monocytes # (Manual) 14.71 H (0-1.0) k/uL Basophils # (Manual) 0.61 H (0-0.2) k/uL Metamyelocytes # (Man) 3.68 H (0) k/uL Myelocytes # (Manual) 3.68 H (0) k/uL Blast Cells # (Man) 13.49 H (0) k/uL Nucleated RBCs 0 (0-0) /100 WBC Manual Slide Review Performed Large Platelets Present Polychromasia Present Hypochromasia Moderate Poikilocytosis Slight Anisocytosis Moderate Macrocytosis Marked PT (9.0-12.0) sec INR (<1.2) APTT (22.0-30.0) sec Sodium 137 (137-145) mmol/L Potassium 4.7 (3.5-5.1) mmol/L Chloride 106 (98-107) mmol/L Carbon Dioxide 17 L (22-30) mmol/L Anion Gap 14 mmol/L BUN 62 H (9-20) mg/dL Creatinine 3.91 H (0.66-1.25) mg/dL Est GFR (MDRD) Af Amer 18 (>60 ml/min/1.73 sqM) Est GFR (MDRD) Non-Af 15 (>60 ml/min/1.73 sqM) Glucose 66 L (74-99) mg/dL Plasma Lactic Acid Van (0.7-2.0) mmol/L Calcium 8.8 (8.4-10.2) mg/dL Phosphorus 4.2 (2.5-4.5) mg/dL Magnesium 1.3 L (1.6-2.3) mg/dL Total Bilirubin 0.6 (0.2-1.3) mg/dL AST 21 (17-59) U/L ALT 19 L (21-72) U/L Alkaline Phosphatase 66 (38-126) U/L Total Creatine Kinase 75 (55-170) U/L CK-MB (CK-2) 1.2 (0.0-2.4) ng/mL CK-MB (CK-2) Rel Index 1.6 Troponin I 0.016 (0.000-0.034) ng/mL Total Protein 5.8 L (6.3-8.2) g/dL Albumin 3.3 L (3.5-5.0) g/dL TSH 6.600 H (0.465-4.680) mIU/L Urine Color Urine Appearance (Clear) Urine pH (5.0-8.0) Ur Specific [place] (1.001-1.035) Urine Protein (Negative) Urine Glucose (UA) (Negative) Urine Ketones (Negative) Urine Blood (Negative) Urine Nitrite (Negative) Urine Bilirubin (Negative) Urine Urobilinogen (<2.0) mg/dL Ur Leukocyte Esterase (Negative) Urine RBC (0-5) /hpf Urine WBC (0-5) /hpf Amorphous Sediment (None) /hpf 07/21/17 07/21/17 07/21/17 Range/Units 08:14 08:14 08:14 WBC (3.8-10.6) k/uL RBC (4.30-5.90) m/uL Hgb (13.0-17.5) gm/dL Hct (39.0-53.0) % MCV (80.0-100.0) fL MCH (25.0-35.0) pg MCHC (31.0-37.0) g/dL RDW (11.5-15.5) % Plt Count (150-450) k/uL Neutrophils % (Manual) % Band Neutrophils % % Lymphocytes % (Manual) % Monocytes % (Manual) % Basophils % (Manual) % Metamyelocytes % % Myelocytes % % Blast Cells % % Neutrophils # (Manual) (1.3-7.7) k/uL Lymphocytes # (Manual) (1.0-4.8) k/uL Monocytes # (Manual) (0-1.0) k/uL Basophils # (Manual) (0-0.2) k/uL Metamyelocytes # (Man) (0) k/uL Myelocytes # (Manual) (0) k/uL Blast Cells # (Man) (0) k/uL Nucleated RBCs (0-0) /100 WBC Manual Slide Review Large Platelets Polychromasia Hypochromasia Poikilocytosis Anisocytosis Macrocytosis PT 16.9 H (9.0-12.0) sec INR 1.8 H (<1.2) APTT 34.6 H (22.0-30.0) sec Sodium (137-145) mmol/L Potassium (3.5-5.1) mmol/L Chloride (98-107) mmol/L Carbon Dioxide (22-30) mmol/L Anion Gap mmol/L BUN (9-20) mg/dL Creatinine (0.66-1.25) mg/dL Est GFR (MDRD) Af Amer (>60 ml/min/1.73 sqM) Est GFR (MDRD) Non-Af (>60 ml/min/1.73 sqM) Glucose (74-99) mg/dL Plasma Lactic Acid Van 2.7 H* (0.7-2.0) mmol/L Calcium (8.4-10.2) mg/dL Phosphorus (2.5-4.5) mg/dL Magnesium (1.6-2.3) mg/dL Total Bilirubin (0.2-1.3) mg/dL AST (17-59) U/L ALT (21-72) U/L Alkaline Phosphatase (38-126) U/L Total Creatine Kinase (55-170) U/L CK-MB (CK-2) (0.0-2.4) ng/mL CK-MB (CK-2) Rel Index Troponin I (0.000-0.034) ng/mL Total Protein (6.3-8.2) g/dL Albumin (3.5-5.0) g/dL TSH (0.465-4.680) mIU/L Urine Color Yellow Urine Appearance Clear (Clear) Urine pH 5.5 (5.0-8.0) Ur Specific [place] 1.012 (1.001-1.035) Urine Protein 2+ H (Negative) Urine Glucose (UA) Negative (Negative) Urine Ketones Negative (Negative) Urine Blood Small H (Negative) Urine Nitrite Negative (Negative) Urine Bilirubin Negative (Negative) Urine Urobilinogen <2.0 (<2.0) mg/dL Ur Leukocyte Esterase Negative (Negative) Urine RBC 1 (0-5) /hpf Urine WBC 1 (0-5) /hpf Amorphous Sediment Rare H (None) /hpf - Radiology Data Radiology results: report reviewed (CT brain and C-spine, chest x-ray and pelvis x-ray are negative for traumatic injury), image reviewed Disposition Clinical Impression: Pancytopenia, Acute renal failure, Dehydration Disposition: ADMITTED IP TO THIS [facility] Condition: Fair Referrals: Chintan Casas MD [Primary Care Provider] - 1-2 days
[2017-07-21 09:00] LABS: Manual Review Performed
[2017-07-21 09:03] LABS: Creatine Kinase MB 1.2 ng/mL (0.0-2.4); Large Platelets Present; Troponin I 0.016 ng/mL (0.000-0.034)
[2017-07-21 09:04] LABS: Polychromasia Present
--- NOTE | 2017-07-21 09:35 | CT ---
EXAMINATION TYPE: CT brain korey wo con DATE OF EXAM: 07/21/2017 COMPARISON: 03/23/2017 and 05/11/2016 HISTORY: 81-year-old male poor historian. Patient fell today. Patient has laceration superior aspec t of scalp. CT DLP: 1186.3 mGycm Automated exposure control for dose reduction was used. Technique: Examination of the head was done in axial plane without intravenous contrast. Coronal and sagittal reconstructions performed. CT of the cervical spine was obtained in axial plane without intravenous injection of contrast mater ial. Coronal and sagittal reformatted images were obtained from the axial views for evaluation of f ractures, spinal alignment and canal. FINDINGS: Head: Mild left anterior vertex scalp contusion. No underlying calvarial fracture. Similar mild generalized cortical atrophy and mild patchy periventricular white matter hypodensities. There is no evidence of acute intracranial hemorrhage, acute ischemic changes, mass, mass-effect, or extra-axial fluid collection. There is no effacement of cerebral sulci or basal subarachnoid cister ns. There is no hydrocephalus. There is no midline shift. Li-white matter distinction is preserv ed. Moderate mucosal thickening within the ethmoid air cells. Cerumen within the bilateral external audit ory canals. Mastoid air cells well pneumatized. Cervical spine: No craniocervical junction anomaly, predental space widening, or prevertebral soft tissue swelling. Degenerative changes at the craniocervical and C1 dens articulation slightly progressed from 2016. Degenerative grade 1 anterolisthesis at C3-C4 and C4-C5 relatively similar. Multilevel facet and unco vertebral joint arthropathy is present. Reversal of the normal cervical lordosis centered along C4-C5 with multilevel disc osteophyte complex es and bridging anterior endplate spondylosis at C6 and C7 impressing on the posterior pharynx. No acute fracture of the cervical spine. Relatively similar moderate spinal canal stenosis at C5-C6 and mild at C3-C4 and C4-C5. Variable moderate neuroforaminal stenoses throughout, more moderate to severe on the right at C5-C6. There appears to be diffuse anasarca-type change which can be correlated clinically. Stable 1.6 cm hy podense nodule in the right lobe of the thyroid gland. Sagittal and coronal reformatted images confirm above findings. COMBINED IMPRESSION: 1. Mild left frontal vertex scalp contusion. No acute intracranial abnormality seen. Similar mild gen eralized atrophy. 2. No acute fracture of the cervical spine. Degenerative grade 1 anterolistheses at C3-C4 and C4-C5. Moderate to advanced spondylotic change as outlined above. 3. Clinically correlate; there appears to be diffuse anasarca type changes.
[2017-07-21] MEDS ORDERED: SODIUM CHLORIDE 0.9% 1,000 ML IV ONE (09:52)
[2017-07-21] MEDS ORDERED: ONDANSETRON 4 MG/2 ML VIAL IVP PRN (09:52)
[2017-07-21 14:28] VITALS: BMI 19.5
[2017-07-21] MEDS: MORPHINE SULFATE 10 MG/ML SYRINGE IVP PRN (15:50)
[2017-07-21] MEDS ORDERED: FUROSEMIDE 10 MG/ML 4 ML VIAL IV STA (18:46)
[2017-07-21] MEDS ORDERED: BISACODYL 10 MG SUPP RECTAL PRN (20:10)
[2017-07-21] MEDS ORDERED: HYDROcodone/APAP 5-325MG 1 EACH TAB PO PRN (20:10)
[2017-07-21] MEDS: ATORVASTATIN 80 MG TAB PO SCH (20:58)
[2017-07-21] MEDS: METOPROLOL TARTRATE 12.5 MG TAB PO SCH (20:58)
[2017-07-21] MEDS: SODIUM BICARBONATE TAB 650 MG TAB PO SCH (20:58)
[2017-07-21] MEDS: POLYETHYLENE GLYCOL 3350 17 GM POWD.PACK PO SCH (20:59)
[2017-07-21] MEDS ORDERED: TEMAZEPAM 30 MG CAP PO PRN (21:00)
--- NOTE | 2017-07-21 21:35 | HP ---
HISTORY AND PHYSICAL PRESENTING COMPLAINT: Weak and tired. HISTORY OF PRESENTING COMPLAINT: This is a very pleasant 81-year-old patient of Dr. Vieira. Patient also follows with Dr. Hewitt. Patient has a rather extensive medical history, including chronic kidney disease, coronary artery disease with stent, atrial fibrillation, not a candidate for anticoagulation, CHF, GERD, hard of hearing, hypertension, hyperlipidemia, BPH, depression. The patient had a history of myelodysplastic syndrome. 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 Patient was given hydroxyurea for his acute episodes, to which he does seem to respond, and goes off it again. Patient also has chronic pain and nausea, for which he smokes marijuana, as the Marinol pills have been very expensive. The patient lives by himself and up until a week ago was able to get around. He does drive and makes food for himself. The patient over the course of one week has been getting more and more weak, getting more nausea, not able to keep anything down. He got a bit of a congested cough. He has been gradually losing weight. He is tired and rundown. Patient's son and daughter are at the bedside. REVIEW OF SYSTEMS: CONSTITUTIONAL: Weak, tired, loss of appetite. HEENT: Decreased hearing. RESPIRATORY: Congested cough. CARDIOVASCULAR: None. GASTROINTESTINAL: None. MUSCULOSKELETAL: Aches and pains in different joints. DERMATOLOGICAL: Bruising. HEMATOLOGICAL: As above. LYMPHATICS: None. PSYCHIATRY: A little bit depressed. NEUROLOGICAL: None. PAST HISTORY: 1. Myelodysplastic syndrome with AML transformation. 2. Chronic kidney disease. 3. Colon artery disease with stent. 4. Atrial fibrillation. 5. Congestive heart failure. 6. GERD. 7. Hard of hearing. 8. Hypertension. 9. Hyperlipidemia. 10.BPH. 11.Depression. PAST SURGICAL HISTORY: 1. Bladder surgery. 2. Cardiac ablation. 3. Cardiac cath with stent. 4. Hernia repair. 5. Left thumb amputation. 6. Umbilical hernia repair. 7. Left ear skin cancer removal. 8. Abdominal aortic and aneurysm repair on 02/20/16 at [facility]. 9. ORIF. 10.Hip screw, left femur. 11.Bladder stone. 12.Bilateral cataract surgery. 13.Right thoracentesis. PAST PSYCH HISTORY: Depression. SOCIAL HISTORY: Lives by himself. Uses a cane and a walker sometimes. The patient is retired from the [employer] and also worked in a factory. Patient smoked for close to 29 years; stopped 37 years ago. Smoked a pack a day. FAMILY HISTORY: Myocardial infarction. HOME MEDICATIONS: 1. Hytrin 5 mg p.o. daily. 2. Restoril 30 mg p.o. at bedtime. 3. Sodium bicarb 650 mg p.o. b.i.d. 4. MiraLAX 17 grams p.o. at bedtime. 5. Zofran 4 mg p.o. q.8 p.r.n. 6. Prilosec 20 mg before breakfast. 7. Metoprolol 12.5 p.o. b.i.d. 8. [place] 5 one tablet p.o. q.6 p.r.n. 9. Procrit 40,000 units IM on Tuesday. 10.Marinol 2.5 mg p.o. at bedtime. 11.Celexa 10 mg p.o. daily. 12.PhosLo 2 tablets 3 times a day with meals. 13.Dulcolax 10 mg rectally daily p.r.n. 14.Lipitor 80 mg at bedtime. 15.Allopurinol 200 mg p.o. daily. 16.Claritin 10 mg p.o. daily p.r.n. 17.DuoNeb t.i.d. ALLERGIES: 1. CIPRO. 2. GATIFLOXACIN. 3. MOXIFLOXACIN. 4. LEVAQUIN. PHYSICAL EXAMINATION: VITAL SIGNS ON PRESENTATION: Temperature 96.9, pulse 64, respiration 18, blood pressure 110/54, pulse ox 100% on room air. GENERAL APPEARANCE: Thin build. Tired. Lying in bed. EYES: Pupils equal.. Conjunctivae pale. HEENT: Oral cavity with some missing teeth. The patient has got some facial bruising. NECK: JVD not raised. Mass not palpable. RESPIRATORY: Effort normal. LUNGS: Slightly decreased breath sounds. CARDIOVASCULAR: First and second sounds normal. Mild edema. ABDOMEN: Soft, nontender. Liver and spleen not palpable. LYMPHATIC: No lymph node palpable in neck or axillae. PSYCHIATRY: Alert and oriented x3. Mood and affect slightly anxious-appearing. NEUROLOGICAL: Slight facial asymmetry. Mouth is pulled to the right, which is chronic per the family. Power and sensation grossly intact. DERMATOLOGICAL: Diffuse bruising on the skin. INVESTIGATIONS: White count 61.3, hemoglobin 9.9, platelets 37. Patient's profile on 04/12/17 showed a white count of 1.5, hemoglobin 7.6, platelets 39. Neutrophil currently is 21.4. Monocytes are up to 14.7. Blast cells are 13.49. Potassium 4.7, BUN 62, creatinine 3.91, lactic acid 2.7, albumin 3.3. ASSESSMENT: 1. 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 The patient has been on hydroxyurea off and on and probably needs the same. 2. Acute renal failure, probably acute tubular necrosis; could be a component of prerenal, too. 3. 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 4. Coronary artery disease with history of stent. 5. Chronic congestive heart failure. Ejection fraction not known. 6. Gastroesophageal reflux disease. 7. Hard of hearing. 8. Hyperlipidemia. 9. Hypertension. 10.Benign prostatic hypertrophy. 11.Depression not otherwise specified. 12.Medical debility, multifactorial. 13.Lactic acidosis, probably from hypoperfusion. 14.Metabolic acidosis from renal failure. 15.Mild protein-calorie malnutrition from decreased oral intake. PLAN: Home medications will be resumed, including bicarb. Will give a heating pad for patient for generalized pain. Dr. Gleason will be consulted. I had a lengthy talk with the patient's son and daughter and the patient. Overall prognosis is guarded. The patient is FULL CODE. For nausea, will use a scopolamine patch. Encourage oral intake. MMODL / IJN: [id number] /
[2017-07-22] MEDS: IPRATROPIUM-ALBUTEROL 3 ML NEB INHALATION SCH ×3 (07:42→20:30)
[2017-07-22 08:12] LABS: Anisocytosis Slight; CHCM 29.2; HCT 29.4 % (39.0-53.0); HDW 3.29; HGB 8.9 gm/dL (13.0-17.5); Hypochromasia Marked; Immature Gran Flag Marked; Large Platelets Flag Slight; MCH 37.6 pg (25.0-35.0); MCHC 30.2 g/dL (31.0-37.0); MCV 124.8 fL (80.0-100.0); Macrocytosis Marked; Mean Platelet Volume 11.7; RBC 2.35 m/uL (4.30-5.90); RDW 19.7 % (11.5-15.5); WBC (Perox) 67.88
[2017-07-22 08:14] LABS: WBC 69.1 k/uL (3.8-10.6)
[2017-07-22 08:24] LABS: Calcium 8.3 mg/dL (8.4-10.2); Potassium 4.8 mmol/L (3.5-5.1)
[2017-07-22] MEDS: ALLOPURINOL 100 MG TAB PO SCH (08:40)
[2017-07-22] MEDS: METOPROLOL TARTRATE 12.5 MG TAB PO SCH ×2 (08:40→21:14)
[2017-07-22] MEDS: CALCIUM ACETATE 667 MG CAP PO SCH ×3 (08:40→17:36)
[2017-07-22] MEDS: PANTOPRAZOLE 40 MG TABLET PO SCH (08:41)
[2017-07-22] MEDS: TERAZOSIN 1 MG CAP PO SCH (08:41)
[2017-07-22] MEDS: SODIUM BICARBONATE TAB 650 MG TAB PO SCH ×2 (08:41→21:30)
[2017-07-22] MEDS: CITALOPRAM HYDROBROMIDE 10 MG TAB PO SCH (08:41)
[2017-07-22 09:01] LABS: Add Differential Manual Differential
[2017-07-22 09:06] LABS: Band Neutrophils % 6 %; Manual Review Performed; Metamyelocytes % 4 %; Myelocytes % 6 %; Nucleated Red Blood Cells 0 /100 WBC (0-0); Total Cells Counted 200
[2017-07-22 09:07] LABS: Large Platelets Present
--- NOTE | 2017-07-22 14:26 | P.PN ---
Progress Note - Text Progress Note Date: 07/22/17 DATE OF SERVICE: 07/22/2017 PRESENTING COMPLAINT: Weak and tired HISTORY OF PRESENT ILLNESS: 81-year-old male with a history of myelodysplastic syndrome transformed into AML received hydroxyurea further acute episodes and was responsive to it. Chronic pain and nausea and he smokes marijuana as well as Marinol. Was independent until about a week ago and became progressively more weak and more nauseated not able to eat. Admitted for the same. INTERVAL HISTORY: 07/22/2017: Patient seen in follow-up, sitting up in bed very lethargic and very hard of hearing doesn't talk much. Appetite is very low barely ate 10% of his breakfast. Nephrology consulted for elevated BUN and creatinine. REVIEW OF SYSTEMS: Done for constitutional ,cardiovascular, GI, pulmonary with relevant findings as above. CURRENT MEDICATIONS Wilson, DuoNeb, Zyloprim, Lipitor, PhosLo, Celexa, Aranesp, Lopressor, Protonix, Restoril, Tarazosyn PHYSICAL EXAM VITAL SIGNS: Temperature 98.2, pulse 76, respiratory rate 16, blood pressure 114/58, oxygen saturation 98% on 2 L. GENERAL APPEARANCE: Thin build up in bed, tired appearing. EYES: Pupils equal. Conjunctiva normal. NECK: JVD not raised. Mass not palpable. RESPIRATORY: Respiratory effort normal. Lungs diminished to auscultation. CARDIOVASCULAR: First and second sounds normal. Mild edema. ABDOMEN: Soft. Liver and spleen not palpable. No tenderness. No mass palpable. PSYCHIATRY: Alert and oriented x3. Mood and affect mildly anxious and somewhat lethargic NEUROLOGICAL: Slight facial asymmetry mouth was pulled to the right, chronic per family. 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 Patient has been on hydroxyurea off and on and probably needs to same, slow to respond -Acute renal failure, probably acute tubular necrosis, could be a component of prerenal . -Chronic kidney disease stage 3-4 probably from nephrosclerosis. -Coronary Artery disease with history of stent. -Chronic congestive heart failure, ejection fraction not known. -Gastroesophageal reflux disease. -Hard of hearing. -Hyperlipidemia. -Essential Hypertension. -Benign prostatic hypertrophy. -Depression not otherwise specified. -Medical debility, multifactorial. -Lactic acidosis, probably from hypoperfusion. -Metabolic acidosis from renal failure. -Mild protein calorie malnutrition from decreased oral intake. -CODE STATUS full code PLAN: Await input from Dr. Woodard, nephrology consulted for acute on chronic renal failure. Continue scopolamine patch for nausea. Plan of care discussed at the bedside we will continue to follow closely. LIQUOR TESTER statement: Patient was seen and examined by nurse practitioner Penny Keane and all elements of the case discussed with attending Dr. Guzman
[2017-07-22] MEDS: LACTATED RINGERS 1,000 ML IV SCH (15:55)
[2017-07-22] MEDS: POLYETHYLENE GLYCOL 3350 17 GM POWD.PACK PO SCH (21:29)
[2017-07-22] MEDS: ATORVASTATIN 80 MG TAB PO SCH (21:29)
[2017-07-22] MEDS: HYDROXYUREA 500 MG CAP PO SCH (21:55)
--- NOTE | 2017-07-22 22:33 | PN ---
PROGRESS NOTE DATE OF SERVICE: July 23, 2017. ATTENDING NOTE: This patient has seen and examined by me. I discussed with my nurse practitioner, Ms. Keane. This is a patient with myelodysplastic syndrome. Admitted with most likely AML transfer here with acute exacerbation. The patient has multiple other medical problems including chronic nausea and chronic pain. Patient's other daughter is sitting at the bedside. Patient barely ate his breakfast. Weak and tired. PHYSICAL EXAMINATION: Temperature 98.2, pulse 70, respiratory rate 16, blood pressure 104/58, pulse ox 98% on 2 L. General appearance: Lying in bed, tired appearing. Respiratory effort normal. LUNGS: Decreased breath sounds. CARDIOVASCULAR: First and second are normal. Mild edema present. Psych: Awake, answering questions, although lethargic. Slight facial asymmetry present. INVESTIGATIONS: White count 69.1, hemoglobin 8.9, potassium 4.8, BUN 52, creatinine 3.91. ASSESSMENT: 1. Chronic myelodysplastic syndrome with acute myeloid leukemia transformation with acute exacerbation. 2. Acute renal failure probably acute tubular necrosis could be component of prerenal, could be a manifestation of AML. 3. Chronic kidney disease, stage 3-4 from nephrosclerosis. 4. Protein calorie malnutrition. PLAN: Overall prognosis is guarded. Await input from Hematology. Patient blood pressure is running a little low later in the day. Patient is started on lactate ringers. Overall prognosis is guarded. Follow. SHANIA / LELIAN: [id number] /
--- NOTE | 2017-07-23 00:48 | P.CONS ---
History of Present Illness - Reason for Consult Consult date: 07/22/17 - History of Present Illness This is an 81-year-old gentleman with a long-standing history of myelodysplasia. He was recently admitted in late 03/19 with the progressive pancytopenia and sudden increase in white blood cells. 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 Started on Hydrea and surprisingly had an excellent response to the same with rapid improvement in his white blood cells. Renal function also improved and stabilized. The patient was overall felt to be a poor candidate for treatment, but due to response to the Hydrea, did want to discuss treatment with the lower intensity therapy such as Dacogen. She was readmitted in 04/18 due to continued weakness, anemia and lower extremities swelling. He did improve partially with ggressive supportive treatment. He was ultimately able to discharge home. He has been following up in the office. He has not been felt to be an optimal candidate for even lower intensity therapy so far based on his poor performance status. He has been started back on Procrit to try to improve his hemoglobin. he patient came back to the emergency room, as he had been getting progressively weaker. He had been having falls. On the day of admission he was so weak that he could not get out of bed. In the emergency room his hemoglobin was 9.9. however when blood cell count had increased into the 60 range with marked left shift, including blasts noted. On 07/13/17 and CBC done in the ot had been only 13,000 with a fairly normal differential. the consult was therefore placed for further evaluation and recommendations Review of Systems Constitutional: Reports poor appetite, Reports weakness, Reports weight loss Eyes: denies blurred vision, denies pain Ears: bilateral: decreased hearing, deny: ear discharge, earache, tinnitus Ears, nose, mouth and throat: Denies headache, Denies sore throat Cardiovascular: Reports shortness of breath Respiratory: Reports dyspnea Gastrointestinal: Reports loss of appetite Genitourinary: Reports as per HPI Musculoskeletal: Reports muscle weakness Integumentary: Denies pruritus, Denies rash Neurological: Reports weakness Psychiatric: Denies anxiety, Denies depression Endocrine: Reports fatigue, Reports weight change Hematologic/Lymphatic: Reports as per HPI Past Medical History Past Medical History: Atrial Fibrillation, Atrial Flutter, Blood Disorder, Coronary Artery Disease (CAD), Cancer, Heart Failure, CVA/TIA, GERD/Reflux, Hearing Disorder / Deafness, Hyperlipidemia, Hypertension, Myocardial Infarction (IA), Pneumonia, Prostate Disorder, Rheumatoid Arthritis (RA), Skin Disorder Additional Past Medical History / Comment(s): 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 Last Myocardial Infarction Date:: unk History of Any Multi-Drug Resistant Organisms: None Reported Past Surgical History: Bladder Surgery, Cardiac Ablation, Heart Catheterization With Stent, Hernia Repair, Orthopedic Surgery Additional Past Surgical History / Comment(s): Lt thumb amp, umbilical hernia repair, L ear skin cancer removal, abd aortic stent for an aneurysm repair on 02/12/16 at [facility], ORIF intermedullary hip screw(lt femur), BLADDER STONE SX, BILAT CATARACT SX, PAULA, BMA with bx, thoracentesis R lung, colonoscopy. Past Anesthesia/Blood Transfusion Reactions: Postoperative Nausea & Vomiting ( PONV) Additional Past Anesthesia/Blood Transfusion Reaction / Comm: Pt has received blood in the past without reaction. Date of Last Stent Placement:: 2014 at [facility] Past Psychological History: Depression Additional Psychological History / Comment(s): Pt is back residing in his home. Pt uses a cane/walker when upand has had falls. 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 He has a son, Brandon who checks on him regularly. He cooks his own food and manages his own medications. He drives. Smoking Status: Former smoker Past Alcohol Use History: Occasional Additional Past Alcohol Use History / Comment(s): started smoking 1948, quit 1976 smoked less than 1 ppd. Past Drug Use History: Marijuana Additional Drug Use History / Comment(s): Pt was using marinol to improve appetite. - Past Family History Father Family Medical History: Myocardial Infarction (IA) Additional Family Medical History / Comment(s): heart attack Mother Family Medical History: Cancer Additional Family Medical History / Comment(s): throat cancer Sister(s) Family Medical History: Cancer Additional Family Medical History / Comment(s): 2 sisters that have "everything " Medications and Allergies Home Medications Medication Instructions Recorded Confirmed Type Loratadine [Claritin] 10 mg PO DAILY PRN 01/21/15 07/21/17 History Metoprolol Tartrate 12.5 mg PO BID 01/21/15 07/21/17 History Omeprazole [PriLOSEC] 20 mg PO AC-BRKFST 01/21/15 07/21/17 History Terazosin [Hytrin] 5 mg PO QAM 01/21/15 07/21/17 History Atorvastatin [Lipitor] 80 mg PO HS 02/23/16 07/21/17 History Epoetin Jamie [Procrit] 40,000 unit IM TU 05/11/16 07/21/17 History Ondansetron [Zofran] 4 mg PO Q8HR PRN 09/20/16 07/21/17 History Allopurinol [Zyloprim] 200 mg PO DAILY tab 03/31/17 07/21/17 Rx Calcium Acetate [PhosLo] 1,334 mg PO TID-W/MEALS cap 03/31/17 07/21/17 Rx Dronabinol [Marinol] 2.5 mg PO HS #10 03/31/17 07/21/17 Rx Fluticasone Nasal [place] [Flonase 2 spray EA NOSTRIL DAILY spray 03/31/17 Rx Nasal [place]] Ipratropium-Albuterol Nebulize 3 ml INHALATION RT-TID neb 03/31/17 07/21/17 Rx [Duoneb 0.5 mg-3 mg/3 ml Soln] Polyethylene Glycol 3350 [Miralax] 17 gm PO HS pack 03/31/17 07/21/17 Rx Sodium Bicarbonate Tab 650 mg PO BID tab 03/31/17 07/21/17 Rx Bisacodyl [Dulcolax] 10 mg RECTAL DAILY PRN 04/04/17 07/21/17 History Hydrocodone/Acetaminophen [[place] 1 tab PO Q6HR PRN #20 04/11/17 07/21/17 Rx 5-325] Temazepam [Restoril] 30 mg PO HS #20 04/11/17 07/21/17 Rx Citalopram Hydrobromide [CeleXA] 10 mg PO DAILY 07/21/17 07/21/17 History Allergies Allergy/AdvReac Type Severity Reaction Status Date / Time ciprofloxacin [From Cipro] Allergy Unknown Verified 07/21/17 07:40 ciprofloxacin HCl Allergy Unknown Verified 07/21/17 07:40 [From Cipro] gatifloxacin [From Tequin] Allergy Unknown Verified 07/21/17 07:40 moxifloxacin HCl Allergy Unknown Verified 07/21/17 07:40 [From Avelox] levofloxacin [From Levaquin] AdvReac joint Verified 07/21/17 07:40 swelling Physical Exam Vitals: Vital Signs Temp Pulse Pulse Resp BP Pulse Ox 07/22/17 14:30 97 F L 68 15 79/49 97 07/22/17 13:51 72 07/22/17 13:40 72 07/22/17 07:00 98.2 F 76 16 114/58 98 07/21/17 22:36 98.5 F 63 16 106/51 93 L 07/21/17 20:40 98.1 F 74 15 92/55 07/21/17 19:35 98 F 72 16 93/45 97 07/21/17 18:26 79 16 Intake and Output 07/22/17 07/22/17 07/22/17 06:59 14:59 22:59 Intake Total 118 Balance 118 Intake: Intake, IV Titration 118 Amount Sodium Chloride 0.9% 1, 118 000 ml @ 100 mls/hr IV . Q10H ONE Rx#:[id number] Other: Voiding Method Urinal Urinal Incontinent # Voids 2 Weight 61.5 kg - Constitutional General appearance: mild distress - EENT Eyes: EOMI, PERRLA ENT: hearing grossly normal, normal oropharynx - Neck Neck: no lymphadenopathy - Respiratory Respiratory: bilateral: diminished - Cardiovascular Rhythm: regular Heart sounds: normal: S1, S2 - Gastrointestinal General gastrointestinal: soft, splenomegaly ( 3-4 fingers below costal margin) - Integumentary Integumentary: normal - Neurologic Neurologic: CNII-XII intact - Musculoskeletal Musculoskeletal: generalized weakness, strength equal bilaterally - Psychiatric Psychiatric: A&O x's 3 Results CBC & Chem 7: 07/22/17 07:42 07/22/17 07:42 Labs: Abnormal Lab Results - Last 24 Hours (Table) 07/22/17 07/22/1707/22/17 Range/Units 07:42 07:42 07:42 WBC 69.1 H* (3.8-10.6) k/uL RBC 2.35 L (4.30-5.90) m/uL Hgb 8.9 L (13.0-17.5) gm/dL Hct 29.4 L (39.0-53.0) % MCV 124.8 H (80.0-100.0) fL MCH 37.6 H (25.0-35.0) pg MCHC 30.2 L (31.0-37.0) g/dL RDW 19.7 H (11.5-15.5) % Plt Count 38 L* (150-450) k/uL Neutrophils # (Manual) 20.70 H (1.3-7.7) k/uL Lymphocytes # (Manual) 4.84 H (1.0-4.8) k/uL Monocytes # (Manual) 21.42 H (0-1.0) k/uL Metamyelocytes # (Man) 2.76 H (0) k/uL Myelocytes # (Manual) 4.15 H (0) k/uL Blast Cells # (Man) 15.89 H (0) k/uL Sodium 136 L (137-145) mmol/L Chloride 109 H (98-107) mmol/L Carbon Dioxide 15 L (22-30) mmol/L BUN 62 H (9-20) mg/dL Creatinine 3.91 H (0.66-1.25) mg/dL Glucose 65 L (74-99) mg/dL Plasma Lactic Acid Van 2.6 H* (0.7-2.0) mmol/L Calcium 8.3 L (8.4-10.2) mg/dL Microbiology - Last 24 Hours (Table) 07/21/17 08:14 Urine Culture - Final Urine,Voided Comments: musculoskeletal [id number] reviewed Chest x-ray: report reviewed CT Scan - head: report reviewed Assessment and Plan (1) 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 This had persisted despite him being off the Hydrea now for about 2 months. However, his CBC now shows marked elevation of WBC with significant left shift including blasts. This is a major difference from the CBC done in the office only 9 days ago. This appears to indicate an aggressive relapse the results, and implications were discussed with the patient and his family in detail. he is certainly not a candidate for standard aggressive chemotherapy , or even lower intensity chemotherapy with high hypo-methylating agents. Therefore, in terms of treatment, Hydrea is really the only option. However the patient's tolerance to Hydrea was also ultimately quite poor, Leading to its discontinuation. I therefore also discuss comfort care with him and his family. The patient and his family do want to try the Hydrea. However they only want to try 500 mg once a day as they are concerned about side effects from higher doses. I advised them, the chances of getting a response at this time even with higher dose of Hydrea will be comparatively low. The chances of getting response of only 500 mg per day would be extremely slim. Therefore they were ultimately underwent trying a low-dose of 500 mg twice a day with an intention to Scale the dose downl as soon as possible, if the patient responds. Current Visit: No Status: Acute Code(s): C92.00 - ACUTE MYELOBLASTIC LEUKEMIA, NOT HAVING ACHIEVED REMISSION SNOMED Code(s): 02890483 (2) Bicytopenia Narrative/Plan: hemoglobin and platelets are still in a safe range, and does not require supplementation. These are expected to fall. continue to monitor and transfuse if needed Current Visit: Yes Status: Acute Code(s): D75.89 - OTHER SPECIFIED DISEASES OF BLOOD AND BLOOD-FORMING ORGANS SNOMED Code(s): 125478405
[2017-07-23 06:30] VITALS: BP 87/52; TEMP 98.8
[2017-07-23 06:45] LABS: Glucose,Whole Blood 78 mg/dL (75-99)
[2017-07-23 07:03] LABS: Anisocytosis Slight; CHCM 30.2; HCT 25.5 % (39.0-53.0); HDW 3.32; HGB 7.8 gm/dL (13.0-17.5); Hypochromasia Marked; Immature Gran Flag Marked; Large Platelets Flag Slight; MCH 36.6 pg (25.0-35.0); MCHC 30.4 g/dL (31.0-37.0); MCV 120.2 fL (80.0-100.0); Macrocytosis Marked; Mean Platelet Volume 11.4; RBC 2.12 m/uL (4.30-5.90); RDW 19.7 % (11.5-15.5); WBC (Perox) 62.58
[2017-07-23] MEDS: IPRATROPIUM-ALBUTEROL 3 ML NEB INHALATION SCH ×3 (07:30→19:58)
[2017-07-23 07:31] LABS: Calcium 8.6 mg/dL (8.4-10.2); Phosphorous 4.4 mg/dL (2.5-4.5); Potassium 4.3 mmol/L (3.5-5.1); Total Bilirubin 0.3 mg/dL (0.2-1.3); Uric Acid 12.2 mg/dL (3.5-8.5)
[2017-07-23] MEDS: LACTATED RINGERS 1,000 ML IV SCH (07:39)
[2017-07-23 07:57] LABS: Add Differential Manual Differential
[2017-07-23 08:01] LABS: Large Platelets Present; Polychromasia Present
[2017-07-23] MEDS: CALCIUM ACETATE 667 MG CAP PO SCH ×3 (08:27→16:21)
[2017-07-23] MEDS: SODIUM BICARBONATE TAB 650 MG TAB PO SCH ×2 (08:27→20:33)
[2017-07-23] MEDS: ALLOPURINOL 100 MG TAB PO SCH (08:27)
[2017-07-23] MEDS: PANTOPRAZOLE 40 MG TABLET PO SCH (08:27)
[2017-07-23] MEDS: HYDROXYUREA 500 MG CAP PO SCH ×2 (08:27→20:32)
[2017-07-23] MEDS: CITALOPRAM HYDROBROMIDE 10 MG TAB PO SCH (08:27)
[2017-07-23] MEDS: METOPROLOL TARTRATE 12.5 MG TAB PO SCH ×2 (08:27→20:33)
[2017-07-23] MEDS: TERAZOSIN 1 MG CAP PO SCH (08:28)
[2017-07-23] MEDS: MORPHINE SULFATE 10 MG/ML SYRINGE IVP PRN ×4 (08:30→21:54)
[2017-07-23] MEDS: SODIUM CHLORIDE 0.9% 1,000 ML IV SCH ×2 (08:32→22:04)
[2017-07-23] MEDS ORDERED: LORazepam 2 MG/ML INJ IV PRN (08:43)
[2017-07-23 09:08] VITALS: PULSE 103
[2017-07-23 09:40] VITALS: RESP 22
--- NOTE | 2017-07-23 16:51 | PN ---
PROGRESS NOTE DATE OF SERVICE: 07/23/2017. PRESENTING COMPLAINT: Tired. 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 Yesterday evening, Dr. Gleason spoke to the family. He was started on a small dose of hydroxyurea. By this morning, family is now looking into making the patient comfortable, do not want any further treatment. The patient is rather lethargic, not eating much. Several family members are present, including 2 daughters, at the bedside. REVIEW OF SYSTEMS: Difficult to obtain. Patient is rather lethargic. CURRENT MEDICATIONS: Include p.o. hydroxyurea. PHYSICAL EXAMINATION: Temperature 98.8, pulse 103, respirations 20, blood pressure 87/52, pulse ox 96% on 2L. GENERAL APPEARANCE: Lying in bed, tired-appearing. EYES: Pupils equal. Conjunctivae pale. NECK: JVD unable to assess. RESPIRATORY: Effort normal. LUNGS: Decreased breath sounds. CARDIOVASCULAR: First and second sounds minimal. Some edema. ABDOMEN: Soft, nontender. Liver, spleen not palpable. PSYCHIATRY: Lethargic. Barely able to answer questions. INVESTIGATIONS: Hemoglobin 7.8, platelets 31. Potassium 4.3, BUN 57, creatinine 3.96. ASSESSMENT: 1. 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 2. Acute renal failure, probably acute tubular necrosis. Could be acute tubular necrosis/prerenal. 3. 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 4. Coronary artery disease with prior history of stent. 5. Chronic congestive heart failure, ejection fraction not known. 6. Gastroesophageal reflux disease. 7. Hard of hearing. 8. Hyperlipidemia. 9. Essential hypertension. 10.Benign prostatic hypertrophy. 11.Depression, not otherwise specified. 12.Medical debility, multifactorial. 13.Lactic acidosis from hypoperfusion. 14.Metabolic acidosis from renal failure. 15.Mild protein-calorie malnutrition from decreased oral intake. 16.Metabolic encephalopathy, progressive. 17.CODE STATUS: DO NOT RESUSCITATE. PLAN: I spoke to the family members at the bedside. They did not want anything further to happen. Pain control will be done. Hydroxyurea will be held. Oncology team has not been by this morning. ADVANCE CARE PLANNING: Advanced care planning was discussed with his daughters in detail. We talked about pain medication, different aspects about hospice and end of life care, including inpatient care for pain management an outpatient care if that was to happen. We talked about a diet, will be comfort feeding. The patient's daughter's choice is [facility] and that will be initiated to see patient if will qualify for inpatient hospice. Total time spent for advanced care planning in addition to the progress note on the patient was about 20 minutes. SHANIA / BALDOMERO: [id number] /
[2017-07-23] MEDS: ATORVASTATIN 80 MG TAB PO SCH (20:32)
[2017-07-23] MEDS: POLYETHYLENE GLYCOL 3350 17 GM POWD.PACK PO SCH (20:33)
[2017-07-23 21:43] LABS: Band Neutrophils % 23 %; Metamyelocytes % 5 %; Myelocytes % 7 %; Nucleated Red Blood Cells 1 /100 WBC (0-0); Total Cells Counted 200
[2017-07-24] MEDS: MORPHINE SULFATE 10 MG/ML SYRINGE IVP PRN (02:19)
[2017-07-24] MEDS: PANTOPRAZOLE 40 MG TABLET PO SCH (07:06)
[2017-07-24] MEDS: CALCIUM ACETATE 667 MG CAP PO SCH (07:06)
[2017-07-24] MEDS: IPRATROPIUM-ALBUTEROL 3 ML NEB INHALATION SCH (07:36)
--- NOTE | 2017-07-25 04:53 | DS ---
DISCHARGE SUMMARY DATE OF ADMISSION: July 21, 2017. DATE PATIENT : 07/24/2017. FINAL DIAGNOSIS: CAUSE OF : 1. Chronic myelodysplastic syndrome, with acute myeloid leukemia transformation. OTHER MEDICAL CONDITIONS: 1. Acute renal failure probably acute tubular necrosis. 2. 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 3. Coronary artery disease prior history of stent. 4. Chronic congestive heart failure. Ejection fraction not known. From underlying coronary artery disease. 5. Gastroesophageal reflux disease. 6. Hard of hearing. 7. Hyperlipidemia. 8. Essential hypertension. 9. Benign prostatic hypertrophy. 10.Depression, not otherwise specified. 11.Medical debility, multifactorial. 12.Lactic acidosis from hypoperfusion. 13.Metabolic acidosis from renal failure. 14.Mild protein calorie malnutrition from decreased oral intake. 15.Metabolic encephalopathy, progressive. 16.CODE STATUS: DO NOT RESUSCITATE. HOSPITAL COURSE: This patient with known myelodysplastic syndrome presented with acute myeloid leukemia transformation, had been doing poorly for the last 1 week. Care was discussed with the children and they did speak to Dr. Gleason. Family finally decided to make the patient comfort care and the patient rapidly declined and early this morning. Copy to Dr. Casas and Dr. Hewitt. CONSULTATIONS: Dr. Gleason from Oncology. MMODL / IJN: [id number] /
[2017-07-26] MEDS ORDERED: DARBEPOETIN ALFA 100MCG/0.5ML SYRINGE SQ SCH (09:00)
== END 2017-07-24 07:15 | disposition expired | DRG 834 ==
LOC: EC 06:54 → 5MS5E 09:52
PROVIDERS: ADMIT Hospitalist; ATTEND Hospitalist
DX: C92.00 Acute myeloblastic leukemia, not having achieved remission (principal); E88.3 Tumor lysis syndrome; G93.41 Metabolic encephalopathy; N17.0 Acute kidney failure with tubular necrosis; E87.2 Acidosis; I13.0 Hypertensive heart and chronic kidney disease with heart failure and stage 1 through stage 4 chronic kidney disease, or unspecified chronic kidney disease; N18.4 Chronic kidney disease, stage 4 (severe); I48.92 Unspecified atrial flutter; I50.9 Heart failure, unspecified; E44.1 Mild protein-calorie malnutrition; I48.91 Unspecified atrial fibrillation; M06.9 Rheumatoid arthritis, unspecified; E78.5 Hyperlipidemia, unspecified; F12.90 Cannabis use, unspecified, uncomplicated; F32.9 Major depressive disorder, single episode, unspecified; G89.29 Other chronic pain; H91.90 Unspecified hearing loss, unspecified ear; I25.10 Atherosclerotic heart disease of native coronary artery without angina pectoris; K21.9 Gastro-esophageal reflux disease without esophagitis; M10.9 Gout, unspecified; N40.0 Benign prostatic hyperplasia without lower urinary tract symptoms; N21.0 Calculus in bladder; M54.5 Low back pain; R05 Cough; I25.2 Old myocardial infarction; I71.4 Abdominal aortic aneurysm, without rupture; Z51.5 Encounter for palliative care; Z66 Do not resuscitate; Z79.899 Other long term (current) drug therapy; Z88.1 Allergy status to other antibiotic agents; Z95.5 Presence of coronary angioplasty implant and graft; Z87.891 Personal history of nicotine dependence; Z85.828 Personal history of other malignant neoplasm of skin; Z82.49 Family history of ischemic heart disease and other diseases of the circulatory system
CPT/HCPCS: 36415; 70450; 71020; 72125; 72170; 80048; 80053; 81001; 82550; 82553; 83605; 83735; 84100; 84443; 84484; 84550; 85025; 85610; 85730; 87086; 93005; 94640; 96361; 96374; 99285